=== PATIENT | male | born 1945 | race Caucasian/White ===

== ENCOUNTER → 2018-01-19 16:47 | Outpatient (CLI) | payer MEDICARE, OTHER, SELFPAY ==
[2018-01-19 18:04] LABS: AST(SGOT) 17 U/L (15-37); Alanine Aminotransfer ALT/SGPT 25 U/L (16-61); Cholesterol 171 mg/dL (200); High Density Lipoprotein 31 mg/dL; Triglycerides 375 mg/dL; Very Low Density Lipoprotein 75 mg/dL (5-40)
== END ==
PROVIDERS: Family Provider Family Medicine; PCP Family Medicine; Visit Provider Family Medicine
DX: E78.5 Hyperlipidemia, unspecified (principal)
CPT/HCPCS: 36415; 80061; 84450; 84460

== ENCOUNTER → 2018-01-28 13:26 | Outpatient (CLI) | payer MEDICARE, OTHER, SELFPAY ==
[2018-01-28 13:45] LABS: CREATININE FINGERSTICK 1.3 mg/dL (0.70-1.30)
== END ==
PROVIDERS: Family Provider Family Medicine; PCP Family Medicine; Visit Provider Family Medicine
DX: R91.1 Solitary pulmonary nodule (principal)
CPT/HCPCS: 71260; Q9967

== ENCOUNTER 2018-07-06 07:10 | Observation (INO) | payer MEDICARE, OTHER, SELFPAY ==
[2017-07-17 10:37] VITALS: BMI 28.6
[2018-07-06] VITALS (12 sets, daily range): BP systolic 137–176; BP diastolic 73–97; PULSE 61–81; RESP 16–17; TEMP 36.4–36.8; O2SAT 91–97; BMI 28.3; BMI 27.8; BMI 27.9
--- NOTE | 2018-07-06 07:30 | EKG12_ITS ---
Test Reason : DIZZY Blood Pressure : / mmHG Vent. Rate : 068 BPM Atrial Rate : 068 BPM P-R Int : 210 ms QRS Dur : 094 ms QT Int : 436 ms P-R-T Axes : 034 -12 065 degrees QTc Int : 463 ms Sinus rhythm with 1st degree A-V block Low voltage QRS (limb leads) Confirmed by MAMTA POTTS, LISA ([id number]), assistant editor CHRISTEN ALCALA ([id number]) on 07/08/2018 1:46:38 PM Referred By: NAYELI Confirmed By:LISA OLEARY MD
--- NOTE | 2018-07-06 07:30 | CT_ITS ---
STUDY: CT BRAIN WITHOUT CONTRAST REASON FOR EXAM: Male, 73 years old. VERTIGO(CONSTANT) AND NYSTAGMUS TO RIGHT RADIATION DOSAGE (If Supplied By Facility): CTDIvol = ( 44.99 ) mGy, DLP = ( 796.11 ) mGycm TECHNIQUE: Transaxial CT imaging of the brain was performed without administration of intravenous contrast material. Individualized dose optimization techniques were used for this CT. COMPARISON: None. FINDINGS: There is cerebral atrophy with widening of the extra-axial spaces and ventricular dilatation. There are areas of decreased attenuation within the white matter tracts of the supratentorial brain, consistent with microvascular disease changes. There is no intracranial hemorrhage. There are no findings of an acute ischemic infarction. Normal soft tissue structures. Normal visualized paranasal sinuses. CT/Brain/Head without Contrast IMPRESSION: Chronic involutional changes of the brain. Electronically Signed: Jd Tucker MD at 8:20 EST Tel , Service support ,
--- NOTE | 2018-07-06 07:30 | RAD_ITS ---
STUDY: X-RAY CHEST REASON FOR EXAM: Male, 73 years old. Dizziness. TECHNIQUE: Single AP portable view of the chest. COMPARISON: Comparison is made with prior examination dated December 10, 2016. FINDINGS: EKG electrodes are seen. Stable diffuse increased interstitial markings in both lungs suggestive of scarring. There has been essentially no change. There is no demonstrated pleural abnormality. Normal size heart. Normal mediastinum and gay. Normal visualized pulmonary arteries. There is atherosclerotic tortuosity of the aortic arch and descending thoracic aorta. Normal visualized thoracic spine. Normal visualized ribs, clavicles, and shoulders. There is no demonstrated abnormality of the visualized soft tissue structures of the upper abdomen. RAD/Chest 1 View IMPRESSION: Stable diffuse increased interstitial markings suggesting scarring. No acute abnormality is seen. Electronically Signed: Faisal Rangel MD at 8:35 EST Tel [phone], Service support ,
--- NOTE | 2018-07-06 07:36 | ED.VISSUMM ---
- ER Visit Summary Date of Service: 07/06/18 Chief Complaint: Motion and nausea and vomiting History of Present Illness: The patient is a 73 M who presents with dizziness that started yesterday while shopping the driveway with his . He states when he looks at objects they rotate towards the right. states yesterday he was pale and was diaphoretic. The dizziness has been constant. He states it is not as severe when supine versus upright. There may be an orthostatic component. He denies decreased hearing or ringing in his ears. He denies trouble with speech or swallowing. He does report paresthesia lower extremities, which is a chronic condition. He also informed me that he has a low oxygen level. He denies double vision or loss of vision partial or complete. There is no history of head trauma. He is on no anticoagulant. He denies melena, hematochezia or maroon colored stool. He denies bruising easily. He states he has a spot on his lung. He gets CTs every 6 months to follow the spot on his lungs. He denies headache. He denies difficulty using his arms or legs. He denies numbness on one side of his body. He reports difficulty walking. He denies chest pain, dyspnea at rest, dyspnea on exertion. He denies orthopnea or PND. He denies abdominal pain, and last bowel movement was yesterday. He denies myalgias, arthralgias or back pain. He denies urticaria or angioedema. He does report a chronic cough times 2 years. He states he has seen to off premise service representative and the etiology of his cough is unknown. Physical Examination: Vital signs noted and blood pressure is elevated 176/88. Pulse ox at rest on room air varies between 89 and 91%. Head is atraumatic normocephalic. Pupils are equal round reactive. Extraocular muscles are intact. There is nystagmus with the fast component to the right. It appears rotatory. TMs are pearly white with landmarks noted. Nares patent with no drainage. Posterior pharynx without erythema or exudate. Uvula is midline. There is no dysphonia or dysphasia. Trachea is midline. There is no stridor with auscultation of the neck. No carotid bruits were noted. Heart is regular without murmur, gallop or rub. S1 and S2 are normal. Lungs are clear to auscultation with good movement of air bilaterally. Abdomen soft nontender. There is no palpable pulsatile mass. There is no abdominal bruit. Patient does have clubbing of his fingers. There is stigmata of peripheral arterial disease lower extremity. Patient is alert and oriented ?3. Motor is 5 over 5. Sensory is intact. DTRs are symmetric with no clonus or Babinski sign. Cranial 2 through 12 are intact. Cerebellar testing is normal. NIH is 0. [place]-Hallpike maneuver was performed. This did not exacerbate his symptoms. The eye askew test is negative. Test Results: EKG reveals a sinus rhythm rate of 68 with a first-degree AV block. [place] interval is prolonged. QRS durations normal. [place] is normal. Chest x-ray reveals pulmonary fibrosis. CT of the head reviewed by me and interpreted by radiologist as no acute process. There is chronic involutional changes noted. White count is 11.9 thousand with no shift. H&H 16.6 and 49.2. Glucose is elevated 120. Troponin less than 0.015. Emergency Department Course and Treatment: Stroke evaluation order set was initiated. With complaint of dizziness, which patient defines as motion and nystagmus with central gaze that does not fatigue need to evaluate for posterior circulatory etiology versus atypical presentation for peripheral vertigo. Also need to evaluate for other causes of central nystagmus. Treatment Plan: CT of the head. He was placed on oxygen since pulse ox is low. Disposition: Hospitalist was paged for further workup of patient's vertigo and believe hypoxia secondary to pulmonary fibrosis. And, this would explain patient's clubbing and peripheral neuropathy. Impression: 1. Vertigo uncertain etiology 2. Hypoxia 3. History of pulmonary fibrosis 4. Hyperglycemia in a nondiabetic patient 5. Polycythemia vera 5. History of hypercholesterolemia This note was generated with [employer] software. It may contain incorrect words, spelling, and punctuation that were not noted in review of the chart prior to signing ED Disposition - Plan for ED Patient: Chief Complaint: Dizziness Referrals: Anayeli Marino MD [Primary Care Provider] -
--- NOTE | 2018-07-06 07:47 | ED.DCSUM_ITS ---
- ER Visit Summary Date of Service: 07/06/18 Chief Complaint: Motion and nausea and vomiting History of Present Illness: The patient is a 73 M who presents with dizziness that started yesterday while shopping the driveway with his . He states when he looks at objects they rotate towards the right. states yesterday he was pale and was diaphoretic. The dizziness has been constant. He states it is not as severe when supine versus upright. There may be an orthostatic component. He denies decreased hearing or ringing in his ears. He denies trouble with speech or swallowing. He does report paresthesia lower extremities, which is a chronic condition. He also informed me that he has a low oxygen level. He denies double vision or loss of vision partial or complete. There is no history of head trauma. He is on no anticoagulant. He denies melena, hematochezia or maroon colored stool. He denies bruising easily. He states he has a spot on his lung. He gets CTs every 6 months to follow the spot on his lungs. He denies headache. He denies difficulty using his arms or legs. He denies numbness on one side of his body. He reports difficulty walking. He denies chest pain, dyspnea at rest, dyspnea on exertion. He denies orthopnea or PND. He denies abdominal pain, and last bowel movement was yesterday. He denies myalgias, arthralgias or back pain. He denies urticaria or angioedema. He does report a chronic cough times 2 years. He states he has seen to foley artist and the etiology of his cough is unknown. Physical Examination: Vital signs noted and blood pressure is elevated 176/88. Pulse ox at rest on room air varies between 89 and 91%. Head is atraumatic normocephalic. Pupils are equal round reactive. Extraocular muscles are intact. There is nystagmus with the fast component to the right. It appears rotatory. TMs are pearly white with landmarks noted. Nares patent with no drainage. Posterior pharynx without erythema or exudate. Uvula is midline. There is no dysphonia or dysphasia. Trachea is midline. There is no stridor with auscultation of the neck. No carotid bruits were noted. Heart is regular without murmur, gallop or rub. S1 and S2 are normal. Lungs are clear to auscultation with good movement of air bilaterally. Abdomen soft nontender. There is no palpable pulsatile mass. There is no abdominal bruit. Patient does have clubbing of his fingers. There is stigmata of peripheral arterial disease lower extremity. Patient is alert and oriented ?3. Motor is 5 over 5. Sensory is intact. DTRs are symmetric with no clonus or Babinski sign. Cranial 2 through 12 are intact. Cerebellar testing is normal. NIH is 0. [place]-Hallpike maneuver was performed. This did not exacerbate his symptoms. The eye askew test is negative. Test Results: EKG reveals a sinus rhythm rate of 68 with a first-degree AV block. [place] interval is prolonged. QRS durations normal. [place] is normal. Chest x-ray reveals pulmonary fibrosis. CT of the head reviewed by me and interpreted by radiologist as no acute process. There is chronic involutional changes noted. White count is 11.9 thousand with no shift. H&H 16.6 and 49.2. Glucose is elevated 120. Troponin less than 0.015. Emergency Department Course and Treatment: Stroke evaluation order set was initiated. With complaint of dizziness, which patient defines as motion and nystagmus with central gaze that does not fatigue need to evaluate for posterior circulatory etiology versus atypical presentation for peripheral vertigo. Also need to evaluate for other causes of central nystagmus. Treatment Plan: CT of the head. He was placed on oxygen since pulse ox is low. Disposition: Hospitalist was paged for further workup of patient's vertigo and believe hypoxia secondary to pulmonary fibrosis. And, this would explain patient's clubbing and peripheral neuropathy. Impression: 1. Vertigo uncertain etiology 2. Hypoxia 3. History of pulmonary fibrosis 4. Hyperglycemia in a nondiabetic patient 5. Polycythemia vera 5. History of hypercholesterolemia This note was generated with [employer] software. It may contain incorrect words, spelling, and punctuation that were not noted in review of the chart prior to signing ED Disposition - Plan for ED Patient: Chief Complaint: Dizziness Referrals: Anayeli Marino MD [Primary Care Provider] -
[2018-07-06 07:51] LABS: Bedside Glucose 125 mg/dL (70-110)
[2018-07-06 07:52] LABS: Absolute Lymphocyte Count 2.59 X10^3/ul (0.83-4.51); Absolute Neutrophil Count 8.3 X10^3/uL (2.0-7.7); Basophil# 0.03 X10^3/uL; Basophil% 0.3 % (0-1); Eosinophil# 0.18 X10^3/uL; Eosinophils% 1.5 % (0-5); Hematocrit 49.2 % (40-54); Hemoglobin 16.6 g/dl (13.0-16.5); Lymphocyte # 2.59 X10^3/ul (4.0); Lymphocyte % 21.8 % (19-41); Mean Corp Hgb Conc 33.7 g/gl (32-36); Mean Corpuscular Hgb 32.4 pg (27.0-32.0); Mean Corpuscular Volume 96.1 fL (80-94); Mean Platelet Vol. 10.3 fl (6.2-12.0); Monocyte# 0.77 X10^3/uL; Monocyte% 6.5 % (0-10); Neutrophil # 8.26 X10^3/uL (2.7-7.7); Neutrophil % 69.6 % (47-70); Platelet Count 199 K/mm3 (150-450); RBC Distribution Width CV 13.1 % (11.6-14.6); RBC Distribution Width SD 45.9 fl (35.1-43.9); Red Blood Count 5.12 M/mm3 (4.6-6.2); White Blood Count 11.9 K/mm3 (4.4-11.0)
[2018-07-06 07:54] LABS: POSITIVE COUNT NO; POSITIVE DIFFERENTIAL NO; POSITIVE MORPHOLOGY NO
[2018-07-06 08:04] LABS: Anion Gap 9 (5-15); BUN 17 mg/dL (7-18); BUN/Creat Ratio 17.1 RATIO (10-20); Calcium,Total 8.7 mg/dL (8.5-10.1); Chloride 108 mmol/L (98-107); Creatinine, Serum 0.99 mg/dL (0.70-1.30); EST Glomerular Filtration Rate 78 mL/min (>60); Est Glom Filt Rate - Afr Amer 94 mL/min (>60); Estimated Creatinine Clearance 72.86 ml/min; Glucose 120 mg/dL (74-106); Potassium 3.6 mmol/L (3.5-5.1); Sodium Level 141 mmol/L (136-145)
[2018-07-06 08:35] LABS: International Normalized Ratio 1.1; Partial Thromboplast Time 29.3 Seconds (24.1-36.2)
--- NOTE | 2018-07-06 08:41 | NURSING ---
DR MARTINEZ FOR DR TYLER
--- NOTE | 2018-07-06 08:46 | PCM.HP.STD ---
Problem List (1) Vertigo Status: Acute (2) Pulmonary fibrosis Status: Chronic (3) Hyperlipidemia Status: Chronic Qualifiers: Hyperlipidemia type: unspecified Qualified Code(s): E78.5 - Hyperlipidemia, unspecified History of Present Illness Date of Admission: 07/06/18 Chief Complaint: Dizziness -2 days The patient is a 73 year old M with medical history of hyperlipidemia, pulmonary fibrosis, pulmonary nodule, nicotine dependence who was shoveling snow and felt dizzy, he came back into the house. His helped him take his clothes off. He has since been intermittently dizzy, worse with getting up from lying to sitting. Denied any palpitations or shortness of breath or chest discomfort. Denied any recent upper respiratory illness or diarrhea illness. He described his dizziness as the room being unsteady. Denies any ringing in his ears or hearing loss. No recent new medications. Vitals in the ED show temperature of 97.5F, blood pressure 176/80, respiratory rate 70, SPO2 91% on room air. Admitting blood work showed RBC count 11.9, hemoglobin 16.6, platelet count 199, INR 1.1, BMP was essentially unremarkable CTScan of the head showed chronic involutional changes. Chest x-ray showed interstitial markings suggestive of scarring. No acute cardiopulmonary process was seen. Past Medical History Past Medical History (Chronic Problems): Chronic Problems (Last Reviewed 07/06/18 @ 11:47 by Jalil Murillo MD) Hyperlipidemia (Chronic) F/H of alcoholism (Chronic) Chronic cough (Chronic) Tobacco abuse (Chronic) Abnormal chest xray (Chronic) Bronchiectasis without complication (Chronic) Pulmonary fibrosis (Chronic) Medical History: Medical History (Last Reviewed 07/06/18 @ 11:47 by Jalil Murillo MD) F/H of alcoholism (Chronic) Z81.1 Chronic cough (Chronic) R05 Tobacco abuse (Chronic) Z72.0 Abnormal chest xray (Chronic) R93.8 Bronchiectasis without complication (Chronic) J47.9 Pulmonary fibrosis (Chronic) J84.10 Allergies No Known Allergies Allergy (Verified 02/13/15 16:01) Home Medications: Ambulatory Orders Medication Instructions Recorded Atorvastatin Calcium [Lipitor] 10 mg PO QHS 02/13/15 Surgical History: Surgical History (Last Reviewed 07/06/18 @ 11:47 by Jalil Murillo MD) History of hernia surgery (Resolved) Z98.890, Z87.19 History of appendectomy (Resolved) Z98.890, Z90.49 Surgical History: appendectomy, herniorrhaphy - right Psychiatric History: No pertinent psych hx Lives: Spouse/ Significant Other Smoking Status: Current every day smoker Tobacco Use: Cigarettes Alcohol: None Drugs: None - *Family History Maternal Family History: Family History (Last Reviewed 07/17/17 @ 10:44 by Pamela Camarena) Sister Alcoholism Liver failure Brain malignancy Father CVA (cerebral vascular accident) History Items: No pertinent history Paternal Family History: Family History (Last Reviewed 07/17/17 @ 10:44 by Pamela Camarena) Sister Alcoholism Liver failure Brain malignancy Father CVA (cerebral vascular accident) History Items: Stroke Sibling Family History: Family History (Last Reviewed 07/17/17 @ 10:44 by Pamela Camarena) Sister Alcoholism Liver failure Brain malignancy Father CVA (cerebral vascular accident) History Items: - - cirrhosis, brain cancer Review of Systems Constitutional: Denies: Anorexia, Chills, Fever, Malaise, Weakness, Weight Change Eyes: Denies: Blurred vision, Cataracts, Conjunctivae Inflammation, Pain, Redness HEENT: Denies: Difficulty Hearing, Difficulty Swallowing, Head Aches, Hearing Changes, Sinus Congestion, Sinus Drainage, Sore Throat Cardiovascular: Denies: Chest Pain, Claudication, Orthopnea, Palpitations, Paroxysmal Noc. Dyspnea Respiratory: Denies: Cough, Hemoptysis, Shortness of breath at rest, Shortness of breath upon exertion, Sputum production Gastrointestinal: Denies: Abdominal Pain, Constipation, Hematemesis, Hematochezia, Nausea, Vomiting Genitourinary: Denies: Dysuria, Frequency, Retention, Urgency Musculoskeletal: Denies: Arm Pain, Joint Pain, Joint stiffness, Joint swelling, Joint Tenderness Skin: Denies: Rash, Wounds Neurological: Reports: Balance problems, - - dizziness. Denies: Focal weakness, Numbness, Tingling Psychiatric: Denies: Anxiety, Depression, Homicidal Ideations, Suicidal Ideations Hematologic/ Lymphatic: Denies: Easy Bruising, Easy Bleeding VTE Information - Inpt Only VTE Present on Admission: No VTE Pharm Prophylaxis ordered?: Yes Patient Problems: Active and Suspected Problems (Last Reviewed 07/06/18 @ 11:47 by Jalil Murillo MD) Vertigo (Acute) - Physical Exam General: Alert, Oriented x3, Cooperative, No apparent distress HEENT: Atraumatic, PERRLA, EOMI, Normocephalic Oral: Moist Mucosa Neck: Supple, No JVD, Negative Carotid Bruits Lungs: Clear to auscultation, Normal air movement Cardiovascular: Regular rate, Regular Rhythm, Normal S1, Normal S2, No murmurs Abdomen: Bowel Sounds Present, Soft, Non Tender, Non-Distended, No Hepato-splenomegaly Extremities: No edema Skin: No rashes, No breakdown Musculoskeletal: No Tenderness to Palpation of Joints or Extremities Lymphatic: No Cervical, Supraclavicular, or Inguinal Adenopathy Neurological: Cranial nerves II-XII grossly intact, Neuro grossly intact, - - Horizontal and vertical nystagmus seen, no cerebellar signs, did not walk patient Psych/Mental Status: Normal Affect, Appropriate Vital Signs Temp Pulse Resp BP Pulse Ox 97.5 F L 72 16 139/97 H 91 07/06/18 07:10 07/06/18 08:13 07/06/18 08:13 07/06/18 08:13 07/06/18 08:13 Oxygen Flow Rate (L/min) 2 Oxygen Delivery Method Nasal Cannula Weight: 97.522 kg Body Mass Index (BMI) 28.3 Finger Stick Blood Glucose 125 Laboratory Tests Past 24 Hrs 07/06/18 07/06/18 07/06/18 07:40 07:40 07:40 WBC 11.9 H RBC 5.12 Hgb 16.6 H Hct 49.2 MCV 96.1 H MCH 32.4 H MCHC 33.7 RDW 13.1 RDW Differential 45.9 H Plt Count 199 MPV 10.3 Immature Gran % (Auto) 0.300 Neut % (Auto) 69.6 Lymph % (Auto) 21.8 [place] % (Auto) 6.5 Eos % (Auto) 1.5 Baso % (Auto) 0.3 Absolute Neuts (auto) 8.3 H Absolute Lymphs (auto) 2.59 Total Counted Not Reportable PT 14.0 INR 1.1 APTT 29.3 Sodium 141 Potassium 3.6 Chloride 108 H Carbon Dioxide 24.0 Anion Gap 9 BUN 17 Creatinine 0.99 Estim Creat Clear Calc 72.86 Est GFR (MDRD) Af Amer 94 Est GFR (MDRD) Non-Af 78 BUN/Creatinine Ratio 17.1 Glucose 120 H Calcium 8.7 Troponin I < 0.015 POC Glucose 07/06/18 07:46 POC Glucose 125 H Assessment/Plan All Active Problems (Last Reviewed 07/06/18 @ 11:47 by Jalil Murillo MD) Vertigo (Acute) History of hernia surgery (Resolved) History of appendectomy (Resolved) 73 year old M with medical history of hyperlipidemia, pulmonary fibrosis, pulmonary nodule, nicotine dependence who was shoveling snow and felt dizzy and dizziness has persistent since. 1. Acute onset of dizziness, likely related to BPPV, will need to rule out posterior circulation stroke, Plan: Admit to PCU, monitor on telemetry, MRI of the brain, MRA of the head and neck, neurology consult, aspirin 81 mg p.o. daily, PT and OT to evaluate 2. Hyperlipidemia, on statin 3. Nicotine dependence, advised to quit, refused replacement 4. Pulmonary fibrosis/pulmonary nodule, not requiring oxygen, will continue on prn breathing treatment 5. DVT PPx- Lovenox SC Code Visit OBSV E&M: [id number] Initial observation care L3
--- NOTE | 2018-07-06 08:48 | NURSING ---
PCU VERTIGO, HYPOXIA, HX OF HIGH CHOLESTROL, TOBACCO USE PAINTSIL
--- NOTE | 2018-07-06 09:41 | MRI_ITS ---
STUDY: MRA OF THE HEAD WITHOUT CONTRAST REASON FOR EXAM: Male, 73 years old. Dizziness and lightheadedness TECHNIQUE: 3-D whct-gm-hfksow (TOF) imaging was performed with MIPs. The study was performed unenhanced. COMPARISON: None. FINDINGS: Normal bilateral petrous carotid arteries. Normal right cavernous carotid artery with a normal supraclinoid bifurcation. Normal left cavernous carotid artery with a normal supraclinoid bifurcation. Normal right A1 segments of the anterior cerebral artery. Normal left A1 segments of the anterior cerebral artery. Normal intact anterior communicating artery (ACOM). Normal bilateral A2 segments of the anterior cerebral arteries. Normal right M1 and M2 segments of the middle cerebral arteries, with a normal M1 bifurcation. Normal left M1 and M2 segments of the middle cerebral arteries, with a normal M1 bifurcation. Posterior communicating arteries are not visualized consistent with normal variant. Normal bilateral vertebral arteries. Normal basilar artery with a normal basilar bifurcation. The visualized bilateral superior cerebellar (SCA) arteries are normal. Normal bilateral P1, P2 and visualized P3 segments of the posterior cerebral arteries. There is no demonstrated aneurysm of the [place]. There is no major vessel occlusion or hemodynamically significant stenosis. There is no demonstrated abnormality of the visualized brain. MRI/MRA Head ONLY without Contrast IMPRESSION: Normal MRA of the head Electronically Signed: Lev Addison MD at 16:03 EST , Service support ,
--- NOTE | 2018-07-06 09:41 | MRI_ITS ---
STUDY: MRI BRAIN WITHOUT CONTRAST REASON FOR EXAM: Male, 73 years old. Dizziness and lightheadedness TECHNIQUE: Standardized multiplanar fat and water weighted pulse sequences were obtained. COMPARISON: CT of the brain on July 06, 2018. FINDINGS: Mild atrophy and moderate periventricular white matter ischemic changes without mass effect or restricted diffusion.. Normal bilateral basal ganglia. Normal thalami. There is no extra-axial fluid accumulation. Normal flow voids within the major intracranial circulation suggesting patency by spin echo criteria. Normal sella turcica, pituitary gland, infundibular stalk, optic chiasm and hypothalamus. Normal tectal plate and pineal gland. Normal midbrain, thiago and medulla. Normal cerebellum. Normal basal cisterns. Normal bilateral temporal bones. Normal bilateral internal auditory canals. No demonstrated orbital abnormality, within the constraints of a routine brain study. Mild mucosal thickening of the ethmoid air cells.. Normal calvarium and skull base. Normal visualized soft tissue structures. Normal visualized upper cervical spine. MRI/Brain without Contrast IMPRESSION: Moderate periventricular white matter ischemic changes without evidence for acute infarct. Electronically Signed: Lev Addison MD at 16:03 EST , Service support ,
--- NOTE | 2018-07-06 09:41 | MRI_ITS ---
STUDY: MRA NECK WITH AND WITHOUT CONTRAST REASON FOR EXAM: Male, 73 years old. Dizziness and lightheadedness TECHNIQUE: 3-D ghyi-al-kyzsif (TOF) imaging was performed in an 1.5 T MRI scanner. 10 ml of Gadavist was administered for the contrast enhanced images. COMPARISON: None. FINDINGS: RIGHT CAROTID ARTERIES: Normal right common carotid artery (CCA). Normal right common carotid bulb. Normal origin of the right internal carotid (ICA) artery without a hemodynamically significant stenosis. Normal visualized cervical portion of the right internal carotid artery. Normal origin of the right external carotid artery (ECA). LEFT CAROTID ARTERIES: Normal left common carotid artery (CCA). Normal left common carotid bulb. Normal origin of the left internal carotid (ICA) artery without a hemodynamically significant stenosis. Normal visualized cervical portion of the left internal carotid artery. Normal origin of the left external carotid artery (ECA). VERTEBRAL ARTERIES: Normal antegrade flow within the bilateral vertebral artery without a hemodynamically significant stenosis. MRI/MRA Neck WITH and W/O Contrast IMPRESSION: Normal bilateral cervical carotid and vertebral arteries. Electronically Signed: Lev Addison MD at 16:04 EST , Service support ,
--- NOTE | 2018-07-06 11:44 | PCM.CONS.GEN ---
Reason for Consult Date of Consultation: 07/06/18 Reason for Consultation: vertigo History of Present Illness: yesterday when awoke from a nap at 1400 felt dizzy, still dizzy which motion. descirbes sensation of movement. describes lightheaded. also n/v. reports symptoms estefanía if motionless. reports remembering the moment this started as when he sat up from the nap. Past Medical History Past Medical History (Chronic Problems): Chronic Problems (Last Updated 07/11/17 @ 14:41 by Pamela Camarena) Hyperlipidemia (Chronic) F/H of alcoholism (Chronic) Chronic cough (Chronic) Tobacco abuse (Chronic) Abnormal chest xray (Chronic) Bronchiectasis without complication (Chronic) Pulmonary fibrosis (Chronic) Medical History: Medical History (Last Reviewed 07/06/18 @ 11:47 by Jalil Murillo MD) F/H of alcoholism (Chronic) Z81.1 Chronic cough (Chronic) R05 Tobacco abuse (Chronic) Z72.0 Abnormal chest xray (Chronic) R93.8 Bronchiectasis without complication (Chronic) J47.9 Pulmonary fibrosis (Chronic) J84.10 Allergies No Known Allergies Allergy (Verified 02/13/15 16:01) Home Medications: Ambulatory Orders Medication Instructions Recorded Atorvastatin Calcium [Lipitor] 10 mg PO QHS 02/13/15 Surgical History: Surgical History (Last Reviewed 07/06/18 @ 11:47 by Jalil Murillo MD) History of hernia surgery (Resolved) Z98.890, Z87.19 History of appendectomy (Resolved) Z98.890, Z90.49 Smoking Status: Current every day smoker Tobacco Use: Cigarettes Alcohol: None Review of Systems Constitutional: Denies: Chills, Fever, Weight Change HEENT: Denies: Head Aches, Sinus Congestion, Sinus Drainage Cardiovascular: Denies: Chest Pain, Palpitations Respiratory: Denies: Cough, Shortness of breath at rest, Sputum production Gastrointestinal: Denies: Abdominal Pain, Nausea, Vomiting Genitourinary: Denies: Dysuria Musculoskeletal: Denies: Joint Pain, Joint Tenderness Skin: Denies: Rash, Wounds Neurological: Denies: Numbness, Tingling, Focal weakness Psychiatric: Denies: Anxiety, Depression, Homicidal Ideations, Suicidal Ideations Hematologic/ Lymphatic: Denies: Easy Bruising, Easy Bleeding Patient Problems: Active and Suspected Problems (Last Updated 07/11/17 @ 14:41 by Pamela Camarena) Vertigo (Acute) - Physical Exam General: Alert, Oriented x3, Cooperative, No apparent distress HEENT: Atraumatic, EOMI Neurological: Cranial nerves II-XII grossly intact, Deep Tendon Reflexes 2+/4 and Symmetrical, Neuro grossly intact, Motor Exam 5/5 strength throughout, Sensory exam intact to light touch and pain Psych/Mental Status: Normal Affect, Alert and oriented to time, place, person, mood and affect Vital Signs Temp Pulse Resp BP Pulse Ox 36.6 C 74 17 142/88 H 97 07/06/18 09:32 07/06/18 09:32 07/06/18 09:32 07/06/18 09:32 07/06/18 09:32 Oxygen Flow Rate (L/min) 2 Oxygen Delivery Method Nasal Cannula Weight: 95.8 kg Body Mass Index (BMI) 27.8 Finger Stick Blood Glucose 125 Laboratory Tests Past 24 Hrs 07/06/18 07/06/18 07/06/18 07:40 07:40 07:40 WBC 11.9 H RBC 5.12 Hgb 16.6 H Hct 49.2 MCV 96.1 H MCH 32.4 H MCHC 33.7 RDW 13.1 RDW Differential 45.9 H Plt Count 199 MPV 10.3 Immature Gran % (Auto) 0.300 Neut % (Auto) 69.6 Lymph % (Auto) 21.8 [place] % (Auto) 6.5 Eos % (Auto) 1.5 Baso % (Auto) 0.3 Absolute Neuts (auto) 8.3 H Absolute Lymphs (auto) 2.59 Total Counted Not Reportable PT 14.0 INR 1.1 APTT 29.3 Sodium 141 Potassium 3.6 Chloride 108 H Carbon Dioxide 24.0 Anion Gap 9 BUN 17 Creatinine 0.99 Estim Creat Clear Calc 72.86 Est GFR (MDRD) Af Amer 94 Est GFR (MDRD) Non-Af 78 BUN/Creatinine Ratio 17.1 Glucose 120 H Calcium 8.7 Troponin I < 0.015 POC Glucose 07/06/18 07:46 POC Glucose 125 H Current Home Med List Medication Instructions Recorded Confirmed Type Atorvastatin Calcium [Lipitor] 10 mg PO QHS 02/13/15 07/06/18 History Current Medications Acetaminophen 650 mg 07/06/18 09:41 Tylenol PO Q6H PRN PRN Mild Pain (1-3)/Temp > 100.7 F Atorvastatin Calcium 10 mg 07/06/18 22:00 Lipitor PO QHS [facility] Enoxaparin Sodium 40 mg 07/06/18 11:00 Lovenox SC DAILY@1000 ELLEN Sodium Chloride 1,000 mls @ 100 mls/hr 07/06/18 09:41 IV .Q10H [facility] Magnesium Hydroxide 30 ml 07/06/18 09:41 Milk Of Magnesia PO DAILY PRN Constipation Oxycodone HCl 5 mg 07/06/18 09:41 Oxyir PO Q4H PRN PRN MOD-SEVERE PAIN (4-10/10) Psyllium Hydrophilic Mucilloid 1 packet 07/06/18 09:41 Metamucil PO DAILY PRN PRN CONSTIPATION Senna/Docusate Sodium 2 tablet 07/06/18 11:00 07/06/18 10:12 Senokot-S, Eliza-Colace PO Not Given BID [facility] Assessment/Plan All Active Problems (Last Reviewed 07/17/17 @ 10:44 by Pamela Camarena) Vertigo (Acute) History of hernia surgery (Resolved) History of appendectomy (Resolved)
--- NOTE | 2018-07-06 11:50 | CON.PCM_ITS ---
Reason for Consult Date of Consultation: 07/06/18 Reason for Consultation: vertigo History of Present Illness: yesterday when awoke from a nap at 1400 felt dizzy, still dizzy which motion. descirbes sensation of movement. describes lightheaded. also n/v. reports symptoms estefanía if motionless. reports remembering the moment this started as when he sat up from the nap. Past Medical History Past Medical History (Chronic Problems): Chronic Problems (Last Updated 07/11/17 @ 14:41 by Pamela Camarena) Hyperlipidemia (Chronic) F/H of alcoholism (Chronic) Chronic cough (Chronic) Tobacco abuse (Chronic) Abnormal chest xray (Chronic) Bronchiectasis without complication (Chronic) Pulmonary fibrosis (Chronic) Medical History: Medical History (Last Reviewed 07/06/18 @ 11:47 by Jalil Murillo MD) F/H of alcoholism (Chronic) Z81.1 Chronic cough (Chronic) R05 Tobacco abuse (Chronic) Z72.0 Abnormal chest xray (Chronic) R93.8 Bronchiectasis without complication (Chronic) J47.9 Pulmonary fibrosis (Chronic) J84.10 Allergies No Known Allergies Allergy (Verified 02/13/15 16:01) Home Medications: Ambulatory Orders Medication Instructions Recorded Atorvastatin Calcium [Lipitor] 10 mg PO QHS 02/13/15 Surgical History: Surgical History (Last Reviewed 07/06/18 @ 11:47 by Jalil Murillo MD) History of hernia surgery (Resolved) Z98.890, Z87.19 History of appendectomy (Resolved) Z98.890, Z90.49 Smoking Status: Current every day smoker Tobacco Use: Cigarettes Alcohol: None Review of Systems Constitutional: Denies: Chills, Fever, Weight Change HEENT: Denies: Head Aches, Sinus Congestion, Sinus Drainage Cardiovascular: Denies: Chest Pain, Palpitations Respiratory: Denies: Cough, Shortness of breath at rest, Sputum production Gastrointestinal: Denies: Abdominal Pain, Nausea, Vomiting Genitourinary: Denies: Dysuria Musculoskeletal: Denies: Joint Pain, Joint Tenderness Skin: Denies: Rash, Wounds Neurological: Denies: Numbness, Tingling, Focal weakness Psychiatric: Denies: Anxiety, Depression, Homicidal Ideations, Suicidal Ideations Hematologic/ Lymphatic: Denies: Easy Bruising, Easy Bleeding Patient Problems: Active and Suspected Problems (Last Updated 07/11/17 @ 14:41 by Pamela Camarena) Vertigo (Acute) - Physical Exam General: Alert, Oriented x3, Cooperative, No apparent distress HEENT: Atraumatic, EOMI Neurological: Cranial nerves II-XII grossly intact, Deep Tendon Reflexes 2+/4 and Symmetrical, Neuro grossly intact, Motor Exam 5/5 strength throughout, Sensory exam intact to light touch and pain Psych/Mental Status: Normal Affect, Alert and oriented to time, place, person, mood and affect Vital Signs Temp Pulse Resp BP Pulse Ox 36.6 C 74 17 142/88 H 97 07/06/18 09:32 07/06/18 09:32 07/06/18 09:32 07/06/18 09:32 07/06/18 09:32 Oxygen Flow Rate (L/min) 2 Oxygen Delivery Method Nasal Cannula Weight: 95.8 kg Body Mass Index (BMI) 27.8 Finger Stick Blood Glucose 125 Laboratory Tests Past 24 Hrs 07/06/18 07/06/18 07/06/18 07:40 07:40 07:40 WBC 11.9 H RBC 5.12 Hgb 16.6 H Hct 49.2 MCV 96.1 H MCH 32.4 H MCHC 33.7 RDW 13.1 RDW Differential 45.9 H Plt Count 199 MPV 10.3 Immature Gran % (Auto) 0.300 Neut % (Auto) 69.6 Lymph % (Auto) 21.8 [place] % (Auto) 6.5 Eos % (Auto) 1.5 Baso % (Auto) 0.3 Absolute Neuts (auto) 8.3 H Absolute Lymphs (auto) 2.59 Total Counted Not Reportable PT 14.0 INR 1.1 APTT 29.3 Sodium 141 Potassium 3.6 Chloride 108 H Carbon Dioxide 24.0 Anion Gap 9 BUN 17 Creatinine 0.99 Estim Creat Clear Calc 72.86 Est GFR (MDRD) Af Amer 94 Est GFR (MDRD) Non-Af 78 BUN/Creatinine Ratio 17.1 Glucose 120 H Calcium 8.7 Troponin I < 0.015 POC Glucose 07/06/18 07:46 POC Glucose 125 H Current Home Med List Medication Instructions Recorded Confirmed Type Atorvastatin Calcium [Lipitor] 10 mg PO QHS 02/13/15 07/06/18 History Current Medications Acetaminophen 650 mg 07/06/18 09:41 Tylenol PO Q6H PRN PRN Mild Pain (1-3)/Temp > 100.7 F Atorvastatin Calcium 10 mg 07/06/18 22:00 Lipitor PO QHS [facility] Enoxaparin Sodium 40 mg 07/06/18 11:00 Lovenox SC DAILY@1000 ELLEN Sodium Chloride 1,000 mls @ 100 mls/hr 07/06/18 09:41 IV .Q10H [facility] Magnesium Hydroxide 30 ml 07/06/18 09:41 Milk Of Magnesia PO DAILY PRN Constipation Oxycodone HCl 5 mg 07/06/18 09:41 Oxyir PO Q4H PRN PRN MOD-SEVERE PAIN (4-10/10) Psyllium Hydrophilic Mucilloid 1 packet 07/06/18 09:41 Metamucil PO DAILY PRN PRN CONSTIPATION Senna/Docusate Sodium 2 tablet 07/06/18 11:00 07/06/18 10:12 Senokot-S, Eliza-Colace PO Not Given BID [facility] Assessment/Plan All Active Problems (Last Reviewed 07/17/17 @ 10:44 by Pamela Camarena) Vertigo (Acute) History of hernia surgery (Resolved) History of appendectomy (Resolved)
[2018-07-06] MEDS: 0.9% Normal Saline 1,000 ML 100 ML IV (12:25)
[2018-07-06] MEDS: Enoxaparin 40 MG/0.4 ML Syringe SC (12:26)
[2018-07-06] MEDS: Aspirin 81 MG TAB.CHEW PO (15:34)
[2018-07-06] MEDS: Atorvastatin Calcium 10 MG Tablet PO (21:11)
[2018-07-07] VITALS (8 sets, daily range): BP systolic 128–144; BP diastolic 72–90; PULSE 32–79; RESP 16–21; TEMP 36.7–36.9; O2SAT 92–96
[2018-07-07] MEDS: 0.9% Normal Saline 1,000 ML 100 ML IV (00:11)
--- NOTE | 2018-07-07 06:00 | EKG12_ITS ---
Test Reason : CHEST BURNING Blood Pressure : / mmHG Vent. Rate : 064 BPM Atrial Rate : 064 BPM P-R Int : 200 ms QRS Dur : 098 ms QT Int : 426 ms P-R-T Axes : 009 -20 066 degrees QTc Int : 439 ms Normal sinus rhythm Leftward axis Inferior AK, age undetermined, cannot be excluded Confirmed by MAMTA POTTS, LISA ([id number]), video tape editor CHRISTEN ALCALA ([id number]) on 07/08/2018 1:57:42 PM Referred By: TALYA Confirmed By:LISA OLEARY MD
[2018-07-07 06:28] LABS: Anion Gap 10 (5-15); BUN 15 mg/dL (7-18); BUN/Creat Ratio 15.9 RATIO (10-20); Calcium,Total 8.3 mg/dL (8.5-10.1); Chloride 112 mmol/L (98-107); Creatinine, Serum 0.94 mg/dL (0.70-1.30); EST Glomerular Filtration Rate 83 mL/min (>60); Est Glom Filt Rate - Afr Amer 100 mL/min (>60); Estimated Creatinine Clearance 76.74 ml/min; Glucose 95 mg/dL (74-106); Sodium Level 143 mmol/L (136-145)
--- NOTE | 2018-07-07 07:10 | NURSING ---
Addendum entered by Porsche Wiseman 07/07/18 07:51: Pauses noted on monitor as well. None greater than 3 seconds noted. Original Note: Pt lukas into 30s frequently this shift. Pt c/o dizziness throughout shift. Pt was admitted with dizziness. MD aware of bradying.
[2018-07-07] MEDS: Enoxaparin 40 MG/0.4 ML Syringe SC (09:05)
[2018-07-07] MEDS: Aspirin 81 MG TAB.CHEW PO (09:05)
--- NOTE | 2018-07-07 09:30 | DCINST_ITS ---
- Discharge Diagnoses Current Active Problems: Current Active and Chronic Problems (Last Reviewed 07/06/18 @ 11:47 by Jalil Murillo MD) Vertigo (Acute) Hyperlipidemia (Chronic) You will use the following diet at home:: No restrictions Discharge Activity: Return to Normal Activity Call your doctor if you observe: Numbness or Tingling, Shortness of breath, Dizziness, Fainting spells, Chest pain Allergies/Adverse Reactions: Allergies No Known Allergies Allergy (Verified 02/13/15 16:01) Medications to take at Discharge Atorvastatin Calcium [Lipitor] 10 mg PO QHS 02/13/15 Meclizine HCl [Antivert] 25 mg PO TID PRN PRN #21 tablet 07/07/18 The following prescriptions were given: Meclizine HCl [Antivert] 25 mg PO TID PRN PRN #21 tablet PRN Reason: Vertigo Primary Care Physician: Anayeli Marino MD [Primary Care Provider] - Please follow up with your Primary Care Physician in: 1 Week Test Results: Test results from this visit will be discussed in further detail at your follow- up appointment, if applicable. Please Follow Up With: Cesar Shelton MD When: Call for soonest appt. Proposed Discharge Date: 07/07/18
--- NOTE | 2018-07-07 09:30 | PCM.DC.SUM ---
<Jenelle Balbuena - Last Filed: 07/07/18 09:47> Discharge Date and Diagnosis Date of Admission: 07/06/18 Date of Discharge: 07/07/18 - Primary Discharge Diagnosis Active and Suspected Problems (Last Reviewed 07/06/18 @ 11:47 by Jalil Murillo MD) 1. Vertigo, BPPV 2. CVA ruled out 3. Hyperlipemia 4. Pulmonary fibrosis/pulmonary nodule 5. Tobacco dependence - Secondary Discharge Diagnosis Chronic Problems (Last Reviewed 07/06/18 @ 11:47 by Jalil Murillo MD) Hyperlipidemia (Chronic) F/H of alcoholism (Chronic) Chronic cough (Chronic) Tobacco abuse (Chronic) Abnormal chest xray (Chronic) Bronchiectasis without complication (Chronic) Pulmonary fibrosis (Chronic) Hospital Course and Treatment Imaging Results: Diagnostic Data Brain CT 07/06/18 07:30 IMPRESSION: Chronic involutional changes of the brain. Electronically Signed: Jd Tucker MD at 8:20 EST Tel , Service support , Chest X-Ray 07/06/18 07:30 IMPRESSION: Stable diffuse increased interstitial markings suggesting scarring. No acute abnormality is seen. Electronically Signed: Faisal Rangel MD at 8:35 EST Tel [phone], Service support , Brain MRI 07/06/18 09:41 IMPRESSION: Moderate periventricular white matter ischemic changes without evidence for acute infarct. Electronically Signed: Lev Addison MD at 16:03 EST , Service support , Head MRA 07/06/18 09:41 IMPRESSION: Normal MRA of the head Electronically Signed: Lev Addison MD at 16:03 EST , Service support , Neck MRA 07/06/18 09:41 IMPRESSION: Normal bilateral cervical carotid and vertebral arteries. Electronically Signed: Lev Addison MD at 16:04 EST , Service support , Dr. Murillo- Neurology Operations: None Procedures: None Summary of Care Provided: The patient is a 73 year old M admitted 07/06/2018 due to dizziness times 2 days. He has a past medical history of hyperlipidemia, pulmonary fibrosis, pulmonary nodule, tobacco dependence. Chest x-ray without acute process, interstitial markings suggestive of scarring. Troponin negative. MRI of brain without evidence of acute infarct. Neck MRA with normal bilateral cervical carotid and vertebral arteries. CVA ruled out. Neurology following. Suspect vertigo, BPPV. Patient's dizziness improved however continues to have positional dizziness. PT for vestibular therapy. Meclazine 25mg TID PRN for vertigo. Outpatient referral to ENT for further vestibular therapy. Follow-up with primary care physician in 1 week. General: Alert, Oriented x3, Cooperative, No apparent distress HEENT: Atraumatic, PERRLA, EOMI, Normocephalic Oral: Moist Mucosa Neck: Supple, No JVD, Negative Carotid Bruits Lungs: Clear to auscultation, Normal air movement Cardiovascular: Regular rate, Regular Rhythm, Normal S1, Normal S2, No murmurs Abdomen: Bowel Sounds Present, Soft, Non Tender, Non-Distended Extremities: No edema Skin: No rashes, No breakdown Musculoskeletal: No Tenderness to Palpation of Joints or Extremities Lymphatic: No Cervical, Supraclavicular, or Inguinal Adenopathy Neurological: Cranial nerves II-XII grossly intact, Neuro grossly intact Psych/Mental Status: Normal Affect, Appropriate Patient seen and examined prior to discharge. Physical assessment as noted above. Patient is stable for discharge with follow up recommendations as noted above. This patient was seen by ABIGAIL Mora under the supervision of Dr. Toscano. - Physical Exam Vital Signs Temp Pulse Resp BP Pulse Ox 98.5 F 32 L 16 134/75 H 92 07/07/18 06:03 07/07/18 07:39 07/07/18 06:03 07/07/18 06:03 07/07/18 06:03 Oxygen Flow Rate (L/min) 2 Oxygen Delivery Method Room Air Weight: 211 lb 3.245 oz Body Mass Index (BMI) 27.8 Finger Stick Blood Glucose 125 Orthostatic Vital Signs Start: 07/07/18 06:02 Freq: q24h Status: Active Protocol: Activity Type Activity Date Activity User E-Sign Co-Sign Detail Recorded Client Recorded Date Recorded By Document 07/07/18 06:02 KRIS [id number] 07/07/18 06:03 [facility] [place] 06:02 Orthostatic Vitals Standing -Blood Pressure (90/60-120/80) 141/87 H -Extremity Use Right Arm -Pulse Rate (60-100) 79 Sitting -Blood Pressure (90/60-120/80) 144/90 H -Extremity Use Right Arm -Pulse Rate (60-100) 68 Lying -Blood Pressure (90/60-120/80) 134/75 H -Extremity Use Right Arm -Pulse Rate (60-100) 67 Intake and Output for Last 24 Hours 07/05/18 07/06/18 07/07/18 23:59 23:59 23:59 Intake Total 2756 / 2756 730 / 730 Output Total 650 / 650 Balance 2106 / 2106 730 / 730 Laboratory Tests Past 24 Hrs 07/07/18 05:10 Sodium 143 Potassium 4.0 Chloride 112 H Carbon Dioxide 21.0 Anion Gap 10 BUN 15 Creatinine 0.94 Estim Creat Clear Calc 76.74 Est GFR (MDRD) Af Amer 100 Est GFR (MDRD) Non-Af 83 BUN/Creatinine Ratio 15.9 Glucose 95 Calcium 8.3 L Discharge Diet: No Restrictions Discharge Activity: Return to Normal Activity Call your doctor if you observe: Numbness or Tingling, Shortness of breath, Dizziness, Fainting spells, Chest pain Home Medications: Medications to take at Discharge Atorvastatin Calcium [Lipitor] 10 mg PO QHS 02/13/15 Meclizine HCl [Antivert] 25 mg PO TID PRN PRN #21 tablet 07/07/18 Following Prescrptions Were Given to Patient: Meclizine HCl [Antivert] 25 mg PO TID PRN PRN #21 tablet PRN Reason: Vertigo Primary Care Physician: Anayeli Marino MD [Primary Care Provider] - Please follow up with your Primary Care Physician in: 1 Week Please Follow Up With: Cesar Shelton MD When: [facility] Disposition: Home Minutes spent on discharge:: 35 Patient Condition:: Stable Medical Necessity - Tobacco Use Smoking Status: Current every day smoker Tobacco Use: Cigarettes Meaningful Use Info Meaningful Use Diagnoses (Choose all that apply): None applicable <Alejandra Toscano - Last Filed: 07/07/18 11:30> Discharge Date and Diagnosis - Secondary Discharge Diagnosis Chronic Problems (Last Reviewed 07/06/18 @ 11:47 by Jalil Murillo MD) Hyperlipidemia (Chronic) F/H of alcoholism (Chronic) Chronic cough (Chronic) Tobacco abuse (Chronic) Abnormal chest xray (Chronic) Bronchiectasis without complication (Chronic) Pulmonary fibrosis (Chronic) Hospital Course and Treatment Summary of Care Provided: This patient was seen in conjunction with Jenelle Balbuena NP. I have independently interviewed and examined the patient and reviewed pertinent historical, laboratory, and other data. Please refer to her note for patient's presentation, findings, and recommendations. 73 year old M with medical history of hyperlipidemia, pulmonary fibrosis, pulmonary nodule, nicotine dependence who was shoveling snow and felt dizzy, ongoing for 2 days. Patient was seen in the emergency department. CT of the head was negative for any acute intracranial process. He was admitted to telemetry bed. Neurology was consulted. MRI of the brain as well as MRI of the head and neck was negative for any intracranial process. Patient was seen by PT and OT, vascular therapy recommended, he was started on meclizine. He will follow-up in the outpatient with ENT and vestibular therapy. He was advised to quit smoking Subjective: Patient was seen and examined. Dizziness has improved. Been ambulating with therapy with minimal dizziiness. MRI, MRA of head and neck have been negative for acute stroke. No events on telemetry. Objective: Physical Exam General: Alert, Oriented x3, Cooperative, No apparent distress HEENT: Atraumatic, PERRLA, EOMI, Normocephalic Oral: Moist Mucosa Neck: Supple, No JVD, Negative Carotid Bruits Lungs: Clear to auscultation, Normal air movement Cardiovascular: Regular rate, Regular Rhythm, Normal S1, Normal S2, No murmurs Abdomen: Bowel Sounds Present, Soft, Non Tender, Non-Distended, No Hepato-splenomegaly Extremities: No edema Skin: No rashes, No breakdown Musculoskeletal: No Tenderness to Palpation of Joints or Extremities Lymphatic: No Cervical, Supraclavicular, or Inguinal Adenopathy Neurological: Cranial nerves II-XII grossly intact, Neuro grossly intact, Psych/Mental Status: Normal Affect, Appropriate - Physical Exam Vital Signs Temp Pulse Resp BP Pulse Ox 98.0 F 64 18 131/75 H 93 07/07/18 10:16 07/07/18 11:00 07/07/18 10:16 07/07/18 10:16 07/07/18 10:16 Oxygen Flow Rate (L/min) 2 Oxygen Delivery Method Room Air Weight: 95.8 kg Body Mass Index (BMI) 27.8 Finger Stick Blood Glucose 125 Orthostatic Vital Signs Start: 07/07/18 06:02 Freq: q24h Status: Active Protocol: Activity Type Activity Date Activity User E-Sign Co-Sign Detail Recorded Client Recorded Date Recorded By Document 07/07/18 06:02 [facility] [id number] 07/07/18 06:03 [facility] [place]/07/18 06:02 Orthostatic Vitals Standing -Blood Pressure (90/60-120/80) 141/87 H -Extremity Use Right Arm -Pulse Rate (60-100) 79 Sitting -Blood Pressure (90/60-120/80) 144/90 H -Extremity Use Right Arm -Pulse Rate (60-100) 68 Lying -Blood Pressure (90/60-120/80) 134/75 H -Extremity Use Right Arm -Pulse Rate (60-100) 67 Intake and Output for Last 24 Hours 07/05/18 07/06/18 07/07/18 23:59 23:59 23:59 Intake Total 2756 / 2756 730 / 730 Output Total 650 / 650 Balance 2106 / 2106 730 / 730 Laboratory Tests Past 24 Hrs 07/07/18 05:10 Sodium 143 Potassium 4.0 Chloride 112 H Carbon Dioxide 21.0 Anion Gap 10 BUN 15 Creatinine 0.94 Estim Creat Clear Calc 76.74 Est GFR (MDRD) Af Amer 100 Est GFR (MDRD) Non-Af 83 BUN/Creatinine Ratio 15.9 Glucose 95 Calcium 8.3 L Code Visit OBSV E&M: 30211 Observation care discharge
--- NOTE | 2018-07-07 09:47 | DS.PCM_ITS ---
<Jenelle Balbuena - Last Filed: 07/07/18 09:47> Discharge Date and Diagnosis Date of Admission: 07/06/18 Date of Discharge: 07/07/18 - Primary Discharge Diagnosis Active and Suspected Problems (Last Reviewed 07/06/18 @ 11:47 by Jalil Murillo MD) 1. Vertigo, BPPV 2. CVA ruled out 3. Hyperlipemia 4. Pulmonary fibrosis/pulmonary nodule 5. Tobacco dependence - Secondary Discharge Diagnosis Chronic Problems (Last Reviewed 07/06/18 @ 11:47 by Jalil Murillo MD) Hyperlipidemia (Chronic) F/H of alcoholism (Chronic) Chronic cough (Chronic) Tobacco abuse (Chronic) Abnormal chest xray (Chronic) Bronchiectasis without complication (Chronic) Pulmonary fibrosis (Chronic) Hospital Course and Treatment Imaging Results: Diagnostic Data Brain CT 07/06/18 07:30 IMPRESSION: Chronic involutional changes of the brain. Electronically Signed: Jd Tucker MD at 8:20 EST Tel , Service support , Chest X-Ray 07/06/18 07:30 IMPRESSION: Stable diffuse increased interstitial markings suggesting scarring. No acute abnormality is seen. Electronically Signed: Faisal Rangel MD at 8:35 EST Tel [phone], Service support , Brain MRI 07/06/18 09:41 IMPRESSION: Moderate periventricular white matter ischemic changes without evidence for acute infarct. Electronically Signed: Lev Addison MD at 16:03 EST , Service support , Head MRA 07/06/18 09:41 IMPRESSION: Normal MRA of the head Electronically Signed: Lev Addison MD at 16:03 EST , Service support , Neck MRA 07/06/18 09:41 IMPRESSION: Normal bilateral cervical carotid and vertebral arteries. Electronically Signed: Lev Addison MD at 16:04 EST , Service support , Dr. Murillo- Neurology Operations: None Procedures: None Summary of Care Provided: The patient is a 73 year old M admitted 07/06/2018 due to dizziness times 2 days. He has a past medical history of hyperlipidemia, pulmonary fibrosis, pulmonary nodule, tobacco dependence. Chest x-ray without acute process, interstitial markings suggestive of scarring. Troponin negative. MRI of brain without evidence of acute infarct. Neck MRA with normal bilateral cervical carotid and vertebral arteries. CVA ruled out. Neurology following. Suspect vertigo, BPPV. Patient's dizziness improved however continues to have positional dizziness. PT for vestibular therapy. Meclazine 25mg TID PRN for vertigo. Outpatient referral to ENT for further vestibular therapy. Follow-up with primary care physician in 1 week. General: Alert, Oriented x3, Cooperative, No apparent distress HEENT: Atraumatic, PERRLA, EOMI, Normocephalic Oral: Moist Mucosa Neck: Supple, No JVD, Negative Carotid Bruits Lungs: Clear to auscultation, Normal air movement Cardiovascular: Regular rate, Regular Rhythm, Normal S1, Normal S2, No murmurs Abdomen: Bowel Sounds Present, Soft, Non Tender, Non-Distended Extremities: No edema Skin: No rashes, No breakdown Musculoskeletal: No Tenderness to Palpation of Joints or Extremities Lymphatic: No Cervical, Supraclavicular, or Inguinal Adenopathy Neurological: Cranial nerves II-XII grossly intact, Neuro grossly intact Psych/Mental Status: Normal Affect, Appropriate Patient seen and examined prior to discharge. Physical assessment as noted above. Patient is stable for discharge with follow up recommendations as noted above. This patient was seen by ABIGAIL Mora under the supervision of Dr. Toscano. - Physical Exam Vital Signs Temp Pulse Resp BP Pulse Ox 98.5 F 32 L 16 134/75 H 92 07/07/18 06:03 07/07/18 07:39 07/07/18 06:03 07/07/18 06:03 07/07/18 06:03 Oxygen Flow Rate (L/min) 2 Oxygen Delivery Method Room Air Weight: 211 lb 3.245 oz Body Mass Index (BMI) 27.8 Finger Stick Blood Glucose 125 Orthostatic Vital Signs Start: 07/07/18 06:02 Freq: q24h Status: Active Protocol: Activity Type Activity Date Activity User E-Sign Co-Sign Detail Recorded Client Recorded Date Recorded By Document 07/07/18 06:02 [facility] [id number] 07/07/18 06:03 [facility] 07/07/18 06:02 Orthostatic Vitals Standing -Blood Pressure (90/60-120/80) 141/87 H -Extremity Use Right Arm -Pulse Rate (60-100) 79 Sitting -Blood Pressure (90/60-120/80) 144/90 H -Extremity Use Right Arm -Pulse Rate (60-100) 68 Lying -Blood Pressure (90/60-120/80) 134/75 H -Extremity Use Right Arm -Pulse Rate (60-100) 67 Intake and Output for Last 24 Hours 07/05/18 07/06/18 07/07/18 23:59 23:59 23:59 Intake Total 2756 / 2756 730 / 730 Output Total 650 / 650 Balance 2106 / 2106 730 / 730 Laboratory Tests Past 24 Hrs 07/07/18 05:10 Sodium 143 Potassium 4.0 Chloride 112 H Carbon Dioxide 21.0 Anion Gap 10 BUN 15 Creatinine 0.94 Estim Creat Clear Calc 76.74 Est GFR (MDRD) Af Amer 100 Est GFR (MDRD) Non-Af 83 BUN/Creatinine Ratio 15.9 Glucose 95 Calcium 8.3 L Discharge Diet: No Restrictions Discharge Activity: Return to Normal Activity Call your doctor if you observe: Numbness or Tingling, Shortness of breath, Dizziness, Fainting spells, Chest pain Home Medications: Medications to take at Discharge Atorvastatin Calcium [Lipitor] 10 mg PO QHS 02/13/15 Meclizine HCl [Antivert] 25 mg PO TID PRN PRN #21 tablet 07/07/18 Following Prescrptions Were Given to Patient: Meclizine HCl [Antivert] 25 mg PO TID PRN PRN #21 tablet PRN Reason: Vertigo Primary Care Physician: Anayeli Marino MD [Primary Care Provider] - Please follow up with your Primary Care Physician in: 1 Week Please Follow Up With: Cesar Shelton MD When: Call for [facility] appt. Disposition: Home Minutes spent on discharge:: 35 Patient Condition:: Stable Medical Necessity - Tobacco Use Smoking Status: Current every day smoker Tobacco Use: Cigarettes Meaningful Use Info Meaningful Use Diagnoses (Choose all that apply): None applicable <Alejandra Toscano - Last Filed: 07/07/18 11:30> Discharge Date and Diagnosis - Secondary Discharge Diagnosis Chronic Problems (Last Reviewed 07/06/18 @ 11:47 by Jalil Murillo MD) Hyperlipidemia (Chronic) F/H of alcoholism (Chronic) Chronic cough (Chronic) Tobacco abuse (Chronic) Abnormal chest xray (Chronic) Bronchiectasis without complication (Chronic) Pulmonary fibrosis (Chronic) Hospital Course and Treatment Summary of Care Provided: This patient was seen in conjunction with Jenelle Balbuena NP. I have independently interviewed and examined the patient and reviewed pertinent historical, laboratory, and other data. Please refer to her note for patient's presentation, findings, and recommendations. 73 year old M with medical history of hyperlipidemia, pulmonary fibrosis, pulmonary nodule, nicotine dependence who was shoveling snow and felt dizzy, ongoing for 2 days. Patient was seen in the emergency department. CT of the head was negative for any acute intracranial process. He was admitted to telemetry bed. Neurology was consulted. MRI of the brain as well as MRI of the head and neck was negative for any intracranial process. Patient was seen by PT and OT, vascular therapy recommended, he was started on meclizine. He will follow-up in the outpatient with ENT and vestibular therapy. He was advised to quit smoking Subjective: Patient was seen and examined. Dizziness has improved. Been ambulating with therapy with minimal dizziiness. MRI, MRA of head and neck have been negative for acute stroke. No events on telemetry. Objective: Physical Exam General: Alert, Oriented x3, Cooperative, No apparent distress HEENT: Atraumatic, PERRLA, EOMI, Normocephalic Oral: Moist Mucosa Neck: Supple, No JVD, Negative Carotid Bruits Lungs: Clear to auscultation, Normal air movement Cardiovascular: Regular rate, Regular Rhythm, Normal S1, Normal S2, No murmurs Abdomen: Bowel Sounds Present, Soft, Non Tender, Non-Distended, No Hepato- splenomegaly Extremities: No edema Skin: No rashes, No breakdown Musculoskeletal: No Tenderness to Palpation of Joints or Extremities Lymphatic: No Cervical, Supraclavicular, or Inguinal Adenopathy Neurological: Cranial nerves II-XII grossly intact, Neuro grossly intact, Psych/Mental Status: Normal Affect, Appropriate - Physical Exam Vital Signs Temp Pulse Resp BP Pulse Ox 98.0 F 64 18 131/75 H 93 07/07/18 10:16 07/07/18 11:00 07/07/18 10:16 07/07/18 10:16 07/07/18 10:16 Oxygen Flow Rate (L/min) 2 Oxygen Delivery Method Room Air Weight: 95.8 kg Body Mass Index (BMI) 27.8 Finger Stick Blood Glucose 125 Orthostatic Vital Signs Start: 07/07/18 06:02 Freq: q24h Status: Active Protocol: Activity Type Activity Date Activity User E-Sign Co-Sign Detail Recorded Client Recorded Date Recorded By Document 07/07/18 06:02 [facility] [id number] 07/07/18 06:03 [facility] 07/07/18 06:02 Orthostatic Vitals Standing -Blood Pressure (90/60-120/80) 141/87 H -Extremity Use Right Arm -Pulse Rate (60-100) 79 Sitting -Blood Pressure (90/60-120/80) 144/90 H -Extremity Use Right Arm -Pulse Rate (60-100) 68 Lying -Blood Pressure (90/60-120/80) 134/75 H -Extremity Use Right Arm -Pulse Rate (60-100) 67 Intake and Output for Last 24 Hours 07/05/18 07/06/18 07/07/18 23:59 23:59 23:59 Intake Total 2756 / 2756 730 / 730 Output Total 650 / 650 Balance 2106 / 2106 730 / 730 Laboratory Tests Past 24 Hrs 07/07/18 05:10 Sodium 143 Potassium 4.0 Chloride 112 H Carbon Dioxide 21.0 Anion Gap 10 BUN 15 Creatinine 0.94 Estim Creat Clear Calc 76.74 Est GFR (MDRD) Af Amer 100 Est GFR (MDRD) Non-Af 83 BUN/Creatinine Ratio 15.9 Glucose 95 Calcium 8.3 L Code Visit OBSV E&M: 55593 Observation care discharge
[2018-07-07] MEDS: Meclizine HCl 25 MG Tablet PO (10:19)
--- NOTE | 2018-07-07 11:46 | PHA.DC.MC ---
Pharmacy Service has performed discharge medication reconciliation and counseling for this patient. The patient's discharge medication list was reviewed for discrepancies and discrepancies were resolved. The patient was counseled on the following discharge medications and changes in medications for homegoing were reviewed. The Reason for Use, instructions for use, and potential side effects were reviewed for all new medications. The patient's questions regarding all of their medications were answered. The patient demonstrated some understanding but would benefit from further education and reinforcement. Home Medications Atorvastatin Calcium [Lipitor] 10 mg PO QHS 02/13/15 Meclizine HCl [Antivert] 25 mg PO TID PRN PRN #21 tablet 07/07/18
--- OUTSIDE RECORDS SUMMARY | 2018-09-07 15:35 | XMS RPT_ITS ---
:1945 Author Organization OHIP Care Team Providers Name Role Phone Anayeli Marino Primary Care Unavailable [place], [place] Admitting Unavailable [place], [place] Attending Unavailable Murillo, Jalil Consulting Unavailable [place], [place] Admitting Unavailable [place], [place] Attending Unavailable Jamila, Anayeli Primary Care Unavailable Lidia, Jalil Consulting Unavailable [place], [place] Consulting Unavailable Garfield Wren Attending Unavailable Jolledward, Anayeli Referring Unavailable Jamila Anayeli Attending Unavailable Jamila, Anayeli Primary Care Unavailable Jamila Anayeli Attending Unavailable Jolliff, Anayeli Referring Unavailable Itzeliff, Anayeli Primary Care Unavailable [place], [place] Admitting Unavailable ABIGAIL Mora Attending Unavailable Jamila, Anayeli Primary Care Unavailable Murillo, Jalil Consulting Unavailable [place], [place] Consulting Unavailable PROBLEMS PROBLEMS DATE TYPE CONDITION / CODE ATTENDING STATUS SOURCE 03/20/2018 Unknown R91.1 - Solitary Anayeli Marino Active [place] pulmonary nodule Community / R91.1(ICD-10) Hospital Repository 03/20/2018 Unknown E78.5 - Anayeli Marino Active [place] Hyperlipidemia, Community unspecified / Hospital E78.5(ICD-10) Repository PROCEDURES PROCEDURES No Procedure Records FoundRESULTS RESULTS 12 LEAD ELECTROCARDIOGRAM Observed: 07/08/2018 Status: F Source: [place] 1:58 PM [facility] REPOSITORY [facility] Cardiovascular Services [address] [place] [address] 12 Lead EKG 07/07/18 0606 MR#: [id number] Acct: [id number] Name: ALVARO JOSEPH Rep #: [id number] : 1945 73 From: Yandel Oleary MD Attending Dr: Alejandra Toscano MD Status: DIS ILYA Ordering Dr: Alejandra Toscano MD Date: 07/07/18 Location: [facility] Sex: M C Admitted: 07/06/18 Test Reason : CHEST BURNING Blood Pressure : / mmHG Vent. Rate : 064 BPM Atrial Rate : 064 BPM P-R Int : 200 ms QRS Dur : 098 ms QT Int : 426 ms P-R-T Axes : 009 -20 066 degrees QTc Int : 439 ms Normal sinus rhythm Leftward axis Inferior MS, age undetermined, cannot be excluded Confirmed by MAMTA POTTS, YANDEL ([id number]), non linear editor CHRISTEN ALCALA ([id number]) on 07/08/2018 1:57:42 PM Referred By: TALYA Confirmed By:YANDEL OLEARY MD 07/08/18 1357 Date Yandel Oleary MD CC: Alejandra Toscano MD; Anayeli Marino MD Signed 12 LEAD ELECTROCARDIOGRAM Observed: 07/08/2018 Status: F Source: [place] 1:47 PM [facility] REPOSITORY [facility] Cardiovascular Services [address] [place] [address] 12 Lead EKG 07/06/18 0742 MR#: [id number] Acct: [id number] Name: JAKEALVARO E Rep #: [id number] : 1945 73 From: Yandel Oleary MD Attending Dr: Alejandra Toscano MD Status: DIS ILYA Ordering Dr: Julius Aguilar MD Date: 07/06/18 Location: [facility] Sex: M C Admitted: 07/06/18 Test Reason : DIZZY Blood Pressure : / mmHG Vent. Rate : 068 BPM Atrial Rate : 068 BPM P-R Int : 210 ms QRS Dur : 094 ms QT Int : 436 ms P-R-T Axes : 034 -12 065 degrees QTc Int : 463 ms Sinus rhythm with 1st degree A-V block Low voltage QRS (limb leads) Confirmed by MAMTA POTTS, YANDEL ([id number]), non linear editor CHRISTEN ALCALA ([id number]) on 07/08/2018 1:46:38 PM Referred By: NAYELI Confirmed By:YANDEL OLEARY MD 07/08/18 1346 Date Yandel Oleary MD CC: Alejandra Toscano MD; Anayeli Marino MD; Julius Aguilar MD Signed CONSULTATION Observed: 07/08/2018 Status: F Source: [place] 9:55 AM [facility] REPOSITORY [facility] Medical Records Department [facility] [place] [address] Consultation 07/06/18 1144 MR#: [id number] Acct: [id number] Name: ALVARO JOSEPH Rep #: [id number] : 1945 73 From: Jalil Murillo MD PCP: Anayeli Marino MD Status: DIS ILYA Y Location: [place] [address]-1 Reason for Consult Date of Consultation: 07/06/18 Reason for Consultation: vertigo History of Present Illness: yesterday when awoke from a nap at 1400 felt dizzy, still dizzy which motion. descirbes sensation of movement. describes lightheaded. also n/v. reports symptoms estefanía if motionless. reports remembering the moment this started as when he sat up from the nap. Past Medical History Past Medical History (Chronic Problems): Chronic Problems (Last Updated 01/26/18 @ 14:41 by Pamela Camarena) Hyperlipidemia (Chronic) F/H of alcoholism (Chronic) Chronic cough (Chronic) Tobacco abuse (Chronic) Abnormal chest xray (Chronic) Bronchiectasis without complication (Chronic) Pulmonary fibrosis (Chronic) Medical History: Medical History (Last Reviewed 07/06/18 @ 11:47 by Jaill Murillo MD) F/H of alcoholism (Chronic) Z81.1 Chronic cough (Chronic) R05 Tobacco abuse (Chronic) Z72.0 Abnormal chest xray (Chronic) R93.8 Bronchiectasis without complication (Chronic) J47.9 Pulmonary fibrosis (Chronic) J84.10 Allergies No Known Allergies Allergy (Verified 02/13/15 16:01) Home Medications: Ambulatory Orders Medication Instructions Recorded Atorvastatin Calcium [Lipitor] 10 mg PO QHS 02/13/15 Surgical History: Surgical History (Last Reviewed 07/06/18 @ 11:47 by Jalil Murillo MD) History of hernia surgery (Resolved) Z98.890, Z87.19 History of appendectomy (Resolved) Z98.890, Z90.49 Smoking Status: Current every day smoker Tobacco Use: Cigarettes Alcohol: None Review of Systems Constitutional: Denies: Chills, Fever, Weight Change HEENT: Denies: Head Aches, Sinus Congestion, Sinus Drainage Cardiovascular: Denies: Chest Pain, Palpitations Respiratory: Denies: Cough, Shortness of breath at rest, Sputum production Gastrointestinal: Denies: Abdominal Pain, Nausea, Vomiting Genitourinary: Denies: Dysuria Musculoskeletal: Denies: Joint Pain, Joint Tenderness Skin: Denies: Rash, Wounds Neurological: Denies: Numbness, Tingling, Focal weakness Psychiatric: Denies: Anxiety, Depression, Homicidal Ideations, Suicidal Ideations Hematologic/ Lymphatic: Denies: Easy Bruising, Easy Bleeding Patient Problems: Active and Suspected Problems (Last Updated 07/11/17 @ 14:41 by Pamela Camarena) Vertigo (Acute) - Physical Exam General: Alert, Oriented x3, Cooperative, No apparent distress HEENT: Atraumatic, EOMI Neurological: Cranial nerves II-XII grossly intact, Deep Tendon Reflexes 2+/4 and Symmetrical, Neuro grossly intact, Motor Exam 5/5 strength throughout, Sensory exam intact to light touch and pain Psych/Mental Status: Normal Affect, Alert and oriented to time, place, person, mood and affect Vital Signs Temp Pulse Resp BP Pulse Ox 36.6 C 74 17 142/88 H 97 07/06/18 09:32 07/06/18 09:32 07/06/18 09:32 07/06/18 09:32 07/06/18 09:32 Oxygen Flow Rate (L/min) 2 Oxygen Delivery Method Nasal Cannula Weight: 95.8 kg Body Mass Index (BMI) 27.8 Finger Stick Blood Glucose 125 Laboratory Tests Past 24 Hrs POC Glucose POC Glucose 125 H Current Home Med List Medication Instructions Recorded Confirmed Type Atorvastatin Calcium [Lipitor] 10 mg PO QHS 02/13/15 07/06/18 History Current Medications Acetaminophen 650 mg 07/06/18 09:41 Tylenol PO Assessment/Plan All Active Problems (Last Reviewed 07/17/17 @ 10:44 by Pamela Camarena) Vertigo (Acute) History of hernia surgery (Resolved) History of appendectomy (Resolved) 07/08/18954 <Electronically signed by Jalil Murillo MD> Date Jalil Murillo MD Cosigner Signature (if applicable): Date CC: Anayeli Marino MD; Jalil Murillo MD Signed DISCHARGE SUMMARY Observed: 07/07/2018 Status: F Source: [place] 11:30 AM [facility] REPOSITORY [facility] Medical Records Department [address] [place] [address] Discharge Summary 07/07/18929 MR#: [id number] Acct: [id number] Name: ALVARO JOSEPH Bri Rep #: [id number] : 1945 73 From: Jenelle HAYES PCP: Anayeli Marino MD Status: ADM ILYA Y Location: [place] [address] <Jenelle Balbuena - Last Filed: 07/07/18 09:47> Discharge Date and Diagnosis Date of Admission: 07/06/18 Date of Discharge: 07/07/18 - Primary Discharge Diagnosis Active and Suspected Problems (Last Reviewed 07/06/18 @ 11:47 by Jalil Murillo MD) 1. Vertigo, BPPV 2. CVA ruled out 3. Hyperlipemia 4. Pulmonary fibrosis/pulmonary nodule 5. Tobacco dependence - Secondary Discharge Diagnosis Chronic Problems (Last Reviewed 07/06/18 @ 11:47 by Jalil Murillo MD) Hyperlipidemia (Chronic) F/H of alcoholism (Chronic) Chronic cough (Chronic) Tobacco abuse (Chronic) Abnormal chest xray (Chronic) Bronchiectasis without complication (Chronic) Pulmonary fibrosis (Chronic) Hospital Course and Treatment Imaging Results: Diagnostic Data Brain CT 07/06/18 07:30 IMPRESSION: Chronic involutional changes of the brain. Electronically Signed: Jd Tucker MD at 8:20 EST Tel , Service support , Chest X-Ray 07/06/18 07:30 IMPRESSION: Stable diffuse increased interstitial markings suggesting scarring. No acute abnormality is seen. Electronically Signed: Faisal Rangel MD at 8:35 EST Tel [phone], Service support , Brain MRI 07/06/18 09:41 IMPRESSION: Moderate periventricular white matter ischemic changes without evidence for acute infarct. Electronically Signed: Lev Addison MD at 16:03 EST , Service support , Head MRA 07/06/18 09:41 IMPRESSION: Normal MRA of the head Electronically Signed: Lev Addison MD at 16:03 EST , Service support , Neck MRA 07/06/18 09:41 IMPRESSION: Normal bilateral cervical carotid and vertebral arteries. Electronically Signed: Lev Addison MD at 16:04 EST , Service support , Dr. Murillo- Neurology Operations: None Procedures: None Summary of Care Provided: The patient is a 73 year old M admitted 07/06/2018 due to dizziness times 2 days. He has a past medical history of hyperlipidemia, pulmonary fibrosis, pulmonary nodule, tobacco dependence. Chest x-ray without acute process, interstitial markings suggestive of scarring. Troponin negative. MRI of brain without evidence of acute infarct. Neck MRA with normal bilateral cervical carotid and vertebral arteries. CVA ruled out. Neurology following. Suspect vertigo, BPPV. Patient's dizziness improved however continues to have positional dizziness. PT for vestibular therapy. Meclazine 25mg TID PRN for vertigo. Outpatient referral to ENT for further vestibular therapy. Follow-up with primary care physician in 1 week. General: Alert, Oriented x3, Cooperative, No apparent distress HEENT: Atraumatic, PERRLA, EOMI, Normocephalic Oral: Moist Mucosa Neck: Supple, No JVD, Negative Carotid Bruits Lungs: Clear to auscultation, Normal air movement Cardiovascular: Regular rate, Regular Rhythm, Normal S1, Normal S2, No murmurs Abdomen: Bowel Sounds Present, Soft, Non Tender, Non-Distended Extremities: No edema Skin: No rashes, No breakdown Musculoskeletal: No Tenderness to Palpation of Joints or Extremities Lymphatic: No Cervical, Supraclavicular, or Inguinal Adenopathy Neurological: Cranial nerves II-XII grossly intact, Neuro grossly intact Psych/Mental Status: Normal Affect, Appropriate Patient seen and examined prior to discharge. Physical assessment as noted above. Patient is stable for discharge with follow up recommendations as noted above. This patient was seen by ABIGAIL Mora under the supervision of Dr. Toscano. - Physical Exam Vital Signs Temp Pulse Resp BP Pulse Ox 98.5 F 32 L 16 134/75 H 92 07/07/18 06:03 07/07/18 07:39 07/07/18 06:03 07/07/18 06:03 07/07/18 06:03 Oxygen Flow Rate (L/min) 2 Oxygen Delivery Method Room Air Weight: 211 lb 3.245 oz Body Mass Index (BMI) 27.8 Finger Stick Blood Glucose 125 Orthostatic Vital Signs Start: 07/07/18 06:02 Freq: q24h Status: Active Protocol: Activity Type Activity Date Activity User E-Sign Co-Sign Detail Recorded Client Recorded Date Recorded By Document 07/07/18 06:02 [facility] [id number] 07/07/18 06:03 [facility] Orthostatic Vitals Standing -Blood Pressure (90/60-120/80) 141/87 H -Extremity Use Right Arm -Pulse Rate (60-100) 79 Sitting -Blood Pressure (90/60-120/80) 144/90 H Intake and Output for Last 24 Hours Intake Total 2756 / 2756 730 / 730 Output Total 650 / 650 Balance 2106 / 2106 730 / 730 Laboratory Tests Past 24 Hrs Sodium 143 Potassium 4.0 Chloride 112 H Carbon Dioxide 21.0 Discharge Diet: No Restrictions Discharge Activity: Return to Normal Activity Call your doctor if you observe: Numbness or Tingling, Shortness of breath, Dizziness, Fainting spells, Chest pain Home Medications: Medications to take at Discharge Atorvastatin Calcium [Lipitor] 10 mg PO QHS 02/13/15 Meclizine HCl [Antivert] 25 mg PO TID PRN PRN #21 tablet 07/07/18 Following Prescrptions Were Given to Patient: Meclizine HCl [Antivert] 25 mg PO TID PRN PRN #21 tablet PRN Reason: Vertigo Primary Care Physician: Anayeli Marino MD [Primary Care Provider] - Please follow up with your Primary Care Physician in: 1 Week Please Follow Up With: Cesar Shelton MD When: Call for soonest appt. Disposition: Home Minutes spent on discharge:: 35 Patient Condition:: Stable Medical Necessity - Tobacco Use Smoking Status: Current every day smoker Tobacco Use: Cigarettes Meaningful Use Info Meaningful Use Diagnoses (Choose all that apply): None applicable <[place] - Last Filed: 07/07/18 11:30> Discharge Date and Diagnosis - Secondary Discharge Diagnosis Chronic Problems (Last Reviewed 07/06/18 @ 11:47 by Jalil Murillo MD) Hyperlipidemia (Chronic) F/H of alcoholism (Chronic) Chronic cough (Chronic) Tobacco abuse (Chronic) Abnormal chest xray (Chronic) Bronchiectasis without complication (Chronic) Pulmonary fibrosis (Chronic) Hospital Course and Treatment Summary of Care Provided: This patient was seen in conjunction with Jenelle Balbuena NP. I have independently interviewed and examined the patient and reviewed pertinent historical, laboratory, and other data. Please refer to her note for patient's presentation, findings, and recommendations. 73 year old M with medical history of hyperlipidemia, pulmonary fibrosis, pulmonary nodule, nicotine dependence who was shoveling snow and felt dizzy, ongoing for 2 days. Patient was seen in the emergency department. CT of the head was negative for any acute intracranial process. He was admitted to telemetry bed. Neurology was consulted. MRI of the brain as well as MRI of the head and neck was negative for any intracranial process. Patient was seen by PT and OT, vascular therapy recommended, he was started on meclizine. He will follow-up in the outpatient with ENT and vestibular therapy. He was advised to quit smoking Subjective: Patient was seen and examined. Dizziness has improved. Been ambulating with therapy with minimal dizziiness. MRI, MRA of head and neck have been negative for acute stroke. No events on telemetry. Objective: Physical Exam General: Alert, Oriented x3, Cooperative, No apparent distress HEENT: Atraumatic, PERRLA, EOMI, Normocephalic Oral: Moist Mucosa Neck: Supple, No JVD, Negative Carotid Bruits Lungs: Clear to auscultation, Normal air movement Cardiovascular: Regular rate, Regular Rhythm, Normal S1, Normal S2, No murmurs Abdomen: Bowel Sounds Present, Soft, Non Tender, Non-Distended, No Hepato-splenomegaly Extremities: No edema Skin: No rashes, No breakdown Musculoskeletal: No Tenderness to Palpation of Joints or Extremities Lymphatic: No Cervical, Supraclavicular, or Inguinal Adenopathy Neurological: Cranial nerves II-XII grossly intact, Neuro grossly intact, Psych/Mental Status: Normal Affect, Appropriate - Physical Exam Vital Signs Temp Pulse Resp BP Pulse Ox 98.0 F 64 18 131/75 H 93 07/07/18 10:16 07/07/18 11:00 07/07/18 10:16 07/07/18 10:16 07/07/18 10:16 Oxygen Flow Rate (L/min) 2 Oxygen Delivery Method Room Air Weight: 95.8 kg Body Mass Index (BMI) 27.8 Finger Stick Blood Glucose 125 Orthostatic Vital Signs Start: 07/07/18 06:02 Freq: q24h Status: Active Protocol: Activity Type Activity Date Activity User E-Sign Co-Sign Detail Recorded Client Recorded Date Recorded By Document 07/07/18 06:02 [facility] [id number] 07/07/18 06:03 [facility] Orthostatic Vitals Standing -Blood Pressure (90/60-120/80) 141/87 H -Extremity Use Right Arm -Pulse Rate (60-100) 79 Sitting -Blood Pressure (90/60-120/80) 144/90 H Intake and Output for Last 24 Hours Intake Total 2756 / 2756 730 / 730 Output Total 650 / 650 Balance 2106 / 2106 730 / 730 Laboratory Tests Past 24 Hrs Sodium 143 Potassium 4.0 Chloride 112 H Carbon Dioxide 21.0 Code Visit OBSV E AND M: [id number] Observation care discharge 07/07/18 0948 <Electronically signed by Jenelle HAYES> Date Jenelle GONZALEZC 07/07/18 1130<Electronically signed by Alejandra Toscano MD> Cosigner Signature (if applicable): Date Alejandra Toscano MD CC: ABIGAIL Balbuena; Alejandra Toscano MD; Anayeli Marino MD; Cesar Shelton MD Signed DISCHARGE INSTRUCTION Observed: 07/07/2018 Status: F Source: [place] 9:30 AM [facility] REPOSITORY [facility] Medical Records Department [address] [place] [address] Instructions for Home/Discharge Instructions 07/07/18927 MR#: [id number] Acct: [id number] Name: ALVARO JOSEPH Rep #: [id number] : 1945 73 From: Jenelle HAYES PCP: Jamila POTTS,Anayeli Status: ADM ILYA - Discharge Diagnoses Current Active Problems: Current Active and Chronic Problems (Last Reviewed 07/06/18 @ 11:47 by Jalil Murillo MD) Vertigo (Acute) Hyperlipidemia (Chronic) You will use the following diet at home:: No restrictions Discharge Activity: Return to Normal Activity Call your doctor if you observe: Numbness or Tingling, Shortness of breath, Dizziness, Fainting spells, Chest pain Allergies/Adverse Reactions: Allergies No Known Allergies Allergy (Verified 02/13/15 16:01) Medications to take at Discharge Atorvastatin Calcium [Lipitor] 10 mg PO QHS 02/13/15 Meclizine HCl [Antivert] 25 mg PO TID PRN PRN #21 tablet 07/07/18 The following prescriptions were given: Meclizine HCl [Antivert] 25 mg PO TID PRN PRN #21 tablet PRN Reason: Vertigo Primary Care Physician: Anayeli Marino MD [Primary Care Provider] - Please follow up with your Primary Care Physician in: 1 Week Test Results: Test results from this visit will be discussed in further detail at your follow-up appointment, if applicable. Please Follow Up With: Cesar Shelton MD When: Call for soonest appt. Proposed Discharge Date: 07/07/18 07/07/18929 <Electronically signed by Jenelle HAYES> Date Jenelle HAYES CC: Anayeli Marino MD; Jalil Murillo MD Signed BASIC METABOLIC Collected: 07/07/2018 Status: F Source: [place] PROFILE (BMP) 5:10 AM [facility] REPOSITORY TYPE CODE TESTS RESULT OUT OF RANGE REFERENCE UNITS LAB L501.0100 74-106 mg/dL Normal GLU 95 Result Comment: Please note revised GLUCOSE reference range effective 2017. LAB L501.1000 7-18 mg/dL Normal BUN 15 LAB L501.1100 0.70-1.30 mg/dL Normal CREAT,SERUM 0.94 Result Comment: The validity of the calculated GFR AND GFRAA in patients over 70 years has not been determined. Clinical correlation is essential. LAB L501.1110 >60 mL/min Normal EST GFR 83 Result Comment: Non- GFR Calc LAB L501.1115 >60 mL/min Normal EST GFR - AA 100 Result Comment: GFR Calc LAB L501.1255 ml/min Normal Estimated CRCL 76.74 LAB L501.1300 10-20 RATIO Normal BUN/CRE 15.9 LAB L501.2200 8.5-10 mg/dL Low .1 CA 8.3 LAB L501.5300 136-14 mmol/L Normal 5 NA 143 LAB L501.5600 3.5-5. mmol/L Normal 1 K 4.0 LAB L501.5900 98-107 mmol/L High CL 112 LAB L501.6100 21.0-3 mmol/L Normal 2.0 CO2 21.0 LAB L501.6200 5-15 Normal GAP 10 Performed By: #### L500.2500 #### [facility] [address] [place], [place], [address] HISTORY AND PHYSICAL Observed: 07/06/2018 Status: F Source: [place] EXAM 1:55 PM [facility] REPOSITORY [facility] Medical Records Department [address] [place] [address] History and Physical 07/06/18 0846 MR#: [id number] Acct: [id number] Name: ALVARO JOSEPH Rep #: [id number] : 1945 73 From: Alejandra Toscano MD PCP: Anayeli Marino MD Status: ADM ILYA Y Location: [place] [address] Problem List (1) Vertigo Status: Acute (2) Pulmonary fibrosis Status: Chronic (3) Hyperlipidemia Status: Chronic Qualifiers: Hyperlipidemia type: unspecified Qualified Code(s): E78.5 - Hyperlipidemia, unspecified History of Present Illness Date of Admission: 07/06/18 Chief Complaint: Dizziness -2 days The patient is a 73 year old M with medical history of hyperlipidemia, pulmonary fibrosis, pulmonary nodule, nicotine dependence who was shoveling snow and felt dizzy, he came back into the house. His helped him take his clothes off. He has since been intermittently dizzy, worse with getting up from lying to sitting. Denied any palpitations or shortness of breath or chest discomfort. Denied any recent upper respiratory illness or diarrhea illness. He described his dizziness as the room being unsteady. Denies any ringing in his ears or hearing loss. No recent new medications. Vitals in the ED show temperature of 97.5F, blood pressure 176/80, respiratory rate 70, SPO2 91% on room air. Admitting blood work showed RBC count 11.9, hemoglobin 16.6, platelet count 199, INR 1.1, BMP was essentially unremarkable CTScan of the head showed chronic involutional changes. Chest x-ray showed interstitial markings suggestive of scarring. No acute cardiopulmonary process was seen. Past Medical History Past Medical History (Chronic Problems): Chronic Problems (Last Reviewed 07/06/18 @ 11:47 by Jalil Murillo MD) Hyperlipidemia (Chronic) F/H of alcoholism (Chronic) Chronic cough (Chronic) Tobacco abuse (Chronic) Abnormal chest xray (Chronic) Bronchiectasis without complication (Chronic) Pulmonary fibrosis (Chronic) Medical History: Medical History (Last Reviewed 07/06/18 @ 11:47 by Jalil Murillo MD) F/H of alcoholism (Chronic) Z81.1 Chronic cough (Chronic) R05 Tobacco abuse (Chronic) Z72.0 Abnormal chest xray (Chronic) R93.8 Bronchiectasis without complication (Chronic) J47.9 Pulmonary fibrosis (Chronic) J84.10 Allergies No Known Allergies Allergy (Verified 02/13/15 16:01) Home Medications: Ambulatory Orders Medication Instructions Recorded Atorvastatin Calcium [Lipitor] 10 mg PO QHS 02/13/15 Surgical History: Surgical History (Last Reviewed 07/06/18 @ 11:47 by Jalil Murillo MD) History of hernia surgery (Resolved) Z98.890, Z87.19 History of appendectomy (Resolved) Z98.890, Z90.49 Surgical History: appendectomy, herniorrhaphy - right Psychiatric History: No pertinent psych hx Lives: Spouse/ Significant Other Smoking Status: Current every day smoker Tobacco Use: Cigarettes Alcohol: None Drugs: None - *Family History Maternal Family History: Family History (Last Reviewed 07/17/17 @ 10:44 by Pamela Camarena) Sister Alcoholism Liver failure Brain malignancy Father CVA (cerebral vascular accident) History Items: No pertinent history Paternal Family History: Family History (Last Reviewed 07/17/17 @ 10:44 by Pamela Camarena) Sister Alcoholism Liver failure Brain malignancy Father CVA (cerebral vascular accident) History Items: Stroke Sibling Family History: Family History (Last Reviewed 07/17/17 @ 10:44 by Pamela Camarena) Sister Alcoholism Liver failure Brain malignancy Father CVA (cerebral vascular accident) History Items: - - cirrhosis, brain cancer Review of Systems Constitutional: Denies: Anorexia, Chills, Fever, Malaise, Weakness, Weight Change Eyes: Denies: Blurred vision, Cataracts, Conjunctivae Inflammation, Pain, Redness HEENT: Denies: Difficulty Hearing, Difficulty Swallowing, Head Aches, Hearing Changes, Sinus Congestion, Sinus Drainage, Sore Throat Cardiovascular: Denies: Chest Pain, Claudication, Orthopnea, Palpitations, Paroxysmal Noc. Dyspnea Respiratory: Denies: Cough, Hemoptysis, Shortness of breath at rest, Shortness of breath upon exertion, Sputum production Gastrointestinal: Denies: Abdominal Pain, Constipation, Hematemesis, Hematochezia, Nausea, Vomiting Genitourinary: Denies: Dysuria, Frequency, Retention, Urgency Musculoskeletal: Denies: Arm Pain, Joint Pain, Joint stiffness, Joint swelling, Joint Tenderness Skin: Denies: Rash, Wounds Neurological: Reports: Balance problems, - - dizziness. Denies: Focal weakness, Numbness, Tingling Psychiatric: Denies: Anxiety, Depression, Homicidal Ideations, Suicidal Ideations Hematologic/ Lymphatic: Denies: Easy Bruising, Easy Bleeding VTE Information - Inpt Only VTE Present on Admission: No VTE Pharm Prophylaxis ordered?: Yes Patient Problems: Active and Suspected Problems (Last Reviewed 07/06/18 @ 11:47 by Jalil Murillo MD) Vertigo (Acute) - Physical Exam General: Alert, Oriented x3, Cooperative, No apparent distress HEENT: Atraumatic, PERRLA, EOMI, Normocephalic Oral: Moist Mucosa Neck: Supple, No JVD, Negative Carotid Bruits Lungs: Clear to auscultation, Normal air movement Cardiovascular: Regular rate, Regular Rhythm, Normal S1, Normal S2, No murmurs Abdomen: Bowel Sounds Present, Soft, Non Tender, Non-Distended, No Hepato-splenomegaly Extremities: No edema Skin: No rashes, No breakdown Musculoskeletal: No Tenderness to Palpation of Joints or Extremities Lymphatic: No Cervical, Supraclavicular, or Inguinal Adenopathy Neurological: Cranial nerves II-XII grossly intact, Neuro grossly intact, - - Horizontal and vertical nystagmus seen, no cerebellar signs, did not walk patient Psych/Mental Status: Normal Affect, Appropriate Vital Signs Temp Pulse Resp BP Pulse Ox 97.5 F L 72 16 139/97 H 91 07/06/18 07:10 07/06/18 08:13 07/06/18 08:13 07/06/18 08:13 07/06/18 08:13 Oxygen Flow Rate (L/min) 2 Oxygen Delivery Method Nasal Cannula Weight: 97.522 kg Body Mass Index (BMI) 28.3 Finger Stick Blood Glucose 125 Laboratory Tests Past 24 Hrs POC Glucose POC Glucose 125 H Assessment/Plan All Active Problems (Last Reviewed 07/06/18 @ 11:47 by Jalil Murillo MD) Vertigo (Acute) History of hernia surgery (Resolved) History of appendectomy (Resolved) 73 year old M with medical history of hyperlipidemia, pulmonary fibrosis, pulmonary nodule, nicotine dependence who was shoveling snow and felt dizzy and dizziness has persistent since. 1. Acute onset of dizziness, likely related to BPPV, will need to rule out posterior circulation stroke, Plan: Admit to PCU, monitor on telemetry, MRI of the brain, MRA of the head and neck, neurology consult, aspirin 81 mg p.o. daily, PT and OT to evaluate 2. Hyperlipidemia, on statin 3. Nicotine dependence, advised to quit, refused replacement 4. Pulmonary fibrosis/pulmonary nodule, not requiring oxygen, will continue on prn breathing treatment 5. DVT PPx- Lovenox SC Code Visit OBSV E AND M: [id number] Initial observation care L3 07/06/18 1355 <Electronically signed by Alejandra Toscano MD> Date Alejandra Toscano MD Cosigner Signature: Date (if applicable) CC: Alejandra Toscano MD; Anayeli Marino MD Signed BRAIN WITHOUT Observed: 07/06/2018 Status: F Source: [place] CONTRAST 9:42 AM [facility] REPOSITORY [facility] Imaging Services [facility] [place] [address] [place] [address] Brain without Contrast MR#: [id number] Acct: [id number] Name: ALVARO JOSEPH Rep #: [id number] : 1945 M 73 From: Lev Addison MD PCP: Anayeli Marino MD Status: ADM ILYA Study: Brain without Contrast Date of Exam: 07/06/18 Exam# [id number] Ordering Dr: Alejandra Toscano MD STUDY: MRI BRAIN WITHOUT CONTRAST REASON FOR EXAM: Male, 73 years old. Dizziness and lightheadedness TECHNIQUE: Standardized multiplanar fat and water weighted pulse sequences were obtained. COMPARISON: CT of the brain on July 06, 2018. FINDINGS: Mild atrophy and moderate periventricular white matter ischemic changes without mass effect or restricted diffusion.. Normal bilateral basal ganglia. Normal thalami. There is no extra-axial fluid accumulation. Normal flow voids within the major intracranial circulation suggesting patency by spin echo criteria. Normal sella turcica, pituitary gland, infundibular stalk, optic chiasm and hypothalamus. Normal tectal plate and pineal gland. Normal midbrain, thiago and medulla. Normal cerebellum. Normal basal cisterns. Normal bilateral temporal bones. Normal bilateral internal auditory canals. No demonstrated orbital abnormality, within the constraints of a routine brain study. Mild mucosal thickening of the ethmoid air cells.. Normal calvarium and skull base. Normal visualized soft tissue structures. Normal visualized upper cervical spine. MRI/Brain without Contrast IMPRESSION: Moderate periventricular white matter ischemic changes without evidence for acute infarct. Electronically Signed: Lev Addison MD at 16:03 EST , Service support , CC: Alejandra Toscano MD; Anayeli Marino MD Lens Cementer: Signed MRA HEAD ONLY WITHOUT Observed: 07/06/2018 Status: F Source: [place] CONTRAST 9:42 AM [facility] REPOSITORY [facility] Imaging Services [address] [place] [id number] MRA Head ONLY without Contrast MR#: [id number] Acct: [id number] Name: ALVARO JOSEPH Rep #: [id number] : 1945 M 73 From: Lev Addison MD PCP: Anayeli Marino MD Status: ADM ILYA Study: MRA Head ONLY without Contrast Date of Exam: 07/06/18 Exam# [id number] Ordering Dr: Alejandra Toscano MD STUDY: MRA OF THE HEAD WITHOUT CONTRAST REASON FOR EXAM: Male, 73 years old. Dizziness and lightheadedness TECHNIQUE: 3-D yvba-db-yuyjre (TOF) imaging was performed with MIPs. The study was performed unenhanced. COMPARISON: None. FINDINGS: Normal bilateral petrous carotid arteries. Normal right cavernous carotid artery with a normal supraclinoid bifurcation. Normal left cavernous carotid artery with a normal supraclinoid bifurcation. Normal right A1 segments of the anterior cerebral artery. Normal left A1 segments of the anterior cerebral artery. Normal intact anterior communicating artery (ACOM). Normal bilateral A2 segments of the anterior cerebral arteries. Normal right M1 and M2 segments of the middle cerebral arteries, with a normal M1 bifurcation. Normal left M1 and M2 segments of the middle cerebral arteries, with a normal M1 bifurcation. Posterior communicating arteries are not visualized consistent with normal variant. Normal bilateral vertebral arteries. Normal basilar artery with a normal basilar bifurcation. The visualized bilateral superior cerebellar (SCA) arteries are normal. Normal bilateral P1, P2 and visualized P3 segments of the posterior cerebral arteries. There is no demonstrated aneurysm of the unga of [place]. There is no major vessel occlusion or hemodynamically significant stenosis. There is no demonstrated abnormality of the visualized brain. MRI/MRA Head ONLY without Contrast IMPRESSION: Normal MRA of the head Electronically Signed: Lev Addison MD at 16:03 EST , Service support , CC: Alejandra Toscano MD; Anayeli Marino MD Lens Cementer: Signed MRA NECK WITH AND W/O Observed: 07/06/2018 Status: F Source: [place] CONTRAST 9:42 AM [facility] REPOSITORY [facility] Imaging Services [address] [place] [address] MRA Neck WITH and W/O Contrast MR#: [id number] Acct: [id number] Name: ALVARO JOSEPH Rep #: [id number] : 1945 M 73 From: Lev Addison MD PCP: Anayeli Marino MD Status: ADM ILYA Study: MRA Neck WITH and W/O Contrast Date of Exam: 07/06/18 Exam# [id number] Ordering Dr: Alejandra Toscano MD STUDY: MRA NECK WITH AND WITHOUT CONTRAST REASON FOR EXAM: Male, 73 years old. Dizziness and lightheadedness TECHNIQUE: 3-D hfoy-hk-lvyyxp (TOF) imaging was performed in an 1.5 T MRI scanner. 10 ml of Gadavist was administered for the contrast enhanced images. COMPARISON: None. FINDINGS: RIGHT CAROTID ARTERIES: Normal right common carotid artery (CCA). Normal right common carotid bulb. Normal origin of the right internal carotid (ICA) artery without a hemodynamically significant stenosis. Normal visualized cervical portion of the right internal carotid artery. Normal origin of the right external carotid artery (ECA). LEFT CAROTID ARTERIES: Normal left common carotid artery (CCA). Normal left common carotid bulb. Normal origin of the left internal carotid (ICA) artery without a hemodynamically significant stenosis. Normal visualized cervical portion of the left internal carotid artery. Normal origin of the left external carotid artery (ECA). VERTEBRAL ARTERIES: Normal antegrade flow within the bilateral vertebral artery without a hemodynamically significant stenosis. MRI/MRA Neck WITH and W/O Contrast IMPRESSION: Normal bilateral cervical carotid and vertebral arteries. Electronically Signed: Lev Addison MD at 16:04 EST , Service support , CC: Alejandra Toscano MD; Anayeli Marino MD Lens Cementer: Signed EMERGENCY DEPARTMENT Observed: 07/06/2018 Status: F Source: [place] SUMMARY 8:37 AM [facility] REPOSITORY [facility] Medical Records Department [address] [place] [address] Emergency Department Summary 07/06/18 0736 MR#: [id number] Acct: [id number] Name: ALVARO JOSEPH Rep #: [id number] : 1945 73 From: Julius Aguilar MD PCP: Anayeli Marino MD Status: REG ER - ER Visit Summary Date of Service: 07/06/18 Chief Complaint: Motion and nausea and vomiting History of Present Illness: The patient is a 73 M who presents with dizziness that started yesterday while shopping the driveway with his . He states when he looks at objects they rotate towards the right. states yesterday he was pale and was diaphoretic. The dizziness has been constant. He states it is not as severe when supine versus upright. There may be an orthostatic component. He denies decreased hearing or ringing in his ears. He denies trouble with speech or swallowing. He does report paresthesia lower extremities, which is a chronic condition. He also informed me that he has a low oxygen level. He denies double vision or loss of vision partial or complete. There is no history of head trauma. He is on no anticoagulant. He denies melena, hematochezia or maroon colored stool. He denies bruising easily. He states he has a spot on his lung. He gets CTs every 6 months to follow the spot on his lungs. He denies headache. He denies difficulty using his arms or legs. He denies numbness on one side of his body. He reports difficulty walking. He denies chest pain, dyspnea at rest, dyspnea on exertion. He denies orthopnea or PND. He denies abdominal pain, and last bowel movement was yesterday. He denies myalgias, arthralgias or back pain. He denies urticaria or angioedema. He does report a chronic cough times 2 years. 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 Physical Examination: Vital signs noted and blood pressure is elevated 176/88. Pulse ox at rest on room air varies between 89 and 91%. Head is atraumatic normocephalic. Pupils are equal round reactive. Extraocular muscles are intact. There is nystagmus with the fast component to the right. It appears rotatory. TMs are pearly white with landmarks noted. Nares patent with no drainage. Posterior pharynx without erythema or exudate. Uvula is midline. There is no dysphonia or dysphasia. Trachea is midline. There is no stridor with auscultation of the neck. No carotid bruits were noted. Heart is regular without murmur, gallop or rub. S1 and S2 are normal. Lungs are clear to auscultation with good movement of air bilaterally. Abdomen soft nontender. There is no palpable pulsatile mass. There is no abdominal bruit. Patient does have clubbing of his fingers. There is stigmata of peripheral arterial disease lower extremity. Patient is alert and oriented 3. Motor is 5 over 5. Sensory is intact. DTRs are symmetric with no clonus or Babinski sign. Cranial 2 through 12 are intact. Cerebellar testing is normal. NIH is 0. Kathleen- Hallpike maneuver was performed. This did not exacerbate his symptoms. The eye askew test is negative. Test Results: EKG reveals a sinus rhythm rate of 68 with a first-degree AV block. RI interval is prolonged. QRS durations normal. [place] is normal. Chest x-ray reveals pulmonary fibrosis. CT of the head reviewed by me and interpreted by radiologist as no acute process. There is chronic involutional changes noted. White count is 11.9 thousand with no shift. H AND H 16.6 and 49.2. Glucose is elevated 120. Troponin less than 0.015. Emergency Department Course and Treatment: Stroke evaluation order set was initiated. With complaint of dizziness, which patient defines as motion and nystagmus with central gaze that does not fatigue need to evaluate for posterior circulatory etiology versus atypical presentation for peripheral vertigo. Also need to evaluate for other causes of central nystagmus. Treatment Plan: CT of the head. He was placed on oxygen since pulse ox is low. Disposition: Hospitalist was paged for further workup of patient's vertigo and believe hypoxia secondary to pulmonary fibrosis. And, this would explain patient's clubbing and peripheral neuropathy. Impression: 1. Vertigo uncertain etiology 2. Hypoxia 3. History of pulmonary fibrosis 4. Hyperglycemia in a nondiabetic patient 5. Polycythemia vera 5. History of hypercholesterolemia This note was generated with [employer] dictation software. It may contain incorrect words, spelling, and punctuation that were not noted in review of the chart prior to signing ED Disposition - Plan for ED Patient: Chief Complaint: Dizziness Referrals: Anayeli Marino MD [Primary Care Provider] - What to do if you have Problems For any increased pain, shortness of breath, bleeding, nausea or vomiting, chest pain, or any unexpected problems, contact your Primary Care Provider. Call [facility] ([phone]) or report to the closest Emergency Room. Call 911 if necessary. 07/06/18 0837 <Electronically signed by Julius Aguilar MD> Date Julius Aguilar MD Cosigner Signature (If Indicated): Date CC: Anayeli Marino MD BEDSIDE GLUCOSE Collected: 07/06/2018 Status: F Source: [place] 7:46 AM [facility] REPOSITORY TYPE CODE TESTS RESULT OUT OF REFERENCE UNITS RANGE LAB L501.080 70-110 mg/dL High BEDSIDE GLU 125 Result Comment: MANAGEMENT OF PATIENT CARE PER NURSING PROTOCOL Performed By: #### L501.080 #### [facility] Point of Care [address] [place] [address] CBC W/DIFF, AUTOMATED Collected: 07/06/2018 Status: F Source: [place] 7:40 AM [facility] REPOSITORY TYPE CODE TESTS RESULT OUT OF RANGE REFERENCE UNITS LAB L100.1000 4.4-11.0 K/mm3 High WBC 11.9 LAB L100.1200 4.6-6.2 M/mm3 Normal RBC 5.12 LAB L100.1300 13.0-16.5 g/dl High HGB 16.6 LAB L100.1400 40-54 % Normal HCT 49.2 LAB L100.1500 80-94 fL High MCV 96.1 LAB L100.1600 27.0-32.0 pg High MCH 32.4 LAB L100.1700 32-36 g/gl Normal MCHC 33.7 LAB L100.1810 11.6-14.6 % Normal RDW CV 13.1 LAB L100.1820 35.1-43.9 fl High RDW SD 45.9 LAB L100.1900 150-450 K/mm3 Normal PLT 199 LAB L100.2000 6.2-12.0 fl Normal MPV 10.3 LAB L100.2100 47-70 % Normal NEUT% 69.6 LAB L100.2200 19-41 % Normal LY% 21.8 LAB L100.2300 0-10 % Normal MONO% 6.5 LAB L100.2400 0-5 % Normal EO% 1.5 LAB L100.2500 0-1 % Normal BASO% 0.3 LAB L100.2550 0.0-0.9 % Normal IM GRAN % 0.300 Result Comment: IG% - Immature Granulocytes (promyelocytes, myelocytes and metamyelocytes) > 1% indicates that a LEFT SHIFT is Present. LAB L100.2620 2.0-7.7 X10 3/uL High Absolute Neut 8.3 LAB L100.2720 0.83-4.51 X10 3/ul Normal Absolute Lymph 2.59 Performed By: #### L100.0100 #### [facility] [address] [place], [place] [address]all [facility] [place], [address] BASIC METABOLIC Collected: 07/06/2018 Status: F Source: [place] PROFILE (BMP) 7:40 AM [facility] REPOSITORY TYPE CODE TESTS RESULT OUT OF RANGE REFERENCE UNITS LAB L501.0100 74-106 mg/dL High GLU 120 Result Comment: Fasting Glucose result from 100 to 125 mg/dL suggests IMPAIRED HOMEOSTASIS per A.D.A. criteria. Please note revised GLUCOSE reference range effective 2017. LAB L501.1000 7-18 mg/dL Normal BUN 17 LAB L501.1100 0.70-1.30 mg/dL Normal CREAT,SERUM 0.99 Result Comment: The validity of the calculated GFR AND GFRAA in patients over 70 years has not been determined. Clinical correlation is essential. LAB L501.1110 >60 mL/min Normal EST GFR 78 Result Comment: Non- GFR Calc LAB L501.1115 >60 mL/min Normal EST GFR - AA 94 Result Comment: GFR Calc LAB L501.1255 ml/min Normal Estimated CRCL 72.86 LAB L501.1300 10-20 RATIO Normal BUN/CRE 17.1 LAB L501.2200 8.5-10 mg/dL Normal .1 CA 8.7 LAB L501.5300 136-14 mmol/L Normal 5 NA 141 LAB L501.5600 3.5-5. mmol/L Normal 1 K 3.6 LAB L501.5900 98-107 mmol/L High CL 108 LAB L501.6100 21.0-3 mmol/L Normal 2.0 CO2 24.0 LAB L501.6200 5-15 Normal GAP 9 Performed By: #### L500.2500, L501.4010 #### [facility] [address] [facility] [place], [place], [address] TROPONIN-I Collected: 07/06/2018 Status: F Source: [place] 7:40 AM [facility] REPOSITORY TYPE CODE TESTS RESULT OUT OF RANGE REFERENCE UNITS LAB L501.4010 <0.045 ng/mL Normal < 0.015 TROPONIN-I Result Comment: TROPONIN-I EXPECTED VALUES <0.045 Negative 0.045 - 0.590 Consistent with Cardiac Damage > OR = 0.600 Critical Value Not every elevated troponin is indicative of MS. These values should be used with clinical judgement in examining the patient's clinical picture for diagnosis. To establish a diagnosis of MS versus myocardial injury, there must be a demonstrated rise and/or fall in the troponin values, in addition to ischemic symptoms, EKG changes, new regional wall motion abnormality, and/or angiographical evidence. PLEASE NOTE: REFERENCE RANGES EDITED 17 Performed By: #### L500.2500, L501.4010 #### [facility] [address] [facility] [place], [place], [address] PROTHROMBIN TIME W/INR Collected: 07/06/2018 Status: F Source: [place] 7:40 AM [facility] REPOSITORY TYPE CODE TESTS RESULT OUT OF RANGE REFERENCE UNITS LAB L300.4150 11.7-14.9 SECONDS Normal PROTIME 14.0 LAB L300.4200 Normal INR 1.1 Performed By: #### L300.3900, L300.4310 #### [facility] [address] [place], [address] PARTIAL THROMBOPLAST Collected: 07/06/2018 Status: F Source: [place] TIME 7:40 AM [facility] REPOSITORY TYPE CODE TESTS RESULT OUT OF RANGE REFERENCE UNITS LAB L300.4310 24.1-36.2 Seconds Normal PTT 29.3 Performed By: #### L300.3900, L300.4310 #### [facility] [address] [facility] [place], [address] BRAIN/HEAD WITHOUT Observed: 07/06/2018 Status: F Source: [place] CONTRAST 7:34 AM [facility] REPOSITORY [facility] Imaging Services [address] [place] [address] Brain/Head without Contrast MR#: [id number] Acct: [id number] Name: ALVARO JOSEPH Rep #: [id number] : 1945 M 73 From: Jd Tucker PCP: Anayeli Marino MD Status: REG Study: Brain/Head without Contrast Date of Exam: 07/06/18 Exam# [id number] Ordering Dr: Julius Aguilar MD STUDY: CT BRAIN WITHOUT CONTRAST REASON FOR EXAM: Male, 73 years old. VERTIGO(CONSTANT) AND NYSTAGMUS TO RIGHT RADIATION DOSAGE (If Supplied By Facility): CTDIvol = ( 44.99 ) mGy, DLP = ( 796.11 ) mGycm TECHNIQUE: Transaxial CT imaging of the brain was performed without administration of intravenous contrast material. Individualized dose optimization techniques were used for this CT. COMPARISON: None. FINDINGS: There is cerebral atrophy with widening of the extra-axial spaces and ventricular dilatation. There are areas of decreased attenuation within the white matter tracts of the supratentorial brain, consistent with microvascular disease changes. There is no intracranial hemorrhage. There are no findings of an acute ischemic infarction. Normal soft tissue structures. Normal visualized paranasal sinuses. CT/Brain/Head without Contrast IMPRESSION: Chronic involutional changes of the brain. Electronically Signed: Jd Tucker MD at 8:20 EST Tel , Service support , CC: Anayeli Marino MD; Julius Aguilar MD Lens Cementer: Signed CHEST 1 VIEW Observed: 07/06/2018 Status: F Source: [place] 7:34 AM [facility] REPOSITORY [facility] Imaging Services [address] [place] [address] [place] [address] Chest 1 View MR#: [id number] Acct: [id number] Name: ALVARO JOSEPH Rep #: [id number] : 1945 73 From: Faisal Rangel MD PCP: Anayeli Marino MD Status: REG ER Study: Chest 1 View Date of Exam: 07/06/18 Exam# [id number] Ordering Dr: Julius Aguilar MD STUDY: X-RAY CHEST REASON FOR EXAM: Male, 73 years old. Dizziness. TECHNIQUE: Single AP portable view of the chest. COMPARISON: Comparison is made with prior examination dated December 10, 2016. FINDINGS: EKG electrodes are seen. Stable diffuse increased interstitial markings in both lungs suggestive of scarring. There has been essentially no change. There is no demonstrated pleural abnormality. Normal size heart. Normal mediastinum and gay. Normal visualized pulmonary arteries. There is atherosclerotic tortuosity of the aortic arch and descending thoracic aorta. Normal visualized thoracic spine. Normal visualized ribs, clavicles, and shoulders. There is no demonstrated abnormality of the visualized soft tissue structures of the upper abdomen. RAD/Chest 1 View IMPRESSION: Stable diffuse increased interstitial markings suggesting scarring. No acute abnormality is seen. Electronically Signed: Faisal Rangel MD at 8:35 EST Tel [phone], Service support , CC: Anayeli Marino MD; Julius Aguilar MD Lens Cementer: Signed CREATININE FINGERSTICK Collected: 01/28/2018 Status: F Source: [place] 1:38 PM [facility] REPOSITORY TYPE CODE TESTS RESULT OUT OF RANGE REFERENCE UNITS LAB L9100.0210 0.70-1.30 mg/dL Normal CREATININE WB 1.3 LAB L9100.0220 >60 mL/min Low EGFR WB 57.0000 Performed By: #### L9100.0200 #### [facility] Point of Care [address] [place] [address] CHEST WITH CONTRAST Observed: 01/28/2018 Status: F Source: [place] 1:29 PM [facility] REPOSITORY [facility] Imaging Services [address] [place] [address] Chest WITH Contrast MR#: [id number] Acct: [id number] Name: ALVARO JOSEPH Rep #: [id number] : 1945 M 72 From: Chetan Price MD PCP: Anayeli Marino MD Status: REG CLI Study: Chest WITH Contrast Date of Exam: 01/28/18 Exam# [id number] Ordering Dr: Anayeli Marino MD STUDY: CT CHEST WITH CONTRAST REASON FOR EXAM: Male, 72 years old. Pulmonary nodule RADIATION DOSAGE (If Supplied By Facility): CTDIvol = ( 12.12 ) mGy, DLP = ( 751.67 ) mGycm TECHNIQUE: Transaxial imaging was performed following intravenous administration of 100 ml of Isovue 300 contrast material. Coronal and sagittal 2-D MPR Individualized dose optimization techniques were used for this CT. COMPARISON: CT chest 01/08/2017 and x-ray chest 12/10/2016.. FINDINGS: On prior CT chest of December 2016 there was reported emphysema, multiple pulmonary nodules. Supraclavicular: No acute process. Body wall soft tissues: No acute process. Upper abdomen: No acute process. Osseous structures: Healed old left posterior rib fractures. Mediastinum: Normal esophagus. Several small mediastinal and hilar lymph nodes some of which are borderline enlarged. The largest pretracheal lymph node has a short axis of 12 mm, the largest left hilar lymph node short axis XII mm, the largest right hilar lymph node short axis XI mm. These lymph nodes are stable compared to imaging of December 2016. Heart: Normal heart size without effusion. Moderately prominent aortic valve calcifications. Mild to moderate coronary calcifications most prominent in the proximal LAD. Aorta: Mildly ectatic ascending aorta and proximal arch 3.4 cm with mild arch atherosclerosis and widely patent for vessel cervical arch branching. Vertebral artery as the 3rd vessel from the arch, normal variant. Pulmonary arteries: Mildly ectatic central pulmonary arteries, main pulmonary artery 3 cm. Lungs: There is pulmonary hyperinflation, upper and lower lung subpleural reticulation, apical predominant centrilobular emphysema. There is also basilar predominant pleural based honeycombing associated with mild traction bronchiectasis. This pattern has not progressed compared to prior imaging. 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 In the left lower lobe series 2 image 60, there is a spiculated pulmonary nodule with a greatest dimension of approximately 9 mm. On prior imaging this pulmonary nodule has a greatest dimension of approximately 8 mm. Slightly more conspicuous as compared to prior imaging, possibly representing suspicious interval growth. A few small pulmonary nodularity is along the left major fissure are stable. A pulmonary nodule in the left upper lobe anterior segment measuring approximately 7.5 mm has not substantially changed. In the right upper lobe series 2 image 28, solid pulmonary nodule with a greatest dimension of approximately 7.5 mm, stable. Right major fissure focus of curvilinear thickening centered on image [address]/Chest WITH Contrast IMPRESSION: On the left, lower lobe posterior basilar, a spiculated pulmonary nodule has increased slightly in size and conspicuity as compared to imaging of 01/08/2017. This should be regarded with suspicion. Consider biopsy. At a minimum, short interval follow-up CT chest in 3 months is recommended for closer surveillance. Otherwise, the pulmonary nodules in the right and left lung are stable. There is evidence of pulmonary fibrosis, in addition to COPD/emphysema. Coronary atherosclerosis. Electronically Signed: Chetan Price, at 14:46 EDT Tel , Service support , CC: Anayeli Marino MD Lens Cementer: Signed LIPID PROFILE Collected: 01/19/2018 Status: F Source: [place] 4:48 PM [facility] REPOSITORY Order Comment: Order Date: 01/19/18 Order Info: [id number] - LIPID Order Info: 192 - AST Order Info: 1742-6 - ALT TYPE CODE TESTS RESULT OUT OF RANGE REFERENCE UNITS LAB L501.4900 200 mg/dL Normal CHOL 171 Result Comment: <200 mg/dL Desirable 200-240 mg/dL Borderline >240 mg/dL High Risk LAB L501.5000 mg/dL High TRIG 375 Result Comment: The drugs N-Acetylcysteine and Metamizole may falsely depress this assay. Serum Triglycerides Reference Interval Normal <150 mg/dL Borderline high 150 - 199 mg/dL High 200 - 499 mg/dL Very High > or = 500 mg/dL LAB L501.6400 mg/dL Low HDL 31 Result Comment: The drugs N-Acetylcysteine and Metamizole may falsely depress this assay. Reference Range HDL <40 mg/dL Low HDL Cholesterol HDL >or= 60 mg/dL High HDL Cholesterol LAB L501.6500 0-130 mg/dL Normal LDL 65 LAB L501.6600 5-40 mg/dL High VLDL 75 Performed By: #### L500.4100, L501.4100, L501.4405 #### [facility] [address] [place], [address] AST(SGOT) Collected: 01/19/2018 Status: F Source: [place] 4:48 PM [facility] REPOSIT[facility] Order Comment: Order Date: 01/19/18 Order Info: [id number] - LIPID Order Info: 1920-01 - AST Order Info: 1742-6 - ALT TYPE CODE TESTS RESULT OUT OF RANGE REFERENCE UNITS LAB L501.4100 15-37 U/L Normal AST 17 Performed By: #### L500.4100, L501.4100, L501.4405 #### [facility] [address] [place], [address] ALANINE AMINOTRANSFERAS Collected: 01/19/2018 Status: F Source: [place] (SGPT) 4:48 PM [facility] REPOSITORY Order Comment: Order Date: 01/19/18 Order Info: [id number] - LIPID Order Info: 1920-01 - AST Order Info: 1742-6 - ALT TYPE CODE TESTS RESULT OUT OF RANGE REFERENCE UNITS LAB L501.4405 16-61 U/L Normal ALT 25 Performed By: #### L500.4100, L501.4100, L501.4405 #### [facility] [address] [place], [address] PULMONARY VISIT REPORT Observed: 07/18/2017 Status: F Source: [place] 8:29 AM [facility] REPOSITORY [facility] [address] [place] [address] OFFICE VISIT Date of Service: 07/17/17 MR#: [id number] Acct: [id number] Name: ALVARO JOSEPH Rep #: [id number] : 1945 Provider: Garfield Wren MD Age/Sex: 72/M Location: [facility] Status: Signed Assessment AND Plan 1. Bronchiectasis without complication J47.9 Plan Patient appears to be doing well at this time. Patient is compliant with pulmonary toileting. Patient has attempted inhalers in the past with no improvement, so these have been discontinued. No recurrent exacerbations of been reported. Continue with current plan. 2. Pulmonary fibrosis J84.10 Plan Patient with an element of pulmonary fibrosis noted on previous imaging. Patient's inflammatory labs were elevated, so an SANDY and ANCA were obtained in the past and these were negative. Patient's pulmonary function appears to be relatively normal at this time. Likely will follow annual pulmonary function test and walking oximetries. Continue current therapy 3. Tobacco abuse Z72.0 Plan Patient's lung function is relatively preserved despite long smoking and multiple comorbidities. Stressed to the patient that continued smoking could lead to degradation and lung function and necessitation of supplemental oxygen. Patient voiced understanding, but is pre-contemplative in his smoking cessation at this time. Encourage smoking cessation Plan Detail Follow Up 6 Months ([facility]) HPI 3 M FU: Chief Complaint: Periodic cough Details: No E/H/P. no inhalers. quit smoking for 3 weeks. significantly improved after cessation of wine. Patient is a 72-year-old male, currently under the care of Dr. Marino, who presents for evaluation secondary to periodic cough. Since last visit, patient has had no ER visits, hospitalizations or prednisone burst. Patient is currently using no inhalers. Patient does state that he attempted smoking cessation for 3 weeks. Patient states that he failed secondary to habit. Patient does not believe this had any significant improvement in his cough or other symptomatology. Patient continues to have periodic dry cough, but states this is significantly improved compared to previous visit. Patient states that this is secondary to removal of wine from his diet. Patient does report compliance with pulmonary toileting, but states the production is significantly down after cessation of wine. Patient does have mixed drinks with dinner every evening. Personally reviewed with the patient Complete PFT (07/02/2017): Isolated defect in diffusing capacity with preserved lung volumes and flows. (FVC 118%, FEV1 121%, TLC 92%, DLCO 57%) SANDY/ANCA: Negative Intake Vital Signs07/17/17 Height 6 ft 1 in 07/17/17 Weight: 98.43 kg Intake Visit Reasons: 3 M FU Allergies No Known Allergies Allergy (Verified 02/13/15 16:01) Medications Atorvastatin Calcium [Lipitor] 10 mg PO QHS 02/13/15 [History Confirmed 02/13/15] [facility] Medical History F/H of alcoholism (Chronic) Chronic cough (Chronic) Tobacco abuse (Chronic) Abnormal chest xray (Chronic) Bronchiectasis without complication (Chronic) Pulmonary fibrosis (Chronic) Surgical History History of hernia surgery (Resolved) History of appendectomy (Resolved) Family History Sister Alcoholism Liver failure Brain malignancy Father CVA (cerebral vascular accident) Social History Smoking Status: Current some day smoker tobacco type: pipe, cigarettes second hand exposure: Yes alcohol intake: current alcohol intake frequency: 0-2 drinks per day Alcohol type: beer substance use type: does not use caffeine: Yes Type: coffee Number of servings: 3 what type of physical activity do you participate in: weight training frequency: 3-4 times per week Review of Systems Const CONSTITUTIONAL: Negative anorexia, body ache, chills, daytime sleepiness, fever(s), night sweats, oral thrush, stops breathing during sleep, weight loss, sleeping in chair, fatigue, weight loss, weight gain, frequent colds, seasonal allergies, other, headache(s) or orthopnea EETM Ear Nose Throat Mouth: Positive hearing normal; negative hard of hearing, hoarseness, dry mouth in morning, change in vision, itchy eyes, eye pain, swallowing Difficulty, ear pain, nose bleed, headache(s), mouth pain, nasal congestion, nasal discharge, post nasal drip, sinus pain, sinus pressure, sore throat or other Cardio Cardiovascular: Negative chest pain, chest pain at rest, chest pain with activity, irregular heart rhythm, edema, shortness of breath when lying down, palpitations, murmur or other Resp Respiratory: Positive as per HPI and cough cough: Positive non-productive; negative shortness of breath, pain with cough, wheezing, chest congestion, chest tightness, pain on inspiration, inhalers, increase use of rescue inhalers, snoring, apnea or other Gastro Gastrointestional: Negative bloody stools, change in appetite, difficulty swallowing, reflux, hematemesis, melena stool, loose stool, constipation or other Genitourinary: Negative blood in urine, nocturia, pain with urination or other Musc Musculoskeletal: Negative body pain, back pain, neck pain or other Skin/Breast Skin/Breast: Negative dry skin, itching, rash, unusual bruising, breast lump or other Neuro Neurological: Negative restless legs, confusion, weakness or other Psych Psychocological: Negative abnormal sleep pattern, anxiety, thoughts of hurting self/others, hopelessness or other Lymph Lymphatic: Negative easy bleeding, easy bruising, swollen lymph nodes or other Exam Const Constitutional: Positive conversant, cooperative, in no acute respiratory distress, healthy appearing, well developed, well nourished and good hygiene Head Head: Positive normocephalic and atraumatic; negative cyanosis of lips/distal nose, frontal sinus tenderness or maxillary sinus tenderness Eyes Eye: Positive clear conjunctiva; negative nystagmus, scleral abnormality or cataract present Ears Ear: Positive hearing normal and external ears normal; negative hard of hearing Nose Nose: Positive external nose normal, septum normal and no nasal discharge; negative epistaxis or nasal polyp Mouth Mouth: Positive oral mucosae normal, no lesions and posterior oropharynx is adequate; negative post nasal drip or oral thrush present Mallampati Score: II: Mallampati Score Neck Neck: Positive normal visual inspection, full ROM and trachea midline; negative lymphadenopathy or JVD Chest Wall Chest: Positive normal inspection of the chest and symmetric chest movement; negative crepitus or tenderness Resp lung sounds: Positive clear to auscultation, good air exchange, rales rales: Positive lower and bilateral, wheeze present on forced exhalation, normal expiratory time and normal respiratory effort; negative wheezes, rhonchi or use of accessory muscles Cardio Cardiac: Positive regular rate, regular rhythm, S1 normal and S2 normal; negative murmur, rub or gallop GI GI: Positive normal to inspection and normal bowel sounds; negative distended, ascites or epigastric tenderness Genitourinary: Positive deferred Musc Musculoskeletal: Positive steady gait; negative using an assistive device for ambulation, kyphosis or scoliosis Skin Pulmonary Skin Exam: Positive intact; negative rash, lesion, ulcers, erythema or dermal atrophy Pulses Pulse: Yes radial pulses present Extremities Extremities: Yes capillary refill normal, Yes clubbing, No cyanosis, No edema, No stasis dermatitis Neuro Neurologic: Yes conversant, Yes no focal neuro deficits, Yes normal coordination, Yes normal concentration, Yes cooperative, Yes normal cognition Lymph Lymphatic: No lymphadenopathy Psych Appearance: Positive grossly normal Mental Status: Positive mental status grossly normal Mood: Positive congruent mood Affect: Positive normal affect Pulmonary Procedure Smoking Cessation Education: Yes education provided, 3-10 minutes, expresses understanding, continue to encourage smoking cessation and needs reinforcement Coding Level of Care Code Off vis,est,level 3 Diagnoses Bronchiectasis without complication J47.9 Pulmonary fibrosis J84.10 Tobacco abuse Z72.0 07/18/17 0829 <Electronically signed by Garfield Wren MD> Date Garfield Wren MD Cosigner Signature: Date (if applicable) CC: Anayeli Marino MD ALLERGIES ALLERGIES DATE TYPE / CODE NAME / CODE REACTION SEVERITY SOURCE 02/13/2015 Drug No Known Unknown [place] [facility] Allergy/4160 Allergies/F00 Hospital 94107(SNOMED [id number](RXNOR Repository CT) M) ENCOUNTERS ENCOUNTERS ADMIT/DISCHARGE ACCOUNT ADMITTING ENCOUNTER LOCATION SOURCE NUMBER CLASS 07/06/2018/ [id number] [place] [place] [facility] [place] 9 1 [facility] ing:PCURoom: Repository [id number]: 1 07/06/2018 [id number] [place] [place] Amb[facility] BMSBuilding:B [place] 6 [facility] Repository 07/06/2018 [id number] [place] [place] [facility] BMSBuilding:B [place] 1 [facility] Repository 01/28/2018 [id number] Ambulatory [place] 1 [facility] ing:CT Repository 01/19/2018 [id number] Ambulatory [place] 4 [facility] ing:MFPLAB Repository 07/17/2017/ [id number] Ambulatory BMSBuilding:B [place] 8 0 [facility] PAYERS PAYERS ENCOUNTER GUARANTOR PAYER SUBSCRIBER SOURCE 07/06/2018 ALVARO Gregory Primary ALVARO [id number] Insurance:MEDICARE NEUHAUSERDOB: [facility] [id number] Number: Repository [id number]: 330 [id number] [phone] (HP) Date:2018-07-06 07/06/2018 Secondary ALVARO Charles Insurance:[facility]: [facility] Number: [id number] [facility] [id number] Repository Date:9096-67-75[place] [facility] [place]1872HTZ[place], [place] [address]CB: 07/06/2018 Tertiary NOT GIVENUNK [place] Insurance:SELF PAY [facility] Number: Effective Repository Date:2018-07-06 07/06/2018 ALVARO E Primary ALVARO E [place] [id number] Insurance:MEDICARE NEUHAUSERDOB: [id number] [place] Number: Repository [id number]: 330 [id number] [phone] () Date:2018-07-06 07/06/2018 Secondary ALVARO E [place] Insurance:AARPPolicy NEUHAUSERDOB: Community Number: [id number] Hospital [id number] Repository Date:4657-45-05VZ [address], [place] [address]DE: 07/06/2018 Tertiary NOT GIVENUNK [place] Insurance:SELF [facility]Y [facility] Number: Effective Repository Date:2018-07-06 07/06/2018 ALVARO E Primary ALVARO E [place] [id number] Insurance:MEDICARE NEUHAUSERDOB: [id number] [place] Number[facility] Repository [id number]: 330 [id number] [phone] () Date:2018-07-06 07/06/2018 Secondary ALVARO E [place] Insurance:AARPPolicy NEUHAUSERDOB: Community Number: [id number] Hospital [id number] Repository Date:[id number] [address], [place] [address]TD: 07/06/2018 Tertiary NOT GIVENUNK [place] Insurance:SELF PAY [facility] Number: Effective Repository Date:2018-07-06 01/28/2018 ALVARO E Primary ALVARO E [place] [id number] Insurance:MEDICARE NEUHAUSERDOB: [facility] [id number] [place] Number: Repository [id number]: 330 [id number] [phone] () Date:2018-01-19 01/28/2018 Secondary ALVARO E [place] Insurance:AARPPolicy NEUHAUSERDOB: Community Number: [id number] Hospital [id number] Repository Date:9821-74-07OW [address], [place] [address]RV: 01/28/2018 Tertiary NOT GIVENUNK [place] Insurance:SELF PAY [facility] Number: Effective Repository Date:2018-01-19 01/19/2018 ALVARO E Primary ALVARO E [place] [id number] Insurance:MEDICARE NEUHAUSERDOB: [facility] [id number] [facility] Number: Repository [id number]: 330 [id number] [phone] () Date:2018-01-19 01/19/2018 Secondary ALVARO E [place] Insurance:AARPPolicy NEUHAUSERDOB: Community Number: [id number] Hospital [id number] Repository Date:5973-04-93YK [address]WLSD, [place] [address]QD: 01/19/2018 Tertiary NOT GIVENUNK [place] Insurance:SELF PAY [facility] Number: Effective Repository Date:2018-01-19 07/17/2017 ALVARO E Primary ALVARO E [place] [id number] Insurance:MEDICARE NEUHAUSERDOB: Community PORTAL PART A [facility] [id number] [facility] Number: Repository [id number]: 330 [id number] [phone] () Date:2017-05-26 07/17/2017 Secondary ALVARO E [place] Insurance:AARPPolicy NEUHAUSERDOB: Community Number: [id number] Hospital [id number] Repository Date:9625-38-96EY [address], [place] [address]DA: 07/17/2017 Tertiary NOT GIVENUNK [place] Insurance:SELF PAY [facility] Number: Effective Repository Date:2017-05-26
== END 2018-07-07 09:29 | disposition home or self-care (01) ==
LOC: ED 08:04 → PCU 08:50
PROVIDERS: Admitting Provider Internal Medicine; Emergency Provider Emergency Medicine; Family Provider Family Medicine; PCP Family Medicine; Visit Provider Internal Medicine
DX: H81.10 Benign paroxysmal vertigo, unspecified ear (principal); E78.5 Hyperlipidemia, unspecified; R91.1 Solitary pulmonary nodule; J84.10 Pulmonary fibrosis, unspecified; Z79.899 Other long term (current) drug therapy; I44.0 Atrioventricular block, first degree; R73.9 Hyperglycemia, unspecified; D45 Polycythemia vera; R09.02 Hypoxemia; F17.210 Nicotine dependence, cigarettes, uncomplicated
CPT/HCPCS: 36415; 70450; 70544; 70549; 70551; 71045; 80048; 82962; 84484; 85025; 85610; 85730; 93005; 96360; 96361; 96372; 97162; 99218; 99285; 99406; A9585; J7030; G0378

== ENCOUNTER → 2018-07-31 12:44 | Outpatient (CLI) | payer MEDICARE, OTHER, SELFPAY ==
[2018-07-06 21:00] VITALS: BMI 27.8
--- NOTE | 2018-07-31 12:49 | CT_ITS ---
STUDY: CT CHEST WITHOUT CONTRAST REASON FOR EXAM: Male, 73 years old. Lung nodule follow-up RADIATION DOSAGE (If Supplied By Facility): CTDIvol = ( 19.97 ) mGy, DLP = ( 775.27 ) mGycm TECHNIQUE: Transaxial imaging was performed without the administration of intravenous contrast material. Multiplanar coronal and sagittal images were reformatted. Individualized dose optimization techniques were used for this CT. COMPARISON: January 28, 2018 CT scan chest FINDINGS: There is emphysematous change in the lungs. There are areas of scattered emphysematous blebs in larger emphysematous bullae. Within the left lower lobe the level of the major fissure this is demonstrated. There is mild thickening of the left side fissure, this is stable when compared to January 08, 2017. Within the left lower lobe on image #65 there is a stable nodular density measuring 8.2 mm also stable and compared to prior study January 28, 2018. There is a new small focus of nodular density within the right lower lobe which appears to abut the pleural measures 1.6 x 1.5 cm. There are coronary calcifications. The heart is within normal limits in size. There is a AP window lymph node measuring 1.9 cm and precarinal lymph node measuring 1.1 cm. Subcarinal lymph node measuring 1.7 cm. These are relatively stable when compared to prior study. There is a small focus of nodular density within the right lower lobe which appears to abut the pleural measures 1.6 x 1.5 cm. This is not definitively seen on the prior study January 28, 2018. Normal hilar regions. Normal unenhanced pulmonary arteries. There is atherosclerotic calcification of the aortic arch with tortuosity and elongation of the aortic arch and descending thoracic aorta. There are multi-level degenerative changes of the thoracic spine. There is no demonstrated abnormality of the visualized upper abdomen. CT/Chest without Contrast IMPRESSION: There is a stable nodule within the superior aspect of the left lower lobe. New Visualized focal nodular density right side lower lobe pleural-based nodule image #72 axial views coronal views 152 which may represent a new focus of inflammatory change and a potential nodule. Recommend consideration for follow-up PET scan. Pulmonary emphysema. Persistent somewhat Atypical mediastinal lymphadenopathy. Coronary artery calcification. Electronically Signed: Rosio Goode MD at 19:58 EST Tel , Service support ,
== END ==
PROVIDERS: Family Provider Family Medicine; PCP Family Medicine; Referring Provider Internal Medicine Pulmonary Disease; Visit Provider Internal Medicine Pulmonary Disease
DX: R91.1 Solitary pulmonary nodule (principal)
CPT/HCPCS: 71250

== ENCOUNTER 2018-10-13 11:30 | Outpatient (RCR) | payer MEDICARE, OTHER, SELFPAY ==
[2018-07-06 21:00] VITALS: BMI 27.8
--- NOTE | 2018-09-15 13:54 | HP.PTEVAL ---
Patient's Visit Information ALVARO JOSEPH is a 73 year old M referred to Physical Therapy by Jordi Angel MD with a diagnosis of vestibular neuritis. Date of Evaluation: 09/15/18 Physical Therapist: Cesar Castle, MYLES, OCS, CSCS - Visit Plan Frequency: 1x/Week Duration: 4-6 Weeks Plan: weekly x 4-6 for progression of VOR and adaptation exercises adn progression of function/balance as needed. - Subjective Findings: 2 months ago after shovelling snow got suddenly dizzy and could not get up due to dizzyness. Was fine prior to that. Stayed dizzy for 3 days. Went to ER 2 nd day. Stayed in hospital one night. Did a bunch of testing including MRI on head and blood vessels adn all was fine. Heart was good. Diagnosed with vertigo. Sent home. Slowly improviong. Lightheadedness has not gone away. No spinning since about 4 days after . Currently feels air headed constantly. Worse with getting up out of bed. Sleeps well. Seen direct sales consultant for a two year cough. Has spot on lungs. Driving is not a problem. As a passenger gets motion sick and never did not better. Walking at grocery store not a problem. Avoids getting up and down quickly maybe due to neuropathy which he has no known etiology for but has seen neurologist x 3. Used brace for a year whcih helped. Basic ADLs are OK. Can't bowl due to dizzyness, Things move when he is ready to throw ball. - Objective R ankle DF weak vs L, generaly weaker R vs L ankle 3- DF, 3+ inv/Ev, 3+ PF. Diminished sensation to light touch in LE. Walks and transfers safe adn I. C/S aROM WFL adn painfree. - B hallpike and positional and roll test, no nystagmus, no symptoms. VOR 60 seconds increase 4/10 for a couple seconds. No nystagmus with gaze or head shake, - skew eye deviation, convergence OK. + L head thrust. Pursuit and saccades are normal. VOR is symptomatic and slow with L head rotations. horiz and vertical give slight increase to symptoms. Walked out I. - Balance Scores Functional Gait Assessment Score: 21 % Disability: 30.0000 CATSIB Score (Max score 120 seconds): 93 - Goals Goal 1:: 60 seconds vOR x 2 walking without symptoms Goal Time Frame: 4-6 Weeks Goal 2:: Pt feel 100% back to normal with abolishment of lightheaded feeling. Goal Time Frame: 4-6 Weeks Goal 3:: FGA 25/30 so patient can bowl again. 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 For Medicare and Medicare HMO plans, please review the plan of care and approve it. It will need to be FAXED BACK to us at [phone] for Medicare purposes. For Medicare only, by signing this I certify the plan of care. Please let me know if there are questions or concerns regarding this plan of care. Physician Signature: Date:
--- NOTE | 2018-10-13 12:00 | HP.PTDCSUM ---
HP - PT D/C Summary It has been my pleasure to treat ALVARO JOSEPH under orders from Jordi Angel MD, for the diagnosis of vestibular neuritis for a total of 4 visit(s). Discharge Date: 10/13/18 Please see the following information for a summary of their discharge status. - Subjective Subjective: Quit smoking. Exercises going good. Dizzyness has been not bad until today he thinks because he quit smoking. They are getting easier. Doing them 3-4x/day. Activites are normal. Not confident enough to try bowling yet. To doctor in January. - Overall Improvement % Improvement: 99 - Objective Objective/Function: All exercises improving. 180 degree turns easy today without symptoms, bending over causing slight symptoms. VORx2 asymptomatic. OVERALL DOING WELLA DN WISHES TO COTNINUE TO GET BACK TO BOWLING ON HIS OWN VS MORE THERAPY WHICH I AM AGREEABLE TO. - Goals Goal 1:: 60 seconds vOR x 2 walking without symptoms Goal Progress: Goal Met Goal 2:: Pt feel 100% back to normal with abolishment of lightheaded feeling. Goal Progress: 99% Goal 3:: FGA so patient can bowl again. Goal Progress: Goal Met - Plan Plan: D/C - D/C Information Discharge Comments: Pt doing well adn will cotninue HEP and start walking program. Will get back to bowling on his own with good confidence adn let doctor know if problems come back. If there are questions or concerns regarding this patient's physical therapy, please feel free to call me at [phone]. Thank you for the referral of this patient. Sincerely, Cesar Castle, DPT, OCS, CSCS
== END 2018-10-13 19:00 | disposition home or self-care (01) ==
LOC: PT 11:30
PROVIDERS: Family Provider Family Medicine; PCP Family Medicine; Referring Provider Otolaryngology; Visit Provider Otolaryngology
DX: H93.3X9 Disorders of unspecified acoustic nerve (principal); G62.9 Polyneuropathy, unspecified
CPT/HCPCS: 97110; 97162; 97530

== ENCOUNTER → 2019-01-08 07:20 | Outpatient (CLI) | payer MEDICARE, OTHER, SELFPAY ==
[2018-07-06 21:00] VITALS: BMI 27.8
--- NOTE | 2019-01-08 07:23 | CT_ITS ---
STUDY: CT CHEST WITHOUT CONTRAST REASON FOR EXAM: Male, 73 years old. Nodule follow-up RADIATION DOSAGE (If Supplied By Facility): CTDIvol = ( 17.84 ) mGy, DLP = ( 726.82 ) mGycm TECHNIQUE: Transaxial imaging was performed without the administration of intravenous contrast material. Individualized dose optimization techniques were used for this CT. COMPARISON: 07/31/18 FINDINGS: There are emphysematous changes in the lungs. There are areas of scattered emphysematous blebs in larger emphysematous bullae, honeycombing noted in the periphery of both lung calles and bronchiectatic changes more prominent in the left lung than the right. There is stable thickening of the left side fissure. Within the left lower lobe on image #62 there is a stable nodular density compared to prior study January 28, 2018. There is a stable focus of nodular density within the right lower lobe which appears to abut the pleural measures 1.6 x 1.5, on image 75. There are coronary calcifications. The heart is within normal limits in size. Soft tissue windows show normal-appearing thyroid gland. Scattered subcentimeter axillary lymph nodes. Stable borderline enlarged mediastinal lymph nodes measuring up to slightly over 1 cm in short axis dimension. There are calcified coronary vessels. Peripheral calcifications noted in the thoracic aorta without aneurysm There are multi-level degenerative changes of the thoracic spine. There is no demonstrated abnormality of the visualized upper abdomen. CT/Chest without Contrast IMPRESSION: Underlying emphysema with bleb formation, honeycombing around the periphery of both lung calles worse in the left lung and the right and bronchiectatic changes. Stable 0.82 cm nodular density in the left lower lobe on axial image 62, stable noncalcified nodule/pleural thickening in the right lung base on axial image 75 measuring 1.6 x 1.5 cm. Calcified coronary vessels Degenerative bony changes Stable borderline enlarged mediastinal lymphadenopathy Electronically Signed: Diego Melton MD at 8:14 EDT , Service support ,
== END ==
PROVIDERS: Family Provider Family Medicine; PCP Family Medicine; Referring Provider Internal Medicine Pulmonary Disease; Visit Provider Internal Medicine Pulmonary Disease
DX: R91.1 Solitary pulmonary nodule (principal)
CPT/HCPCS: 71250

== ENCOUNTER → 2019-03-24 11:15 | Outpatient (CLI) | payer MEDICARE, OTHER, SELFPAY ==
[2018-07-06 21:00] VITALS: BMI 27.8
[2019-03-24 12:57] LABS: Calcium,Total 9.3 mg/dL (8.5-10.1); Cholesterol 126 mg/dL (200); High Density Lipoprotein 35 mg/dL; Triglycerides 134 mg/dL; Very Low Density Lipoprotein 27 mg/dL (5-40)
== END ==
PROVIDERS: Family Provider Family Medicine; PCP Family Medicine; Referring Provider Family Medicine; Visit Provider Family Medicine
DX: E78.00 Pure hypercholesterolemia, unspecified (principal)
CPT/HCPCS: 36415; 80061; 82310

== ENCOUNTER → 2020-01-10 12:21 | Outpatient (CLI) | payer MEDICARE, OTHER, SELFPAY ==
[2018-07-06 21:00] VITALS: BMI 27.8
--- NOTE | 2020-01-10 12:24 | CT_ITS ---
ACR Level 3 findings have been noted. An addendum which confirms receipt of the report will follow. STUDY: CT CHEST WITHOUT CONTRAST REASON FOR EXAM: Male, 74 years old. LUNG NODULE F/U, WORSENING COUGH, STILL SMOKES 1/2 PPD RADIATION DOSAGE (If Supplied By Facility): CTDIvol = ( 15.37 ) mGy, DLP = ( 560.57 ) mGycm TECHNIQUE: Transaxial imaging was performed without the administration of intravenous contrast material. Coronal and sagittal reconstructions were performed. Individualized dose optimization techniques were used for this CT. COMPARISON: CT chest without contrast 01-08-19. FINDINGS: Increase in size of right lower lobe subpleural nodule measuring 4.2 x 2.8 cm (series 4, image seventy-seven), previously 1.6 x 1.5 cm. There are some minimal air bronchograms associated with this mass. This is feasible for CT-guided core biopsy. Noncalcified and indeterminate pulmonary nodule in the lingular segment of the left upper lobe (series 4, image #70; series 601, image #237). This measures 0.9 cm, previously 0.9 cm as well. This is unchanged. Subcentimeter noncalcified and indeterminate pulmonary nodules along the posterior surface of the left major fissure approximately two in number are unchanged (series 4, image #69; series 601, image #239 and image #267). Increased size of noncalcified and indeterminate pulmonary nodule in the posterior lower aspect of the left lower lobe (series 4, image numbers 94-97; series 601, image numbers 268-278). This measures approximately 1.8 cm, previously 1.3 cm. Reticulation and honeycombing in the peripheral aspect of the upper lobes and lower lobes, bronchiectatic changes, coalescent paraseptal cysts behind the left major fissure were present previously. They are suggestive of UIP. There is no pleural fluid. Normal cardiac size. Calcifications along the LAD branch of the left coronary artery. Normal pericardium. Normal mediastinum. Normal hilar regions. Normal unenhanced pulmonary arteries. Calcifications along the thoracic aorta. No aneurysmal dilatation of the thoracic aorta. Normal osseous structures. There is no demonstrated abnormality of the visualized upper abdomen. CT/Chest without Contrast IMPRESSION: 1. Marked increase in size of right lower lobe subpleural nodule/mass measuring 4.2 x 2.8 cm, previously 1.6 x 1.5 cm. This is feasible for CT-guided core biopsy. The possibility of superimposed pneumonia can''t be entirely excluded due to presence of peripheral air bronchograms. 2. Mild increase in size of noncalcified and indeterminate pulmonary nodule in the posterior left lower lobe measures 1.8 cm, previously 1.3 cm. 3. Small subcentimeter noncalcified and indeterminate pulmonary nodules numbering approximately two in the left lower lobe abut the major fissure are unchanged. 4. Abnormal lungs are suspicious for UIP but unchanged. Electronically Signed: Danilo Delgado MD at 13:41 EDT , Service support ,
== END ==
PROVIDERS: Family Provider Family Medicine; PCP Family Medicine; Referring Provider Internal Medicine Pulmonary Disease; Visit Provider Internal Medicine Pulmonary Disease
DX: R91.1 Solitary pulmonary nodule (principal)
CPT/HCPCS: 71250

== ENCOUNTER → 2020-01-28 08:45 | Outpatient (CLI) | payer MEDICARE, OTHER, SELFPAY ==
[2018-07-06 21:00] VITALS: BMI 27.8
[2020-01-28] VITALS (13 sets, daily range): BP systolic 116–155; BP diastolic 57–87; PULSE 67–80; RESP 12–22; TEMP 36.6; O2SAT 92–97; BMI 27.5
--- NOTE | 2020-01-28 | ASPIGT_PTH ---
PATIENT: ALVARO JOSEPH LOC: CT U#:[id number] AGE/SX: 80/M ROOM: RE01/28/[address]: Dr. Jeevan Melo MD : 1945 BED: DIS: SPEC #: [id number] RECD: 01/28/20 10:29 STATUS: ABHIJEET GARTH #: [id number] PETRA: 01/28/20 00:[address]: Jeevan Melo V DEPT: SURGICAL PATHOLOGY RECD BY: Vamsi Alegria ENTERED: 01/28/20 10:30 SP TYPE: ASP RAD OTHR DR: Dr. Anayeli Marino MD Tissues: Lung, NOS Procedures: FNA Specimen Adequacy Special Stain Group II Surgery Specimen Level IV Imprint (control) HEADER OPERATION: CT-guided right lung biopsy PRE-OP DIAGNOSIS: Right lung mass TISSUE SUBMITTED: Right lung mass MICROSCOPIC DIAGNOSIS Right lung mass, CT-guided core biopsy: Non-small cell carcinoma, favor squamous cell carcinoma. See comment. SJ:alon 01/31/20 COMMENT The specimen is evaluated at the time of biopsy by Dr. Singh. Immediate Evaluation = A few clusters of malignant cells derived from non-small cell carcinoma. Immunohistochemistry ([id number]) supports the above diagnosis. Molecular studies on the tumor can be performed if clinically indicated. Please notify the laboratory if they are needed. MICROSCOPIC DESCRIPTION Slides are reviewed. GROSS DESCRIPTION Received in fixative is one container labeled with the patient's name and designated lung biopsy, CTguided. The specimen consists of multiple irregular fragments of wasserman soft tissue that in aggregate measure 1 x 0.5 x 0.1 cm. The specimen is totally submitted in one cassette. Two touch imprints are prepared at the time of core biopsy. / DEWEY:alon 01/28/20 TC:[address] [facility]: [id number], [id number] ADDENDUM ADDENDUM ADDENDUM ADDENDUM ADDENDUM ADDENDUM ADDENDUM ADDENDUM ADDENDUM ADDENDUM 02/17/2020 10:02 ADDENDUM 02/17/2020 10:02 ADDENDUM 02/17/2020 10:02 ADDENDUM 02/17/2020 10:02 ADDENDUM 02/17/2020 10:02 This addendum is added to incorporate an outside pathology consultation report. The case was examined at [facility] (#[id number]) and the following diagnosis was rendered. Lung, right, needle biopsy: Moderately differentiated squamous cell carcinoma. Please see complete above mentioned consultation report in EMR
--- NOTE | 2020-01-28 | IMM_PTH ---
PATIENT: ALVARO JOSEPH LOC: CT U#:[id number] AGE/SX: 80/M ROOM: RE01/28/[address]: Dr. Jeevan Melo MD : 1945 BED: DIS: SPEC #: [id number] RECD: 01/31/20 12:56 STATUS: ABHIJEET REQ #: [id number] PETRA: 01/28/20 00:[address]: Jeevan Melo V DEPT: IMMUNOHISTOCHEMISTRY RECD BY: Kate Schmid ENTERED: 01/31/20 12:59 SP TYPE: IMMUNO OTHR DR: Dr. Anayeli Marino MD Tissues: Right lung, NOS Procedures: RCC (add) NAPSIN A (add) CK20 (add) CK5-6 (add) CK7 (add) CK8 (add) HEP PAR (add) TTF1 (add) Pankeratin (initial) P40 (add) PSAP (add) PHYSICIAN & INSTITUTION [place] [id number] SPECIMEN INFORMATION: Tissue Source: Right lung mass Clinical Info: Right lung mass Specimen Number: [id number] CPT code: 63377, 43911 x10 METHODOLOGY: Deparaffinized sections of prefer/formalin-fixed tissue or PAP/DQ stained slides are incubated with monoclonal/polyclonal antibodies/oligonucleotide probes. Localization is made via biotin free immunoperoxidase method. Appropriate controls are performed and reacted as expected. Results on target cell population are indicated in the following table: RESULTS: ANTIBODY / CLONE RESULT AE1-3 (AE1/AE3/PCK26) positive CK7 (OV-TL12/30) negative CK8 (58onpsP72) negative CK20 (KS20.8) negative TTF-1 (8G7G3/1) negative Napsin A (Rabbit Polyclonal) negative HepPar (OCh1E5) negative RCC (PN-15) negative PSAP (PASE/4LJ) negative CK5-6 (D5 & 1684) positive P40 (BC28) positive These tests were developed and their performance characteristics determined by [facility]. They may not have been cleared or approved by the U.S. Food and Drug Administration. The FDA has determined that such clearance or approval is not necessary. The above immunohistochemical/dualISH markers are ordered and reviewed by the Pathologist. INTERPRETATION: Right lung mass, CT-guided biopsy: Non-small cell carcinoma, favor squamous cell carcinoma. DEWEY:alon 01/31/20
--- NOTE | 2020-01-28 08:21 | RAD_ITS ---
STUDY: X-RAY CHEST REASON FOR EXAM: Male, 74 years old. POST LEFT LUNG BIOPSY TECHNIQUE: AP inspiration and expiration views. COMPARISON: Comparison is made with prior study dated 07/06/2018. FINDINGS: Immediate post right lung biopsy radiograph were obtained. There is evidence of a tiny right apical pneumothorax. RAD/Chest Insp/Exp 2 View IMPRESSION: Tiny right apical pneumothorax on the immediate post right lung biopsy radiograph. Electronically Signed: Faisal Rangel, at 11:04 EDT , Service support ,
--- NOTE | 2020-01-28 09:00 | CT_ITS ---
PROCEDURE: CT GUIDED CORE NEEDLE BIOPSY OF A right lower lobe LUNG LESION INDICATION: Male, 74 years old. RT LUNG NODULE PHYSICIAN: Dr. PANCHITO Land CONSENT: Written informed consent was obtained having explained the risks, benefits and alternatives in detail with the patient who accepted the risks and agreed to proceed. Laboratory review and clinical assessment was performed. CONSCIOUS SEDATION PROTOCOL: The Drugs used were: 2 mg Versed, IV., and 50 mcg Fentanyl, IV. The sedation time was: 15 minutes. Conscious sedation was started at 9:55 AM and terminated at 10:10 AM. The conscious sedation protocol was independently monitored. RADIATION DOSAGE (If Supplied By Facility): CTDIvol = ( 18.5 ) mGy, DLP = ( 417.88 ) mGycm Individualized dose optimization techniques were used for this CT. TECHNIQUE: The patient was placed in the pleural position. A noncontrast CT was performed to localize the lesion in the peripheral aspect of the right lower lobe . The skin surface was prepped and draped in a sterile fashion. 1% lidocaine was used for local anesthesia. Using CT guidance, a 20-gauge coaxial biopsy device was advanced to the periphery of the lesion. A total of 5 core specimens were obtained. The specimens were placed in a formalin solution. A post procedure CT demonstrated no adverse sequelae or pneumothorax. The patient tolerated the procedure well without adverse event. A negative biopsy does not exclude malignancy. Further imaging or clinical followup based on patient condition and degree of clinical suspicion for malignancy. Suggest rebiopsy, if biopsy results do not match with clinical scenario. CT/Biopsy/Inj or Needle Placement IMPRESSION: 1. CT directed core needle biopsy of the right lower lobe pulmonary nodule using CT image guidance with image documentation as described. Pathology results are pending. 2. Conscious Sedation protocol utilized with independent monitoring. Electronically Signed: Faisal Rangel, at 11:02 EDT , Service support ,
[2020-01-28 09:17] LABS: Platelet Count 250 K/mm3 (150-450)
[2020-01-28 09:20] LABS: Erythrocyte Sedimentation Rate 16 mm/hr (0-20)
[2020-01-28 09:27] LABS: CRP 7.06 mg/L (0.0-3.0); Rheumatoid Factor < 10.0 IU/mL (<15)
[2020-01-28 09:35] LABS: Prothrombin Time (Protime)PT. 12.6 SECONDS (11.7-14.9)
[2020-01-28 09:36] LABS: Partial Thromboplast Time 29.6 Seconds (24.1-36.2)
[2020-01-28] MEDS: 0.9% Saline Lock 10 ML Syringe IV (09:42)
[2020-01-28] MEDS: Midazolam 2 MG/2 ML Syringe IV (09:55)
[2020-01-28] MEDS: fentaNYL 100 MCG/2 ML Ampul IV (09:57)
--- NOTE | 2020-01-28 12:20 | RAD_ITS ---
STUDY: X-RAY CHEST REASON FOR EXAM: Male, 74 years old. 2 hours post lung biopsy. Postthoracentesis. TECHNIQUE: Single frontal view of the chest. COMPARISON: Earlier in the day FINDINGS: Hyperexpansion with diffuse interstitial pattern unchanged. Small right apical pneumothorax unchanged. There is no demonstrated pleural abnormality. Borderline cardiomegaly unchanged. Normal mediastinum and gay. Normal visualized pulmonary arteries. Stable aortic tortuosity. Normal visualized thoracic spine. Normal visualized ribs, clavicles, and shoulders. There is no demonstrated abnormality of the visualized soft tissue structures of the upper abdomen. RAD/Chest Insp/Exp 2 View IMPRESSION: Stable right small apical pneumothorax. No other change. Electronically Signed: Eric Downing MD at 13:19 EDT , Service support ,
[2020-01-31 14:07] LABS: Anti-Scleroderma-70 AB <0.2 AI (0.0-0.9)
[2020-01-31 15:27] LABS: ANTINUCLEAR ANTIBODIES DIRECT Negative (Negative); Anti-dsDNA Ab <1 IU/mL (0-9)
[2020-01-31 16:07] LABS: Cytoplasmic Ab (C-ANCA) <1:20 titer (Neg:<1:20)
[2020-01-31 16:23] LABS: Perinuclear Ab (P-ANCA) <1:20 titer (Neg:<1:20)
== END ==
PROVIDERS: PCP Family Medicine; Referring Provider Internal Medicine Pulmonary Disease; Visit Provider Internal Medicine Pulmonary Disease
DX: R91.1 Solitary pulmonary nodule (principal); J84.10 Pulmonary fibrosis, unspecified; R05 Cough; C34.91 Malignant neoplasm of unspecified part of right bronchus or lung; J93.9 Pneumothorax, unspecified; Z79.899 Other long term (current) drug therapy; Z79.51 Long term (current) use of inhaled steroids; G47.33 Obstructive sleep apnea (adult) (pediatric); E78.5 Hyperlipidemia, unspecified; R42 Dizziness and giddiness; F17.200 Nicotine dependence, unspecified, uncomplicated; R91.8 Other nonspecific abnormal finding of lung field; G47.37 Central sleep apnea in conditions classified elsewhere
CPT/HCPCS: 32405; 36415; 71046; 77012; 85049; 85610; 85652; 85730; 86038; 86140; 86225; 86235; 86256; 86431; 88172; 88305; 88313; 88341; 88342; 99155; 99156; J7040; A4216

== ENCOUNTER → 2020-02-15 16:18 | Outpatient (CLI) | payer MEDICARE, OTHER, SELFPAY ==
[2020-01-28 09:32] VITALS: BMI 27.5
--- NOTE | 2020-02-15 16:00 | PET_ITS ---
EXAMINATION: FDG PET/CT INDICATIONS: A 74-year-old male with history of carcinoma of the lung presenting for restaging examination. COMPARISON EXAMINATION: CT of the chest report dated 01/10/2020 INDEX LESION SIZE SUV INTERPRETATION Right lower posterior lung-right lower lobe 37.8-mm (frame 171) 6.0 Fulfills quantitative criteria for viable neoplasm Left lower posterior lung-left lower lobe 17.6-mm (frame 168) 4.8 Fulfills quantitative criteria for viable neoplasm TECHNIQUE: Following the intravenous administration of F-18 deoxyglucose, multiplanar image acquisitions of the neck, chest, abdomen and pelvis to level of mid thigh, obtained at one hour post radiopharmaceutical administration contemporaneously interpreted with the current CT of the neck, chest, abdomen and pelvis to level of mid thigh, dated 02/15/[address] of the chest report dated 01/10/2020 reveal: FINDINGS: 1. Focal increased glucose metabolism is defined in the right lower posterior lung-right lower lobe generating a calculated maximal standard uptake value 6.0. The maximal axial diameter of the corresponding parenchymal density-mass on review of CT of the chest dated 02/15/2020 is 37.8-mm (transverse). 2. A distinct nodular focus of increased fluorine labeled glucose metabolism is manifest tin the left lower posterior lung-left lower lobe rendering a calculated maximal standard uptake value of 4.8. The maximal axial diameter of the corresponding parenchymal density on review of CT of the chest dated 02/15/2020 is 17.6-mm (transverse). 3. Normal physiologic distribution of the radiopharmaceutical is apparent in the hepatic (2.6) and splenic parenchyma, both renal units, bladder and visualized intestinal tract. The visualized portion of the cerebral cortex demonstrate symmetric and preserved glucose metabolism. Diffuse radiopharmaceutical concentration is noted in all four quadrants of the abdomen and pelvis. Pertinent CT findings are as follows: CHEST: There is atherosclerotic calcification defined in the thoracic aorta without evidence of dilatation-aneurysm formation. Coronary arterial calcification is observed. Scattered bilateral axillary soft tissue densities with fatty hilus are ametabolic. Non-calcified mediastinal soft tissue reveals no evidence of increased glucose avidity. Interstitial changes are defined in the bilateral mid-lower lung zones without evidence of facilitated FDG uptake. A non-calcified subcentimeter density defined in the right mid lateral lung-right upper lobe is ametabolic. ABDOMEN AND PELVIS: There is atherosclerotic calcification defined in the abdominal aorta without evidence of dilatation-aneurysm formation. Pelvic arterial calcification is demonstrated. Cyst formation is defined in the left kidney. Colonic diverticulosis is noted without evidence of diverticulitis. Right and left inguinal soft tissue densities with fatty hilus are ametabolic. Dystrophic calcification is manifest within the prostate gland without evidence of increased tracer uptake. SKELETAL: Degenerative changes are noted in the cervical, thoracic and lumbar spine. There are no sclerotic-mixed sclerotic-lytic and/or primarily lytic changes defined within the visualized appendicular and axial skeletal structures with facilitated quantitatively significant increased radiopharmaceutical concentration. PET/PET/CT Tumor Base -Thigh Init IMPRESSION: 1. ABNORMAL EXAMINATION INDICATIVE OF MALIGNANT VIABLE NEOPLASM. 2. Increased FDG uptake defined in the bilateral lower lung zones (right-left lower lobes) fulfill quantitative criteria for malignant transformation. 3. No other quantitatively significant hypermetabolic abnormalities are noted. Electronic Signature Chetan Fuentes D.O. Accurate Quantification of SUVs for this report are calculated using the exclusive [employer]. Electronically Signed: Chetan Fuentes DO at 22:30 EDT Tel , Service support ,
== END ==
PROVIDERS: PCP Family Medicine; Referring Provider Internal Medicine Pulmonary Disease; Visit Provider Internal Medicine Pulmonary Disease
DX: C34.32 Malignant neoplasm of lower lobe, left bronchus or lung (principal); C34.31 Malignant neoplasm of lower lobe, right bronchus or lung; T86.819 Unspecified complication of lung transplant; C80.2 Malignant neoplasm associated with transplanted organ; I70.0 Atherosclerosis of aorta; Z85.118 Personal history of other malignant neoplasm of bronchus and lung
CPT/HCPCS: 78815; A9552

== ENCOUNTER → 2020-10-30 14:58 | Outpatient (CLI) | payer MEDICARE, OTHER, SELFPAY ==
[2020-01-28 09:32] VITALS: BMI 27.5
[2020-10-30 17:31] LABS: Absolute Lymphocyte Count 1.59 X10^3/uL (0.83-4.51); Absolute Neutrophil Count 13.7 X10^3/uL (2.0-7.7); Basophil% 0.6 % (0-1); Eosinophil# 0.18 X10^3/uL; Hematocrit 46.5 % (40-54); Hemoglobin 15.4 g/dL (13.0-16.5); Lymphocyte # 1.59 X10^3/ul (0.83-4.51); Lymphocyte % 9.3 % (19-41); Mean Corp Hgb Conc 33.1 g/dL (32-36); Mean Corpuscular Hgb 32.4 pg (27.0-32.0); Mean Corpuscular Volume 97.7 fL (80-94); Monocyte# 1.45 X10^3/uL; Monocyte% 8.4 % (0-10); NRBC Flagged by Analyzer 0.1 % (0-5); Neutrophil # 13.71 X10^3/uL (2.7-7.7); Neutrophil % 79.9 % (47-70); Platelet Count 325 K/mm3 (150-450); RBC Distribution Width CV 13.7 % (11.6-14.6); RBC Distribution Width SD 50.2 fl (35.1-43.9); Red Blood Count 4.76 M/mm3 (4.6-6.2); White Blood Count 17.2 K/mm3 (4.4-11.0)
[2020-10-30 18:23] LABS: Thyroid Stim Hormone (TSH) 1.99 uIU/mL (0.358-3.74)
== END ==
PROVIDERS: PCP Family Medicine; Visit Provider Family Medicine
DX: M79.10 Myalgia, unspecified site (principal); G63 Polyneuropathy in diseases classified elsewhere; E78.00 Pure hypercholesterolemia, unspecified
CPT/HCPCS: 36415; 84443; 85025

== ENCOUNTER → 2020-11-01 13:40 | Outpatient (CLI) | payer MEDICARE, OTHER, SELFPAY ==
[2020-01-28 09:32] VITALS: BMI 27.5
[2020-11-01 15:23] LABS: Erythrocyte Sedimentation Rate 34 mm/hr (0-20)
== END ==
PROVIDERS: PCP Family Medicine; Referring Provider Family Medicine; Visit Provider Family Medicine
DX: D72.829 Elevated white blood cell count, unspecified (principal)
CPT/HCPCS: 36415; 85652

== ENCOUNTER → 2021-03-05 06:46 | Outpatient (CLI) | payer MEDICARE, OTHER, SELFPAY ==
[2020-01-28 09:32] VITALS: BMI 27.5
--- NOTE | 2021-03-05 08:59 | NEURO_ITS ---
NCS and/or EMG Patient Report Ordering Doctor: Anayeli Marino DATE OF SERVICE: 03/05/21 Indication: Numbness and weakness of the bilateral hands (right perceived as worse than left). History of cryptogenic peripheral polyneuropathy. Evaluate for superimposed entrapment neuropathy. Findings: Nerve conduction studies were performed in the right upper extremity. The patient declined testing of the left upper extremity despite a requisition for both limbs. The right median motor study recording the abductor pollicis brevis showed a normal amplitude, borderline distal latency and mildly slowed conduction velocity. The right ulnar motor study recording the abductor digiti minimi showed a normal amplitude, normal distal latency and mildly slowed conduction velocity. No conduction block or focal slowing was present across the elbow. Right median-ulnar lumbrical / interosseous motor latencies showed a normal m edian latency compared to the ulnar. The right median sensory response recording digit two showed a reduced amplitude, normal latency and mildly slowed conduction velocity. The right ulnar sensory response recording digit five showed a reduced amplitude, prolonged latency and mildly slowed conduction velocity. The right radial sensory response recording over the extensor snuff box showed a reduced amplitude, borderline latency and mildly slowed conduction velocity. Needle EMG of the right upper extremity and cervical paraspinal muscles was performed. No denervation was seen in any muscle. Motor units in the first dorsal interosseous and abductor pollicis brevis were slightly large amplitude with normal recruitment. All other motor unit morphology, activation and recruitment patterns were normal. Impression: This is an abnormal study. There is no electrophysiologic evidence of median neuropathy across the right wrist on either side. In addition, there is no electrophysiologic evidence of cervical radiculopathy in the right upper extremity. The diffusely slowed conduction velocities and reduced sensory amplitudes are suggestive, but not diagnostic, of an underlying peripheral polyneuropathy. If clinically indicated, an examination of the lower extremity would be needed to confirm the diagnosis. Estiven Rivas D.O. Multi Select Codes Neurology Neurology Interp Codes: 41561-58 Musc test done w/n test comp (interp) and 24635-23 Nrv cndj test 7-8 studies (interp)
== END ==
PROVIDERS: PCP Family Medicine; Referring Provider Family Medicine; Visit Provider Family Medicine
DX: R20.2 Paresthesia of skin (principal)
CPT/HCPCS: 95886; 95910

== ENCOUNTER → 2021-03-20 14:23 | Outpatient (CLI) | payer MEDICARE, OTHER, SELFPAY ==
[2021-03-20 17:38] LABS: Absolute Neutrophil Count 7.4 X10^3/uL (2.0-7.7); Basophil# 0.13 X10^3/uL; Basophil% 1.2 % (0-1); Eosinophil# 0.48 X10^3/uL; Eosinophils% 4.3 % (0-5); Hematocrit 45.2 % (40-54); Hemoglobin 14.4 g/dL (13.0-16.5); Mean Corp Hgb Conc 31.9 g/dL (32-36); Mean Corpuscular Hgb 34.4 pg (27.0-32.0); Mean Corpuscular Volume 108.1 fL (80-94); Mean Platelet Vol. 10.6 fl (6.2-12.0); Monocyte# 1.02 X10^3/uL; Monocyte% 9.2 % (0-10); NRBC Flagged by Analyzer 0.4 % (0-5); Neutrophil % 66.4 % (47-70); Platelet Count 241 K/mm3 (150-450); RBC Distribution Width CV 14.7 % (11.6-14.6); RBC Distribution Width SD 59.3 fl (35.1-43.9); Red Blood Count 4.18 M/mm3 (4.6-6.2); White Blood Count 11.1 K/mm3 (4.4-11.0)
[2021-03-20 17:47] LABS: Erythrocyte Sedimentation Rate 17 mm/hr (0-20)
[2021-03-20 18:02] LABS: ALB/GLOB Ratio 0.7 RATIO (0.9-2.4); AST(SGOT) 16 U/L (15-37); Alanine Aminotransfer ALT/SGPT 33 U/L (16-61); Albumin, Serum 3.2 g/dL (3.2-5.0); Alkaline Phosphatase 81 U/L (45-117); Anion Gap 9 (5-15); BUN 16 mg/dL (7-18); BUN/Creat Ratio 13.6 RATIO (10-20); Calcium,Total 8.9 mg/dL (8.5-10.1); Chloride 104 mmol/L (98-107); Creatinine, Serum 1.18 mg/dL (0.70-1.30); EST Glomerular Filtration Rate 64 mL/min (>60); Est Glom Filt Rate - Afr Amer 77 mL/min (>60); Globulin 4.4 g/dL (2.2-4.2); Glucose 126 mg/dL (74-106); Potassium 3.9 mmol/L (3.5-5.1); Protein, Total 7.6 g/dL (6.4-8.2); Rheumatoid Factor < 10.0 IU/mL (<15); Sodium Level 140 mmol/L (136-145)
[2021-03-21 09:20] LABS: Hepatitis B Surface Antibody Non-Reactive; Hepatitis B Surface Antigen Non-Reactive (Nonreactive); Hepatitis C Antibody Non-Reactive (Nonreactive)
[2021-03-22 14:51] LABS: ANTINUCLEAR ANTIBODIES DIRECT Negative (Negative)
[2021-03-23 09:59] LABS: CCP IgG Antibodies 10 units (0-19)
== END ==
PROVIDERS: PCP Family Medicine; Referring Provider Family Medicine; Visit Provider Internal Medicine Rheumatology
DX: M06.4 Inflammatory polyarthropathy (principal); Z85.118 Personal history of other malignant neoplasm of bronchus and lung; J70.1 Chronic and other pulmonary manifestations due to radiation
CPT/HCPCS: 36415; 80053; 85025; 85652; 86038; 86140; 86200; 86431; 86706; 86803; 87340

== ENCOUNTER 2021-03-27 08:30 | Inpatient (IN) | payer MEDICARE, OTHER, SELFPAY ==
[2021-03-27] VITALS (21 sets, daily range): BP systolic 117–141; BP diastolic 56–94; PULSE 87–106; RESP 16–24; TEMP 36.4–37.5; O2SAT 87–96; BMI 30.6
--- NOTE | 2021-03-27 08:41 | EKG12_ITS ---
Test Reason : SOB Blood Pressure : / mmHG Vent. Rate : 098 BPM Atrial Rate : 098 BPM P-R Int : 172 ms QRS Dur : 086 ms QT Int : 390 ms P-R-T Axes : 036 -35 -08 degrees QTc Int : 497 ms Normal sinus rhythm Left axis deviation Abnormal ECG Confirmed by DIOGENES POTTS, KEVEN ([id number]), acquisition editor CAMI ORTIZ ([id number]) on 03/28/2021 9:09:30 AM Referred By: CAROL Confirmed By:KEVEN SHETTY MD
--- NOTE | 2021-03-27 08:42 | RAD_ITS ---
STUDY: X-RAY CHEST REASON FOR EXAM: Male, 75 years old. Cough TECHNIQUE: Single AP portable view of the chest. COMPARISON: Comparison is made with prior study dated 01/28/2020. FINDINGS: EKG electrodes are seen. Diffuse increased interstitial markings in both lungs suggestive of scarring. There is a 2.6 cm x 3.1 cm nodule in the medial aspect of the left lower lobe. Bronchiectasis and atelectasis in the medial aspect of the right lung base. Normal size heart. Normal mediastinum and gay. Normal visualized pulmonary arteries. There is atherosclerotic tortuosity of the aortic arch and descending thoracic aorta. There are diffuse degenerative changes of the visualized thoracic spine. Normal visualized ribs, clavicles, and shoulders. There is no demonstrated abnormality of the visualized soft tissue structures of the upper abdomen. RAD/Chest 1 View (Portable) IMPRESSION: Increased interstitial markings in both lungs suggestive of scarring. 2.6 cm x 3.1 cm nodule in the medial aspect of the left lower lobe as well as bronchiectasis and atelectasis and/or scarring in the medial aspect of the right lung base. Electronically Signed: Faisal Rangel MD at 9:37 EDT , Service support ,
--- NOTE | 2021-03-27 08:42 | EDS_ITS ---
HPI History of Present Illness Chief Complaint: Shortness of Breath Informant: patient Narrative Narrative: 75-year-old male presenting with shortness of breath. Patient states this has been ongoing and progressively worsening for the past week. He was recently started on home O2 3 L at night. He states he has been unable to get his pulse ox above 88 and it drops to the 60s at times. He denies chest pain. Denies fever or cough. He is vaccinated for Covid. He has a history of lung cancer status post radiation and is not currently on chemotherapy. Recent Illness/Hospitalization: No PFSH PFSH Medical History (Updated 03/27/21 @ 11:[address] Crys Delgado MD) Abnormal chest xray Bronchiectasis without complication Chronic cough F/H of alcoholism Pulmonary fibrosis Tobacco abuse Home Medications atorvastatin 10 mg PO QHS 02/13/15 [History Last Taken 01/27/20] gabapentin 100 - 300 mg PO TID PRN PRN 03/27/21 [History Last Taken Unknown] Allergy/AdvReac Type Severity Reaction Status Date / Time No Known Allergies Allergy Verified 03/27/21 08:39 Family History Sister Alcoholism Liver failure Brain malignancy Father CVA (cerebral vascular accident) Surgical History History of appendectomy History of hernia surgery Social History (Updated 07/18/17 @ 08:[address] Garfield Wren MD) Smoking Status: Former smoker Tobacco: How many years used: 60 second hand exposure: Yes alcohol intake: current alcohol intake frequency: 0-2 drinks per day Alcohol type: beer substance use type: does not use caffeine: Yes Type: coffee Number of servings: 3 what type of physical activity do you participate in: weight training frequency: 3-4 times per week ROS ROS ED Constitutional Constitutional ED: Denies fever(s) Eyes Eyes: Denies change in vision ENT ENT ED: Denies rhinorrhea or sore throat Cardiovascular Cardiovascular: Denies chest pain or palpitations Respiratory/Chest Respiratory/Chest: Reports dyspnea Gastrointestinal Gastrointestinal: Denies abdominal pain, diarrhea, nausea or vomiting Genitourinary Genitourinary ED: Denies dysuria Musculoskeletal Musculoskeletal: Denies myalgias Integumentary Denies rash Neurologic Neurologic: Denies headache(s) Psychiatric Psychiatric: Denies suicidal thoughts EXAM Physical Exam Const Vital Signs: 03/27/21 08:31 03/27/21 08:36 03/27/21 08:51 Temperature 97.7 F L 97.6 F L Temperature Source Temporal Temporal Pulse Rate 100 100 Respiratory Rate 24 H 23 H Respiratory Effort Respiratory Depth Respiratory Pattern Blood Pressure 125/75 H 125/75 H Blood Pressure Mean 91 91 Pulse Ox 96 96 91 Oxygen Delivery Method Non-Rebreather Non-Rebreather Nasal Cannula Oxygen Flow Rate (L/min) 6 03/27/21 09:04 03/27/21 10:00 03/27/21 11:02 Temperature 98.1 F 98.1 F Temperature Source Oral Oral Pulse Rate 93 90 Respiratory Rate 20 H 22 H Respiratory Effort Short of Breath Respiratory Depth Deep Respiratory Pattern Hyperpnea Blood Pressure 141/75 H 137/77 H Blood Pressure Mean 97 97 Pulse Ox 90 94 Oxygen Delivery Method Nasal Cannula Nasal Cannula Nasal Cannula Oxygen Flow Rate (L/min) 6 5 5 Positive well nourished and well developed General Appearance ED: well developed HEENT Reports normocephalic and head/scalp atraumatic Eyes PERRL and EOMs intact bilaterally Neck supple General: Negative for tenderness Chest Wall inspection of chest normal Resp normal respiratory effort and clear to auscultation bilaterally Cardio regular rate and regular rhythm GI non-tender and non-distended Palpation: soft; Negative for guarding or rebound tenderness present no CVA tenderness Extremity normal to inspection Neuro oriented x3 Sensorium / Orientation: alert Psych mental status grossly normal MDM MDM MDM Narrative Medical decision making narrative: Patient's pulse ox is 94% on 5 L nasal cannula oxygen. Chest x-ray read by myself and radiology shows increased interstitial markings. CTA chest was obtained due to elevated D-dimer and shows nonocclusive pulmonary emboli in the branches of the right upper lobe pulmonary artery. Marked degree of emphysematous change. 3.2 x 2.1 cm mass. Patient remains stable on 5 L O2 nasal cannula. Discussed with hospitalist for admission. He was given Lovenox. Lab Data Attestation: I reviewed the patient's lab results. Labs: Laboratory Results - last 24 hr 03/27/21 03/27/21 03/27/21 09:01 09:01 09:01 WBC 13.0 H RBC 3.83 L Hgb 13.2 Hct 39.5 L MCV 103.1 H MCH 34.5 H MCHC 33.4 RDW Std Deviation 56.4 H RDW Coeff of Dougie 14.9 H Plt Count 283 MPV 9.8 Immature Gran % (Auto) 1.100 H Neut % (Auto) 73.0 H Lymph % (Auto) 10.8 L [place] % (Auto) 11.2 H Eos % (Auto) 3.1 Baso % (Auto) 0.8 Absolute Neuts (auto) 9.5 H Absolute Lymphs (auto) 1.41 Nucleated RBC % 0.5 D-Dimer Quant (PE/DVT) 1.69 H* Sodium 140 Potassium 4.2 Chloride 105 Carbon Dioxide 26.0 Anion Gap 9 BUN 13 Creatinine 0.97 Estim Creat Clear Calc 72.07 Est GFR (MDRD) Af Amer 96 Est GFR (MDRD) Non-Af 79 BUN/Creatinine Ratio 13.3 Glucose 116 H Calcium 8.9 Troponin I High Sens 230 H* B-Natriuretic Peptide 03/27/21 09:01 WBC RBC Hgb Hct MCV MCH MCHC RDW Std Deviation RDW Coeff of Dougie Plt Count MPV Immature Gran % (Auto) Neut % (Auto) Lymph % (Auto) [place] % (Auto) Eos % (Auto) Baso % (Auto) Absolute Neuts (auto) Absolute Lymphs (auto) Nucleated RBC % D-Dimer Quant (PE/DVT) Sodium Potassium Chloride Carbon Dioxide Anion Gap BUN Creatinine Estim Creat Clear Calc Est GFR (MDRD) Af Amer Est GFR (MDRD) Non-Af BUN/Creatinine Ratio Glucose Calcium Troponin I High Sens B-Natriuretic Peptide 340.1 H Radiography Chest X-Ray - ED: 1 View, Read by ED Physician and Read by Radiologist Diagnostic Testing: Clinical Impression(s) from Imaging Studies Chest X-Ray 03/27/21 08:42 IMPRESSION: Increased interstitial markings in both lungs suggestive of scarring. 2.6 cm x 3.1 cm nodule in the medial aspect of the left lower lobe as well as bronchiectasis and atelectasis and/or scarring in the medial aspect of the right lung base. Electronically Signed: Faisal Rangel MD at 9:37 EDT , Service support , Chest CTA 03/27/21 09:26 IMPRESSION: Nonocclusive pulmonary emboli in branches of the right upper lobe pulmonary artery. Marked degree of the emphysematous changes with bronchiectasis in both lungs as described as compared to prior study. The previously seen pleural-based mass in the right lower lobe has resolved. There is a new 3.2 cm x 2.1 cm mass in the lateral aspect of the anterior segment of the right lateral Electronically Signed: Faisal Rangel MD at 10:22 EDT , Service support , EKG Initial EKG: Attestation: I personally reviewed and interpreted this EKG as follows: Interpretation: Sinus Rhythm and No Acute Injury Pattern Discharge Plan Triage Chief Complaint: Shortness of Breath ED Provider: Crys Delgado Dx/Rx/DC Orders Clinical Impression: Pulmonary embolism, COPD (chronic obstructive pulmonary disease), Lung cancer Prescriptions: No Action atorvastatin 10 MG tablet 10 mg PO QHS RF: 0 gabapentin 100 mg Capsule 100 - 300 mg PO TID PRN PRN (Reason: Pain) RF: 0 Primary Care Provider: Anayeli Marino Referrals: Anayeli Marino MD [Primary Care Provider] - Disposition Disposition: Acute Care Hospital [facility]
[2021-03-27 09:08] LABS: Absolute Lymphocyte Count 1.41 X10^3/uL (0.83-4.51); Absolute Neutrophil Count 9.5 X10^3/uL (2.0-7.7); Basophil% 0.8 % (0-1); Eosinophils% 3.1 % (0-5); Hematocrit 39.5 % (40-54); Hemoglobin 13.2 g/dL (13.0-16.5); Lymphocyte # 1.41 X10^3/ul (0.83-4.51); Lymphocyte % 10.8 % (19-41); Mean Corp Hgb Conc 33.4 g/dL (32-36); Mean Corpuscular Hgb 34.5 pg (27.0-32.0); Mean Corpuscular Volume 103.1 fL (80-94); Mean Platelet Vol. 9.8 fl (6.2-12.0); Monocyte# 1.46 X10^3/uL; Monocyte% 11.2 % (0-10); NRBC Flagged by Analyzer 0.5 % (0-5); Neutrophil # 9.52 X10^3/uL (2.7-7.7); Platelet Count 283 K/mm3 (150-450); RBC Distribution Width CV 14.9 % (11.6-14.6); RBC Distribution Width SD 56.4 fl (35.1-43.9); Red Blood Count 3.83 M/mm3 (4.6-6.2)
[2021-03-27 09:25] LABS: D-Dimer Quantitative (DVT/PE) 1.69 FEU/ug/m (0.27-0.49)
--- NOTE | 2021-03-27 09:26 | CT_ITS ---
STUDY: CTA CHEST REASON FOR EXAM: Male, 75 years old. Elevated d-dimer. History of lung cancer RADIATION DOSAGE (If Supplied By Facility): CTDIvol = ( 11.47 ) mGy, DLP = ( 529.86 ) mGycm TECHNIQUE: The examination was performed with the intravenous administration of IV 100mL Isovue-370. Post-processing of the angiographic images was performed, with multiplanar reformation and 3D reconstruction. Individualized dose optimization techniques were used for this CT. COMPARISON: Comparison is made with prior chest radiograph done earlier in the day as well as prior CT scan of the thorax dated 01/10/2020. FINDINGS: Small nonocclusive intraluminal filling defects in branches of the right upper lobe pulmonary artery in keeping with pulmonary embolism. There is atherosclerotic calcification of the aortic arch with tortuosity. There is no demonstrated aortic dissection. There are calcifications of the coronary arteries. There are visualized mediastinal lymph nodes, which are within normal size limits, and with normal morphology. Normal hilar regions. Normal visualized trachea and bronchi. Hyperinflation. Diffuse emphysematous changes with the bolus formation. Diffuse centrilobular emphysema with multiple cystic changes. Bronchiectasis and volume loss in the right lower lobe. Bronchiectasis and volume loss in the left lobe as well although to a lesser degree at the previously seen pleural-based mass in the right lower lobe measuring 4.2 cm by 2.8 cm and almost completely resolved. Since prior study, the amount of emphysematous changes with the bullous formation and bronchiectasis as progressed. There is a new 3.2 cm x 2.1 cm mass in the lateral aspect of the anterior segment of the right lower lobe as seen on axial image #135. The previously seen 1.8 cm nodule in the posterolateral aspect of the left lower lobe has resolved. Normal pleura. Normal chest wall structures. There are degenerative changes of thoracic spine. Normal visualized upper abdomen. CT/CTA Chest W/WO Contrast IMPRESSION: Nonocclusive pulmonary emboli in branches of the right upper lobe pulmonary artery. Marked degree of the emphysematous changes with bronchiectasis in both lungs as described as compared to prior study. The previously seen pleural-based mass in the right lower lobe has resolved. There is a new 3.2 cm x 2.1 cm mass in the lateral aspect of the anterior segment of the right lateral Electronically Signed: Faisal Rangel MD at 10:22 EDT , Service support ,
[2021-03-27 09:28] LABS: BNP,B-Type NATRIURETIC PEPTIDE 340.1 pg/mL (0-100)
[2021-03-27 09:29] LABS: Anion Gap 9 (5-15); BUN 13 mg/dL (7-18); BUN/Creat Ratio 13.3 RATIO (10-20); Calcium,Total 8.9 mg/dL (8.5-10.1); Chloride 105 mmol/L (98-107); Creatinine, Serum 0.97 mg/dL (0.70-1.30); EST Glomerular Filtration Rate 79 mL/min (>60); Est Glom Filt Rate - Afr Amer 96 mL/min (>60); Estimated Creatinine Clearance 72.07 ml/min; Glucose 116 mg/dL (74-106); Potassium 4.2 mmol/L (3.5-5.1); Sodium Level 140 mmol/L (136-145); Troponin-I HS 230 pg/mL (3.0-78.0)
--- NOTE | 2021-03-27 11:15 | PCM.HP.STD ---
HPI - General General Date of Admission: 03/27/21 Date of Service: 03/27/21 Chief Complaint: Progressive shortness of breath - 1 week HPI Narrative ALVARO JOSEPH, is a 75 M who presents with above. He is quite history of lung CA status post radiation therapy, following with [facility]. He last saw his oncologist in February 2021. He was told he was stable. He was also recently evaluated for sleep apnea. He was put on nocturnal oxygen. He noticed that his oxygen sats was dropping into the 80s on 3 L of oxygen. Patient has been vaccinated. He denies fever or chills or cough. Patient denied any orthopnea or PND. He is short of breath with minimal exertion. He was requiring 7 L of oxygen in the ED. CT of the chest was positive for acute PE as well as new left lung mass. [facility] Medical History (Updated 03/27/21 @ 17:[address] Alejandra New MD) Abnormal chest xray Bronchiectasis without complication Chronic cough F/H of alcoholism Pulmonary fibrosis Tobacco abuse Home Medications atorvastatin 10 mg PO QHS 02/13/15 [History Last Taken 03/26/21] gabapentin 100 - 300 mg PO TID PRN PRN 03/27/21 [History Last Taken 03/27/21] Allergy/AdvReac Type Severity Reaction Status Date / Time No Known Allergies Allergy Verified 03/27/21 08:39 Family History Sister Alcoholism Liver failure Brain malignancy Father CVA (cerebral vascular accident) Surgical History History of appendectomy History of hernia surgery Social History Smoking Status: Former smoker Tobacco: How many years used: 60 second hand exposure: Yes alcohol intake: current alcohol intake frequency: 0-2 drinks per day Alcohol type: beer substance use type: does not use caffeine: Yes Type: coffee Number of servings: 3 what type of physical activity do you participate in: weight training frequency: 3-4 times per week ROS ROS Narrative Constitutional: Denies: Anorexia, Chills, Fever, Night Sweats, Weight Change Eyes: Denies: Blurred vision, Cataracts, Conjunctivae Inflammation, Pain, Redness, Vision Change HEENT: Denies: Difficulty Hearing, Difficulty Swallowing, Head Aches, Hearing Changes, Sinus Congestion, Sinus Drainage Cardiovascular: Denies: Chest Pain, Orthopnea, Palpitations Respiratory: See HPI Gastrointestinal: Denies: Abdominal Pain, Nausea, Vomiting Genitourinary: Denies: Dysuria Musculoskeletal: Denies: Joint Pain, Joint stiffness, Joint swelling, Joint Tenderness Skin: Denies: Rash, Wounds Neurological: Denies: Numbness, Tingling, Focal weakness Vital Signs Vital Signs Vital Signs: 03/27/21 08:31 03/27/21 08:36 03/27/21 08:51 Temperature 97.7 F L 97.6 F L Temperature Source Temporal Temporal Pulse Rate 100 100 Respiratory Rate 24 H 23 H Respiratory Effort Respiratory Depth Respiratory Pattern Blood Pressure 125/75 H 125/75 H Blood Pressure Mean 91 91 Pulse Ox 96 96 91 Oxygen Delivery Method Non-Rebreather Non-Rebreather Nasal Cannula Oxygen Flow Rate (L/min) 6 03/27/21 09:04 03/27/21 10:00 03/27/21 11:02 Temperature 98.1 F 98.1 F Temperature Source Oral Oral Pulse Rate 93 90 Respiratory Rate 20 H 22 H Respiratory Effort Short of Breath Respiratory Depth Deep Respiratory Pattern Hyperpnea Blood Pressure 141/75 H 137/77 H Blood Pressure Mean 97 97 Pulse Ox 90 94 Oxygen Delivery Method Nasal Cannula Nasal Cannula Nasal Cannula Oxygen Flow Rate (L/min) 6 5 5 Weight Weight: 106.6 kg Body Mass Index (BMI) 30.6 Physical Exam Narrative Physical exam: General: Alert, Oriented x3, Cooperative, No apparent distress, Well developed HEENT: Atraumatic Oral: Moist Mucosa Neck: Supple Lungs: Diminished to auscultation Cardiovascular: HS I+II, regular, no murmurs Abdomen: Bowel Sounds Present, Soft, Non Tender Extremities: No edema Results Lab / Micro Data Result Diagrams: 03/27/21 09:01 03/27/21 09:01 Labs: Laboratory Results - last 24 hr 03/27/21 09:01: WBC 13.0 H, RBC 3.83 L, Hgb 13.2, Hct 39.5 L, MCV 103.1 H, MCH 34.5 H, MCHC 33.4, RDW Std Deviation 56.4 H, RDW Coeff of Dougie 14.9 H, Plt Count 283, MPV 9.8, Immature Gran % (Auto) 1.100 H, Neut % (Auto) 73.0 H, Lymph % (Auto) 10.8 L, [place] % (Auto) 11.2 H, Eos % (Auto) 3.1, Baso % (Auto) 0.8, Absolute Neuts (auto) 9.5 H, Absolute Lymphs (auto) 1.41, Nucleated RBC % 0.5 03/27/21 09:01: D-Dimer Quant (PE/DVT) 1.69 H* 03/27/21 09:01: Sodium 140, Potassium 4.2, Chloride 105, Carbon Dioxide 26.0, Anion Gap 9, BUN 13, Creatinine 0.97, Estim Creat Clear Calc 72.07, Est GFR (MDRD) Af Amer 96, Est GFR (MDRD) Non-Af 79, BUN/Creatinine Ratio 13.3, Glucose 116 H, Calcium 8.9, Troponin I High Sens 230 H* 03/27/21 09:01: B-Natriuretic Peptide 340.1 H Micro: Microbiology 03/27/21 08:47 Nasal Secretion SARS-CoV-2 Antigen (Rapid) - Final Radiology Impression Chest X-Ray 03/27/21 08:42 IMPRESSION: Increased interstitial markings in both lungs suggestive of scarring. 2.6 cm x 3.1 cm nodule in the medial aspect of the left lower lobe as well as bronchiectasis and atelectasis and/or scarring in the medial aspect of the right lung base. Electronically Signed: Faisal Rangel MD at 9:37 EDT , Service support , Chest CTA 03/27/21 09:26 IMPRESSION: Nonocclusive pulmonary emboli in branches of the right upper lobe pulmonary artery. Marked degree of the emphysematous changes with bronchiectasis in both lungs as described as compared to prior study. The previously seen pleural-based mass in the right lower lobe has resolved. There is a new 3.2 cm x 2.1 cm mass in the lateral aspect of the anterior segment of the right lateral Electronically Signed: Faisal Rangel MD at 10:22 EDT , Service support , Assessment & Plan Assessment/Plan (1) Pulmonary embolism: QUALIFIERS: Pulmonary embolism type: other Chronicity: acute Acute cor pulmonale presence: without acute cor pulmonale Qualified Code(s): I26.99 - Other pulmonary embolism without acute cor pulmonale (2) Lung cancer: QUALIFIERS: Laterality: right Lung location: lower lobe of lung Qualified Code(s): C34.31 - Malignant neoplasm of lower lobe, right bronchus or lung (3) COPD with acute exacerbation: (4) Bronchiectasis without complication: (5) Pulmonary fibrosis: PLAN: 1. Acute on chronic hypoxic respiratory failure secondary to acute PE/acute COPD/bronchiectasis exacerbation Patient is on 3 L of oxygen at home, currently requiring more than 7 L of oxygen We will admit for treatment of above 2. Acute PE likely due to malignancy, will continue on Lovenox 3. Acute COPD/bronchitis exacerbation, will continue on IV Solu-Medrol, breathing treatment, IV Levaquin 4. Lung CA, bilateral, status post radiation treatment, follows with oncology Plan 5. Rest of chronic medical conditions including pulmonary fibrosis, hyperlipidemia remained stable I discussed and explained in details the various types of CODE STATUS-full code, DNR CCA, DNR CC. Patient chose full code. He wants aggressive cardiopulmonary resuscitation in the event of an arrest. Time spent discussing CODE STATUS 16 minutes Charges/Coding Visit Charges Inpatient E&M: 47827 Init Hosp L3 Procedures Hospitalists Procedures: 92438 Advncd Care Plan 30 Min
[2021-03-27] MEDS: Enoxaparin 100 MG/ML Syringe SC ×2 (11:35→20:08)
--- NOTE | 2021-03-27 12:55 | PCS.PANDOC ---
PANDEMIC DOCUMENTATION INITIATED: Date: 01/29/2021 Time: 190
[2021-03-27] MEDS: Ipratropium/Albuterol Sulfate 3 ML AMPUL.NEB INHALATION ×2 (16:19→19:21)
[2021-03-27] MEDS: levoFLOXacin IV 500 MG/100 ML BAG 100 MG IV (16:49)
[2021-03-27] MEDS: Atorvastatin Calcium 10 MG Tablet PO (20:08)
[2021-03-27] MEDS: 0.9% Saline Lock 10 ML Syringe IV (20:09)
[2021-03-28] VITALS (15 sets, daily range): BP systolic 109–157; BP diastolic 66–78; PULSE 75–104; RESP 16–22; TEMP 36.4–36.6; O2SAT 91–95
[2021-03-28] MEDS: Gabapentin 300 MG Capsule PO (05:43)
[2021-03-28] MEDS: 0.9% Saline Lock 10 ML Syringe IV (05:45)
[2021-03-28] MEDS: Ipratropium/Albuterol Sulfate 3 ML AMPUL.NEB INHALATION ×4 (06:43→19:03)
[2021-03-28 07:06] LABS: Absolute Lymphocyte Count 0.91 X10^3/uL (0.83-4.51); Absolute Neutrophil Count 7.5 X10^3/uL (2.0-7.7); Basophil# 0.06 X10^3/uL; Basophil% 0.7 % (0-1); Eosinophil# 0.01 X10^3/uL; Eosinophils% 0.1 % (0-5); Hematocrit 41.1 % (40-54); Hemoglobin 13.6 g/dL (13.0-16.5); Lymphocyte # 0.91 X10^3/ul (0.83-4.51); Lymphocyte % 10.2 % (19-41); Mean Corp Hgb Conc 33.1 g/dL (32-36); Mean Corpuscular Hgb 34.2 pg (27.0-32.0); Mean Corpuscular Volume 103.3 fL (80-94); Mean Platelet Vol. 9.8 fl (6.2-12.0); Monocyte# 0.34 X10^3/uL; Monocyte% 3.8 % (0-10); NRBC Flagged by Analyzer 0.8 % (0-5); Neutrophil # 7.47 X10^3/uL (2.7-7.7); Neutrophil % 84.1 % (47-70); Platelet Count 300 K/mm3 (150-450); RBC Distribution Width CV 14.5 % (11.6-14.6); RBC Distribution Width SD 55.3 fl (35.1-43.9); Red Blood Count 3.98 M/mm3 (4.6-6.2); White Blood Count 8.9 K/mm3 (4.4-11.0)
[2021-03-28 07:41] LABS: ALB/GLOB Ratio 0.6 RATIO (0.9-2.4); AST(SGOT) 29 U/L (15-37); Alanine Aminotransfer ALT/SGPT 65 U/L (16-61); Albumin, Serum 2.8 g/dL (3.2-5.0); Alkaline Phosphatase 84 U/L (45-117); Anion Gap 7 (5-15); BUN 17 mg/dL (7-18); BUN/Creat Ratio 18.5 RATIO (10-20); Calcium,Total 8.9 mg/dL (8.5-10.1); Chloride 107 mmol/L (98-107); Creatinine, Serum 0.92 mg/dL (0.70-1.30); EST Glomerular Filtration Rate 85 mL/min (>60); Est Glom Filt Rate - Afr Amer 102 mL/min (>60); Estimated Creatinine Clearance 75.99 ml/min; Globulin 4.9 g/dL (2.2-4.2); Glucose 143 mg/dL (74-106); Potassium 4.5 mmol/L (3.5-5.1); Protein, Total 7.7 g/dL (6.4-8.2); Sodium Level 137 mmol/L (136-145)
[2021-03-28] MEDS: levoFLOXacin IV 500 MG/100 ML BAG 100 MG IV (08:17)
[2021-03-28] MEDS: Enoxaparin 100 MG/ML Syringe SC ×2 (08:18→21:00)
--- NOTE | 2021-03-28 11:30 | CASEMGMT ---
TANNER HUANG assessment: Face to Face with patient for initial transition planning/care coordination assessment. RN REINA introduced self and role at [facility], pt voices understanding and consents to assessment. Pt is sitting up in chair in no distress on 8L nc. Pt is A/Ox4 and answers all questions appropriately. Care providers, pharmacy, and demographics verified. Presentation: Pt c/o SOB and coughing up blood-pt states 60% on RA-pt states hx of lung CA Admitting dx: Resp failure, Acute PE PCP: Jamila Specialists: Megan Rheumatalogy; Nick John onc; Lorie pulm Preferred Pharmacy: [facility] Insurance: [employer] A/B, AARP Prescription Benefit: Yes Living Will/HPOA: Pt states does not have LW/HPOA but is interested in completing AD info. EAster SW aware, voices understanding. LNOK: Marium Barr, Living Arrangements: Pt states lives with in tri-level home and states no concerns at home. Pt is independent with ADL's. Transportation: Pt states drives self and states no transportation concerns. DME/HHC: Pt states has rails, grab bars, and 3L nc continuous thru [employer]. Pt states does not have portabilty yet as order was just updated from bedtime to continuous and [employer] has not delivered portable tanks yet because pt came was admitted. CM to follow for increased home oxygen need. Pt states no hx of HHC or SNF. Pt states no concerns with going home at time of discharge. Pt is retired. Pt states quit smoking cigarettes in 2000 but does drink a beer daily. Pt states no further concerns/needs. CM to follow for any further discharge planning/needs. Advised pt to ask for CM if any further questions/concerns/needs arise, voices understanding. Pt Goal: Home Plan: [place] TANNER HUANG
[2021-03-28] MEDS: Gabapentin 100 MG Capsule 200 MG PO ×2 (12:20→17:10)
--- NOTE | 2021-03-28 13:04 | PCM.PN.HOSP ---
Documented by User: Jenelle Balbuena NP, [employer] 03/28/21 13:20 Subjective Subjective Patient seen and examined. States shortness of breath has improved at rest however continues to have shortness of breath with exertion. Denies other symptoms or complaints. Patient states he was recently placed on oxygen at bedtime, currently requiring 9 L. Objective Data Objective Data Vital Signs: Vital Signs Temp Pulse Resp BP Pulse Ox 97.5 F L 88 20 H 109/72 95 03/28/21 07:43 03/28/21 10:37 03/28/21 10:37 03/28/21 07:43 03/28/21 07:51 Oxygen Flow Rate (L/min) 11 Oxygen Delivery Method Nasal Cannula Weight: 235 lb 0.204 oz Body Mass Index (BMI) 30.6 Intake & Output: Intake and Output for Last 24 Hours 03/26/21 03/27/21 03/28/21 23:59 23:59 23:59 Intake Total 1272.5 / 1272.5 340 / 340 Balance 1272.5 / 1272.5 340 / 340 Lab / Micro Data Result Diagrams: 03/28/21 06:17 03/28/21 06:17 Labs: Laboratory Results - last 24 hr 03/28/21 06:17: WBC 8.9, RBC 3.98 L, Hgb 13.6, Hct 41.1, MCV 103.3 H, MCH 34.2 H, MCHC 33.1, RDW Std Deviation 55.3 H, RDW Coeff of Dougie 14.5, Plt Count 300, MPV 9.8, Immature Gran % (Auto) 1.100 H, Neut % (Auto) 84.1 H, Lymph % (Auto) 10.2 L, [place] % (Auto) 3.8, Eos % (Auto) 0.1, Baso % (Auto) 0.7, Absolute Neuts (auto) 7.5, Absolute Lymphs (auto) 0.91, Nucleated RBC % 0.8 03/28/21 06:17: Sodium 137, Potassium 4.5, Chloride 107, Carbon Dioxide 23.0, Anion Gap 7, BUN 17, Creatinine 0.92, Estim Creat Clear Calc 75.99, Est GFR (MDRD) Af Amer 102, Est GFR (MDRD) Non-Af 85, BUN/Creatinine Ratio 18.5, Glucose 143 H, Calcium 8.9, Total Bilirubin 0.80, AST 29, ALT 65 H, Alkaline Phosphatase 84, Total Protein 7.7, Albumin 2.8 L, Globulin 4.9 H, Albumin/Globulin Ratio 0.6 L Micro: Microbiology 03/27/21 08:47 Nasal Secretion SARS-CoV-2 Antigen (Rapid) - Final Physical Exam Const alert, oriented x3 and no apparent distress Orientation / Consciousness: awake, oriented to person, oriented to place and oriented to time HEENT normocephalic and moist oral mucous membranes Eyes PERRL, EOMs intact bilaterally and conjunctivae normal Neck no lymphadenopathy Resp clear to auscultation bilaterally Auscultation: diminished lung sounds Cardio regular rate, regular rhythm and no murmurs Peripheral Pulses: pulses 2+ throughout GI normal to inspection, nondistended, normoactive bowel sounds, non-tender and non-distended Extremity normal to inspection Skin no rashes or lesions noted Lesions: no lesions Rashes: no rashes Trauma: no lacerations or abrasions Neuro CN's II-XII intact bilaterally, no focal motor deficits, no sensory deficits noted and deep tendon reflexes 2+ bilaterally Psych mental status grossly normal and affect normal Assessment & Plan Assessment/Plan (1) Pulmonary embolism: QUALIFIERS: Acute cor pulmonale presence: without acute cor pulmonale Chronicity: acute Pulmonary embolism type: other Qualified Code(s): I26.99 - Other pulmonary embolism without acute cor pulmonale PLAN: 1. Acute on chronic hypoxic respiratory failure secondary to acute PE and exacerbation of COPD/bronchiectasis-continue supplement oxygen to maintain O2 sat above 90%. Patient reports he was recently placed on supplemental oxygen at nighttime only. Walking pulse ox prior to discharge. 2. Acute PE-per CTA. On therapeutic Lovenox. Will need transition to oral agent at discharge. 3. Acute exacerbation of COPD/bronchiectasis-complicated by underlying pulmonary fibrosis. IV Solu-Medrol, IV Levaquin, albuterol and DuoNeb aerosols. 4. History of lung cancer with new mass-states he had follow-up with radiation oncologist 1 month ago and was told he was still clear. Chest CTA on admission demonstrates a new 3.2 x 2.1 cm mass right lateral lung. Will need further follow-up with oncology at discharge. 5. Elevated troponin-demand ischemia secondary to #1. 6. Hyperlipidemia-continue statin. 7. Fibromyalgia? States he is following with Dr. Guzman for rheumatology workup. DVT prophylaxis-therapeutic Lovenox This patient was seen by ABIGAIL Mora under the supervision of Dr. New. Documented by User: Dr. Alejandra New MD 03/28/21 17:06 Objective Data Lab / Micro Data Result Diagrams: 03/28/21 06:17 03/28/21 06:17 Charges/Coding Addendum Addendum: This patient was seen in conjunction with Jenelle Balbuena. I have independently interviewed and examined the patient and reviewed pertinent historical, laboratory, and other data. I have reviewed her note and concur with her documentation Patient was seen and examined. He feels much improved. On 8 L of oxygen. Physical exam: General: Alert, Oriented x3, Cooperative, No apparent distress, Well developed HEENT: Atraumatic Oral: Moist Mucosa Neck: Supple Lungs: Diminished to auscultation Cardiovascular: HS I+II, regular, no murmurs Abdomen: Bowel Sounds Present, Soft, Non Tender Extremities: No edema ASSESSMENT: 1. Acute on chronic respiratory failure 2. Acute PE 3. Acute COPD/bronchiectasis exacerbation 4. New lung mass, history of lung CA Plan: Continue on breathing treatments, IV steroids, IV Levaquin, therapeutic Lovenox Wean off for Spo2>94% Visit Charges Inpatient E&M: 15319 Subs Hosp L2
--- NOTE | 2021-03-28 13:57 | CHAPLAIN ---
Type of Pastoral Visit _x__ Initial Visit ___ Follow-up Visit ___ On-call Visit ___ General Patient Visit ___ Spiritual Assessment ___ Family Conference ___ Bereavement ___ Rapid Response ___ Code Blue ___ Other (describe below) Pastoral Care Referral From _x__ Patient ___ Family ___ Nurse ___ Physician ___ Customer Development Manager ___ Regional Engineer ___ Other (describe below) Sacrament/Intervention _x__ Active listening ___ Anointing ___ Episcopalian ___ Bereavement ___ Communion _x__ Sara exploration ___ _x__ Life review _x__ Prayer ___ Reconciliation ___ Sacrament of Sick ___ Supportive presence ___ Wedding ___ Other (describe below) Pastoral Comments patient gives life review, asks questions about taoist sara; and speaks his goal of making sure family has his affairs in order
--- NOTE | 2021-03-28 15:02 | CASEMGMT ---
SW spoke with patient as he was interested in completing advance directives. SW started to complete documents with patient, but he has to talk to his about who to put as an alternate. BRYCE told him SW will check back with him tomorrow. Hannah SEYMOUR
[2021-03-28] MEDS: Atorvastatin Calcium 10 MG Tablet PO (21:00)
[2021-03-29] VITALS (14 sets, daily range): BP systolic 117–127; BP diastolic 70–102; PULSE 75–112; RESP 16–24; TEMP 36.3–36.6; O2SAT 88–96
[2021-03-29] MEDS: Gabapentin 300 MG Capsule PO (05:28)
[2021-03-29] MEDS: Ipratropium/Albuterol Sulfate 3 ML AMPUL.NEB INHALATION ×4 (07:06→19:08)
[2021-03-29] MEDS: Furosemide 20 MG/2 ML VIAL IV (10:17)
[2021-03-29] MEDS: levoFLOXacin IV 500 MG/100 ML BAG 100 MG IV (10:17)
[2021-03-29] MEDS: Enoxaparin 100 MG/ML Syringe SC ×2 (10:18→21:39)
--- NOTE | 2021-03-29 10:29 | PCM.PN.HOSP ---
Documented by User: Claire Turner NP-Julio 03/29/21 10:37 Subjective Subjective Patient seen and examined. Patient sitting in chair no distress noted. Patient states he is feeling better however patient continues to need 7 to 8 L nasal cannula oxygen. Objective Data Objective Data Vital Signs: Vital Signs Temp Pulse Resp BP Pulse Ox 97.7 F L 90 18 118/70 96 03/29/21 08:18 03/29/21 08:18 03/29/21 08:18 03/29/21 08:18 03/29/21 08:18 Oxygen Flow Rate (L/min) 7 Oxygen Delivery Method Nasal Cannula Weight: 235 lb 0.204 oz Body Mass Index (BMI) 30.6 Intake & Output: Intake and Output for Last 24 Hours 03/27/21 03/28/21 03/29/21 23:59 23:59 23:59 Intake Total 1272.5 / 1272.5 820 / 1120 700 / 700 Balance 1272.5 / 1272.5 820 / 1120 700 / 700 Lab / Micro Data Result Diagrams: 03/28/21 06:17 03/28/21 06:17 Micro: Microbiology 03/27/21 08:47 Nasal Secretion SARS-CoV-2 Antigen (Rapid) - Final Physical Exam Const alert, oriented x3 and no apparent distress HEENT head/scalp atraumatic Head and Scalp: normocephalic Eyes conjunctivae normal and no scleral icterus Neck full ROM and supple General: trachea midline Resp normal respiratory effort and normal air movement Effort and Inspection: able to speak in complete sentences and symmetric chest movement Auscultation: rhonchi lower bilaterally Cardio regular rate, regular rhythm, S1 normal heart sound and S2 normal heart sound GI normal to inspection, nondistended, normoactive bowel sounds, soft to palpation and non-tender Extremity normal to inspection, full ROM and no clubbing, cyanosis or edema Peripheral Pulses: Yes pulses 2+ throughout Skin no rashes or lesions noted and no wounds Neuro oriented x3, moves all extremities, no focal motor deficits and no sensory deficits noted Sensorium / Orientation: awake and alert Speech: speech normal Psych affect normal Assessment & Plan Assessment/Plan (1) Pulmonary embolism: QUALIFIERS: Acute cor pulmonale presence: without acute cor pulmonale Chronicity: acute Pulmonary embolism type: other Qualified Code(s): I26.99 - Other pulmonary embolism without acute cor pulmonale (2) COPD with acute exacerbation: PLAN: 1. Acute on chronic hypoxic respiratory failure secondary to acute PE and COPD exacerbation -Continue supplemental oxygen to maintain a pulse ox above 90%, currently on 7 L nasal cannula -Walking pulse ox at discharge -Continue IV Solu-Medrol and DuoNeb breathing treatments 2. Acute PE -Therapeutic Lovenox 3. Acute exacerbation of COPD -Complicated by underlying pulmonary fibrosis -Continue IV Solu-Medrol, IV Levaquin, nebulizer treatments 4. History of lung cancer with new mass -CTA chest demonstrates new mass 3.2 x 2.1 cm -Encourage follow-up with oncology at discharge 5. Elevated troponin -Likely secondary to demand ischemia from #1 DVT prophylaxis-therapeutic Lovenox This patient was seen by Claire Turner NP-C under the supervision of Dr. New. Documented by User: Dr. Alejandra New MD 03/29/21 16:42 Objective Data Lab / Micro Data Result Diagrams: 03/28/21 06:17 03/28/21 06:17 Charges/Coding Addendum Addendum: This patient was seen in conjunction with Claire Turner NP. I have independently interviewed and examined the patient and reviewed pertinent historical, laboratory, and other data. I have reviewed her note and concur with her documentation Patient was seen and examined. No new complaints, he is currently on 4 L of oxygen Physical exam: General: Alert, Oriented x3, Cooperative, No apparent distress, Well developed HEENT: Atraumatic Oral: Moist Mucosa Neck: Supple Lungs: Diminished to auscultation Cardiovascular: HS I+II, regular, no murmurs Abdomen: Bowel Sounds Present, Soft, Non Tender Extremities: No edema ASSESSMENT: 1. Acute on chronic respiratory failure 2. Acute PE 3. Acute COPD/bronchiectasis exacerbation 4. New lung mass, history of lung CA Plan: Continue on breathing treatments, IV steroids, IV Levaquin, therapeutic Lovenox Wean off for Spo2>94% Visit Charges Inpatient E&M: 47734 Subs Hosp L2
--- NOTE | 2021-03-29 10:59 | CASEMGMT ---
SW met with patient and his . Advance directives were completed. SW made copies and gave them to patient along with originals. SW also placed a copy of each in his chart. Hannah SEYMOUR
[2021-03-29] MEDS: Gabapentin 100 MG Capsule 200 MG PO ×2 (12:31→17:30)
[2021-03-29] MEDS: Atorvastatin Calcium 10 MG Tablet PO (21:37)
[2021-03-29] MEDS: 0.9% Saline Lock 10 ML Syringe IV (21:37)
[2021-03-30] VITALS (16 sets, daily range): BP systolic 116–123; BP diastolic 71–74; PULSE 72–119; RESP 16–22; TEMP 36.4–37; O2SAT 70–95
[2021-03-30 05:34] LABS: Absolute Neutrophil Count 10.3 X10^3/uL (2.0-7.7); Basophil# 0.01 X10^3/uL; Basophil% 0.1 % (0-1); Hematocrit 37.9 % (40-54); Hemoglobin 12.5 g/dL (13.0-16.5); Mean Corpuscular Hgb 34.2 pg (27.0-32.0); Mean Corpuscular Volume 103.8 fL (80-94); Monocyte# 0.55 X10^3/uL; Monocyte% 4.7 % (0-10); NRBC Flagged by Analyzer 0.5 % (0-5); Neutrophil % 88.4 % (47-70); Platelet Count 324 K/mm3 (150-450); RBC Distribution Width CV 14.3 % (11.6-14.6); RBC Distribution Width SD 54.5 fl (35.1-43.9); Red Blood Count 3.65 M/mm3 (4.6-6.2); White Blood Count 11.7 K/mm3 (4.4-11.0)
[2021-03-30] MEDS: Gabapentin 300 MG Capsule PO (05:35)
[2021-03-30] MEDS: 0.9% Saline Lock 10 ML Syringe IV ×3 (05:35→14:02)
[2021-03-30 05:55] LABS: ALB/GLOB Ratio 0.7 RATIO (0.9-2.4); AST(SGOT) 35 U/L (15-37); Alanine Aminotransfer ALT/SGPT 85 U/L (16-61); Albumin, Serum 2.8 g/dL (3.2-5.0); Alkaline Phosphatase 69 U/L (45-117); Anion Gap 3 (5-15); BUN 27 mg/dL (7-18); BUN/Creat Ratio 29.8 RATIO (10-20); Calcium,Total 9.2 mg/dL (8.5-10.1); Chloride 107 mmol/L (98-107); EST Glomerular Filtration Rate 86 mL/min (>60); Est Glom Filt Rate - Afr Amer 104 mL/min (>60); Estimated Creatinine Clearance 77.68 ml/min; Globulin 4.2 g/dL (2.2-4.2); Glucose 138 mg/dL (74-106); Potassium 5.1 mmol/L (3.5-5.1); Sodium Level 138 mmol/L (136-145)
[2021-03-30] MEDS: Ipratropium/Albuterol Sulfate 3 ML AMPUL.NEB INHALATION ×4 (07:23→18:56)
[2021-03-30] MEDS: levoFLOXacin IV 500 MG/100 ML BAG 100 MG IV (09:50)
[2021-03-30] MEDS: Enoxaparin 100 MG/ML Syringe SC ×2 (09:50→21:08)
--- NOTE | 2021-03-30 10:09 | NURSING ---
pt ambulated in hallway with anthropologist physical. O2 sat stable on 4L NC at rest. dropped to 70% on 4L with ambulating. increased to 6L NC, O2 sat 82% after standing for 2 minutes. O2 increased to 8L NC, O2 sat up to 92%. pt able to ambulate back to room on 8L NC, O2 sat dropping to 87%. pt reporting dyspnea with exertion, but no other complaints. information relayed to .
--- NOTE | 2021-03-30 11:38 | PCM.PN.HOSP ---
Documented by User: Claire Turner CLARIFYING PLANT OPERATOR-C 03/30/21 11:42 Subjective Subjective Patient seen and examined. Patient states he is feeling better, patient on 4 L nasal cannula oxygen. Patient informed that he will have to perform ambulatory pulse ox prior to decision for discharge. Patient verbalizes understanding, no other needs voiced at this time. Objective Data Objective Data Vital Signs: Vital Signs Temp Pulse Resp BP Pulse Ox 98.6 F 110 H 22 H 118/71 93 03/30/21 09:55 03/30/21 10:19 03/30/21 10:19 03/30/21 09:55 03/30/21 09:55 Oxygen Flow Rate (L/min) [ 6 AMBULATING with Oxygen #3] Oxygen Flow Rate (L/min) [ 6 AMBULATING with Oxygen #2] Oxygen Flow Rate (L/min) [ 4 AMBULATING with Oxygen #1] Oxygen Flow Rate (L/min) [At 4 REST with Oxygen] Oxygen Flow Rate (L/min) 4 Oxygen Delivery Method Nasal Cannula Weight: 235 lb 0.204 oz Body Mass Index (BMI) 30.6 Intake & Output: Intake and Output for Last 24 Hours 03/28/21 03/29/21 03/30/21 23:59 23:59 23:59 Intake Total 820 / 1120 1280 / 1280 100 / 100 Balance 820 / 1120 1280 / 1280 100 / 100 Lab / Micro Data Result Diagrams: 03/30/21 05:20 03/30/21 05:20 Labs: Laboratory Results - last 24 hr 03/30/21 05:20: WBC 11.7 H, RBC 3.65 L, Hgb 12.5 L, Hct 37.9 L, MCV 103.8 H, MCH 34.2 H, MCHC 33.0, RDW Std Deviation 54.5 H, RDW Coeff of Dougie 14.3, Plt Count 324, MPV 10.0, Immature Gran % (Auto) 0.800, Neut % (Auto) 88.4 H, Lymph % (Auto) 6.0 L, Mcdowell % (Auto) 4.7, Eos % (Auto) 0.0, Baso % (Auto) 0.1, Absolute Neuts (auto) 10.3 H, Absolute Lymphs (auto) 0.70 L, Nucleated RBC % 0.5 03/30/21 05:20: Sodium 138, Potassium 5.1, Chloride 107, Carbon Dioxide 28.0, Anion Gap 3 L, BUN 27 H, Creatinine 0.90, Estim Creat Clear Calc 77.68, Est GFR (MDRD) Af Amer 104, Est GFR (MDRD) Non-Af 86, BUN/Creatinine Ratio 29.8 H, Glucose 138 H, Calcium 9.2, Total Bilirubin 0.60, AST 35, ALT 85 H, Alkaline Phosphatase 69, Total Protein 7.0, Albumin 2.8 L, Globulin 4.2, Albumin/Globulin Ratio 0.7 L Micro: Microbiology 03/28/21 19:13 Sputum, Expectorated/Coughed Gram Stain - Final 03/28/21 19:13 Sputum, Expectorated/Coughed Respiratory Culture - Preliminary Appears to be normal respiratory renan. Further studies to follow. 03/27/21 08:47 Nasal Secretion SARS-CoV-2 Antigen (Rapid) - Final Physical Exam Const alert, oriented x3 and no apparent distress Orientation / Consciousness: awake HEENT normocephalic, head/scalp atraumatic and moist oral mucous membranes Eyes conjunctivae normal and no scleral icterus Neck full ROM, no lymphadenopathy and supple General: trachea midline Resp normal respiratory effort, normal air movement and clear to auscultation bilaterally Effort and Inspection: able to speak in complete sentences and symmetric chest movement Cardio regular rate, regular rhythm, S1 normal heart sound, S2 normal heart sound and no murmurs Peripheral Pulses: pulses 2+ throughout GI normal to inspection, nondistended, normoactive bowel sounds, soft to palpation, non-tender and non-distended Extremity normal to inspection, full ROM and no clubbing, cyanosis or edema Skin no rashes or lesions noted and no wounds Lesions: no lesions Rashes: no rashes Trauma: no lacerations or abrasions Neuro oriented x3, moves all extremities, no focal motor deficits, no sensory deficits noted and deep tendon reflexes 2+ bilaterally Sensorium / Orientation: awake and alert Speech: speech normal Psych mental status grossly normal and affect normal Assessment & Plan Assessment/Plan (1) Pulmonary embolism: QUALIFIERS: Acute cor pulmonale presence: without acute cor pulmonale Chronicity: acute Pulmonary embolism type: other Qualified Code(s): I26.99 - Other pulmonary embolism without acute cor pulmonale (2) COPD with acute exacerbation: PLAN: 1. Acute on chronic hypoxic respiratory failure secondary to acute PE and COPD exacerbation -Continue supplemental oxygen to maintain a pulse ox above 90%, currently on 4 L nasal cannula -Walking pulse ox performed, patient pulse ox dropped to 78%, patient required 8 L nasal cannula oxygen to ambulate and maintain pulse ox at 90% -Will continue to wean oxygen and perform daily ambulatory pulse ox until discharge -Continue IV Solu-Medrol and DuoNeb breathing treatments 2. Acute PE -Therapeutic Lovenox -Plan to transition to p.o. Eliquis upon discharge 3. Acute exacerbation of COPD -Complicated by underlying pulmonary fibrosis -Continue IV Solu-Medrol, IV Levaquin, nebulizer treatments 4. History of lung cancer with new mass -CTA chest demonstrates new mass 3.2 x 2.1 cm -Encourage follow-up with oncology at discharge. Patient requesting to switch oncology practices and is requesting referral to [facility] oncology here in [place]. 5. Elevated troponin -Likely secondary to demand ischemia from #1 DVT prophylaxis-therapeutic Lovenox This patient was seen by Claire Turner NP-C under the supervision of Dr. New. Documented by User: Dr. Alejandra New MD 03/30/21 17:38 Objective Data Lab / Micro Data Result Diagrams: 03/30/21 05:20 03/30/21 05:20 Charges/Coding Addendum Addendum: This patient was seen in conjunction with Claire Turner NP. I have independently interviewed and examined the patient and reviewed pertinent historical, laboratory, and other data. I have reviewed her note and concur with her documentation Patient was seen and examined. No new complaints, he is currently on 4 L of oxygen but oxygen requirements went up was ambulated. Radiology reports done in this admission pushed to his oncologist in the [facility] Physical exam: General: Alert, Oriented x3, Cooperative, No apparent distress, Well developed HEENT: Atraumatic Oral: Moist Mucosa Neck: Supple Lungs: Diminished to auscultation Cardiovascular: HS I+II, regular, no murmurs Abdomen: Bowel Sounds Present, Soft, Non Tender Extremities: No edema ASSESSMENT: 1. Acute on chronic respiratory failure 2. Acute PE 3. Acute COPD/bronchiectasis exacerbation 4. New lung mass, history of lung CA Plan: Continue on breathing treatments, IV steroids, IV Levaquin, therapeutic Lovenox Wean off for Spo2>94% Possible discharge in a.m. Visit Charges Inpatient E&M: 20147 Subs Hosp L2
[2021-03-30] MEDS: Gabapentin 100 MG Capsule 200 MG PO ×2 (11:49→18:21)
[2021-03-30] MEDS: Atorvastatin Calcium 10 MG Tablet PO (21:08)
[2021-03-31] VITALS (16 sets, daily range): BP systolic 113–124; BP diastolic 65–84; PULSE 74–109; RESP 16–18; TEMP 36.6–37.2; O2SAT 83–95
[2021-03-31] MEDS: Gabapentin 300 MG Capsule PO (06:09)
[2021-03-31 06:44] LABS: Absolute Lymphocyte Count 1.05 X10^3/uL (0.83-4.51); Absolute Neutrophil Count 10.4 X10^3/uL (2.0-7.7); Basophil# 0.04 X10^3/uL; Basophil% 0.3 % (0-1); Eosinophil# 0.01 X10^3/uL; Eosinophils% 0.1 % (0-5); Hemoglobin 12.6 g/dL (13.0-16.5); Lymphocyte # 1.05 X10^3/ul (0.83-4.51); Lymphocyte % 8.3 % (19-41); Mean Corp Hgb Conc 32.3 g/dL (32-36); Mean Corpuscular Hgb 34.1 pg (27.0-32.0); Mean Corpuscular Volume 105.7 fL (80-94); Mean Platelet Vol. 10.1 fl (6.2-12.0); Monocyte# 0.93 X10^3/uL; Monocyte% 7.4 % (0-10); NRBC Flagged by Analyzer 0.2 % (0-5); Neutrophil # 10.38 X10^3/uL (2.7-7.7); Neutrophil % 82.3 % (47-70); Platelet Count 329 K/mm3 (150-450); RBC Distribution Width CV 14.5 % (11.6-14.6); RBC Distribution Width SD 56.5 fl (35.1-43.9); Red Blood Count 3.69 M/mm3 (4.6-6.2); White Blood Count 12.6 K/mm3 (4.4-11.0)
[2021-03-31] MEDS: Ipratropium/Albuterol Sulfate 3 ML AMPUL.NEB INHALATION ×4 (07:10→19:07)
[2021-03-31 07:22] LABS: ALB/GLOB Ratio 0.7 RATIO (0.9-2.4); AST(SGOT) 38 U/L (15-37); Alanine Aminotransfer ALT/SGPT 106 U/L (16-61); Albumin, Serum 2.8 g/dL (3.2-5.0); Alkaline Phosphatase 65 U/L (45-117); Anion Gap 6 (5-15); BUN 25 mg/dL (7-18); BUN/Creat Ratio 25.6 RATIO (10-20); Chloride 104 mmol/L (98-107); Creatinine, Serum 0.98 mg/dL (0.70-1.30); EST Glomerular Filtration Rate 79 mL/min (>60); Est Glom Filt Rate - Afr Amer 96 mL/min (>60); Estimated Creatinine Clearance 71.34 ml/min; Glucose 122 mg/dL (74-106); Protein, Total 6.8 g/dL (6.4-8.2); Sodium Level 139 mmol/L (136-145)
[2021-03-31] MEDS: 0.9% Saline Lock 10 ML Syringe IV ×4 (09:45→21:00)
[2021-03-31] MEDS: Enoxaparin 100 MG/ML Syringe SC ×2 (09:45→20:59)
[2021-03-31] MEDS: levoFLOXacin IV 500 MG/100 ML BAG 100 MG IV (09:45)
--- NOTE | 2021-03-31 10:00 | NURSING ---
Walked patient for ambulatory pulse ox, notified Scarlett Turner of results. Prior to ambulating, patient was 91-92% on 4L while resting, minimal activity of putting shoes on, patient dropped to 79% on 4L. Patient was staying at 90-91% on 4L prior to ambulating, and dropped to 83% right away. Increased to 5L with no improvement in oxygen saturation. Increased all the way to 8L while ambulating and patient didn't come above 85%. Increased to 9L with rest and patient oxygen saturation up to 90%. Once recovered, decreased oxygen back down to 4L and patient satting 93% prior to RN leaving room.
--- NOTE | 2021-03-31 10:12 | PCM.PN.HOSP ---
Documented by User: Claire Turner NP-C 03/31/21 10:16 Subjective Subjective Seen and examined. Patient states that he is feeling well. Denies complaints at this time. Patient currently on 4 L nasal cannula oxygen however nursing reports that when patient is even minimally exertional pulse ox decreases. Objective Data Objective Data Vital Signs: Vital Signs Temp Pulse Resp BP Pulse Ox 98.9 F 99 16 113/73 92 03/31/21 03:07 03/31/21 07:10 03/31/21 07:10 03/31/21 03:07 03/31/21 08:31 Oxygen Flow Rate (L/min) [ 6 AMBULATING with Oxygen #3] Oxygen Flow Rate (L/min) [ 6 AMBULATING with Oxygen #2] Oxygen Flow Rate (L/min) [ 4 AMBULATING with Oxygen #1] Oxygen Flow Rate (L/min) [At 4 REST with Oxygen] Oxygen Flow Rate (L/min) 4 Oxygen Delivery Method Nasal Cannula Weight: 235 lb 0.204 oz Body Mass Index (BMI) 30.6 Intake & Output: Intake and Output for Last 24 Hours 03/29/21 03/30/21 03/31/21 23:59 23:59 23:59 Intake Total 1280 / 1280 100 / 100 Balance 1280 / 1280 100 / 100 Lab / Micro Data Result Diagrams: 03/31/21 05:58 03/31/21 05:58 Labs: Laboratory Results - last 24 hr 03/31/21 05:58: WBC 12.6 H, RBC 3.69 L, Hgb 12.6 L, Hct 39.0 L, MCV 105.7 H, MCH 34.1 H, MCHC 32.3, RDW Std Deviation 56.5 H, RDW Coeff of Dougie 14.5, Plt Count 329, MPV 10.1, Immature Gran % (Auto) 1.600 H, Neut % (Auto) 82.3 H, Lymph % (Auto) 8.3 L, Blackford % (Auto) 7.4, Eos % (Auto) 0.1, Baso % (Auto) 0.3, Absolute Neuts (auto) 10.4 H, Absolute Lymphs (auto) 1.05, Nucleated RBC % 0.2 03/31/21 05:58: Sodium 139, Potassium 5.0, Chloride 104, Carbon Dioxide 29.0, Anion Gap 6, BUN 25 H, Creatinine 0.98, Estim Creat Clear Calc 71.34, Est GFR (MDRD) Af Amer 96, Est GFR (MDRD) Non-Af 79, BUN/Creatinine Ratio 25.6 H, Glucose 122 H, Calcium 9.0, Total Bilirubin 0.50, AST 38 H, ALT 106 H, Alkaline Phosphatase 65, Total Protein 6.8, Albumin 2.8 L, Globulin 4.0, Albumin/Globulin Ratio 0.7 L Micro: Microbiology 03/28/21 19:13 Sputum, Expectorated/Coughed Gram Stain - Final 03/28/21 19:13 Sputum, Expectorated/Coughed Respiratory Culture - Final Presumptive C albicans 03/27/21 08:47 Nasal Secretion SARS-CoV-2 Antigen (Rapid) - Final Physical Exam Const alert, oriented x3 and no apparent distress Orientation / Consciousness: awake HEENT normocephalic, head/scalp atraumatic and moist oral mucous membranes Eyes conjunctivae normal and no scleral icterus Neck full ROM, no lymphadenopathy and supple General: trachea midline Resp normal respiratory effort, normal air movement and clear to auscultation bilaterally Effort and Inspection: able to speak in complete sentences and symmetric chest movement Auscultation: rhonchi lower bilaterally and diminished lung sounds Cardio regular rate, regular rhythm, S1 normal heart sound, S2 normal heart sound and no murmurs Peripheral Pulses: pulses 2+ throughout GI normal to inspection, nondistended, normoactive bowel sounds, soft to palpation, non-tender and non-distended Extremity normal to inspection, full ROM and no clubbing, cyanosis or edema Skin no rashes or lesions noted and no wounds Lesions: no lesions Rashes: no rashes Trauma: no lacerations or abrasions Neuro oriented x3, moves all extremities, no focal motor deficits, no sensory deficits noted and deep tendon reflexes 2+ bilaterally Sensorium / Orientation: awake and alert Speech: speech normal Psych mental status grossly normal and affect normal Assessment & Plan Assessment/Plan (1) Pulmonary embolism: QUALIFIERS: Acute cor pulmonale presence: without acute cor pulmonale Chronicity: acute Pulmonary embolism type: other Qualified Code(s): I26.99 - Other pulmonary embolism without acute cor pulmonale (2) COPD with acute exacerbation: PLAN: 1. Acute on chronic hypoxic respiratory failure secondary to acute PE and COPD exacerbation -Continue supplemental oxygen to maintain a pulse ox above 90%, currently on 4 L nasal cannula -Walking pulse ox performed, patient pulse ox dropped to 80%, patient required 8 L nasal cannula oxygen to maintain pulse ox at 90% -Will continue to wean oxygen and perform daily ambulatory pulse ox until discharge -Continue IV Solu-Medrol and DuoNeb breathing treatments 2. Acute PE -Therapeutic Lovenox -Plan to transition to p.o. Eliquis upon discharge 3. Acute exacerbation of COPD -Complicated by underlying pulmonary fibrosis -Continue IV Solu-Medrol, IV Levaquin, nebulizer treatments 4. History of lung cancer with new mass -CTA chest demonstrates new mass 3.2 x 2.1 cm. Per most recent radiation oncology note from [facility] nodule was noted and physicians progress note with recommendations to continue to monitor. -Encourage follow-up with oncology at discharge. Patient requesting to switch oncology practices and is requesting referral to [facility] oncology here in [place]. 5. Elevated troponin -Likely secondary to demand ischemia from #1 DVT prophylaxis-therapeutic Lovenox This patient was seen by Claire Turner NP-C under the supervision of Dr. New. Documented by User: Dr. Alejandra New MD 03/31/21 15:48 Objective Data Lab / Micro Data Result Diagrams: 03/31/21 05:58 03/31/21 05:58 Charges/Coding Addendum Addendum: This patient was seen in conjunction with Claire Turner NP. I have independently interviewed and examined the patient and reviewed pertinent historical, laboratory, and other data. I have reviewed her note and concur with her documentation Patient was seen and examined. Patient remains on high amounts of oxygen. His BNP is 86.7. He denied any new complaints. Physical exam: General: Alert, Oriented x3, Cooperative, No apparent distress, Well developed HEENT: Atraumatic Oral: Moist Mucosa Neck: Supple Lungs: Diminished to auscultation Cardiovascular: HS I+II, regular, no murmurs Abdomen: Bowel Sounds Present, Soft, Non Tender Extremities: No edema ASSESSMENT: 1. Acute on chronic respiratory failure 2. Acute PE 3. Acute COPD/bronchiectasis exacerbation 4. New lung mass, history of lung CA Plan: Continue on breathing treatments, IV steroids, IV Levaquin, therapeutic Lovenox Wean off for Spo2>94% Check sputum culture Trial of Lasix 40 mg IV x1 Visit Charges Inpatient E&M: 23160 Subs Hosp L2
--- NOTE | 2021-03-31 10:55 | CASEMGMT ---
TANNER CM in to pt room as made aware pt will be dc'd on Eliquis. Provided pt with Eliquis savings card and explanation. Will call for cost once med is ordered.
[2021-03-31] MEDS: Furosemide 40 MG/4 ML Vial IV (12:45)
[2021-03-31] MEDS: Gabapentin 100 MG Capsule 200 MG PO ×2 (12:45→17:29)
[2021-03-31 13:46] LABS: BNP,B-Type NATRIURETIC PEPTIDE 86.7 pg/mL (0-100)
[2021-03-31] MEDS: Atorvastatin Calcium 10 MG Tablet PO (20:59)
[2021-04-01] VITALS (17 sets, daily range): BP systolic 117–138; BP diastolic 69–80; PULSE 72–97; RESP 16–19; TEMP 36.4–36.6; O2SAT 78–94
[2021-04-01] MEDS: Gabapentin 300 MG Capsule PO (05:31)
[2021-04-01] MEDS: 0.9% Saline Lock 10 ML Syringe IV ×4 (05:31→21:01)
[2021-04-01 05:52] LABS: Absolute Lymphocyte Count 1.14 X10^3/uL (0.83-4.51); Basophil# 0.07 X10^3/uL; Basophil% 0.5 % (0-1); Eosinophil# 0.01 X10^3/uL; Eosinophils% 0.1 % (0-5); Hematocrit 42.6 % (40-54); Hemoglobin 13.9 g/dL (13.0-16.5); Lymphocyte # 1.14 X10^3/ul (0.83-4.51); Lymphocyte % 7.8 % (19-41); Mean Corp Hgb Conc 32.6 g/dL (32-36); Mean Corpuscular Hgb 34.4 pg (27.0-32.0); Mean Corpuscular Volume 105.4 fL (80-94); Mean Platelet Vol. 9.7 fl (6.2-12.0); Monocyte# 0.95 X10^3/uL; Monocyte% 6.5 % (0-10); NRBC Flagged by Analyzer 0.3 % (0-5); Neutrophil # 11.96 X10^3/uL (2.7-7.7); Neutrophil % 82.3 % (47-70); Platelet Count 370 K/mm3 (150-450); RBC Distribution Width CV 14.4 % (11.6-14.6); RBC Distribution Width SD 56.3 fl (35.1-43.9); Red Blood Count 4.04 M/mm3 (4.6-6.2); White Blood Count 14.5 K/mm3 (4.4-11.0)
[2021-04-01] MEDS: Ipratropium/Albuterol Sulfate 3 ML AMPUL.NEB INHALATION ×4 (07:00→18:37)
[2021-04-01 07:36] LABS: Anion Gap 6 (5-15); BUN 30 mg/dL (7-18); BUN/Creat Ratio 26.1 RATIO (10-20); Calcium,Total 9.3 mg/dL (8.5-10.1); Chloride 102 mmol/L (98-107); Creatinine, Serum 1.15 mg/dL (0.70-1.30); EST Glomerular Filtration Rate 65 mL/min (>60); Est Glom Filt Rate - Afr Amer 79 mL/min (>60); Estimated Creatinine Clearance 60.79 ml/min; Glucose 125 mg/dL (74-106); Potassium 4.5 mmol/L (3.5-5.1); Sodium Level 137 mmol/L (136-145)
[2021-04-01] MEDS: levoFLOXacin IV 500 MG/100 ML BAG 100 MG IV (10:28)
[2021-04-01] MEDS: Enoxaparin 100 MG/ML Syringe SC ×2 (10:28→21:00)
--- NOTE | 2021-04-01 10:54 | RAD_ITS ---
STUDY: X-RAY CHEST REASON FOR EXAM: Male, 75 years old. Dyspnea TECHNIQUE: Single AP portable view of the chest. COMPARISON: 03/27/[address] chest FINDINGS: Diffuse peripheral severe underlying fibrotic changes and COPD related changes are present. Bilateral basilar atelectasis is present with underlying basilar early infiltrates not excluded. There is no demonstrated pleural abnormality. Normal size heart. Normal mediastinum and gay. Normal visualized pulmonary arteries. There is atherosclerotic calcification of the aortic arch with tortuosity. Normal visualized thoracic spine. Normal visualized ribs, clavicles, and shoulders. There is no demonstrated abnormality of the visualized soft tissue structures of the upper abdomen. RAD/Chest 1 View (Portable) IMPRESSION: Compared to previous exam 03/27/2021 there is reduced left lower lobe focal capacity with bilateral basilar atelectatic changes and diffuse peripheral chronic interstitial markings with no evidence of new definitive focal infiltrate. Mild underlying basilar infiltrates are not excluded. Electronically Signed: Moe Valdivia DO at 12:21 EDT , Service support ,
[2021-04-01] MEDS: Gabapentin 100 MG Capsule 200 MG PO ×2 (12:10→17:42)
--- NOTE | 2021-04-01 12:12 | PCM.PN.HOSP ---
Documented by User: Claire Turner NP-C 04/01/21 12:17 Subjective Subjective Patient seen and examined. Patient sitting in chair reading newspaper, no distress noted. Patient voices frustration regarding continued need for oxygen. We will repeat ambulatory pulse ox today. Patient denies other needs. Objective Data Objective Data Vital Signs: Vital Signs Temp Pulse Resp BP Pulse Ox 97.8 F 80 18 119/80 93 04/01/21 10:26 04/01/21 10:26 04/01/21 10:26 04/01/21 10:04/01/21 10:30 Oxygen Flow Rate (L/min) [ 8 AMBULATING with Oxygen #3] Oxygen Flow Rate (L/min) [ 6 AMBULATING with Oxygen #2] Oxygen Flow Rate (L/min) [ 4 AMBULATING with Oxygen #1] Oxygen Flow Rate (L/min) [At 3 REST with Oxygen] Oxygen Flow Rate (L/min) 3 Oxygen Delivery Method Nasal Cannula Weight: 235 lb 0.204 oz Body Mass Index (BMI) 30.6 Intake & Output: Intake and Output for Last 24 Hours 03/30/21 03/31/21 04/01/21 23:59 23:59 23:59 Intake Total 100 / 100 100 / 100 460 / 460 Output Total 800 / 800 Balance 100 / 100 -700 / -700 460 / 460 Lab / Micro Data Result Diagrams: 04/01/21 05:35 04/01/21 05:35 Labs: Laboratory Results - last 24 hr 03/31/21 05:58: B-Natriuretic Peptide 86.7 04/01/21 05:35: WBC 14.5 H, RBC 4.04 L, Hgb 13.9, Hct 42.6, MCV 105.4 H, MCH 34.4 H, MCHC 32.6, RDW Std Deviation 56.3 H, RDW Coeff of Dougie 14.4, Plt Count 370, MPV 9.7, Immature Gran % (Auto) 2.800 H, Neut % (Auto) 82.3 H, Lymph % (Auto) 7.8 L, [place] % (Auto) 6.5, Eos % (Auto) 0.1, Baso % (Auto) 0.5, Absolute Neuts (auto) 12.0 H, Absolute Lymphs (auto) 1.14, Nucleated RBC % 0.3 04/01/21 05:35: Sodium 137, Potassium 4.5, Chloride 102, Carbon Dioxide 29.0, Anion Gap 6, BUN 30 H, Creatinine 1.15, Estim Creat Clear Calc 60.79, Est GFR (MDRD) Af Amer 79, Est GFR (MDRD) Non-Af 65, BUN/Creatinine Ratio 26.1 H, Glucose 125 H, Calcium 9.3 Micro: Microbiology 03/28/21 19:13 Sputum, Expectorated/Coughed Gram Stain - Final 03/28/21 19:13 Sputum, Expectorated/Coughed Respiratory Culture - Final Presumptive C albicans 03/27/21 08:47 Nasal Secretion SARS-CoV-2 Antigen (Rapid) - Final Physical Exam Const alert, oriented x3 and no apparent distress Orientation / Consciousness: awake HEENT normocephalic, head/scalp atraumatic and moist oral mucous membranes Eyes conjunctivae normal and no scleral icterus Neck full ROM, no lymphadenopathy and supple General: trachea midline Resp normal respiratory effort, normal air movement and clear to auscultation bilaterally Effort and Inspection: able to speak in complete sentences and symmetric chest movement Auscultation: rhonchi lower bilaterally and diminished lung sounds Cardio regular rate, regular rhythm, S1 normal heart sound, S2 normal heart sound and no murmurs Peripheral Pulses: pulses 2+ throughout GI normal to inspection, nondistended, normoactive bowel sounds, soft to palpation, non-tender and non-distended Extremity normal to inspection, full ROM and no clubbing, cyanosis or edema Skin no rashes or lesions noted and no wounds Lesions: no lesions Rashes: no rashes Trauma: no lacerations or abrasions Neuro oriented x3, moves all extremities, no focal motor deficits, no sensory deficits noted and deep tendon reflexes 2+ bilaterally Sensorium / Orientation: awake and alert Speech: speech normal Psych mental status grossly normal and affect normal Assessment & Plan Assessment/Plan (1) Pulmonary embolism: QUALIFIERS: Acute cor pulmonale presence: without acute cor pulmonale Chronicity: acute Pulmonary embolism type: other Qualified Code(s): I26.99 - Other pulmonary embolism without acute cor pulmonale (2) COPD with acute exacerbation: PLAN: 1. Acute on chronic hypoxic respiratory failure secondary to acute PE and COPD exacerbation -Continue supplemental oxygen to maintain a pulse ox above 90%, currently on 4 L nasal cannula -Walking pulse ox performed, patient pulse ox dropped to 79%, patient required 8-9 L nasal cannula oxygen to maintain pulse ox at 90% -Will continue to wean oxygen and perform daily ambulatory pulse ox until discharge -Continue IV Solu-Medrol and DuoNeb breathing treatments -Repeat chest x-ray ordered -Encourage incentive spirometry and use of PEP 2. Acute PE -Therapeutic Lovenox -Plan to transition to p.o. Eliquis upon discharge 3. Acute exacerbation of COPD -Complicated by underlying pulmonary fibrosis -Continue IV Solu-Medrol, IV Levaquin, nebulizer treatments 4. History of lung cancer with new mass -CTA chest demonstrates new mass 3.2 x 2.1 cm. Per most recent radiation oncology note from [facility] nodule was noted and physicians progress note with recommendations to continue to monitor. -Encourage follow-up with oncology at discharge. Patient requesting to switch oncology practices and is requesting referral to [facility] oncology here in [place]. 5. Elevated troponin -Likely secondary to demand ischemia from #1 DVT prophylaxis-therapeutic Lovenox This patient was seen by Claire Turner NP-C under the supervision of Dr. New. Documented by User: Dr. Alejandra New MD 04/01/21 15:44 Objective Data Lab / Micro Data Result Diagrams: 04/01/21 05:35 04/01/21 05:35 Charges/Coding Addendum Addendum: This patient was seen in conjunction with Claire Turner NP. I have independently interviewed and examined the patient and reviewed pertinent historical, laboratory, and other data. I have reviewed her note and concur with her documentation Patient was seen and examined. No acute events. Patient's pulse ox keeps dropping when he walks. Physical exam: General: Alert, Oriented x3, Cooperative, No apparent distress, Well developed HEENT: Atraumatic Oral: Moist Mucosa Neck: Supple Lungs: Diminished to auscultation Cardiovascular: HS I+II, regular, no murmurs Abdomen: Bowel Sounds Present, Soft, Non Tender Extremities: No edema ASSESSMENT: 1. Acute on chronic respiratory failure 2. Acute PE 3. Acute COPD/bronchiectasis exacerbation 4. New lung mass, history of lung CA Plan: Continue on breathing treatments, IV steroids, IV Levaquin, therapeutic Lovenox Wean off for Spo2>94% Consult pulmonology Visit Charges Inpatient E&M: 31853 Subs Hosp L2
[2021-04-01] MEDS: Atorvastatin Calcium 10 MG Tablet PO (21:00)
[2021-04-02] VITALS (14 sets, daily range): BP systolic 113–138; BP diastolic 71–88; PULSE 71–99; RESP 16–20; TEMP 36.3–36.6; O2SAT 83–96
[2021-04-02] MEDS: 0.9% Saline Lock 10 ML Syringe IV (05:28)
[2021-04-02] MEDS: Gabapentin 300 MG Capsule PO (05:28)
[2021-04-02 05:36] LABS: Absolute Lymphocyte Count 1.09 X10^3/uL (0.83-4.51); Basophil# 0.06 X10^3/uL; Basophil% 0.4 % (0-1); Eosinophil# 1.01 X10^3/uL; Eosinophils% 6.8 % (0-5); Hematocrit 39.7 % (40-54); Hemoglobin 13.2 g/dL (13.0-16.5); Lymphocyte # 1.09 X10^3/ul (0.83-4.51); Lymphocyte % 7.4 % (19-41); Mean Corp Hgb Conc 33.2 g/dL (32-36); Mean Corpuscular Hgb 34.3 pg (27.0-32.0); Mean Corpuscular Volume 103.1 fL (80-94); Mean Platelet Vol. 9.9 fl (6.2-12.0); Monocyte# 0.97 X10^3/uL; Monocyte% 6.6 % (0-10); NRBC Flagged by Analyzer 0.5 % (0-5); Neutrophil # 10.99 X10^3/uL (2.7-7.7); Neutrophil % 74.3 % (47-70); POSITIVE MORPHOLOGY YES; Platelet Count 333 K/mm3 (150-450); RBC Distribution Width CV 14.4 % (11.6-14.6); RBC Distribution Width SD 53.7 fl (35.1-43.9); Red Blood Count 3.85 M/mm3 (4.6-6.2); White Blood Count 14.8 K/mm3 (4.4-11.0)
[2021-04-02 05:43] LABS: Differential Indicated SCAN CRITERIA MET
[2021-04-02 06:06] LABS: Anion Gap 8 (5-15); BUN 31 mg/dL (7-18); BUN/Creat Ratio 31.2 RATIO (10-20); Calcium,Total 8.7 mg/dL (8.5-10.1); Chloride 103 mmol/L (98-107); Creatinine, Serum 0.99 mg/dL (0.70-1.30); EST Glomerular Filtration Rate 78 mL/min (>60); Est Glom Filt Rate - Afr Amer 94 mL/min (>60); Estimated Creatinine Clearance 70.62 ml/min; Glucose 125 mg/dL (74-106); Potassium 4.9 mmol/L (3.5-5.1); Sodium Level 138 mmol/L (136-145)
[2021-04-02] MEDS: Ipratropium/Albuterol Sulfate 3 ML AMPUL.NEB INHALATION ×2 (07:15→19:02)
[2021-04-02] MEDS: levoFLOXacin IV 500 MG/100 ML BAG 100 MG IV (10:20)
[2021-04-02] MEDS: Enoxaparin 100 MG/ML Syringe SC ×2 (10:21→21:57)
[2021-04-02] MEDS: Gabapentin 100 MG Capsule 200 MG PO ×2 (11:18→18:40)
--- NOTE | 2021-04-02 13:39 | PCM.PN.HOSP ---
Documented by User: Claire Turner DISTRIBUTION SPECIALIST-C 04/02/21 13:43 Subjective Subjective Patient seen and examined. Patient expresses frustration due to continued need for high amounts of oxygen when ambulating. Pulmonology consult. Patient denies needs at this time. Objective Data Objective Data Vital Signs: Vital Signs Temp Pulse Resp BP Pulse Ox 97.3 F L 99 20 H 138/88 H 93 04/02/21 08:09 04/02/21 11:15 04/02/21 11:15 04/02/21 08:09 04/02/21 10:51 Oxygen Flow Rate (L/min) [ 8 AMBULATING with Oxygen #3] Oxygen Flow Rate (L/min) [ 6 AMBULATING with Oxygen #2] Oxygen Flow Rate (L/min) [ 8 AMBULATING with Oxygen #1] Oxygen Flow Rate (L/min) [At 3 REST with Oxygen] Oxygen Flow Rate (L/min) 3 Oxygen Delivery Method Nasal Cannula Weight: 235 lb 0.204 oz Body Mass Index (BMI) 30.6 Intake & Output: Intake and Output for Last 24 Hours 03/31/21 04/01/21 04/02/21 23:59 23:59 23:59 Intake Total 100 / 100 460 / 460 100 / 100 Output Total 800 / 800 Balance -700 / -700 460 / 460 100 / 100 Lab / Micro Data Result Diagrams: 04/02/21 04:40 04/02/21 04:40 Labs: Laboratory Results - last 24 hr 04/02/21 04:40: WBC 14.8 H, RBC 3.85 L, Hgb 13.2, Hct 39.7 L, MCV 103.1 H, MCH 34.3 H, MCHC 33.2, RDW Std Deviation 53.7 H, RDW Coeff of Dougie 14.4, Plt Count 333, MPV 9.9, Immature Gran % (Auto) 4.500 H, Neut % (Auto) 74.3 H, Lymph % (Auto) 7.4 L, [place] % (Auto) 6.6, Eos % (Auto) 6.8 H, Baso % (Auto) 0.4, Absolute Neuts (auto) 11.0 H, Absolute Lymphs (auto) 1.09, Nucleated RBC % 0.5 04/02/21 04:40: Sodium 138, Potassium 4.9, Chloride 103, Carbon Dioxide 27.0, Anion Gap 8, BUN 31 H, Creatinine 0.99, Estim Creat Clear Calc 70.62, Est GFR (MDRD) Af Amer 94, Est GFR (MDRD) Non-Af 78, BUN/Creatinine Ratio 31.2 H, Glucose 125 H, Calcium 8.7 Micro: Microbiology 03/28/21 19:13 Sputum, Expectorated/Coughed Gram Stain - Final 03/28/21 19:13 Sputum, Expectorated/Coughed Respiratory Culture - Final Presumptive C albicans 03/27/21 08:47 Nasal Secretion SARS-CoV-2 Antigen (Rapid) - Final Physical Exam Const alert, oriented x3 and no apparent distress Orientation / Consciousness: awake HEENT normocephalic, head/scalp atraumatic and moist oral mucous membranes Eyes conjunctivae normal and no scleral icterus Neck full ROM, no lymphadenopathy and supple General: trachea midline Resp normal respiratory effort, normal air movement and clear to auscultation bilaterally Effort and Inspection: able to speak in complete sentences and symmetric chest movement Auscultation: rhonchi lower bilaterally and diminished lung sounds Cardio regular rate, regular rhythm, S1 normal heart sound, S2 normal heart sound and no murmurs Peripheral Pulses: pulses 2+ throughout GI normal to inspection, nondistended, normoactive bowel sounds, soft to palpation, non-tender and non-distended Extremity normal to inspection, full ROM and no clubbing, cyanosis or edema Skin no rashes or lesions noted and no wounds Lesions: no lesions Rashes: no rashes Trauma: no lacerations or abrasions Neuro oriented x3, moves all extremities, no focal motor deficits, no sensory deficits noted and deep tendon reflexes 2+ bilaterally Sensorium / Orientation: awake and alert Speech: speech normal Psych mental status grossly normal and affect normal Assessment & Plan Assessment/Plan (1) Pulmonary embolism: QUALIFIERS: Acute cor pulmonale presence: without acute cor pulmonale Chronicity: acute Pulmonary embolism type: other Qualified Code(s): I26.99 - Other pulmonary embolism without acute cor pulmonale (2) COPD with acute exacerbation: PLAN: 1. Acute on chronic hypoxic respiratory failure secondary to acute PE and COPD exacerbation -Continue supplemental oxygen to maintain a pulse ox above 90%, currently on 4 L nasal cannula -Walking pulse ox performed, patient pulse ox dropped to 79%, patient required 8-9 L nasal cannula oxygen to maintain pulse ox at 90% -Will continue to wean oxygen and perform daily ambulatory pulse ox until discharge -Continue IV Solu-Medrol and DuoNeb breathing treatments -Repeat chest x-ray ordered -Encourage incentive spirometry and use of PEP -Pulmonology consulted 2. Acute PE -Therapeutic Lovenox -Due to patient's recent cancer diagnosis will discharge patient on subcu Lovenox 3. Acute exacerbation of COPD -Complicated by underlying pulmonary fibrosis -Continue IV Solu-Medrol, IV Levaquin, nebulizer treatments 4. History of lung cancer with new mass -CTA chest demonstrates new mass 3.2 x 2.1 cm. Per most recent radiation oncology note from [facility] nodule was noted and physicians progress note with recommendations to continue to monitor. -Encourage follow-up with oncology at discharge. Patient requesting to switch oncology practices and is requesting referral to [facility] oncology here in [place]. 5. Elevated troponin -Likely secondary to demand ischemia from #1 DVT prophylaxis-therapeutic Lovenox This patient was seen by Claire Turner NP-C under the supervision of Dr. New. Documented by User: Dr. Marium Grullon DO 04/02/21 16:56 Subjective Subjective This patient was seen in conjunction with Claire Turner NP. The following represents my independent history and physical examination. Please see below for addendum the above. Patient notes that he is feeling pretty well. He denies any acute issues other than his desaturation with activity. He indicates that he may have been doing this at home. He was taking his oxygen off to ambulate from one room to the other as his oxygenation tubing was not long enough to reach. He has no current complaints. Objective Data Lab / Micro Data Result Diagrams: 04/02/21 04:40 04/02/21 04:40 Physical Exam Const alert, oriented x3, no apparent distress and average body habitus Constitutional Narrative: Very pleasant older white male sitting up in a chair, at bedside, nontoxic, appears comfortable, very pleasant Exam Limitations: no limitations Nutritional Appearance: overweight HEENT head/scalp atraumatic and moist oral mucous membranes HEENT Narrative: No thrush Head and Scalp: normocephalic Neck supple Resp normal respiratory effort, no retractions and no use of accessory muscles Resp Narrative: Scattered fine crackles most notably at bases, markedly diminished diffusely Auscultation: crackles; Negative for rales, rhonchi or wheezes Cardio regular rate, regular rhythm, S1 normal heart sound, S2 normal heart sound, no murmurs, no gallops, no clicks and no JVD GI normal to inspection, nondistended, normoactive bowel sounds, soft to palpation, non-tender and non-distended Extremity normal to inspection and no clubbing, cyanosis or edema Peripheral Pulses: Yes pulses 2+ throughout Skin no rashes or lesions noted, no wounds, skin turgor normal, no jaundice, no petechiae and no mottling Neuro oriented x3, moves all extremities and no focal motor deficits Sensorium / Orientation: awake and alert Speech: speech normal Psych affect normal Assessment & Plan Assessment/Plan (1) Pulmonary embolism: QUALIFIERS: Acute cor pulmonale presence: without acute cor pulmonale Chronicity: acute Pulmonary embolism type: other Qualified Code(s): I26.99 - Other pulmonary embolism without acute cor pulmonale (2) COPD (chronic obstructive pulmonary disease): (3) Lung cancer: QUALIFIERS: Laterality: right Lung location: lower lobe of lung Qualified Code(s): C34.31 - Malignant neoplasm of lower lobe, right bronchus or lung (4) Elevated troponin: (5) Leukocytosis: PLAN: Assessment: Acute on chronic hypoxic and hypercapnic respiratory failure secondary to acute pulmonary embolism Acute pulmonary embolism Squamous cell lung CA Troponin elevation Leukocytosis Hyperlipidemia Pulmonary fibrosis Severe COPD Plan: -Check ABG per discussion with pulmonary -Suspect that patient's lung function may be worse and baseline O2 requirements may be higher than previous -Given history of lung CA will continue Lovenox upon discharge and have the patient follow-up with oncology for recommendations with regards to his PE and anticoagulation long-term -Pulmonary consult pending -Patient is overall feeling well and anxious to get home soon as possible Charges/Coding Visit Charges Inpatient E&M: 19154 Subs Hosp L2
--- NOTE | 2021-04-02 14:34 | NURSING ---
This RN reviewed SN charting
[2021-04-02 15:36] LABS: Allen Test Positive; Base Excess 1 mmol/L (-2 to +2); Bicarbonate 25.3 mmol/L (22-26); Blood Gas Specimen Type ART; O2 Delivery Device Cannula; PO2 52 mmHG (75-100); SITE R Radial; SO2 88 % (95-99); Total Carbon Dioxide 27 mmol/L; pCO2 36.7 mmHg (35-45); pH 7.45 (7.35-7.45)
[2021-04-02] MEDS: Atorvastatin Calcium 10 MG Tablet PO (21:57)
[2021-04-03] VITALS (8 sets, daily range): BP systolic 110–132; BP diastolic 72–82; PULSE 69–102; RESP 16–18; TEMP 36.5–36.7; O2SAT 85–98
[2021-04-03] MEDS: Gabapentin 300 MG Capsule PO (06:24)
[2021-04-03] MEDS: Ipratropium/Albuterol Sulfate 3 ML AMPUL.NEB INHALATION (07:17)
--- NOTE | 2021-04-03 09:32 | PCM.DC ---
Discharge Instructions Diet Discharge Diet: Low fat / Low cholesterol Activity Discharge Activity: Return to Normal Activity Dressing / Incision Call your doctor if you observe: Shortness of breath, Dizziness and Fainting spells Follow Up Care Please Follow Up With: Jeevan Melo MD When: 2 weeks Test Results: Test results from this visit will be discussed in further detail at your follow-up appointment, if applicable. Discharge Plan Admission Admit Date/Time: 03/27/21 11:09 Primary Reason for Your Visit: Shortness of Breath Attending Provider: Marium Grullon Primary Care Provider: Anayeli Marino Consulting Providers: Jeevan Melo V Discharge Orders/Prescriptions Prescriptions: New prednisone 20 mg Tablet See Taper mg PO BREAKFAST 16 Days Qty: 40 RF: 0 enoxaparin 100 mg/mL Syringe 100 mg subcut Q12 14 Days Qty: 28 RF: 0 Continued atorvastatin 10 MG tablet 10 mg PO QHS RF: 0 gabapentin 100 mg Capsule 300 mg PO TID RF: 0 Referrals / Follow Up: Anayeli Marino MD [Primary Care Provider] - Jeevan Melo MD [STAFF PHYSICIAN] - Within 2 Weeks Doctor,OncologistMD [NON-STAFF] - Within 2 Weeks Disposition Disposition (needs filled in before D/C Order can be placed): Home, Self Care
--- NOTE | 2021-04-03 09:47 | PCM.DC.SUM ---
Documented by User: [email or web address] Tom 04/03/21 09:55 Providers Date of Admission: 03/27/21 Primary Care Physician: Dr. Anayeli Marino MD Consultations 04/01/21 15:25 Consult: Land Manager / Pulmonary Medicine Routine Consulting Provider: Jeevan Melo V Reason for Consult: PE EMERGENT Consult: No MD Notified: Yes Date Notified: 04/02/21 Time Notified: 10:39 Method of Notification: message with office staff Reason For Visit: RESP FAILURE/ACUTE PE Diagnosis Discharge Diagnosis (1) Pulmonary embolism: Status: Acute Code(s): I26.99 - Other pulmonary embolism without acute cor pulmonale Qualifiers: Acute cor pulmonale presence: without acute cor pulmonale Chronicity: acute Pulmonary embolism type: other Qualified Code(s): I26.99 - Other pulmonary embolism without acute cor pulmonale (2) COPD (chronic obstructive pulmonary disease): Status: Chronic Code(s): J44.9 - Chronic obstructive pulmonary disease, unspecified (3) Lung cancer: Status: Acute Code(s): C34.90 - Malignant neoplasm of unspecified part of unspecified bronchus or lung Qualifiers: Laterality: right Lung location: lower lobe of lung Qualified Code(s): C34.31 - Malignant neoplasm of lower lobe, right bronchus or lung (4) Elevated troponin: Status: Acute Code(s): R77.8 - Other specified abnormalities of plasma proteins (5) Leukocytosis: Status: Acute Code(s): D72.829 - Elevated white blood cell count, unspecified Medications at Discharge Home Medications atorvastatin 10 mg PO QHS 02/13/15 gabapentin 300 mg PO TID 03/27/21 enoxaparin 100 mg SUBCUT Q12 14 Days #28 ml 04/03/21 prednisone See Taper PO BREAKFAST 16 Days #40 tab 04/03/21 Hospital Course Operations None Procedures EKG Summary of Care Provided Minutes Spent on Discharge: 35 Hospital Course: Patient was admitted on 03/27/2021 with complaints of shortness of breath. Patient was found to have PEs via CTA. Patient has been receiving subcu Lovenox and will continue upon discharge. Patient was seen by Dr. Melo who he follows with outpatient who stated it is okay for patient to go home for 10 L of nasal cannula oxygen due to increased requirements from recent radiation for lung cancer as well as COPD and pulmonary embolisms. Patient will be discharged with prednisone taper as well. Patient received full 7-day course of Levaquin for COPD exacerbation as well. Patient is hypoxic with ambulation however patient does not appear short of breath nor does he complain of shortness of breath nor chest pain. Patient will follow up with Dr. Melo in 2 weeks as well as oncology within 2 weeks. Physical Exam Const alert, oriented x3, no apparent distress and average body habitus Constitutional Narrative: Very pleasant older white male sitting up in a chair, at bedside, nontoxic, appears comfortable, very pleasant Orientation / Consciousness: awake Exam Limitations: no limitations Nutritional Appearance: overweight HEENT normocephalic, head/scalp atraumatic and moist oral mucous membranes Eyes conjunctivae normal and no scleral icterus Neck full ROM, no lymphadenopathy and supple General: trachea midline Resp normal respiratory effort, normal air movement, no retractions, no use of accessory muscles and clear to auscultation bilaterally Resp Narrative: Scattered fine crackles most notably at bases, markedly diminished diffusely Effort and Inspection: able to speak in complete sentences and symmetric chest movement Auscultation: crackles and diminished lung sounds; Negative for rales, rhonchi or wheezes Cardio regular rate, regular rhythm, S1 normal heart sound, S2 normal heart sound, no murmurs, no gallops, no clicks and no JVD Peripheral Pulses: pulses 2+ throughout GI normal to inspection, nondistended, normoactive bowel sounds, soft to palpation, non-tender and non-distended Extremity normal to inspection, full ROM and no clubbing, cyanosis or edema Skin no rashes or lesions noted, no wounds, skin turgor normal, no jaundice, no petechiae and no mottling Lesions: no lesions Rashes: no rashes Trauma: no lacerations or abrasions Neuro oriented x3, moves all extremities, no focal motor deficits, no sensory deficits noted and deep tendon reflexes 2+ bilaterally Sensorium / Orientation: awake and alert Speech: speech normal Psych mental status grossly normal and affect normal Weight / BMI Weight Weight: 235 lb 0.204 oz Body Mass Index (BMI) 30.6 ABG / Lab / Microbiology Data Result Diagrams: 04/02/21 04:40 04/02/21 04:40 Microbiology: Microbiology 03/28/21 19:13 Sputum, Expectorated/Coughed Gram Stain - Final 03/28/21 19:13 Sputum, Expectorated/Coughed Respiratory Culture - Final Presumptive C albicans 03/27/21 08:47 Nasal Secretion SARS-CoV-2 Antigen (Rapid) - Final ABG: ABG 04/02/21 15:32 Specimen Type ART Sample Site R Radial pH 7.45 Bicarbonate Actual 25.3 Total CO2 27 Base Excess 1 O2 Saturation 88 L ABG pCO2 36.7 ABG pO2 52 L Gulshan Test Positive O2 Delivery Device Cannula Liter Flow 3.0 D/C Instructions Discharge Diet: Low fat / Low cholesterol Discharge Activity: Return to Normal Activity Call your doctor if you observe: Shortness of breath, Dizziness and Fainting spells Please Follow Up With: Jeevan Melo MD When: 2 weeks Meaningful Use Info Meaningful Use Diagnoses (Choose all that apply): None applicable Discharge Plan Admission Admit Date/Time: 03/27/21 11:09 Primary Reason for Your Visit: Shortness of Breath Attending Provider: Marium Grullon Primary Care Provider: Anayeli Marino Consulting Providers: Jeevan Melo V Instructions Additional Instructions / Restrictions: Patient Problems: Altered Health Status related to Hospitalization Patient Goals: *Optimal Level of Health *Keep Appointments *Medication Compliance *Remain Safe Discharge Orders/Prescriptions Prescriptions: New prednisone 20 mg Tablet See Taper mg PO BREAKFAST 16 Days Qty: 40 RF: 0 enoxaparin 100 mg/mL Syringe 100 mg subcut Q12 14 Days Qty: 28 RF: 0 Continued atorvastatin 10 MG tablet 10 mg PO QHS RF: 0 gabapentin 100 mg Capsule 300 mg PO TID RF: 0 Referrals / Follow Up: Jeevan Melo MD [STAFF PHYSICIAN] - 04/17/21 11:00 am Emma Simons NP, ASSOCIATE CHIEF NURSE-C [NON-STAFF] - 04/09/21 10:10 am Doctor,OncologistMD [NON-STAFF] - Within 2 Weeks Disposition Disposition (needs filled in before D/C Order can be placed): Home, Self Care Documented by User: Dr. Marium Grullon DO 04/03/21 16:13 Providers Date of Admission: 03/27/21 Reason For Visit: RESP FAILURE/ACUTE PE Medications at Discharge Home Medications atorvastatin 10 mg PO QHS 02/13/15 gabapentin 300 mg PO TID 03/27/21 enoxaparin 100 mg SUBCUT Q12 14 Days #28 ml 04/03/21 prednisone See Taper PO BREAKFAST 16 Days #40 tab 04/03/21 Hospital Course Operations None Procedures None Summary of Care Provided Minutes Spent on Discharge: 39 Hospital Course: Mr. Barr is a 75-year-old white male who is presented to the emergency department [facility] on 03/27/2021 with progressive shortness of breath x1 week. He has a history of lung cancer and is status post radiation and is following at [facility]. He last saw his oncologist in February 2021 and was told he is clinically stable with regards to his lung CA. He had been recently evaluated for sleep apnea and was placed on nocturnal oxygen as treatment. He noticed his oxygen saturations were dropping into the 80s while he was awake on 3 L oxygen given this he presented to the emergency department and was requiring 7 L of oxygen on admission. A CTA of the chest was performed and was positive for an acute PE. That CT also showed a new right lung nodule that was 3.2 x 2.1 cm. He was placed on therapeutic Lovenox and admitted to the hospital. He was also placed on treatment for acute exacerbation of COPD. Despite treatment of his pulmonary embolus we found it difficult to wean him from oxygen and therefore his primary grounds/maintenance specialist, Dr. Melo, was consulted. He recommended discharge from the hospital with continued supplemental oxygen during the day and at night, a prolonged prednisone taper, and follow-up with him in the outpatient office in 2 weeks. He felt he was stable for discharge. He was able to be discharged on 04/03/2021 to home. He was placed on a extended prednisone taper and found to need 3 L at rest nasal cannula 10 L with exertion. He was treated with a full course of Levaquin during his hospitalization. With his malignancy we discharged him on Lovenox-therapeutic dosing and instructed him to follow-up with his oncologist within a couple weeks to discuss potential transition to DOAC as well as this new right lower lobe mass. He was also instructed to follow-up with Dr. Melo in 2 weeks. He was discharged home in stable condition. The patient voiced understanding of discharge instructions. Discharge diagnoses: Acute pulmonary embolism Acute on chronic hypoxic and hypercapnic respiratory failure Acute exacerbation of COPD History of squamous cell lung CA Bronchiectasis COPD with emphysema Right lower lobe mass 3.2 x 2.1 cm Leukocytosis Hyperlipidemia Pulmonary fibrosis Physical Exam Narrative Patient feeling well today, anxious to go home. Const alert, oriented x3, no apparent distress and average body habitus Constitutional Narrative: Very pleasant older white male sitting up in a chair, nontoxic, appears comfortable, very pleasant Orientation / Consciousness: awake Exam Limitations: no limitations Nutritional Appearance: overweight HEENT normocephalic, head/scalp atraumatic and moist oral mucous membranes HEENT Narrative: No thrush noted Eyes PERRL, EOMs intact bilaterally, conjunctivae normal and no scleral icterus Neck full ROM, no lymphadenopathy, supple and thyroid normal Neck Narrative: Trachea midline General: trachea midline Resp normal respiratory effort, normal air movement, no retractions, no use of accessory muscles and clear to auscultation bilaterally Resp Narrative: Scattered fine crackles most notably at bases, markedly diminished diffusely, no respiratory distress Effort and Inspection: able to speak in complete sentences and symmetric chest movement Auscultation: crackles and diminished lung sounds; Negative for rales, rhonchi or wheezes Cardio regular rate, regular rhythm, S1 normal heart sound, S2 normal heart sound, no murmurs, no rub, no gallops, no clicks, no JVD and peripheral pulses 2+ throughout Peripheral Pulses: pulses 2+ throughout GI normal to inspection, nondistended, normoactive bowel sounds, soft to palpation, non-tender and non-distended Extremity normal to inspection, full ROM, normal capillary refill and no clubbing, cyanosis or edema Skin no rashes or lesions noted, no wounds, skin turgor normal, no jaundice, no petechiae and no mottling General Skin Exam: no breakdown Lesions: no lesions Rashes: no rashes Trauma: no lacerations or abrasions Neuro oriented x3, CN's II-XII intact bilaterally, moves all extremities, no focal motor deficits, no sensory deficits noted and deep tendon reflexes 2+ bilaterally Sensorium / Orientation: awake and alert Speech: speech normal Motor Exam: strength 5/5 throughout Psych mental status grossly normal and affect normal Appearance: appropriate ABG / Lab / Microbiology Data Result Diagrams: 04/02/21 04:40 04/02/21 04:40 Discharge Plan Admission Admit Date/Time: 03/27/21 11:09 Primary Reason for Your Visit: Shortness of Breath Attending Provider: Marium Grullon Primary Care Provider: Anayeli Marino Consulting Providers: Jeevan Melo V Instructions Additional Instructions / Restrictions: Patient Problems: Altered Health Status related to Hospitalization Patient Goals: *Optimal Level of Health *Keep Appointments *Medication Compliance *Remain Safe Discharge Orders/Prescriptions Prescriptions: New prednisone 20 mg Tablet See Taper mg PO BREAKFAST 16 Days Qty: 40 RF: 0 enoxaparin 100 mg/mL Syringe 100 mg subcut Q12 14 Days Qty: 28 RF: 0 Continued atorvastatin 10 MG tablet 10 mg PO QHS RF: 0 gabapentin 100 mg Capsule 300 mg PO TID RF: 0 Referrals / Follow Up: Jeevan Melo MD [STAFF PHYSICIAN] - 04/17/21 11:00 am Emma Simons NP, ASSOCIATE CHIEF NURSE-C [NON-STAFF] - 04/09/21 10:10 am Doctor,OncologistMD [NON-STAFF] - Within 2 Weeks Disposition Disposition (needs filled in before D/C Order can be placed): Home, Self Care Charges/Coding Visit Charges Inpatient E&M: 36678 Disch Hosp
[2021-04-03] MEDS: Enoxaparin 100 MG/ML Syringe SC (10:07)
[2021-04-03] MEDS: levoFLOXacin IV 500 MG/100 ML BAG 100 MG IV (10:07)
[2021-04-03] MEDS: 0.9% Saline Lock 10 ML Syringe IV (10:07)
[2021-04-03] MEDS: predniSONE 20 MG Tablet 40 MG PO (10:15)
--- NOTE | 2021-04-03 10:51 | CASEMGMT ---
Per Paige HART, pt is ok on his 3L at rest but qualifies for 10L w/ exertion. New order faxed to [facility] and call to [facility] to update on new order, need for larger concentrator, and new regulator for tanks as well as discharge, Monica voices understanding. Per Monica, assembly line driver will bring new regulator to hospital for [employer] e-tank supplied from [facility]. Pt also to be sent home on Lovenox subq and med e-scribed to [facility]. Call to pharmacist at [facility], pt's lovenox cost is $38.50. Per [facility] pharmacist, Lina, pt would like meds transferred to [facility] and [facility] updated at this time, voices understanding. Pt and Paige HART updated on all, voice understanding. Pt voices no further questions/concerns/needs. Allie HART CM
--- NOTE | 2021-04-03 10:53 | PHA.DC.MC ---
Pharmacy Service has performed discharge medication reconciliation and counseling for this patient. 1. ENOXAPARIN 100MG SC Q12 X 14 DAYS 2. PREDNISONE TAPER 40MG PO BREAKFAST X 4 DAYS, 30MG X 4 DAYS, 20MG X 4 DAYS, 10 MG X 4 DAYS The patient's discharge medication list was reviewed for discrepancies and discrepancies were resolved. Patient told this [facility] that he would like his medications filled at [facility] in [place]. This [facility] notified RN REINA Pollard who was about to call for pricing. [facility] Melvin said they would transfer to [place]. Home Medications atorvastatin 10 mg PO QHS 02/13/15 gabapentin 300 mg PO TID 03/27/21 enoxaparin 100 mg SUBCUT Q12 14 Days #28 ml 04/03/21 prednisone See Taper PO BREAKFAST 16 Days #40 tab 04/03/21 The patient was counseled on the following discharge medications and changes in medications for homegoing were reviewed. The Reason for Use, instructions for use, and potential side effects were reviewed for all new medications. The patient's questions regarding all of their medications were answered. The patient was able to verbally demonstrate an understanding of their discharge medications.
[2021-04-03] MEDS: Gabapentin 100 MG Capsule 200 MG PO (11:59)
--- NOTE | 2021-04-04 15:28 | CASEMGMT ---
TANNER HUANG Discharge Follow-up Phone Call: FLORENTINOBri: Madeline Strata: 3 Call Date: 04/04/21 Discharge Date: 04/03/21 Time of Call: 1525 Duration: 4 min Admitting Diagnosis: Respiratory failure, Acute PE TANNER HUANG completed follow-up phone call after recent hospitalization. Patient states he is doing much better. Patient had no questions regarding discharge instructions. Patient was able to fill prescriptions without any issues. Patient aware of follow-up appts. Patient had no further questions or concerns.
== END 2021-04-03 12:40 | disposition home or self-care (01) | DRG 175 ==
LOC: ED 11:17 → PCU 11:23
PROVIDERS: Nurse Practitioner Family; Admitting Provider Internal Medicine; Emergency Provider Emergency Medicine; PCP Family Medicine; Visit Provider Internal Medicine
DX: I26.99 Other pulmonary embolism without acute cor pulmonale (principal); J96.21 Acute and chronic respiratory failure with hypoxia; J96.22 Acute and chronic respiratory failure with hypercapnia; C34.31 Malignant neoplasm of lower lobe, right bronchus or lung; J47.1 Bronchiectasis with (acute) exacerbation; I24.8 Other forms of acute ischemic heart disease; J43.9 Emphysema, unspecified; J84.10 Pulmonary fibrosis, unspecified; D72.829 Elevated white blood cell count, unspecified; E78.5 Hyperlipidemia, unspecified; G47.33 Obstructive sleep apnea (adult) (pediatric); G47.37 Central sleep apnea in conditions classified elsewhere; Z99.81 Dependence on supplemental oxygen; Z79.899 Other long term (current) drug therapy; Z87.891 Personal history of nicotine dependence; Z85.118 Personal history of other malignant neoplasm of bronchus and lung
CPT/HCPCS: 36415; 36600; 71045; 71275; 80048; 80053; 82803; 83880; 84484; 85025; 85379; 87070; 87205; 87426; 93005; 94640; 94667; 94668; 97110; 97161; 97530; 97802; 99251; 99285; 99406; J7050; Q9967; A4216; G0463; J1940

== ENCOUNTER → 2021-05-24 12:40 | Outpatient (CLI) | payer MEDICARE, OTHER, SELFPAY ==
--- NOTE | 2021-05-24 12:44 | CT_ITS ---
STUDY: CT CHEST WITH CONTRAST REASON FOR EXAM: Male, 76 years old. LUNG MASS. The patient has a history of non-small cell lung carcinoma with radiation therapy. RADIATION DOSAGE (If Supplied By Facility): CTDIvol = ( 14.6 ) mGy, DLP = ( 735.40 ) mGycm TECHNIQUE: Transaxial imaging was performed following intravenous administration of IV 100mL Isovue-300. Multiplanar coronal and sagittal images were reformatted. Individualized dose optimization techniques were used for this CT. COMPARISON: Comparison is made with prior examination dated 01/10/2020. FINDINGS: Diffuse emphysematous changes with hyperinflation and multiple bullous changes worse in the lower lobes. Stable bronchiectasis and scarring in the lower lobes. The previously seen mass in the superior aspect of the right lower lobe as resolved. No new mass lesion is seen. There are calcifications of the coronary arteries. Normal mediastinum. Normal hilar regions. Normal enhanced pulmonary arteries. Normal aorta arch and descending thoracic aorta. There are multi-level degenerative changes of the thoracic spine. There is no demonstrated abnormality of the visualized upper abdomen. CT/Chest WITH Contrast IMPRESSION: Stable emphysematous changes with bullous formation and bronchiectasis and scarring in the lower lobes. The previously seen mass lesion in the peripheral superior aspect of the right lower lobe has cleared. No new mass lesions present. Electronically Signed: Faisal Rangel MD at 14:25 EST , Service support ,
[2021-05-24 13:05] LABS: CREATININE FINGERSTICK 1.4 mg/dL (0.70-1.30)
== END ==
PROVIDERS: PCP Family Medicine; Referring Provider Internal Medicine Medical Oncology; Visit Provider Internal Medicine Medical Oncology
DX: C34.90 Malignant neoplasm of unspecified part of unspecified bronchus or lung (principal); J47.9 Bronchiectasis, uncomplicated
CPT/HCPCS: 71260; Q9967

== ENCOUNTER 2021-05-28 04:16 | Inpatient (IN) | payer MEDICARE, OTHER, SELFPAY ==
[2021-05-28] VITALS (24 sets, daily range): BP systolic 113–140; BP diastolic 61–83; PULSE 80–150; RESP 12–89; TEMP 36.6–37.2; O2SAT 69–97; BMI 31.1
--- NOTE | 2021-05-28 04:28 | EKG12_ITS ---
Test Reason : SOB Blood Pressure : / mmHG Vent. Rate : 157 BPM Atrial Rate : 157 BPM P-R Int : 140 ms QRS Dur : 080 ms QT Int : 236 ms P-R-T Axes : 011 -32 074 degrees QTc Int : 381 ms Sinus tachycardia with Premature atrial complexes Left axis deviation Low voltage QRS (Limb Leads) Poor R wave progression Abnormal ECG Confirmed by MAMTA POTTS, LISA ([id number]), electronic news gathering editor CAMI ORTIZ ([id number]) on 05/30/2021 11:25:43 AM Referred By: MANUEL Confirmed By:LISA OLEARY MD
--- NOTE | 2021-05-28 04:28 | RAD_ITS ---
HISTORY: chest pain EXAMINATION/TECHNIQUE: XR Chest 1 View: COMPARISON: April 01, 2021 FINDINGS: LINES/DEVICES: None. LUNGS: Chronic reticular opacification of the lungs with increased bilateral interstitial thickening and new patchy opacification in the right lower lung and left lower lung. Cannot exclude trace effusions. No pneumothorax. MEDIASTINUM: No cardiomegaly. Aortic atherosclersosis. MUSCULOSKELETAL: No acute osseous finding. RAD/Chest 1 View (Portable) IMPRESSION: Chronic interstitial lung disease with new superimposed pneumonia or mixed interstitial and alveolar edema. at [id number] Reported and signed by: aMt Rodriguez MD Electronically Signed: Mat Rodriguez MD at 6:05 EST Tel , Service support ,
--- NOTE | 2021-05-28 04:29 | EDS_ITS ---
HPI History of Present Illness Chief Complaint: Shortness of Breath Informant: patient Onset/Context/Timing Onset: Today and Hours Context: gradual Timing: Continuous Current Severity: Moderate Maximum Severity: Moderate Associated Symptoms cough Chest Pain: Positive for None Narrative Narrative: 68-year-old male history of lung CA, pulmonary emboli on Eliquis and COPD on home O2 3 to 4 L. Said normally his pulse ox is 92% on his oxygen. The last day or so it has been running 65% or so. Increasing shortness of breath. Denies chest pain. He does have hemoptysis as not new. No change in his sputum. Denies fever at home. PE Risk Factors: Positive for Cancer and Prior DVT or PE; Negative for OCP + Smoking + > 35, Recent immobilization, Recent surgery and Recent travel Prior similar symptoms: Yes Recent Illness/Hospitalization: Yes PFSH PFSH Medical History Abnormal chest xray Bronchiectasis without complication Chronic cough F/H of alcoholism History of lung cancer Pulmonary embolism Pulmonary fibrosis Tobacco abuse Home Medications atorvastatin 10 mg PO QHS 02/13/15 [History Last Taken 03/26/21] gabapentin 300 mg PO TID 03/27/21 [History Last Taken 03/27/21] prednisone See Taper PO BREAKFAST 16 Days #40 tab 04/03/21 [Rx Last Taken Unknown] apixaban 5 mg tablet 5 mg PO BID #60 tab 04/16/21 [Rx Last Taken Unknown] albuterol sulfate 2 puff INHALATION Q4H PRN PRN 05/28/21 [History Last Taken Unknown] Allergy/AdvReac Type Severity Reaction Status Date / Time No Known Allergies Allergy Verified 05/28/21 04:24 Family History Sister Alcoholism Liver failure Brain malignancy Father CVA (cerebral vascular accident) Surgical History History of appendectomy History of hernia surgery Social History Smoking Status: Former smoker Tobacco: How many years used: 60 second hand exposure: Yes alcohol intake: current alcohol intake frequency: 0-2 drinks per day Alcohol type: beer substance use type: does not use caffeine: Yes Type: coffee Number of servings: 3 what type of physical activity do you participate in: weight training frequency: 3-4 times per week ROS ROS ED ROS Narrative Cough, shortness of breath. Hemoptysis. Review of Systems ROS Unobtainable: Denies due to encephalopathy Constitutional Constitutional ED: Denies fever(s) Eyes Eyes: Denies change in vision ENT ENT ED: Denies ear pain Cardiovascular Cardiovascular: Denies chest pain Respiratory/Chest Respiratory/Chest: Reports cough, dyspnea and sputum Gastrointestinal Gastrointestinal: Denies abdominal pain, diarrhea, nausea or vomiting Genitourinary Genitourinary ED: Denies dysuria Musculoskeletal Musculoskeletal: Denies myalgias Integumentary Denies rash Neurologic Neurologic: Denies headache(s) Psychiatric Psychiatric: Denies depression Endocrine Endocrinology: Denies polyuria Hematologic/Lymphatic Hematologic/Lymphatic: Denies easy bruising Allergic/Immunologic Allergic/Immunologic ED: Denies urticaria EXAM Physical Exam Narrative Exam Narrative: 68-year-old male vital signs blood pressure 133/66. Pulse 150. Temperature 98.4. Pulse ox is initially 69%. Currently is 81%. On 15 L nonrebreather. He is hypoxic. HEENT exam unremarkable. Moist remembers. Neck nontender no JVD. Lungs coarse breath sounds bilaterally. Heart tachycardic no murmur. Abdomen soft nontender. Moving all 4 extremities. Calves are nontender. No edema. Neurologically is awake and alert with no focal motor deficits. Const Vital Signs: 05/28/21 04:17 05/28/21 04:24 05/28/21 04:31 Temperature 98.4 F Temperature Source Oral Pulse Rate 150 H Respiratory Rate 30 H Respiratory Effort Short of Breath Accessory Muscle Use Respiratory Pattern Tachypnea Blood Pressure 133/66 H Blood Pressure Mean 88 Pulse Ox 69 81 84 Oxygen Delivery Method Non-Rebreather Non-Rebreather Non-Rebreather Oxygen Flow Rate (L/min) 15 15 Fraction of Inspired Oxygen (FIO2) 05/28/21 04:36 05/28/21 04:40 05/28/21 05:04 Temperature Temperature Source Pulse Rate 145 H Respiratory Rate 24 H 18 18 Respiratory Effort Respiratory Pattern Blood Pressure Blood Pressure Mean Pulse Ox 90 84 Oxygen Delivery Method Non-Rebreather Non-Rebreather Oxygen Flow Rate (L/min) 15 15 Fraction of Inspired Oxygen (FIO2) 05/28/21 05:12 05/28/21 05:16 05/28/21 06:11 Temperature Temperature Source Pulse Rate 144 H 123 H Respiratory Rate 89 H 23 H Respiratory Effort Respiratory Pattern Blood Pressure 113/61 Blood Pressure Mean 78 Pulse Ox 97 96 93 Oxygen Delivery Method Bi-pap Room Air Oxygen Flow Rate (L/min) Fraction of Inspired Oxygen (FIO2) 75 05/28/21 06:12 05/28/21 07:26 Temperature 99.0 F Temperature Source Temporal Pulse Rate 124 H 109 H Respiratory Rate 31 H 22 H Respiratory Effort Respiratory Pattern Blood Pressure 113/61 135/79 H Blood Pressure Mean 78 97 Pulse Ox 90 94 Oxygen Delivery Method Bi-pap Room Air Oxygen Flow Rate (L/min) Fraction of Inspired Oxygen (FIO2) Positive well nourished, well developed and obese; Negative for cachectic, contractures or unkempt General Appearance ED: well developed; Negative for unkempt, cachectic, contractures, NAD or pallor Nutritional Appearance: obese; Negative for cachectic HEENT Reports moist mucous membranes atraumatic; Negative for trauma or tenderness Eyes PERRL and EOMs intact bilaterally Neck no lymphadenopathy, supple, no meningeal signs and no JVD General: Negative for tenderness Resp No normal respiratory effort and No clear to auscultation bilaterally Auscultation: wheezes; Negative for rales Cardio regular rhythm, S1 normal heart sound, S2 normal heart sound and no murmurs; Neg ative for regular rate Rate: tachycardic GI non-tender, non-distended and no masses Auscultation: normoactive bowel sounds Palpation: soft; Negative for tender, guarding or rebound tenderness present Back/Spine no CVA tenderness and normal to inspection General Back: Negative for CVA tenderness or tenderness Extremity normal to inspection General Extremety ED: Negative for edema or tenderness General Extremity: Negative for edema Neuro oriented x3 Sensorium / Orientation: alert, oriented to person, oriented to place and oriented to time; Negative for orientation impaired, confused, lethargic or stuporous Motor Exam: strength 5/5 throughout Psych mental status grossly normal Appearance: Negative for unkempt Thought Process: normal thought process Skin no wounds General Skin Exam: Negative for jaundice or pallor Lesions: no lesions Rashes: no rashes MDM MDM MDM Narrative Medical decision making narrative: 68-year-old male more hypoxic than his baseline. History of lung CA on chronic O2 3 to 4 L. History of PE on Eliquis. Will undergo cardiac respiratory work-up. Will be treated with IV Solu-Medrol both DuoNeb neb and albuterol aerosols. Repeat exam the patient is doing much better at 7:45 AM. His breathing is improved. His respiratory rate and heart rate are significantly improved. He and I went over his test results. He has been on steroids recently which may or may not account for his elevated white count but it is much higher than his recently been. He also could potentially have a new pneumonia superimposed on his chronic lung disease, COPD, PE and lung cancer. He will need to be admitted to the hospital. Currently there is no beds available in the hospital he will be checked out to the morning physician to eventually speak to the hospitalist. Lab Data Attestation: I reviewed the patient's lab results. Lab results narrative: CBC shows an elevated white count of 22.4. Hemoglobin of 14.5. Platelets of 304. Electrolytes show a gap of 9 normal BUN is 17 creatinine 1.21. Glucose 133. Troponin 30. Labs: Laboratory Results - last 24 hr 05/28/21 05/28/21 04:26 04:26 WBC 22.4 H RBC 4.33 L Hgb 14.5 Hct 44.5 MCV 102.8 H MCH 33.5 H MCHC 32.6 RDW Std Deviation 53.7 H RDW Coeff of Dougie 14.1 Plt Count 304 MPV 10.3 Immature Gran % (Auto) 1.400 H Neut % (Auto) 72.8 H Lymph % (Auto) 12.0 L [place] % (Auto) 11.0 H Eos % (Auto) 2.2 Baso % (Auto) 0.6 Absolute Neuts (auto) 16.3 H Absolute Lymphs (auto) 2.69 Nucleated RBC % 0.4 Diff Path Review May foll Sodium 139 Potassium 3.8 Chloride 103 Carbon Dioxide 27.0 Anion Gap 9 BUN 17 Creatinine 1.21 Estim Creat Clear Calc 56.86 Est GFR (MDRD) Af Amer 75 Est GFR (MDRD) Non-Af 62 BUN/Creatinine Ratio 14.0 Glucose 133 H Calcium 9.4 Troponin I High Sens 30 Radiography Chest X-Ray - ED: 1 View and Read by ED Physician Diagnostic Testing: Clinical Impression(s) from Imaging Studies Chest X-Ray 05/28/21 04:28 IMPRESSION: Chronic interstitial lung disease with new superimposed pneumonia or mixed interstitial and alveolar edema. at 0606 Reported and signed by: Mat Rodriguez MD Electronically Signed: Mat Rodriguez MD at 6:05 EST Tel , Service support , Chest x-ray portable single view interpreted by myself the radiologist shows interstitial edema and/or pneumonia. Rhythm Strip Rhythm Strip: Sinus Tach Rate: 157 Ectopy: PAC(s) EKG Initial EKG: Attestation: I personally reviewed and interpreted this EKG as follows: Interpretation: No Acute Injury Pattern and Sinus Tachycardia Comments: Sinus tachycardia rate of 157 no acute signs of [place] or ischemia. There is artifact. PACs. Discharge Plan Dx/Rx/DC Orders Clinical Impression: COPD (chronic obstructive pulmonary disease), Leukocytosis, Pneumonia, History of lung cancer, Hypoxia Disposition Disposition: Acute Care [facility]
[2021-05-28] MEDS: Aspirin 81 MG TAB.CHEW 324 MG PO (04:33)
[2021-05-28] MEDS: Ipratropium/Albuterol Sulfate 3 ML AMPUL.NEB INHALATION ×4 (04:33→23:29)
[2021-05-28] MEDS: Albuterol 2.5 MG/3 ML VIAL.NEB. INHALATION (04:34)
[2021-05-28 04:56] LABS: Absolute Lymphocyte Count 2.69 X10^3/uL (0.83-4.51); Absolute Neutrophil Count 16.3 X10^3/uL (2.0-7.7); Basophil# 0.14 X10^3/uL; Basophil% 0.6 % (0-1); Eosinophil# 0.49 X10^3/uL; Eosinophils% 2.2 % (0-5); Hematocrit 44.5 % (40-54); Hemoglobin 14.5 g/dL (13.0-16.5); Lymphocyte # 2.69 X10^3/ul (0.83-4.51); Mean Corp Hgb Conc 32.6 g/dL (32-36); Mean Corpuscular Hgb 33.5 pg (27.0-32.0); Mean Corpuscular Volume 102.8 fL (80-94); Mean Platelet Vol. 10.3 fl (6.2-12.0); Monocyte# 2.45 X10^3/uL; NRBC Flagged by Analyzer 0.4 % (0-5); Neutrophil # 16.28 X10^3/uL (2.7-7.7); Neutrophil % 72.8 % (47-70); POSITIVE DIFFERENTIAL YES; Platelet Count 304 K/mm3 (150-450); RBC Distribution Width CV 14.1 % (11.6-14.6); RBC Distribution Width SD 53.7 fl (35.1-43.9); Red Blood Count 4.33 M/mm3 (4.6-6.2); White Blood Count 22.4 K/mm3 (4.4-11.0)
--- NOTE | 2021-05-28 05:17 | CPS ---
pt deanna bipap for approx. 10 -did not like the air blowing down his nose- dr aware-pt placed back on nrb at 12 l/m
[2021-05-28 05:40] LABS: Anion Gap 9 (5-15); BUN 17 mg/dL (7-18); Calcium,Total 9.4 mg/dL (8.5-10.1); Chloride 103 mmol/L (98-107); Creatinine, Serum 1.21 mg/dL (0.70-1.30); EST Glomerular Filtration Rate 62 mL/min (>60); Est Glom Filt Rate - Afr Amer 75 mL/min (>60); Estimated Creatinine Clearance 56.86 ml/min; Glucose 133 mg/dL (74-106); Potassium 3.8 mmol/L (3.5-5.1); Sodium Level 139 mmol/L (136-145); Troponin-I HS 30 pg/mL (3.0-78.0)
[2021-05-28 07:10] LABS: Differential Indicated SCAN CRITERIA MET
[2021-05-28] MEDS: levoFLOXacin IV 500 MG/100 ML BAG 100 MG IV (08:30)
--- NOTE | 2021-05-28 10:08 | HP.PCM.HOS_ITS ---
HPI - General General Date of Admission: 05/28/21 Date of Service: 05/28/21 Chief Complaint: Shortness of breath HPI Narrative ALVARO JOSEPH, is a 76 M who presents shortness of breath. Patient has underlying history of lung CA for which he underwent treatment with radiation therapy. Patient presented with shortness of breath. Patient symptoms started 1 day prior to his admission. Patient normally uses 3 to 4 L of oxygen had to increase his flow per minute and finally called the squad. Checks x-ray obtained on admission demonstrated chronic interstitial lung disease with new superimposed pneumonia. Was also found to have leukocytosis started on antibiotics placed on supplemental oxygen admitted to regular nursing floor for further management [facility] Medical History Abnormal chest xray Bronchiectasis without complication Chronic cough F/H of alcoholism Former smoker History of lung cancer Pulmonary embolism Pulmonary fibrosis Sleep apnea Tobacco abuse Home Medications atorvastatin 10 mg PO QHS 02/13/15 [History Last Taken 03/26/21] gabapentin 300 mg PO DAILY 03/27/21 [History Last Taken 03/27/21] prednisone See Taper PO BREAKFAST 16 Days #40 tab 04/03/21 [Rx Last Taken Unknown] apixaban 5 mg tablet 5 mg PO BID #60 tab 04/16/21 [Rx Last Taken Unknown] albuterol sulfate 2 puff INHALATION Q4H PRN PRN 05/28/21 [History Last Taken Unknown] gabapentin 200 mg PO/SL UD 05/28/21 [History Last Taken Unknown] Allergy/AdvReac Type Severity Reaction Status Date / Time No Known Allergies Allergy Verified 05/28/21 04:24 Family History Sister Alcoholism Liver failure Brain malignancy Father CVA (cerebral vascular accident) Surgical History History of appendectomy History of hernia surgery Social History Smoking Status: Former smoker Tobacco: How many years used: 60 second hand exposure: Yes alcohol intake: current alcohol intake frequency: 0-2 drinks per day Alcohol type: beer substance use type: does not use caffeine: Yes Type: coffee Number of servings: 3 what type of physical activity do you participate in: weight training frequency: 3-4 times per week ROS ROS Narrative GENERAL: denies fever, chills, night sweats, HEENT: denies headache, sinus congestion, RESPIRATORY: cough, sputum production, shortness of breath, dyspnea on exertion CARDIAC: denies chest pain, palpitations, orthopnea GASTROINTESTINAL: denies abdominal pain, nausea, GENITOURINARY: denies dysuria, urgency, frequency EXTREMITY: denies swelling MUSCULOSKELETAL: denies current joint pain NEUROLOGIC: denies focal numbness, weakness, HEMATOLOGIC: denies easy bruising INTEGUMENT: denies rashes PSYCHIATRIC: denies suicidal or homicidal ideation Vital Signs Vital Signs Vital Signs: 05/28/21 04:17 05/28/21 04:24 05/28/21 04:31 Temperature 98.4 F Temperature Source Oral Pulse Rate 150 H Respiratory Rate 30 H Respiratory Effort Short of Breath Accessory Muscle Use Respiratory Pattern Tachypnea Blood Pressure 133/66 H Blood Pressure Mean 88 Pulse Ox 69 81 84 Oxygen Delivery Method Non-Rebreather Non-Rebreather Non-Rebreather Oxygen Flow Rate (L/min) 15 15 Fraction of Inspired Oxygen (FIO2) 05/28/21 04:36 05/28/21 04:40 05/28/21 05:04 Temperature Temperature Source Pulse Rate 145 H Respiratory Rate 24 H 18 18 Respiratory Effort Respiratory Pattern Blood Pressure Blood Pressure Mean Pulse Ox 90 84 Oxygen Delivery Method Non-Rebreather Non-Rebreather Oxygen Flow Rate (L/min) 15 15 Fraction of Inspired Oxygen (FIO2) 05/28/21 05:12 05/28/21 05:16 05/28/21 06:11 Temperature Temperature Source Pulse Rate 144 H 123 H Respiratory Rate 89 H 23 H Respiratory Effort Respiratory Pattern Blood Pressure 113/61 Blood Pressure Mean 78 Pulse Ox 97 96 93 Oxygen Delivery Method Bi-pap Room Air Oxygen Flow Rate (L/min) Fraction of Inspired Oxygen (FIO2) 75 05/28/21 06:12 05/28/21 07:26 05/28/21 08:22 Temperature 99.0 F Temperature Source Temporal Pulse Rate 124 H 109 H 112 H Respiratory Rate 31 H 22 H 19 H Respiratory Effort Respiratory Pattern Blood Pressure 113/61 135/79 H 140/83 H Blood Pressure Mean 78 97 102 Pulse Ox 90 94 Oxygen Delivery Method Bi-pap Room Air Oxygen Flow Rate (L/min) Fraction of Inspired Oxygen (FIO2) 05/28/21 09:20 05/28/21 09:21 Temperature 99.0 F Temperature Source Temporal Pulse Rate 110 H 110 H Respiratory Rate 20 H 20 H Respiratory Effort Respiratory Pattern Blood Pressure 120/77 120/77 Blood Pressure Mean 91 91 Pulse Ox 92 92 Oxygen Delivery Method Non-Rebreather Non-Rebreather Oxygen Flow Rate (L/min) 15 Fraction of Inspired Oxygen (FIO2) 75 Weight Weight: 106.9 kg Body Mass Index (BMI) 31.1 Physical Exam Narrative GENERAL: Dyspneic at rest HEENT: Atraumatic; EYES; Anicteric, Normal Conjunctiva NECK; supple, normal thyroid, RESPIRATORY: Diminished to auscultation CARDIOVASCULAR: Regular S1 S2, GI: soft, normoactive bowel sounds, : No Renal angle tenderness; EXTREMITIES: No edema, no clubbing, MUSCULOSKELETAL: no muscle waisting NEURO: Awake; no lateralizing signs. SKIN: No Rash PSYCH; Flat affect Results Lab / Micro Data Result Diagrams: 05/28/21 04:26 05/28/21 04:26 Labs: Laboratory Results - last 24 hr 05/28/21 04:26: WBC 22.4 H, RBC 4.33 L, Hgb 14.5, Hct 44.5, MCV 102.8 H, MCH 33.5 H, MCHC 32.6, RDW Std Deviation 53.7 H, RDW Coeff of Dougie 14.1, Plt Count 304, MPV 10.3, Immature Gran % (Auto) 1.400 H, Neut % (Auto) 72.8 H, Lymph % (Auto) 12.0 L, [place] % (Auto) 11.0 H, Eos % (Auto) 2.2, Baso % (Auto) 0.6, Absolute Neuts (auto) 16.3 H, Absolute Lymphs (auto) 2.69, Nucleated RBC % 0.4, Diff Path Review October05/28/21 04:26: Sodium 139, Potassium 3.8, Chloride 103, Carbon Dioxide 27.0, Anion Gap 9, BUN 17, Creatinine 1.21, Estim Creat Clear Calc 56.86, Est GFR ( MDRD) Af Amer 75, Est GFR (MDRD) Non-Af 62, BUN/Creatinine Ratio 14.0, Glucose 133 H, Calcium 9.4, Troponin I High Sens 30 Micro: Microbiology 05/28/21 04:35 Interface Orders SARS-CoV-2 Antigen (Rapid) - Final Rhythm Strip Rhythm Strip: Sinus Tach Rate: 157 Ectopy: PAC(s) Radiology Impression Chest X-Ray 05/28/21 04:28 IMPRESSION: Chronic interstitial lung disease with new superimposed pneumonia or mixed interstitial and alveolar edema. at 0606 Reported and signed by: Mat Rodriguez MD Electronically Signed: Mat Rodriguez MD at 6:05 EST Tel , Service support , Assessment & Plan Assessment/Plan (1) Pneumonia: PLAN: Patient is a 76-year-old gentleman presented with progressive shortness of breath 1. Acute hypoxic respiratory failure superimposed on chronic hypoxic respiratory failure Secondary to community-acquired pneumonia. Patient has been admitted to regular nursing floor placed on supplemental oxygen after cultures were sent. Patient was started on Rocephin as well as azithromycin 2. History of lung CA ?Status post radiation therapy. Patient was recently found to have new mass which is currently being managed as outpatient by oncology 3. Recent admission for pulmonary embolism ?Patient is on systemic anticoagulation 4. Bronchiectasis ?Symptomatic management in addition to supplemental oxygen 5. Class I obesity with BMI of 31.9 ?Weight loss advised 6. DVT prophylaxis ?Patient already anticoagulated Advance planning; did discuss with the patient and family regarding advanced directives as well as CODE STATUS. Did explain the various scenarios involved ( FULL CODE, DNR CCA, DNR CCA with no intubation, and DNR CC and what each meant) patient elected to full code with CPR and intubation if needed. Order was placed. Time spent on discussion 18 minutes. Charges/Coding Visit Charges Inpatient E&M: 01096 Init Hosp L3 Procedures Hospitalists Procedures: 15351 Advncd Care Plan 30 Min
[2021-05-28] MEDS: Azithromycin 250 MG Tablet 500 MG PO (12:17)
[2021-05-28] MEDS: Gabapentin 100 MG Capsule 200 MG PO ×2 (12:18→17:52)
--- NOTE | 2021-05-28 12:20 | CASEMGMT ---
TANNER HUANG Face to Face with patient for initial transition planning/care coordination assessment. RN CM introduced self and role at [facility]. Patient lying in bed, alert and oriented, at bedside. Patient willing to participate in assessment and is able to answer all questions appropriately. Care providers, pharmacy, and demographics verified. Patient wishes to discharge home, denies need for home health at this time. Patient states he has no further needs or concerns at this time. CM to follow for discharge planning needs that may arise. PCP: Jamila Specialists: Lorie, event marketing specialist; Silvia, oncologist; RA Megan [facility] Insurance: [employer] Prescription Benefit: yes Living Will/HPOA: Yes, Marium Barr LNOK: Living Arrangements: Patient lives with in a tri-level house with 4-6 steps and railing between levels. Patient states he is independent at home and able to ambulate at home. Transportation: DME/HHC: patient states he has grab bars and home oxygen through [employer] with portability 3lpm at rest and 10lpm with ambulation. Patient denies previous HHC or SNF. Disposition Plan: Patient to discharge home with family support and follow-up plans in place. Latrice MANCERA, RN, CM
[2021-05-28] MEDS: Ceftriaxone 1 GM/50 ML BAG IV (14:59)
[2021-05-28] MEDS: 0.9% Saline Lock 10 ML Syringe IV ×2 (15:04→21:50)
--- NOTE | 2021-05-28 16:07 | CHAPLAIN ---
Type of Pastoral Visit _x__ Initial Visit ___ Follow-up Visit ___ On-call Visit ___ General Patient Visit ___ Spiritual Assessment ___ Family Conference ___ Bereavement ___ Rapid Response ___ Code Blue ___ Other (describe below) Pastoral Care Referral From _x__ Patient ___ Family ___ Nurse ___ Physician ___ Armature Connector ___ Mines Inspector ___ Other (describe below) Sacrament/Intervention _x__ Active listening ___ Anointing ___ Congregational ___ Bereavement ___ Communion ___ Sara exploration ___ _x__ Life review _x__ Prayer ___ Reconciliation ___ Sacrament of Sick _x__ Supportive presence ___ Wedding ___ Other (describe below) Pastoral Comments patient was seen before in previous admission and he requested a visit this time again for emotional support and someone to talk with; pt is not particularly pentecostal but welcomes support; pt talks about his family and his desire for improved health; pt is accepting of a prayer saying 'I'll take any help I can get
--- NOTE | 2021-05-28 19:45 | PCS.PANDOC ---
PANDEMIC DOCUMENTATION INITIATED: Date: 05/28/2021 Time: 2459
[2021-05-28] MEDS: Atorvastatin Calcium 10 MG Tablet PO (21:50)
[2021-05-28] MEDS: APIXABAN 5 MG TABLET PO (21:50)
[2021-05-29] VITALS (13 sets, daily range): BP systolic 124–152; BP diastolic 71–83; PULSE 82–122; RESP 12–30; TEMP 36.4–36.7; O2SAT 87–94
[2021-05-29] MEDS: 0.9% Saline Lock 10 ML Syringe IV ×3 (05:05→12:23)
[2021-05-29] MEDS: Gabapentin 300 MG Capsule PO (05:07)
[2021-05-29 06:07] LABS: Absolute Lymphocyte Count 0.76 X10^3/uL (0.83-4.51); Absolute Neutrophil Count 17.5 X10^3/uL (2.0-7.7); Basophil# 0.04 X10^3/uL; Basophil% 0.2 % (0-1); Eosinophil# 0.73 X10^3/uL; Eosinophils% 3.6 % (0-5); Hematocrit 39.8 % (40-54); Lymphocyte # 0.76 X10^3/ul (0.83-4.51); Lymphocyte % 3.7 % (19-41); Mean Corp Hgb Conc 32.7 g/dL (32-36); Mean Corpuscular Hgb 33.4 pg (27.0-32.0); Mean Corpuscular Volume 102.3 fL (80-94); Mean Platelet Vol. 10.5 fl (6.2-12.0); Monocyte# 1.15 X10^3/uL; Monocyte% 5.6 % (0-10); NRBC Flagged by Analyzer 0.2 % (0-5); Neutrophil # 17.46 X10^3/uL (2.7-7.7); Neutrophil % 85.6 % (47-70); POSITIVE MORPHOLOGY YES; Platelet Count 282 K/mm3 (150-450); RBC Distribution Width CV 14.1 % (11.6-14.6); Red Blood Count 3.89 M/mm3 (4.6-6.2); White Blood Count 20.4 K/mm3 (4.4-11.0)
[2021-05-29 06:10] LABS: Differential Indicated SCAN CRITERIA MET
[2021-05-29 06:33] LABS: Anion Gap 5 (5-15); BUN 24 mg/dL (7-18); BUN/Creat Ratio 29.1 RATIO (10-20); Calcium,Total 9.4 mg/dL (8.5-10.1); Chloride 106 mmol/L (98-107); Creatinine, Serum 0.82 mg/dL (0.70-1.30); EST Glomerular Filtration Rate 96 mL/min (>60); Est Glom Filt Rate - Afr Amer 116 mL/min (>60); Estimated Creatinine Clearance 83.91 ml/min; Glucose 149 mg/dL (74-106); Magnesium 2.5 mg/dL (1.6-2.6); Potassium 4.3 mmol/L (3.5-5.1); Sodium Level 138 mmol/L (136-145)
[2021-05-29] MEDS: Ipratropium/Albuterol Sulfate 3 ML AMPUL.NEB INHALATION ×5 (06:47→23:17)
--- NOTE | 2021-05-29 08:28 | PN.HOSP_ITS ---
Subjective Subjective Patient seen breathing more labored than the previous day. Currently placed on Airvo in addition to Ventimask. Consult was placed to pulmonary medicine?Dr. Melo in view of patient worsening respiratory status Objective Data Objective Data Vital Signs: Vital Signs Temp Pulse Resp BP Pulse Ox 97.6 F L 96 20 H 124/71 H 92 05/29/21 05:01 05/29/21 06:48 05/29/21 06:48 05/29/21 05:01 05/29/21 06:48 Oxygen Flow Rate (L/min) 60 Oxygen Delivery Method Airvo Weight: 106.9 kg Body Mass Index (BMI) 31.1 Intake & Output: Intake and Output for Last 24 Hours 05/27/21 05/28/21 05/29/21 23:59 23:59 23:59 Intake Total 1050 / 1050 Output Total 1250 / 1250 Balance -200 / -200 Lab / Micro Data Result Diagrams: 05/29/21 04:56 05/29/21 04:56 Labs: Laboratory Results - last 24 hr 05/29/21 04:56: WBC 20.4 H, RBC 3.89 L, Hgb 13.0, Hct 39.8 L, MCV 102.3 H, MCH 33.4 H, MCHC 32.7, RDW Std Deviation 53.0 H, RDW Coeff of Dougie 14.1, Plt Count 282, MPV 10.5, Immature Gran % (Auto) 1.300 H, Neut % (Auto) 85.6 H, Lymph % (Auto) 3.7 L, [place] % (Auto) 5.6, Eos % (Auto) 3.6, Baso % (Auto) 0.2, Absolute Neuts (auto) 17.5 H, Absolute Lymphs (auto) 0.76 L, Nucleated RBC % 0.2 05/29/21 04:56: Sodium 138, Potassium 4.3, Chloride 106, Carbon Dioxide 27.0, Anion Gap 5, BUN 24 H, Creatinine 0.82, Estim Creat Clear Calc 83.91, Est GFR (MDRD) Af Amer 116, Est GFR (MDRD) Non-Af 96, BUN/Creatinine Ratio 29.1 H, Glucose 149 H, Calcium 9.4, Magnesium 2.5 Micro: Microbiology 05/28/21 04:35 Interface Orders SARS-CoV-2 Antigen (Rapid) - Final Rhythm Strip Rhythm Strip: Sinus Tach Rate: 157 Ectopy: PAC(s) Physical Exam Narrative GENERAL: Dyspneic at rest HEENT: Atraumatic; EYES; Anicteric, Normal Conjunctiva NECK; supple, normal thyroid, RESPIRATORY: Diminished to auscultation CARDIOVASCULAR: Regular S1 S2, GI: soft, normoactive bowel sounds, : No Renal angle tenderness; EXTREMITIES: No edema, no clubbing, MUSCULOSKELETAL: no muscle waisting NEURO: Awake; no lateralizing signs. SKIN: No Rash PSYCH; Flat affect Assessment & Plan Assessment/Plan (1) Pneumonia: PLAN: Patient is a 76-year-old gentleman presented with progressive shortness of breath 1. Acute hypoxic respiratory failure superimposed on chronic hypoxic respiratory failure Secondary to community-acquired pneumonia. Patient has been admitted to regular nursing floor placed on supplemental oxygen after cultures were sent. Patient was started on Rocephin as well as azithromycin -05/29/2021; Patient seen breathing more labored than the previous day. Currently placed on Airvo in addition to Ventimask. Consult was placed to pulmonary medicine?Dr. Melo in view of patient worsening respiratory status 2. History of lung CA ?Status post radiation therapy. Patient was recently found to have new mass which is currently being managed as outpatient by oncology -05/29/2021. Case discussed with patient's oncologist Dr Koch patient's mass was apparently attributed to pneumonia repeat CAT scan performed as outpatient demonstrated clearing of her previously mass lesion in the peripheral superior aspect of the right lower lobe 3. Recent admission for pulmonary embolism ?Patient is on systemic anticoagulation 4. Bronchiectasis ?Symptomatic management in addition to supplemental oxygen 5. Class I obesity with BMI of 31.9 ?Weight loss advised 6. DVT prophylaxis ?Patient already anticoagulated Charges/Coding Visit Charges Inpatient E&M: 59037 Subs Hosp L3
[2021-05-29] MEDS: Azithromycin 250 MG Tablet 500 MG PO (09:10)
[2021-05-29] MEDS: APIXABAN 5 MG TABLET PO ×2 (09:10→21:38)
[2021-05-29] MEDS: Ceftriaxone 1 GM/50 ML BAG IV (09:11)
[2021-05-29 09:23] LABS: Pathologist Review Reviewed
--- NOTE | 2021-05-29 09:43 | CON.PCM.CC_ITS ---
HPI Consult Data Date of Consult: 05/29/21 HPI Narrative Reason for Consultation: Respiratory failure HPI Narrative: The patient is a 76-year-old male, with a history as outlined below, who presented to the emergency department on May 28 via EMS with shortness of breath and hypoxemia. [facility] Medical History Abnormal chest xray Bronchiectasis without complication Chronic cough F/H of alcoholism Former smoker History of lung cancer Pulmonary embolism Pulmonary fibrosis Sleep apnea Tobacco abuse Home Medications atorvastatin 10 mg PO QHS 02/13/15 [History Last Taken 03/26/21] gabapentin 300 mg PO DAILY 03/27/21 [History Last Taken 03/27/21] prednisone See Taper PO BREAKFAST 16 Days #40 tab 04/03/21 [Rx Last Taken Unknown] apixaban 5 mg tablet 5 mg PO BID #60 tab 04/16/21 [Rx Last Taken Unknown] albuterol sulfate 2 puff INHALATION Q4H PRN PRN 05/28/21 [History Last Taken Unknown] gabapentin 200 mg PO/SL UD 05/28/21 [History Last Taken Unknown] Allergy/AdvReac Type Severity Reaction Status Date / Time No Known Allergies Allergy Verified 05/28/21 04:24 Family History Sister Alcoholism Liver failure Brain malignancy Father CVA (cerebral vascular accident) Surgical History History of appendectomy History of hernia surgery Social History Smoking Status: Former smoker Tobacco: How many years used: 60 second hand exposure: Yes alcohol intake: current alcohol intake frequency: 0-2 drinks per day Alcohol type: beer substance use type: does not use caffeine: Yes Type: coffee Number of servings: 3 what type of physical activity do you participate in: weight training frequency: 3-4 times per week Lab / Micro Data Result Diagrams: 05/29/21 04:56 05/29/21 04:56 Labs: Laboratory Results - last 24 hr 05/28/21 04:26: Diff Path Review Reviewed 05/29/21 04:56: WBC 20.4 H, RBC 3.89 L, Hgb 13.0, Hct 39.8 L, MCV 102.3 H, MCH 33.4 H, MCHC 32.7, RDW Std Deviation 53.0 H, RDW Coeff of Dougie 14.1, Plt Count 282, MPV 10.5, Immature Gran % (Auto) 1.300 H, Neut % (Auto) 85.6 H, Lymph % (Auto) 3.7 L, [place]hing % (Auto) 5.6, Eos % (Auto) 3.6, Baso % (Auto) 0.2, Absolute Neuts (auto) 17.5 H, Absolute Lymphs (auto) 0.76 L, Nucleated RBC % 0.2 05/29/21 04:56: Sodium 138, Potassium 4.3, Chloride 106, Carbon Dioxide 27.0, Anion Gap 5, BUN 24 H, Creatinine 0.82, Estim Creat Clear Calc 83.91, Est GFR (MDRD) Af Amer 116, Est GFR (MDRD) Non-Af 96, BUN/Creatinine Ratio 29.1 H, Glucose 149 H, Calcium 9.4, Magnesium 2.5 Micro: Microbiology 05/28/21 04:35 Interface Orders SARS-CoV-2 Antigen (Rapid) - Final Rhythm Strip Rhythm Strip: Sinus Tach Rate: 157 Ectopy: PAC(s)
--- NOTE | 2021-05-29 11:29 | CASEMGMT ---
TANNER HUANG NOTE: Pt qualifies for a Palliative referral per the [facility] palliative screening tool at this time. Dr Ramirez aware and states ok for Palliative c/s at this time. Order placed. Palliative updated at this time. Face Sheet and screening tool e-mailed to Palliative at this time. Seng MANCERA RN CM
[2021-05-29] MEDS: Gabapentin 100 MG Capsule 200 MG PO ×2 (12:23→18:56)
[2021-05-29] MEDS: Atorvastatin Calcium 10 MG Tablet PO (21:38)
[2021-05-30] VITALS (21 sets, daily range): BP systolic 113–142; BP diastolic 59–93; PULSE 82–121; RESP 12–32; TEMP 36.4–37.1; O2SAT 86–95
--- NOTE | 2021-05-30 04:50 | CPS ---
Long discussion was done by AUTOMATIC TRIMMING SEWER and RN about patient's current condition on max settings AirVo (60L/93%) w/ NRB 15L overtop. Patient said that he will not wear the BiPAP today and only tonight. Understands that he is hypoxic with pulse ox 88% at best. Will continue to wear AirVo today.
[2021-05-30] MEDS: Gabapentin 300 MG Capsule PO (05:00)
--- NOTE | 2021-05-30 05:00 | NURSING ---
pt maxed out on Airvo satting 86-89%. RT Gt and this RN attempted to educated pt on importance of utilizing BiPAP but pt does not want to wear it anymore d/t wanting to be available for phone call for lung transplant. After much discussion, pt is adamant about not wanting to wear BiPAP anymore but states he will wear in tonight.
[2021-05-30 07:22] LABS: Absolute Lymphocyte Count 1.32 X10^3/uL (0.83-4.51); Absolute Neutrophil Count 20.9 X10^3/uL (2.0-7.7); Basophil# 0.06 X10^3/uL; Basophil% 0.2 % (0-1); Eosinophil# 0.12 X10^3/uL; Eosinophils% 0.5 % (0-5); Hematocrit 39.8 % (40-54); Hemoglobin 12.9 g/dL (13.0-16.5); Lymphocyte # 1.32 X10^3/ul (0.83-4.51); Lymphocyte % 5.3 % (19-41); Mean Corp Hgb Conc 32.4 g/dL (32-36); Mean Corpuscular Hgb 33.2 pg (27.0-32.0); Mean Corpuscular Volume 102.3 fL (80-94); Mean Platelet Vol. 10.4 fl (6.2-12.0); Monocyte# 2.12 X10^3/uL; Monocyte% 8.5 % (0-10); NRBC Flagged by Analyzer 0.3 % (0-5); Neutrophil # 20.92 X10^3/uL (2.7-7.7); Neutrophil % 84.3 % (47-70); POSITIVE DIFFERENTIAL YES; Platelet Count 311 K/mm3 (150-450); RBC Distribution Width CV 14.3 % (11.6-14.6); RBC Distribution Width SD 53.6 fl (35.1-43.9); Red Blood Count 3.89 M/mm3 (4.6-6.2); White Blood Count 24.9 K/mm3 (4.4-11.0)
--- NOTE | 2021-05-30 07:22 | PN.HOSP_ITS ---
Subjective Subjective Consult was placed to pulmonary medicine in view of patient worsening respiratory status. Patient was seen in consultation by Dr. Melo. He recommended addition of high-dose steroids to patient's therapy. Also r ecommended for patient CODE STATUS to be changed and palliative care consulted. This was discussed with both the patient and the currently in agreement Objective Data Objective Data Vital Signs: Vital Signs Temp Pulse Resp BP Pulse Ox 98.0 F 99 22 H 129/59 H 92 05/30/21 05:00 05/30/21 05:00 05/30/21 05:00 05/30/21 05:00 05/30/21 05:00 Oxygen Flow Rate (L/min) 15 Oxygen Delivery Method Non-Rebreather @ 15L/min Weight: 106.9 kg Body Mass Index (BMI) 31.1 Intake & Output: Intake and Output for Last 24 Hours 05/28/21 05/29/21 05/30/21 23:59 23:59 23:59 Intake Total 1050 / 1050 300 / 300 Output Total 1250 / 1250 400 / 400 1200 / 1200 Balance -200 / -200 -100 / -100 -1200 / -1200 Lab / Micro Data Result Diagrams: 05/30/21 05:46 05/30/21 05:46 Labs: Laboratory Results - last 24 hr 05/28/21 04:26: Diff Path Review Reviewed Micro: Microbiology 05/28/21 04:35 Interface Orders SARS-CoV-2 Antigen (Rapid) - Final Rhythm Strip Rhythm Strip: Sinus Tach Rate: 157 Ectopy: PAC(s) Physical Exam Narrative GENERAL: Dyspneic at rest HEENT: Atraumatic; EYES; Anicteric, Normal Conjunctiva NECK; supple, normal thyroid, RESPIRATORY: Diminished to auscultation CARDIOVASCULAR: Regular S1 S2, GI: soft, normoactive bowel sounds, : No Renal angle tenderness; EXTREMITIES: No edema, no clubbing, MUSCULOSKELETAL: no muscle waisting NEURO: Awake; no lateralizing signs. SKIN: No Rash PSYCH; Flat affect Assessment & Plan Assessment/Plan (1) Pneumonia: PLAN: Patient is a 76-year-old gentleman presented with progressive shortness of breath 1. Acute hypoxic respiratory failure superimposed on chronic hypoxic respiratory failure Secondary to community-acquired pneumonia. Patient has been admitted to regular nursing floor placed on supplemental oxygen after cultures were sent. Patient was started on Rocephin as well as azithromycin -05/29/2021; Patient seen breathing more labored than the previous day. Currently placed on Airvo in addition to Ventimask. Consult was placed to pulmonary medicine?Dr. Melo in view of patient worsening respiratory status ?05/30/2021 Consult was placed to pulmonary medicine in view of patient worse yudith respiratory status. Patient was seen in consultation by Dr. Melo. He recommended addition of high-dose steroids to patient's therapy. Also recommended for patient CODE STATUS to be changed and palliative care consulted. This was discussed with both the patient and the currently in agreement 2. History of lung CA ?Status post radiation therapy. Patient was recently found to have new mass which is currently being managed as outpatient by oncology -05/29/2021. Case discussed with patient's oncologist Dr Koch patient's mass was apparently attributed to pneumonia repeat CAT scan performed as outpatient demonstrated clearing of her previously mass lesion in the peripheral superior aspect of the right lower lobe 3. Recent admission for pulmonary embolism ?Patient is on systemic anticoagulation 4. Bronchiectasis ?Symptomatic management in addition to supplemental oxygen 5. Class I obesity with BMI of 31.9 ?Weight loss advised 6. DVT prophylaxis ?Patient already anticoagulated Charges/Coding Visit Charges Inpatient E&M: 21162 Subs Hosp L3
[2021-05-30 07:27] LABS: Differential Indicated SCAN CRITERIA MET
[2021-05-30] MEDS: Ipratropium/Albuterol Sulfate 3 ML AMPUL.NEB INHALATION ×5 (07:28→22:37)
[2021-05-30 07:47] LABS: Anion Gap 8 (5-15); BUN 30 mg/dL (7-18); BUN/Creat Ratio 36.5 RATIO (10-20); Calcium,Total 9.5 mg/dL (8.5-10.1); Chloride 106 mmol/L (98-107); Creatinine, Serum 0.82 mg/dL (0.70-1.30); EST Glomerular Filtration Rate 96 mL/min (>60); Est Glom Filt Rate - Afr Amer 117 mL/min (>60); Estimated Creatinine Clearance 83.91 ml/min; Glucose 112 mg/dL (74-106); Potassium 4.4 mmol/L (3.5-5.1); Sodium Level 141 mmol/L (136-145)
[2021-05-30] MEDS: predniSONE 20 MG Tablet 40 MG PO (07:57)
[2021-05-30] MEDS: Azithromycin 250 MG Tablet 500 MG PO (09:10)
[2021-05-30] MEDS: APIXABAN 5 MG TABLET PO ×2 (09:10→21:47)
[2021-05-30] MEDS: Piperacil/Tazobactam 3.375 GM Q8 PREMIX IV ×3 (10:09→21:47)
--- NOTE | 2021-05-30 11:06 | PCM.CONS.P ---
Assessment & Plan Assessment/Plan (1) Shortness of breath: (2) Anxiety: (3) History of lung cancer: (4) Pneumonia: QUALIFIERS: Pneumonia type: due to unspecified organism Laterality: bilateral Lung location: lower lobe of lung Qualified Code(s): J18.9 - Pneumonia, unspecified organism (5) Pulmonary embolism: QUALIFIERS: Pulmonary embolism type: unspecified Chronicity: unspecified Acute cor pulmonale presence: unspecified Qualified Code(s): I26.99 - Other pulmonary embolism without acute cor pulmonale (6) Bronchiectasis without complication: (7) Pulmonary fibrosis: PLAN: 76-year-old male with pulmonary fibrosis, chronic bronchiectasis, bilateral pneumonia, and history of lung cancer. Seen today for palliative consultation for symptom management of shortness of breath and supportive care when he is discharged home. He is awaiting to hear if he is a candidate for lung transplant. 1. Shortness of breath: Severe. Has Pneumonia/PE, bronchiectasis and bullous formations. He is not on anything for anxiety, appears very anxious and having difficulties breathing. He is a DNR CCA with no intubation. Would recommend Ativan 0.5 mg every 4 hours as needed for shortness of breath/anxiety and/or oxycodone 5 mg every 4 hours as needed for shortness of breath or pain. Unclear if this would interfere with possible plan of care through the lung transplant team. Would need clarification, but I believe those types of medications would not interfere with eligibility. Requiring BiPAP intermittently and high flow oxygen/airVo. On stress dose steroids, we will see how he does in the next couple of days. 2. History of lung cancer: Previously seen new lesion now thought to be related to pneumonia and/or bullous formation. Repeat CT scan confirms. Follow-up with oncology 3. Pulmonary fibrosis: Follows with Dr. Melo. Defer management. Thank you for the opportunity to participate in this patient's care, please do not hesitate to contact [facility] with any further questions or concerns. Palliative direct line is [phone]. We will follow up with the patient's to discuss services when he is discharged home. Greater than 50% of F2F visit dedicated to education and counseling of palliative care services, medications, comorbid conditions and potential assistance with management, and plan of care moving forward. Start time: 1106 End time: 1144 HPI Consult Data Date of Consult: 05/30/21 HPI Narrative HPI Narrative: ALVARO JOSEPH, is a 76 M, PMH as below, who presented to [facility] 05[facility]28/2021 with complaints of progressive shortness of breath in the setting of history of lung cancer, PE on Eliquis, and COPD. He does have a baseline oxygen requirement of 3 to 4 L. Patient was having some hypoxia at home so presented to the ED. chest x-ray showed chronic interstitial lung disease with new superimposed pneumonia. He also had a leukocytosis so was started on antibiotics. He was admitted for further evaluation and management. A pulmonary consult was placed to Dr. Melo due to worsening respiratory status. He remains on Airvo and is saturating in the low upper 80's to low 90s. He was on BiPAP but declined as he wants to be available for expected phone call for possible lung transplant. Pulmonary recommended addition of high-dose steroids and for CODE STATUS to be changed and palliative care consulted. Patient is a DNR CCA with no intubation. Patient on IV methylprednisolone through 06/01, Zosyn, and oral Z-Lobo. Tylenol is ordered for pain. He is on scheduled DuoNebs and as needed albuterol. Patient lives at home with his and is typically independent with ADLs. His drives him to any appointments. DME in the home include grab bars and home oxygen through [employer] with portability. He is 3 L at rest and 10 L with any exertion. His Elizabeth is HC POA. They use [employer] entry for pharmacy. He also follows with Dr. Melo, pulmonology and Dr. Vega for oncology. Dr. Guzman is his experimental welder. Plan is to discharge home when stable. Patient denies any N/V/D. No dizziness or headaches. He has no exertional tolerance with his breathing. Short of breath at rest. He is currently wearing BiPAP but does not like to wear the mask. He is tachypneic and speaks in fragmented sentences. Has a pulse ox at his bedside and checks it frequently. Currently 93% on the BiPAP. States he called his 4 kids and some of his 12 grandchildren today to say goodbye in case he does not make it out of here. He does not really have an appetite. No chest pain. States he has his fingers crossed regarding possibility of getting on the lung transplant list if he is stabilized. [facility] Medical History Abnormal chest xray Bronchiectasis without complication Chronic cough F/H of alcoholism Former smoker History of lung cancer Pulmonary embolism Pulmonary fibrosis Sleep apnea Tobacco abuse Home Medications atorvastatin 10 mg PO QHS 02/13/15 [History Last Taken 03/26/21] gabapentin 300 mg PO DAILY 03/27/21 [History Last Taken 03/27/21] prednisone See Taper PO BREAKFAST 16 Days #40 tab 04/03/21 [Rx Last Taken Unknown] apixaban 5 mg tablet 5 mg PO BID #60 tab 04/16/21 [Rx Last Taken Unknown] albuterol sulfate 2 puff INHALATION Q4H PRN PRN 05/28/21 [History Last Taken Unknown] gabapentin 200 mg PO/SL UD 05/28/21 [History Last Taken Unknown] Allergy/AdvReac Type Severity Reaction Status Date / Time No Known Allergies Allergy Verified 05/28/21 04:24 Family History Sister Alcoholism Liver failure Brain malignancy Father CVA (cerebral vascular accident) Surgical History History of appendectomy History of hernia surgery Social History Smoking Status: Former smoker Tobacco: How many years used: 60 second hand exposure: Yes alcohol intake: current alcohol intake frequency: 0-2 drinks per day Alcohol type: beer substance use type: does not use caffeine: Yes Type: coffee Number of servings: 3 what type of physical activity do you participate in: weight training frequency: 3-4 times per week ROS ROS Narrative Review of systems otherwise negative from a constitutional, HEENT, respiratory, cardiovascular, GI, genitourinary, musculoskeletal, skin, neurologic, psychiatric and hematologic system unless stated above. Physical Exam Const alert and oriented x3 Constitutional Narrative: Short of breath/tachypnea General Appearance: cooperative, ill appearing and on BiPAP Nutritional Appearance: obese HEENT normocephalic and head/scalp atraumatic Neck supple General: trachea midline Resp Effort and Inspection: symmetric chest movement, tachypneic, uses accessory muscles and prolonged expiratory phase; Negative for able to speak in complete sentences Auscultation: diminished lung sounds Cardio S1 normal heart sound and S2 normal heart sound GI soft to palpation and non-tender Inspection: abdominal distention Auscultation: normoactive bowel sounds Extremity General Extremity: edema; Negative for cyanosis Skin no rashes or lesions noted Neuro CN's II-XII intact bilaterally, moves all extremities and no focal motor deficits Psych mental status grossly normal Appearance: well kempt Activity / Motor Behavior: appropriate eye contact and restless Mood & Affect: anxious Memory / Cognition: memory grossly intact
[2021-05-30] MEDS: Gabapentin 100 MG Capsule 200 MG PO ×2 (11:38→18:11)
[2021-05-30 14:14] LABS: Pathologist Review Reviewed
--- NOTE | 2021-05-30 14:47 | PCM.RX.CS ---
Consult Pharmacy has been consulted to manage selected antiobiotic: Vancomycin Type of Consult: New start Suspected Infection: Pneumonia Prior Doses of Antibiotics Received/Current Regimen: Received 1500mg iv x 1 on 05.30.21. Labs: Sodium 141 mmol/L (136-145) 05/30/21 05:46 Potassium 4.4 mmol/L (3.5-5.1) 05/30/21 05:46 Chloride 106 mmol/L (98-107) 05/30/21 05:46 Carbon Dioxide 27.0 mmol/L (21.0-32.0) 05/30/21 05:46 Anion Gap 8 (5-15) 05/30/21 05:46 BUN 30 mg/dL (7-18) H 05/30/21 05:46 Creatinine 0.82 mg/dL (0.70-1.30) 05/30/21 05:46 Est GFR (MDRD) Af Amer 117 mL/min (>60) 05/30/21 05:46 Est GFR (MDRD) Non-Af 96 mL/min (>60) 05/30/21 05:46 BUN/Creatinine Ratio 36.5 RATIO (10-20) H 05/30/21 05:46 Glucose 112 mg/dL (74-106) H 05/30/21 05:46 Microbiology: Microbiology 05/28/21 04:35 Interface Orders SARS-CoV-2 Antigen (Rapid) - Final Weight used for dosin kg Estimated Creatinine Clearance: 84 ml/min Goal Trough: 15-20 mcg/mL Pharmacy Plan for Drug Dosing: Pharmacy Service will continue to monitor and adjust dosing as required. Follow-Up Labs: Trough Vancomycin - 06.01.21@0030 before 0100 dose
[2021-05-30] MEDS: Atorvastatin Calcium 10 MG Tablet PO (21:47)
[2021-05-31] VITALS (13 sets, daily range): BP systolic 125–146; BP diastolic 76–85; PULSE 70–108; RESP 12–31; TEMP 36.6–36.8; O2SAT 89–96
--- NOTE | 2021-05-31 04:04 | NURSING ---
0346 VSA not completed d/t nursing communication order to not waken at night. Pt HR and O2 levels stable per monitor, and pt appears comfortable sleeping in bed with bipap in place. Will continue to monitor. Scarlet, RN
[2021-05-31] MEDS: Piperacil/Tazobactam 3.375 GM Q8 PREMIX IV ×3 (05:54→21:13)
[2021-05-31] MEDS: Gabapentin 300 MG Capsule PO (06:22)
[2021-05-31 06:56] LABS: Absolute Neutrophil Count 12.9 X10^3/uL (2.0-7.7); Basophil# 0.03 X10^3/uL; Basophil% 0.2 % (0-1); Eosinophil# 0.01 X10^3/uL; Eosinophils% 0.1 % (0-5); Hematocrit 39.7 % (40-54); Hemoglobin 12.7 g/dL (13.0-16.5); Lymphocyte % 4.2 % (19-41); Mean Corpuscular Hgb 33.5 pg (27.0-32.0); Mean Corpuscular Volume 104.7 fL (80-94); Mean Platelet Vol. 10.5 fl (6.2-12.0); Monocyte# 0.52 X10^3/uL; Monocyte% 3.7 % (0-10); NRBC Flagged by Analyzer 0.2 % (0-5); Neutrophil # 12.89 X10^3/uL (2.7-7.7); Neutrophil % 91.1 % (47-70); POSITIVE DIFFERENTIAL YES; Platelet Count 317 K/mm3 (150-450); RBC Distribution Width CV 14.2 % (11.6-14.6); RBC Distribution Width SD 55.5 fl (35.1-43.9); Red Blood Count 3.79 M/mm3 (4.6-6.2); White Blood Count 14.2 K/mm3 (4.4-11.0)
[2021-05-31 07:05] LABS: Differential Indicated SCAN CRITERIA MET
[2021-05-31 07:12] LABS: Anion Gap 9 (5-15); BUN 31 mg/dL (7-18); BUN/Creat Ratio 32.7 RATIO (10-20); Calcium,Total 9.4 mg/dL (8.5-10.1); Chloride 105 mmol/L (98-107); Creatinine, Serum 0.95 mg/dL (0.70-1.30); EST Glomerular Filtration Rate 82 mL/min (>60); Est Glom Filt Rate - Afr Amer 99 mL/min (>60); Estimated Creatinine Clearance 72.42 ml/min; Glucose 146 mg/dL (74-106); Sodium Level 142 mmol/L (136-145)
--- NOTE | 2021-05-31 07:34 | PCM.PN.HOSP ---
Subjective Subjective Patient seen still remains ill looking. Still on BiPAP. His dose 6 dose was increased by Dr. Melo with pulmonary medicine. He also recommended obtaining 2D echo to assess for possible pulmonary hypertension as well as obtaining viral respiratory panel. Objective Data Objective Data Vital Signs: Vital Signs Temp Pulse Resp BP Pulse Ox 98.1 F 94 12 135/81 H 92 05/31/21 05:52 05/31/21 05:52 05/31/21 05:52 05/31/21 05:52 05/31/21 05:52 Oxygen Flow Rate (L/min) 15 Oxygen Delivery Method Bi-pap Weight: 106.9 kg Body Mass Index (BMI) 31.1 Intake & Output: Intake and Output for Last 24 Hours 05/29/21 05/30/21 05/31/21 23:59 23:59 23:59 Intake Total 300 / 300 1346 / 1346 585 / 585 Output Total 400 / 400 2400 / 2400 Balance -100 / -100 -1054 / -1054 585 / 585 Lab / Micro Data Result Diagrams: 05/31/21 06:00 05/31/21 06:00 Labs: Laboratory Results - last 24 hr 05/30/21 05:46: Differential Comment COMMENT, Diff Path Review Reviewed 05/30/21 05:46: Sodium 141, Potassium 4.4, Chloride 106, Carbon Dioxide 27.0, Anion Gap 8, BUN 30 H, Creatinine 0.82, Estim Creat Clear Calc 83.91, Est GFR (MDRD) Af Amer 117, Est GFR (MDRD) Non-Af 96, BUN/Creatinine Ratio 36.5 H, Glucose 112 H, Calcium 9.5 05/30/21 14:00: COVID-19 ([facility]) Cancelled 05/30/21 19:33: COVID-19 ([facility]) Not Detected 05/31/21 06:00: WBC 14.2 H, RBC 3.79 L, Hgb 12.7 L, Hct 39.7 L, MCV 104.7 H, MCH 33.5 H, MCHC 32.0, RDW Std Deviation 55.5 H, RDW Coeff of Dougie 14.2, Plt Count 317, MPV 10.5, Immature Gran % (Auto) 0.700, Neut % (Auto) 91.1 H, Lymph % (Auto) 4.2 L, [place] % (Auto) 3.7, Eos % (Auto) 0.1, Baso % (Auto) 0.2, Absolute Neuts (auto) 12.9 H, Absolute Lymphs (auto) 0.60 L, Nucleated RBC % 0.2 05/31/21 06:00: Sodium 142, Potassium 4.0, Chloride 105, Carbon Dioxide 28.0, Anion Gap 9, BUN 31 H, Creatinine 0.95, Estim Creat Clear Calc 72.42, Est GFR (MDRD) Af Amer 99, Est GFR (MDRD) Non-Af 82, BUN/Creatinine Ratio 32.7 H, Glucose 146 H, Calcium 9.4 Micro: Microbiology 05/28/21 04:35 Interface Orders SARS-CoV-2 Antigen (Rapid) - Final Rhythm Strip Rhythm Strip: Sinus Tach Rate: 157 Ectopy: PAC(s) Physical Exam Narrative GENERAL: Dyspneic at rest HEENT: Atraumatic; EYES; Anicteric, Normal Conjunctiva NECK; supple, normal thyroid, RESPIRATORY: Diminished to auscultation CARDIOVASCULAR: Regular S1 S2, GI: soft, normoactive bowel sounds, : No Renal angle tenderness; EXTREMITIES: No edema, no clubbing, MUSCULOSKELETAL: no muscle waisting NEURO: Awake; no lateralizing signs. SKIN: No Rash PSYCH; Flat affect Assessment & Plan Assessment/Plan (1) Pneumonia: QUALIFIERS: Laterality: bilateral Lung location: lower lobe of lung Pneumonia type: due to unspecified organism Qualified Code(s): J18.9 - Pneumonia, unspecified organism PLAN: Patient is a 76-year-old gentleman presented with progressive shortness of breath 1. Acute hypoxic respiratory failure superimposed on chronic hypoxic respiratory failure Secondary to community-acquired pneumonia. Patient has been admitted to regular nursing floor placed on supplemental oxygen after cultures were sent. Patient was started on Rocephin as well as azithromycin -05/29/2021; Patient seen breathing more labored than the previous day. Currently placed on Airvo in addition to Ventimask. Consult was placed to pulmonary medicine?Dr. Melo in view of patient worsening respiratory status ?05/30/2021 Consult was placed to pulmonary medicine in view of patient worsening respiratory status. Patient was seen in consultation by Dr. Melo. He recommended addition of high-dose steroids to patient's therapy. Also recommended for patient CODE STATUS to be changed and palliative care consulted. This was discussed with both the patient and the currently in agreement -05/31/2021 Patient seen still remains ill looking. Still on BiPAP. His dose 6 dose was increased by Dr. Melo with pulmonary medicine. He also recommended obtaining 2D echo to assess for possible pulmonary hypertension as well as obtaining viral respiratory panel. 2. History of lung CA ?Status post radiation therapy. Patient was recently found to have new mass which is currently being managed as outpatient by oncology -05/29/2021. Case discussed with patient's oncologist Dr Koch patient's mass was apparently attributed to pneumonia repeat CAT scan performed as outpatient demonstrated clearing of her previously mass lesion in the peripheral superior aspect of the right lower lobe 3. Recent admission for pulmonary embolism ?Patient is on systemic anticoagulation 4. Bronchiectasis ?Symptomatic management in addition to supplemental oxygen 5. Class I obesity with BMI of 31.9 ?Weight loss advised 6. DVT prophylaxis ?Patient already anticoagulated Charges/Coding Visit Charges Inpatient E&M: 42131 Subs Hosp L3
--- NOTE | 2021-05-31 08:17 | PCM.PROGNOTE ---
Subjective: The patient reports less shortness of breath, status post 1 dose of Solu-Medrol 1000 mg. The patient has done much better on bilevel therapy through the night. He indicates good sleep. He denies hemoptysis or chest pain. He reports that his oxygen saturations have been in the 90s - Physical Exam Vitals/I&O's: Vital Signs Temp Pulse Resp BP Pulse Ox 98.1 F 94 12 135/81 H 92 05/31/21 05:52 05/31/21 05:52 05/31/21 05:52 05/31/21 05:52 05/31/21 05:52 Oxygen Flow Rate (L/min) 15 Oxygen Delivery Method Bi-pap Weight: 106.9 kg Body Mass Index (BMI) 31.1 Intake and Output for Last 24 Hours 05/29/21 05/30/21 05/31/21 23:59 23:59 23:59 Intake Total 300 / 300 1346 / 1346 585 / 585 Output Total 400 / 400 2400 / 2400 Balance -100 / -100 -1054 / -1054 585 / 585 General: Alert, Oriented x3, Cooperative, - - No anxiety and clarity of thought today HEENT: Atraumatic, PERRLA, EOMI, Normocephalic Neck: Supple, No JVD, Negative Carotid Bruits Lungs: - - Diminished breath sounds, improved air entry today, less rales, scattered rhonchi throughout, rales or 30%, better chest expansion with bilevel therapy, no wheezing Cardiovascular: Regular rate, No murmurs, Tachycardic Abdomen: Bowel Sounds Present, Soft, Non Tender Extremities: No edema, Capillary Refill Less than 3 Seconds Skin: No rashes, No breakdown Musculoskeletal: No Tenderness to Palpation of Joints or Extremities Neurological: Cranial nerves II-XII grossly intact Psych/Mental Status: Normal Affect, Appropriate Microbiology Past 72 Hours 05/28/21 04:35 Interface Orders SARS-CoV-2 Antigen (Rapid) - Final Laboratory Results 05/30/21 05:46: Differential Comment COMMENT, Diff Path Review Reviewed 05/30/21 14:00: COVID-19 ([facility]) Cancelled 05/30/21 19:33: COVID-19 ([facility]) Not Detected 05/31/21 06:00: WBC 14.2 H, RBC 3.79 L, Hgb 12.7 L, Hct 39.7 L, MCV 104.7 H, MCH 33.5 H, MCHC 32.0, RDW Std Deviation 55.5 H, RDW Coeff of Dougie 14.2, Plt Count 317, MPV 10.5, Immature Gran % (Auto) 0.700, Neut % (Auto) 91.1 H, Lymph % (Auto) 4.2 L, [place] % (Auto) 3.7, Eos % (Auto) 0.1, Baso % (Auto) 0.2, Absolute Neuts (auto) 12.9 H, Absolute Lymphs (auto) 0.60 L, Nucleated RBC % 0.2 05/31/21 06:00: Sodium 142, Potassium 4.0, Chloride 105, Carbon Dioxide 28.0, Anion Gap 9, BUN 31 H, Creatinine 0.95, Estim Creat Clear Calc 72.42, Est GFR (MDRD) Af Amer 99, Est GFR (MDRD) Non-Af 82, BUN/Creatinine Ratio 32.7 H, Glucose 146 H, Calcium 9.4 Current Medications Acetaminophen (Acetaminophen 325 Mg Tablet) 650 mg PO Q6H PRN PRN PRN Reason: Pain Score 1-10/Temp > 100.7 F Acetaminophen (Acetaminophen 325 Mg Tablet) 650 mg PO Q4H PRN PRN PRN Reason: PAIN 1-10/FEVER Al Hydroxide/Mg Hydroxide (Mag Hydrox/Al Hydrox/Simeth 30 Ml Udc) 30 ml PO Q4H PRN PRN PRN Reason: epigastric distress Albuterol Sulfate (Albuterol 2.5 Mg/3 Ml Vial.Neb.) 2.5 mg INHALATION Q2H PRN PRN PRN Reason: Shortness of Breath/Wheezing Albuterol/Ipratropium (Ipratropium/Albuterol Sulfate 3 Ml Ampul.Neb) 3 ml INHALATION Q4H.RT [facility] Last Admin: 05/30/21 22:37 Dose: 3 ml Documented by: Apixaban (Apixaban 5 Mg Tablet) 5 mg PO BID [facility] Last Admin: 05/30/21 21:47 Dose: 5 mg Documented by: Atorvastatin Calcium (Atorvastatin Calcium 10 Mg Tablet) 10 mg PO QHS [facility] Last Admin: 05/30/21 21:47 Dose: 10 mg Documented by: Atropine Sulfate (Atropine Sulfate 1% 2 Ml Bottle) 4 drp SL Q1H PRN PRN PRN Reason: Secretions Furosemide (Furosemide 40 Mg/4 Ml Vial) 40 mg IV DAILY PRN PRN PRN Reason: crackles or wet cough Gabapentin (Gabapentin 300 Mg Capsule) 300 mg PO 0600 [facility] Last Admin: 05/31/21 06:22 Dose: 300 mg Documented by: Gabapentin (Gabapentin 100 Mg Capsule) 200 mg PO 1200,1800 [facility] Last Admin: 05/30/21 18:11 Dose: 200 mg Documented by: Guaifenesin (Guaifenesin 10 Ml Udc (200mg/10ml)) 20 ml PO Q4H PRN PRN PRN Reason: COUGH Guaifenesin (Guaifenesin 10 Ml Udc (200mg/10ml)) 10 - 20 ml PO Q4H PRN PRN PRN Reason: productive cough Sodium Chloride () 250 mls @ 15 mls/hr IV .[id number] PRN PRN Reason: Saline Flush Last Infusion: 05/29/21 07:40 Dose: Infused Documented by: Vancomycin IV-PHARMACY TO DOSE (1 each/ Sodium Chloride) 500 mls @ 250 mls/hr IV PRN PRN; Protocol PRN Reason: Rx to Dose Piperacillin Sod/Tazobactam Sod (Zosyn) 3.375 gm in 50 mls @ 12.5 mls/hr IV Q8 [facility] Last Admin: 05/31/21 05:54 Dose: 12.5 mls/hr Documented by: Methylprednisolone 1,000 mg/ (Sodium Chloride) 116 mls @ 100 mls/hr IV DAILY [facility] Stop: 06/01/21 11:01 Last Infusion: 05/30/21 12:52 Dose: Infused Documented by: Vancomycin HCl 1,750 mg/ (Sodium Chloride) 535 mls @ 250 mls/hr IV Q12H [facility] Last Infusion: 05/31/21 04:25 Dose: Infused Documented by: Lidocaine/Diphenhydr/Alum/Mg/Simeth (Bmx Liquid 180 Ml) 5 ml PO 4X/DAY PRN PRN Reason: stomatitis Loperamide HCl (Loperamide 2 Mg Capsule) 0 mg PO UD PRN PRN Reason: Diarrhea Melatonin (Melatonin 3 Mg Tablet) 3 mg PO QHS PRN PRN PRN Reason: INSOMNIA Morphine Sulfate (Morphine (Oral Solution) 10mg/0.5ml Syringe) 5 mg PO Q2H PRN PRN PRN Reason: Pain Score 6-10 Ondansetron HCl (Ondansetron 4 Mg/2 Ml Vial) 4 mg IV Q8H PRN PRN PRN Reason: NAUSEA/VOMITING Prednisone (Prednisone 20 Mg Tablet) 40 mg PO 0800 [facility] Promethazine HCl (Promethazine 25 Mg Tablet) 12.5 mg SL/PO Q6H PRN PRN PRN Reason: NAUSEA/VOMITING Saliva Substitute (Saliva Substitute 237 Ml Bottle) 15 ml MUCOUS MEM Q1H PRN PRN PRN Reason: DRY MOUTH Senna/Docusate Sodium (Senna/Docusate Sodium 1 Tablet) 2 tablet PO BID PRN PRN PRN Reason: Constipation Sodium Chloride (0.9% Saline Lock 10 Ml Syringe) 10 - 40 ml IV UD PRN PRN Reason: SALINE FLUSH Last Admin: 05/29/21 12:23 Dose: 10 ml Documented by: Sodium Chloride (Sodium Chloride 0.65% 1 [place].Btl) 2 spray NASAL TID PRN PRN PRN Reason: NASAL DRYNESS Patient Problems: Active and Suspected Problems (Last Reviewed 05/30/21 @ 11:25 by ABIGAIL Alford) Anxiety (Acute) Shortness of breath (Acute) Pulmonary embolism (Acute) Leukocytosis (Acute) Pneumonia (Acute) History of lung cancer (Acute) Hypoxia (Acute) Medical Necessity - Tobacco Use Smoking Status: Former smoker Tobacco Use: Cigarettes Assessment/Plan Respiratory failure: The patient has responded to bilevel therapy, he appears more comfortable, his oxygenation is adequate, continue with bilevel support at this point-DNR Respiratory infection: I would send a respiratory panel, continue the above antibiotics-piperacillin, azithromycin Pulmonary fibrosis: Some clinical response to high-dose steroids, the positive pressure may also have benefit the patient, consider obtaining a BNP and echo to look for secondary causes of acute respiratory failure in conjunction with COPD/fibrosis. Diastolic dysfunction, pulmonary hypertension are likely Severe obstructive sleep apnea: For now continue bilevel therapy at night, the patient has severe obstructive sleep apnea and refused to treat in the past, he is now receiving the benefit of adequate sleep at night, rest The case is discussed with Dr. Corbett All Active Problems (Last Reviewed 05/30/21 @ 11:25 by Sabina Tin, [employer]-C) Anxiety (Acute) Shortness of breath (Acute) Vertigo (Acute) Lung cancer (Acute) Leukocytosis (Acute) Pneumonitis (Acute) Right lower lobe lung mass (Acute) Pulmonary embolism (Acute) Leukocytosis (Acute) Pneumonia (Acute) History of lung cancer (Acute) Hypoxia (Acute) History of hernia surgery (Resolved) History of appendectomy (Resolved) COPD with acute exacerbation (Resolved) Elevated troponin (Resolved)
--- NOTE | 2021-05-31 08:18 | ECHOCS_ITS ---
Reason For Study: PHTN Procedure This was a 2D Doppler, Color Flow transthoracic echocardiogram. Exam performed portable in patient room. Left Ventricle The estimated ejection fraction is 60 %. Normal diastology for age. No regional wall motion abnormalities noted. Right Ventricle Normal RV size. Normal systolic function. Atria Normal left atrium. Normal right atrium. No doppler evidence for ASD. Mitral Valve There is no mitral valve stenosis. No mitral valve insufficiency. Tricuspid Valve There is no tricuspid stenosis. Trivial tricuspid valve insufficiency. Unable to estimate RV systolic pressure due to insufficient tricuspid regurgitant envelope. Aortic Valve Trisinus/trileaflet aortic valve. Moderate diffuse aortic valve thickening. Mild aortic stenosis. Mild (1+) aortic valve insufficiency. Pulmonic Valve There is no pulmonic valvular stenosis. No pulmonic valve insufficiency. Great Vessels Normal aortic root. Pericardium/Pleural No pericardial effusion. Medication Diluted definity 4.0ml given slow IV push to enhance endocardial definition. MMode/2D Measurements & Calculations LVIDd: 4.4 cm IVSd: 1.1 cm LVOT diam: 2.1 cm LVIDs: 3.1 cm LVPWd: 1.1 cm FS: 30.4 % LVOT area: 3.4 cm2 Ao root diam: 3.6 cm LAV(MOD-sp4): 73.8 ml LA A4 area: 24.0 cm2 LA dimension(2D): 4.0 cm RA A4 area: 20.7 cm2 Doppler Measurements & Calculations MV E max vazquez: 60.6 cm/sec Lat Peak E' Vazquez: 7.7 cm/sec Med Peak E' Vazquez: 4.2 cm/sec MV A max vazquez: 85.7 cm/sec E/E' lat: 7.9 E/E' med: 14.4 MV E/A: 0.71 Ao V2 max: 216.2 cm/sec LV V1 max: 89.6 cm/sec SV(LVOT): 71.1 ml Ao max P.7 mmHg LV V1 max P.2 mmHg Ao V2 mean: 155.3 cm/sec LV V1 mean P.8 mmHg Ao mean P.6 mmHg LV V1 mean: 63.2 cm/sec Ao V2 VTI: 45.2 cm LV V1 VTI: 20.8 cm YOEL(I,D): 1.6 cm2 YOEL(V,D): 1.4 cm2 PA V2 max: 76.9 cm/sec TR max vazquez: 221.6 cm/sec TR max P.6 mmHg ECHO/Echo Complete W/ Contrast Interpretation Summary The estimated ejection fraction is 60 %. Moderate diffuse aortic valve thickening. Mild aortic stenosis. Mild (1+) aortic valve insufficiency. Ordering Physician: Samy Ramirez Referring Physician: OMAR VERMA Performed By: Adia Williamson, RDCS, RVT
[2021-05-31] MEDS: APIXABAN 5 MG TABLET PO ×2 (08:43→21:13)
[2021-05-31] MEDS: Ipratropium/Albuterol Sulfate 3 ML AMPUL.NEB INHALATION ×3 (11:01→19:12)
[2021-05-31] MEDS: Gabapentin 100 MG Capsule 200 MG PO (12:14)
--- NOTE | 2021-05-31 14:19 | CPS ---
pt flu swab and Respiratory panel sent to lab. [id number].
[2021-05-31] MEDS: Atorvastatin Calcium 10 MG Tablet PO (21:13)
[2021-06-01] VITALS (13 sets, daily range): BP systolic 107–145; BP diastolic 59–85; PULSE 66–99; RESP 12–24; TEMP 36.3–36.9; O2SAT 88–95
[2021-06-01 00:43] LABS: Absolute Lymphocyte Count 0.44 X10^3/uL (0.83-4.51); Absolute Neutrophil Count 12.5 X10^3/uL (2.0-7.7); Basophil# 0.02 X10^3/uL; Basophil% 0.1 % (0-1); Hemoglobin 11.4 g/dL (13.0-16.5); Lymphocyte # 0.44 X10^3/ul (0.83-4.51); Lymphocyte % 3.2 % (19-41); Mean Corp Hgb Conc 31.7 g/dL (32-36); Mean Corpuscular Hgb 32.9 pg (27.0-32.0); Mean Platelet Vol. 10.4 fl (6.2-12.0); Monocyte# 0.79 X10^3/uL; Monocyte% 5.7 % (0-10); NRBC Flagged by Analyzer 0.4 % (0-5); Neutrophil # 12.47 X10^3/uL (2.7-7.7); Neutrophil % 89.9 % (47-70); POSITIVE DIFFERENTIAL YES; Platelet Count 279 K/mm3 (150-450); RBC Distribution Width CV 13.9 % (11.6-14.6); RBC Distribution Width SD 52.9 fl (35.1-43.9); Red Blood Count 3.46 M/mm3 (4.6-6.2); White Blood Count 13.9 K/mm3 (4.4-11.0)
[2021-06-01 00:59] LABS: Differential Indicated SCAN CRITERIA MET
[2021-06-01 01:19] LABS: Anion Gap 4 (5-15); BUN 32 mg/dL (7-18); BUN/Creat Ratio 32.8 RATIO (10-20); Calcium,Total 9.2 mg/dL (8.5-10.1); Chloride 107 mmol/L (98-107); Creatinine, Serum 0.98 mg/dL (0.70-1.30); EST Glomerular Filtration Rate 79 mL/min (>60); Est Glom Filt Rate - Afr Amer 96 mL/min (>60); Estimated Creatinine Clearance 70.21 ml/min; Glucose 200 mg/dL (74-106); Potassium 4.3 mmol/L (3.5-5.1); Sodium Level 142 mmol/L (136-145)
[2021-06-01 01:22] LABS: Vancomycin, Trough Level 13.6 ug/mL (5.0-15.0)
[2021-06-01 01:23] LABS: Differential Comment SCANNED
--- NOTE | 2021-06-01 01:42 | PCM.RX.CS ---
Consult Pharmacy has been consulted to manage selected antiobiotic: Vancomycin Type of Consult: Follow-up Labs: Sodium 142 mmol/L (136-145) 06/01/21 00:35 Potassium 4.3 mmol/L (3.5-5.1) 06/01/21 00:35 Chloride 107 mmol/L (98-107) 06/01/21 00:35 Carbon Dioxide 31.0 mmol/L (21.0-32.0) 06/01/21 00:35 Anion Gap 4 (5-15) L 06/01/21 00:35 BUN 32 mg/dL (7-18) H 06/01/21 00:35 Creatinine 0.98 mg/dL (0.70-1.30) 06/01/21 00:35 Est GFR (MDRD) Af Amer 96 mL/min (>60) 06/01/21 00:35 Est GFR (MDRD) Non-Af 79 mL/min (>60) 06/01/21 00:35 BUN/Creatinine Ratio 32.8 RATIO (10-20) H 06/01/21 00:35 Glucose 200 mg/dL (74-106) H 06/01/21 00:35 Vancomycin Trough 13.6 ug/mL (5.0-15.0) 06/01/21 00:35 Microbiology: Microbiology 05/31/21 14:05 Mucosa - Nose Respiratory Panel (PCR) - Final 05/28/21 04:35 Interface Orders SARS-CoV-2 Antigen (Rapid) - Final Goal Trough: 10-15 mcg/mL Pharmacy Plan for Drug Dosing: Pharmacy Service will continue to monitor and adjust dosing as required. TROUGH 13.6 AT 10 HRS. SCr INCREASED FROM 0.82 TO 0.98. NO CHANGES NOW, FOLLOW UP TROUGH IN 2 DAYS UNLESS A FURTHER INCREASE IN SCr Follow-Up Labs: Trough Vancomycin Labs to be done on [date and time ordered]: 06/03 @ 0030
[2021-06-01] MEDS: Gabapentin 300 MG Capsule PO (05:27)
[2021-06-01] MEDS: Piperacil/Tazobactam 3.375 GM Q8 PREMIX IV ×3 (05:27→21:53)
[2021-06-01] MEDS: Ipratropium/Albuterol Sulfate 3 ML AMPUL.NEB INHALATION ×4 (06:48→18:50)
--- NOTE | 2021-06-01 07:35 | PN.HOSP_ITS ---
Subjective Subjective Patient seen still remains on significant amount of oxygen via Airvo.. He does admit to some improvement in his overall clinical condition. Objective Data Objective Data Vital Signs: Vital Signs Temp Pulse Resp BP Pulse Ox 98.0 F 96 24 H 134/74 H 89 06/01/21 01:32 06/01/21 06:54 06/01/21 06:54 06/01/21 01:32 06/01/21 06:54 Oxygen Flow Rate (L/min) 15 Oxygen Delivery Method Bi-pap Weight: 106.9 kg Body Mass Index (BMI) 31.1 Intake & Output: Intake and Output for Last 24 Hours 05/30/21 05/31/21 06/01/21 23:59 23:59 23:59 Intake Total 1346 / 1346 1816 / 1816 1125 / 1125 Output Total 2400 / 2400 1100 / 1100 950 / 950 Balance -1054 / -1054 716 / 716 175 / 175 Lab / Micro Data Result Diagrams: 06/01/21 00:35 06/01/21 00:35 Labs: Laboratory Results - last 24 hr 06/01/21 00:35: WBC 13.9 H, RBC 3.46 L, Hgb 11.4 L, Hct 36.0 L, MCV 104.0 H, MCH 32.9 H, MCHC 31.7 L, RDW Std Deviation 52.9 H, RDW Coeff of Dougie 13.9, Plt Count 279, MPV 10.4, Immature Gran % (Auto) 1.100 H, Neut % (Auto) 89.9 H, Lymph % (Auto) 3.2 L, [place] % (Auto) 5.7, Eos % (Auto) 0.0, Baso % (Auto) 0.1, Absolute Neuts (auto) 12.5 H, Absolute Lymphs (auto) 0.44 L, Nucleated RBC % 0.4, Differential Comment SCANNED 06/01/21 00:35: Sodium 142, Potassium 4.3, Chloride 107, Carbon Dioxide 31.0, Anion Gap 4 L, BUN 32 H, Creatinine 0.98, Estim Creat Clear Calc 70.21, Est GFR (MDRD) Af Amer 96, Est GFR (MDRD) Non-Af 79, BUN/Creatinine Ratio 32.8 H, Glucose 200 H, Calcium 9.2 06/01/21 00:35: Vancomycin Trough 13.6 Micro: Microbiology 05/31/21 14:05 Mucosa - Nose Respiratory Panel (PCR) - Final 05/28/21 04:35 Interface Orders SARS-CoV-2 Antigen (Rapid) - Final Rhythm Strip Rhythm Strip: Sinus Tach Rate: 157 Ectopy: PAC(s) Physical Exam Narrative GENERAL: Dyspneic at rest HEENT: Atraumatic; EYES; Anicteric, Normal Conjunctiva NECK; supple, normal thyroid, RESPIRATORY: Diminished to auscultation CARDIOVASCULAR: Regular S1 S2, GI: soft, normoactive bowel sounds, : No Renal angle tenderness; EXTREMITIES: No edema, no clubbing, MUSCULOSKELETAL: no muscle waisting NEURO: Awake; no lateralizing signs. SKIN: No Rash PSYCH; Flat affect Assessment & Plan Assessment/Plan (1) Pneumonia: QUALIFIERS: Laterality: bilateral Lung location: lower lobe of lung Pneumonia type: due to unspecified organism Qualified Code(s): J18.9 - Pneumonia, unspecified organism PLAN: Patient is a 76-year-old gentleman presented with progressive shortness of breath 1. Acute hypoxic respiratory failure superimposed on chronic hypoxic respiratory failure Secondary to community-acquired pneumonia. Patient has been admitted to regular nursing floor placed on supplemental oxygen after cultures were sent. Patient was started on Rocephin as well as azithromycin -05/29/2021; Patient seen breathing more labored than the previous day. Currently placed on Airvo in addition to Ventimask. Consult was placed to pulmonary medicine?Dr. Melo in view of patient worsening respiratory status ?05/30/2021 Consult was placed to pulmonary medicine in view of patient worsening respiratory status. Patient was seen in consultation by Dr. Melo. He recommended addition of high-dose steroids to patient's therapy. Also recommended for patient CODE STATUS to be changed and palliative care consulted. This was discussed with both the patient and the currently in agreement -05/31/2021 Patient seen still remains ill looking. Still on BiPAP. His dose 6 dose was increased by Dr. Melo with pulmonary medicine. He also recommended obtaining 2D echo to assess for possible pulmonary hypertension as well as obtaining viral respiratory panel. ?05/31/2021; Patient seen still remains on significant amount of oxygen via Airvo.. He does admit to some improvement in his overall clinical condition. P atient still not ready for discharge in view of the significant amount of oxygen requirement 2. History of lung CA ?Status post radiation therapy. Patient was recently found to have new mass which is currently being managed as outpatient by oncology -05/29/2021. Case discussed with patient's oncologist Dr Koch patient's mass was apparently attributed to pneumonia repeat CAT scan performed as outpatient demonstrated clearing of her previously mass lesion in the peripheral superior aspect of the right lower lobe 3. Recent admission for pulmonary embolism ?Patient is on systemic anticoagulation 4. Bronchiectasis ?Symptomatic management in addition to supplemental oxygen 5. Class I obesity with BMI of 31.9 ?Weight loss advised 6. DVT prophylaxis ?Patient already anticoagulated Charges/Coding Visit Charges Inpatient E&M: 88645 Subs Hosp L3
--- NOTE | 2021-06-01 08:22 | PCM.PROGNOTE ---
Subjective: No fevers no cough no chest pain shortness of breath is unchanged - Physical Exam Vitals/I&O's: Vital Signs Temp Pulse Resp BP Pulse Ox 98.0 F 96 24 H 134/74 H 89 06/01/21 01:32 06/01/21 06:54 06/01/21 06:54 06/01/21 01:32 06/01/21 06:54 Oxygen Flow Rate (L/min) 15 Oxygen Delivery Method Bi-pap Weight: 106.9 kg Body Mass Index (BMI) 31.1 Intake and Output for Last 24 Hours 05/30/21 05/31/21 06/01/21 23:59 23:59 23:59 Intake Total 1346 / 1346 1816 / 1816 1125 / 1125 Output Total 2400 / 2400 1100 / 1100 950 / 950 Balance -1054 / -1054 716 / 716 175 / 175 General: Alert, Oriented x3, Cooperative HEENT: Atraumatic, PERRLA, EOMI, Normocephalic Neck: Supple, No JVD, Negative Carotid Bruits Lungs: - - Diminished breath sounds with absence of wheeze coarse basilar rhonchi and rales unchanged, tachypneic, less accessory muscle use today Cardiovascular: Regular rate, No murmurs Abdomen: Bowel Sounds Present, Soft, Non Tender Extremities: No edema, Capillary Refill Less than 3 Seconds Skin: No rashes, No breakdown Musculoskeletal: No Tenderness to Palpation of Joints or Extremities Neurological: Cranial nerves II-XII grossly intact Psych/Mental Status: Normal Affect, Appropriate Microbiology Past 72 Hours 05/31/21 14:05 Mucosa - Nose Respiratory Panel (PCR) - Final Laboratory Results 06/01/21 00:35: WBC 13.9 H, RBC 3.46 L, Hgb 11.4 L, Hct 36.0 L, MCV 104.0 H, MCH 32.9 H, MCHC 31.7 L, RDW Std Deviation 52.9 H, RDW Coeff of Dougie 13.9, Plt Count 279, MPV 10.4, Immature Gran % (Auto) 1.100 H, Neut % (Auto) 89.9 H, Lymph % (Auto) 3.2 L, [place] % (Auto) 5.7, Eos % (Auto) 0.0, Baso % (Auto) 0.1, Absolute Neuts (auto) 12.5 H, Absolute Lymphs (auto) 0.44 L, Nucleated RBC % 0.4, Differential Comment SCANNED 06/01/21 00:35: Sodium 142, Potassium 4.3, Chloride 107, Carbon Dioxide 31.0, Anion Gap 4 L, BUN 32 H, Creatinine 0.98, Estim Creat Clear Calc 70.21, Est GFR (MDRD) Af Amer 96, Est GFR (MDRD) Non-Af 79, BUN/Creatinine Ratio 32.8 H, Glucose 200 H, Calcium 9.2 06/01/21 00:35: Vancomycin Trough 13.6 Current Medications Acetaminophen (Acetaminophen 325 Mg Tablet) 650 mg PO Q6H PRN PRN PRN Reason: Pain Score 1-10/Temp > 100.7 F Acetaminophen (Acetaminophen 325 Mg Tablet) 650 mg PO Q4H PRN PRN PRN Reason: PAIN 1-10/FEVER Al Hydroxide/Mg Hydroxide (Mag Hydrox/Al Hydrox/Simeth 30 Ml Udc) 30 ml PO Q4H PRN PRN PRN Reason: epigastric distress Albuterol Sulfate (Albuterol 2.5 Mg/3 Ml Vial.Neb.) 2.5 mg INHALATION Q2H PRN PRN PRN Reason: Shortness of Breath/Wheezing Albuterol/Ipratropium (Ipratropium/Albuterol Sulfate 3 Ml Ampul.Neb) 3 ml INHALATION Q4H.RT [facility] Last Admin: 06/01/21 06:48 Dose: 3 ml Documented by: Apixaban (Apixaban 5 Mg Tablet) 5 mg PO BID [facility] Last Admin: 05/31/21 21:13 Dose: 5 mg Documented by: Atorvastatin Calcium (Atorvastatin Calcium 10 Mg Tablet) 10 mg PO QHS [facility] Last Admin: 05/31/21 21:13 Dose: 10 mg Documented by: Atropine Sulfate (Atropine Sulfate 1% 2 Ml Bottle) 4 drp SL Q1H PRN PRN PRN Reason: Secretions Furosemide (Furosemide 40 Mg/4 Ml Vial) 40 mg IV DAILY PRN PRN PRN Reason: crackles or wet cough Gabapentin (Gabapentin 300 Mg Capsule) 300 mg PO 0600 [facility] Last Admin: 06/01/21 05:27 Dose: 300 mg Documented by: Gabapentin (Gabapentin 100 Mg Capsule) 200 mg PO 1200,1800 [facility] Last Admin: 05/31/21 17:09 Dose: Not Given Documented by: Guaifenesin (Guaifenesin 10 Ml Udc (200mg/10ml)) 20 ml PO Q4H PRN PRN PRN Reason: COUGH Guaifenesin (Guaifenesin 10 Ml Udc (200mg/10ml)) 10 - 20 ml PO Q4H PRN PRN PRN Reason: productive cough Sodium Chloride () 250 mls @ 15 mls/hr IV .[id number] PRN PRN Reason: Saline Flush Last Infusion: 05/29/21 07:40 Dose: Infused Documented by: Vancomycin IV-PHARMACY TO DOSE (1 each/ Sodium Chloride) 500 mls @ 250 mls/hr IV PRN PRN; Protocol PRN Reason: Rx to Dose Piperacillin Sod/Tazobactam Sod (Zosyn) 3.375 gm in 50 mls @ 12.5 mls/hr IV Q8 [facility] Last Admin: 06/01/21 05:27 Dose: 12.5 mls/hr Documented by: Methylprednisolone 1,000 mg/ (Sodium Chloride) 116 mls @ 100 mls/hr IV DAILY [facility] Stop: 06/01/21 11:01 Last Infusion: 05/31/21 11:38 Dose: Infused Documented by: Vancomycin HCl 1,750 mg/ (Sodium Chloride) 535 mls @ 250 mls/hr IV Q12H [facility] Last Infusion: 06/01/21 04:00 Dose: Infused Documented by: Lidocaine/Diphenhydr/Alum/Mg/Simeth (Bmx Liquid 180 Ml) 5 ml PO 4X/DAY PRN PRN Reason: stomatitis Loperamide HCl (Loperamide 2 Mg Capsule) 0 mg PO UD PRN PRN Reason: Diarrhea Melatonin (Melatonin 3 Mg Tablet) 3 mg PO QHS PRN PRN PRN Reason: INSOMNIA Morphine Sulfate (Morphine (Oral Solution) 10mg/0.5ml Syringe) 5 mg PO Q2H PRN PRN PRN Reason: Pain Score 6-10 Ondansetron HCl (Ondansetron 4 Mg/2 Ml Vial) 4 mg IV Q8H PRN PRN PRN Reason: NAUSEA/VOMITING Prednisone (Prednisone 20 Mg Tablet) 40 mg PO 0800 [facility] Promethazine HCl (Promethazine 25 Mg Tablet) 12.5 mg SL/PO Q6H PRN PRN PRN Reason: NAUSEA/VOMITING Saliva Substitute (Saliva Substitute 237 Ml Bottle) 15 ml MUCOUS MEM Q1H PRN PRN PRN Reason: DRY MOUTH Senna/Docusate Sodium (Senna/Docusate Sodium 1 Tablet) 2 tablet PO BID PRN PRN PRN Reason: Constipation Sodium Chloride (0.9% Saline Lock 10 Ml Syringe) 10 - 40 ml IV UD PRN PRN Reason: SALINE FLUSH Last Admin: 05/29/21 12:23 Dose: 10 ml Documented by: Sodium Chloride (Sodium Chloride 0.65% 1 [place].Btl) 2 spray NASAL TID PRN PRN PRN Reason: NASAL DRYNESS Patient Problems: Active and Suspected Problems (Last Reviewed 05/30/21 @ 11:25 by CARLOS AlfordC) Anxiety (Acute) Shortness of breath (Acute) Pulmonary embolism (Acute) Leukocytosis (Acute) Pneumonia (Acute) History of lung cancer (Acute) Hypoxia (Acute) Medical Necessity - Tobacco Use Smoking Status: Former smoker Tobacco Use: Cigarettes Assessment/Plan Respiratory failure: I plan to set the patient up with bilevel therapy at home high flow O2. If the patient cannot be weaned then palliative care might be the next reasonable step. Pulmonary fibrosis: Day 3 of high-dose steroids. Plan to contact pharmaceutical in reference to getting Ofev for the patient outpatient. Discharge on 60 mg prednisone a day Micro/possible bronchitis, respiratory panel pending, sputum cultures negative Echo pending, the patient could have combination of diastolic dysfunction, pulmonary hypertension await results of echo for possible course of diuretics No change in CODE STATUS-DNR All Active Problems (Last Reviewed 05/30/21 @ 11:25 by Sabina Castle NP-C) Anxiety (Acute) Shortness of breath (Acute) Vertigo (Acute) Lung cancer (Acute) Leukocytosis (Acute) Pneumonitis (Acute) Right lower lobe lung mass (Acute) Pulmonary embolism (Acute) Leukocytosis (Acute) Pneumonia (Acute) History of lung cancer (Acute) Hypoxia (Acute) History of hernia surgery (Resolved) History of appendectomy (Resolved) COPD with acute exacerbation (Resolved) Elevated troponin (Resolved)
[2021-06-01] MEDS: APIXABAN 5 MG TABLET PO ×2 (10:33→21:53)
[2021-06-01] MEDS: Atorvastatin Calcium 10 MG Tablet PO (21:54)
--- NOTE | 2021-06-01 22:05 | CPS ---
patient refused treatment at time of visit. patient stated that it makes him cough and didnt want to take anymore tonight.
[2021-06-02] VITALS (12 sets, daily range): BP systolic 128–159; BP diastolic 71–81; PULSE 88–113; RESP 12–28; TEMP 36.5–36.8; O2SAT 88–96
[2021-06-02] MEDS: Piperacil/Tazobactam 3.375 GM Q8 PREMIX IV ×3 (05:11→21:21)
[2021-06-02] MEDS: Gabapentin 300 MG Capsule PO (05:12)
[2021-06-02] MEDS: Ipratropium/Albuterol Sulfate 3 ML AMPUL.NEB INHALATION ×4 (07:33→19:06)
[2021-06-02] MEDS: predniSONE 20 MG Tablet 40 MG PO (08:50)
[2021-06-02] MEDS: APIXABAN 5 MG TABLET PO ×2 (08:51→21:21)
--- NOTE | 2021-06-02 09:58 | PN.HOSP_ITS ---
Subjective Subjective Patient seen still remains on high flow oxygen. Plan is for patient to be discharged home once his his BiPAP has been delivered home. Objective Data Objective Data Vital Signs: Vital Signs Temp Pulse Resp BP Pulse Ox 97.9 F 88 26 H 148/71 H 90 06/02/21 05:28 06/02/21 07:33 06/02/21 07:33 06/02/21 05:28 06/02/21 07:33 Oxygen Flow Rate (L/min) 60 Oxygen Delivery Method Non-Rebreather @ 15L/min Weight: 106.9 kg Body Mass Index (BMI) 31.1 Intake & Output: Intake and Output for Last 24 Hours 05/31/21 06/01/21 06/02/21 23:59 23:59 23:59 Intake Total 1816 / 1816 3076 / 3076 885 / 885 Output Total 1100 / 1100 2400 / 2400 400 / 400 Balance 716 / 716 676 / 676 485 / 485 Lab / Micro Data Result Diagrams: 06/01/21 00:35 06/01/21 00:35 Micro: Microbiology 05/31/21 14:05 Mucosa - Nose Respiratory Panel (PCR) - Final 05/28/21 04:35 Interface Orders SARS-CoV-2 Antigen (Rapid) - Final Radiography Diagnostic Testing: Radiology Impression Echocardiogram 05/31/21 08:18 Interpretation Summary The estimated ejection fraction is 60 %. Moderate diffuse aortic valve thickening. Mild aortic stenosis. Mild (1+) aortic valve insufficiency. Ordering Physician: Samy Ramirez Referring Physician: OMAR VERMA Performed By: Adia Williamson, KATTYCS, RVT Rhythm Strip Rhythm Strip: Sinus Tach Rate: 157 Ectopy: PAC(s) Physical Exam Narrative GENERAL: Dyspneic at rest HEENT: Atraumatic; EYES; Anicteric, Normal Conjunctiva NECK; supple, normal thyroid, RESPIRATORY: Diminished to auscultation CARDIOVASCULAR: Regular S1 S2, GI: soft, normoactive bowel sounds, : No Renal angle tenderness; EXTREMITIES: No edema, no clubbing, MUSCULOSKELETAL: no muscle waisting NEURO: Awake; no lateralizing signs. SKIN: No Rash PSYCH; Flat affect Assessment & Plan Assessment/Plan (1) Pneumonia: QUALIFIERS: Pneumonia type: due to unspecified organism Laterality: bilateral Lung location: lower lobe of lung Qualified Code(s): J18.9 - Pneumonia, unspecified organism PLAN: Patient is a 76-year-old gentleman presented with progressive shortness of breath 1. Acute hypoxic respiratory failure superimposed on chronic hypoxic respiratory failure Secondary to community-acquired pneumonia. Patient has been admitted to regular nursing floor placed on supplemental oxygen after cultures were sent. Patient was started on Rocephin as well as azithromycin -05/29/2021; Patient seen breathing more labored than the previous day. Currently placed on Airvo in addition to Ventimask. Consult was placed to pulmonary medicine?Dr. Melo in view of patient worsening respiratory status ?05/30/2021 Consult was placed to pulmonary medicine in view of patient worsening respiratory status. Patient was seen in consultation by Dr. Melo. He recommended addition of high-dose steroids to patient's therapy. Also recommended for patient CODE STATUS to be changed and palliative care consulted. This was discussed with both the patient and the currently in agreement -05/31/2021 Patient seen still remains ill looking. Still on BiPAP. His dose 6 dose was increased by Dr. Melo with pulmonary medicine. He also recommended obtaining 2D echo to assess for possible pulmonary hypertension as well as obtaining viral respiratory panel. ?06/01/2021; Patient seen still remains on significant amount of oxygen via Airvo.. He does admit to some improvement in his overall clinical condition. Patient still not ready for discharge in view of the significant amount of oxygen requirement 06/01/2021; Patient seen still remains on high flow oxygen. Plan is for patient to be discharged home once his his BiPAP has been delivered home. 2. History of lung CA ?Status post radiation therapy. Patient was recently found to have new mass which is currently being managed as outpatient by oncology -05/29/2021. Case discussed with patient's oncologist Dr Koch patient's mass was apparently attributed to pneumonia repeat CAT scan performed as outpatient demonstrated clearing of her previously mass lesion in the peripheral superior aspect of the right lower lobe 3. Recent admission for pulmonary embolism ?Patient is on systemic anticoagulation 4. Bronchiectasis ?Symptomatic management in addition to supplemental oxygen 5. Class I obesity with BMI of 31.9 ?Weight loss advised 6. DVT prophylaxis ?Patient already anticoagulated Charges/Coding Visit Charges Inpatient E&M: 95524 Subs Hosp L2
[2021-06-02] MEDS: Atorvastatin Calcium 10 MG Tablet PO (21:21)
[2021-06-02] MEDS: 0.9% Saline Lock 10 ML Syringe IV (21:39)
[2021-06-03] VITALS (12 sets, daily range): BP systolic 119–139; BP diastolic 64–78; PULSE 69–100; RESP 12–28; TEMP 36.4–36.9; O2SAT 87–97
[2021-06-03 01:44] LABS: Vancomycin, Trough Level 18.5 ug/mL (5.0-15.0)
--- NOTE | 2021-06-03 02:11 | PCM.RX.CS ---
Consult Pharmacy has been consulted to manage selected antiobiotic: Vancomycin Type of Consult: Follow-up Suspected Infection: Pneumonia Labs: Sodium 142 mmol/L (136-145) 06/01/21 00:35 Potassium 4.3 mmol/L (3.5-5.1) 06/01/21 00:35 Chloride 107 mmol/L (98-107) 06/01/21 00:35 Carbon Dioxide 31.0 mmol/L (21.0-32.0) 06/01/21 00:35 Anion Gap 4 (5-15) L 06/01/21 00:35 BUN 32 mg/dL (7-18) H 06/01/21 00:35 Creatinine 0.98 mg/dL (0.70-1.30) 06/01/21 00:35 Est GFR (MDRD) Af Amer 96 mL/min (>60) 06/01/21 00:35 Est GFR (MDRD) Non-Af 79 mL/min (>60) 06/01/21 00:35 BUN/Creatinine Ratio 32.8 RATIO (10-20) H 06/01/21 00:35 Glucose 200 mg/dL (74-106) H 06/01/21 00:35 Vancomycin Trough 18.5 ug/mL (5.0-15.0) H 06/03/21 00:33 Microbiology: Microbiology 05/31/21 14:05 Mucosa - Nose Respiratory Panel (PCR) - Final 05/28/21 04:35 Interface Orders SARS-CoV-2 Antigen (Rapid) - Final Goal Trough: 15-20 mcg/mL Pharmacy Plan for Drug Dosing: Pharmacy Service will continue to monitor and adjust dosing as required. TROUGH 18.5 AT 12 HRS. NO CHANGES, FOLLOW UP TROUGH IN 4 DAYS Follow-Up Labs: Trough Vancomycin Labs to be done on [date and time ordered]: 06/07 @ 0030
[2021-06-03] MEDS: Piperacil/Tazobactam 3.375 GM Q8 PREMIX IV ×3 (06:33→21:22)
[2021-06-03] MEDS: Ipratropium/Albuterol Sulfate 3 ML AMPUL.NEB INHALATION ×2 (06:55→10:42)
--- NOTE | 2021-06-03 07:20 | PN.HOSP_ITS ---
Subjective Subjective Patient seen remains on high flow oxygen. Patient BiPAP yet to be delivered at home. Consult has been placed to case management to assist in securing BiPAP. Prescription already written for the BiPAP machine by Dr. Melo Objective Data Objective Data Vital Signs: Vital Signs Temp Pulse Resp BP Pulse Ox 97.8 F 96 28 H 139/78 H 90 06/03/21 03:15 06/03/21 06:55 06/03/21 06:55 06/03/21 03:15 06/03/21 06:55 Oxygen Flow Rate (L/min) 60 Oxygen Delivery Method Non-Rebreather @ 15L/min Weight: 106.9 kg Body Mass Index (BMI) 31.1 Intake & Output: Intake and Output for Last 24 Hours 06/01/21 06/02/21 06/03/21 23:59 23:59 23:59 Intake Total 3076 / 3076 2540 / 2540 585 / 585 Output Total 2400 / 2400 2050 / 2050 Balance 676 / 676 490 / 490 585 / 585 Lab / Micro Data Result Diagrams: 06/01/21 00:35 06/01/21 00:35 Labs: Laboratory Results - last 24 hr 06/03/21 00:33: Vancomycin Trough 18.5 H Micro: Microbiology 05/31/21 14:05 Mucosa - Nose Respiratory Panel (PCR) - Final 05/28/21 04:35 Interface Orders SARS-CoV-2 Antigen (Rapid) - Final Rhythm Strip Rhythm Strip: Sinus Tach Rate: 157 Ectopy: PAC(s) Physical Exam Narrative GENERAL: Dyspneic at rest HEENT: Atraumatic; EYES; Anicteric, Normal Conjunctiva NECK; supple, normal thyroid, RESPIRATORY: Diminished to auscultation CARDIOVASCULAR: Regular S1 S2, GI: soft, normoactive bowel sounds, : No Renal angle tenderness; EXTREMITIES: No edema, no clubbing, MUSCULOSKELETAL: no muscle waisting NEURO: Awake; no lateralizing signs. SKIN: No Rash PSYCH; Flat affect Assessment & Plan Assessment/Plan (1) Pneumonia: QUALIFIERS: Laterality: bilateral Lung location: lower lobe of lung Pneumonia type: due to unspecified organism Qualified Code(s): J18.9 - Pneumonia, unspecified organism PLAN: Patient is a 76-year-old gentleman presented with progressive shortness of breath 1. Acute hypoxic respiratory failure superimposed on chronic hypoxic respiratory failure Secondary to community-acquired pneumonia. Patient has been admitted to regular nursing floor placed on supplemental oxygen after cultures were sent. Patient was started on Rocephin as well as azithromycin -05/29/2021; Patient seen breathing more labored than the previous day. Currently placed on Airvo in addition to Ventimask. Consult was placed to pulmonary medicine?Dr. Melo in view of patient worsening respiratory status ?05/30/2021 Consult was placed to pulmonary medicine in view of patient worsening respiratory status. Patient was seen in consultation by Dr. Melo. He recommended addition of high-dose steroids to patient's therapy. Also recomm ended for patient CODE STATUS to be changed and palliative care consulted. This was discussed with both the patient and the currently in agreement -05/31/2021 Patient seen still remains ill looking. Still on BiPAP. His dose 6 dose was increased by Dr. Melo with pulmonary medicine. He also recommended obtaining 2D echo to assess for possible pulmonary hypertension as well as obtaining viral respiratory panel. ?06/01/2021; Patient seen still remains on significant amount of oxygen via Airvo.. He does admit to some improvement in his overall clinical condition. Patient still not ready for discharge in view of the significant amount of oxygen requirement 06/02/2021; Patient seen still remains on high flow oxygen. Plan is for patient to be discharged home once his his BiPAP has been delivered home. -06/03/2021. Cultures have so far remained negative to date discontinued vancom ycin and switched Zosyn to Augmentin 2. History of lung CA ?Status post radiation therapy. Patient was recently found to have new mass which is currently being managed as outpatient by oncology -05/29/2021. Case discussed with patient's oncologist Dr Vega patient's mass was apparently attributed to pneumonia repeat CAT scan performed as outpatient demonstrated clearing of her previously mass lesion in the peripheral superior aspect of the right lower lobe 3. Pulmonary fibrosis ?Patient was seen in consultation by Dr. Melo who recommended palliative care/hospice. Patient and family in agreement. Plan is for patient to be discharged on once a bilevel therapy at home is set up by case management 4. Recent admission for pulmonary embolism ?Patient is on systemic anticoagulation 5. Bronchiectasis ?Symptomatic management in addition to supplemental oxygen 6. Class I obesity with BMI of 31.9 ?Weight loss advised 7. DVT prophylaxis ?Patient already anticoagulated Charges/Coding Visit Charges Inpatient E&M: 18188 Subs Hosp L2
[2021-06-03] MEDS: predniSONE 20 MG Tablet 40 MG PO (08:45)
[2021-06-03] MEDS: APIXABAN 5 MG TABLET PO ×2 (08:46→19:30)
[2021-06-03 11:34] LABS: Absolute Lymphocyte Count 0.47 X10^3/uL (0.83-4.51); Basophil# 0.09 X10^3/uL; Basophil% 0.4 % (0-1); Eosinophil# 0.26 X10^3/uL; Hematocrit 37.7 % (40-54); Hemoglobin 12.3 g/dL (13.0-16.5); Lymphocyte # 0.47 X10^3/ul (0.83-4.51); Lymphocyte % 1.8 % (19-41); Mean Corp Hgb Conc 32.6 g/dL (32-36); Mean Corpuscular Hgb 33.1 pg (27.0-32.0); Mean Corpuscular Volume 101.3 fL (80-94); Mean Platelet Vol. 10.3 fl (6.2-12.0); Monocyte# 1.19 X10^3/uL; Monocyte% 4.6 % (0-10); NRBC Flagged by Analyzer 0.2 % (0-5); Neutrophil # 22.98 X10^3/uL (2.7-7.7); Neutrophil % 89.6 % (47-70); POSITIVE DIFFERENTIAL YES; Platelet Count 309 K/mm3 (150-450); RBC Distribution Width CV 14.2 % (11.6-14.6); RBC Distribution Width SD 52.7 fl (35.1-43.9); Red Blood Count 3.72 M/mm3 (4.6-6.2); White Blood Count 25.7 K/mm3 (4.4-11.0)
[2021-06-03 11:35] LABS: Differential Indicated SCAN CRITERIA MET
[2021-06-03 11:54] LABS: Anion Gap 5 (5-15); BUN 26 mg/dL (7-18); Calcium,Total 8.8 mg/dL (8.5-10.1); Chloride 107 mmol/L (98-107); Creatinine, Serum 0.81 mg/dL (0.70-1.30); EST Glomerular Filtration Rate 98 mL/min (>60); Est Glom Filt Rate - Afr Amer 118 mL/min (>60); Estimated Creatinine Clearance 84.94 ml/min; Glucose 129 mg/dL (74-106); Magnesium 2.6 mg/dL (1.6-2.6); Sodium Level 139 mmol/L (136-145)
[2021-06-03] MEDS: Atorvastatin Calcium 10 MG Tablet PO (19:30)
[2021-06-04] VITALS (11 sets, daily range): BP systolic 102–131; BP diastolic 62–66; PULSE 73–123; RESP 12–24; TEMP 36.3–36.6; O2SAT 86–97
[2021-06-04] MEDS: Piperacil/Tazobactam 3.375 GM Q8 PREMIX IV ×3 (04:57→20:17)
[2021-06-04 06:58] LABS: Hematocrit 39.7 % (40-54); Hemoglobin 13.1 g/dL (13.0-16.5); Mean Corpuscular Hgb 33.5 pg (27.0-32.0); Mean Corpuscular Volume 101.5 fL (80-94); Mean Platelet Vol. 10.4 fl (6.2-12.0); Platelet Count 298 K/mm3 (150-450); RBC Distribution Width CV 14.5 % (11.6-14.6); RBC Distribution Width SD 53.1 fl (35.1-43.9); Red Blood Count 3.91 M/mm3 (4.6-6.2); White Blood Count 26.1 K/mm3 (4.4-11.0)
[2021-06-04 07:21] LABS: ALB/GLOB Ratio 0.7 RATIO (0.9-2.4); AST(SGOT) 50 U/L (15-37); Alanine Aminotransfer ALT/SGPT 171 U/L (16-61); Albumin, Serum 2.8 g/dL (3.2-5.0); Alkaline Phosphatase 108 U/L (45-117); Anion Gap 6 (5-15); BUN 23 mg/dL (7-18); BUN/Creat Ratio 29.3 RATIO (10-20); Chloride 107 mmol/L (98-107); Creatinine, Serum 0.78 mg/dL (0.70-1.30); EST Glomerular Filtration Rate 102 mL/min (>60); Est Glom Filt Rate - Afr Amer 123 mL/min (>60); Globulin 4.1 g/dL (2.2-4.2); Glucose 90 mg/dL (74-106); Potassium 3.8 mmol/L (3.5-5.1); Protein, Total 6.9 g/dL (6.4-8.2); Sodium Level 142 mmol/L (136-145)
[2021-06-04] MEDS: APIXABAN 5 MG TABLET PO ×2 (10:13→20:17)
[2021-06-04] MEDS: Furosemide 40 MG/4 ML Vial IV ×2 (10:43→18:00)
--- NOTE | 2021-06-04 11:05 | CASEMGMT ---
Social Work SW spoke w/physician, he spoke w/pt about plan, pt is still talking about continuing to seek medical care, pt would continue to be a palliative candidate at this time; physician states would be beneficial to update palliative care. Palliative care did see and pt agreed to palliative care; SW called to updated palliative care on this pt. Also, it is yet to be determined if pt would be a candidate for bipapp at home, it is too soon to consider this as pt is still on Airvo with a non rebreather. LEO Saini
[2021-06-04] MEDS: Ipratropium/Albuterol Sulfate 3 ML AMPUL.NEB INHALATION ×3 (11:11→19:05)
--- NOTE | 2021-06-04 13:45 | PCM.PN.HOSP ---
Subjective Subjective Still on Airvo and NRB added on top of that. Maintaining sats in low 90s. Objective Data Objective Data Vital Signs: Vital Signs Temp Pulse Resp BP Pulse Ox 36.3 C L 107 H 22 H 108/63 89 06/04/21 10:05 06/04/21 11:12 06/04/21 11:12 06/04/21 10:05 06/04/21 11:12 Oxygen Flow Rate (L/min) 60 Oxygen Delivery Method Non-Rebreather Weight: 106.9 kg Body Mass Index (BMI) 31.1 Intake & Output: Intake and Output for Last 24 Hours 06/02/21 06/03/21 06/04/21 23:59 23:59 23:59 Intake Total 2540 / 2540 865 / 965 200 / 200 Output Total 0 / 2049 800 / 800 1000 / 1000 Balance 490 / 490 65 / 165 -800 / -800 Lab / Micro Data Result Diagrams: 06/04/21 06:33 06/04/21 06:33 Labs: Laboratory Results - last 24 hr 06/04/21 06:33: WBC 26.1 H, RBC 3.91 L, Hgb 13.1, Hct 39.7 L, MCV 101.5 H, MCH 33.5 H, MCHC 33.0, RDW Std Deviation 53.1 H, RDW Coeff of Dougie 14.5, Plt Count 298, MPV 10.4 06/04/21 06:33: Sodium 142, Potassium 3.8, Chloride 107, Carbon Dioxide 29.0, Anion Gap 6, BUN 23 H, Creatinine 0.78, Estim Creat Clear Calc 68.80, Est GFR (MDRD) Af Amer 123, Est GFR (MDRD) Non-Af 102, BUN/Creatinine Ratio 29.3 H, Glucose 90, Calcium 9.0, Total Bilirubin 1.00, AST 50 H, ALT 171 H, Alkaline Phosphatase 108, Total Protein 6.9, Albumin 2.8 L, Globulin 4.1, Albumin/Globulin Ratio 0.7 L Micro: Microbiology 05/31/21 14:05 Mucosa - Nose Respiratory Panel (PCR) - Final 05/28/21 04:35 Interface Orders SARS-CoV-2 Antigen (Rapid) - Final Rhythm Strip Rhythm Strip: Sinus Tach Rate: 157 Ectopy: PAC(s) Physical Exam Const alert and no apparent distress Resp normal respiratory effort Resp Narrative: bibasilar crackles. Cardio regular rate, regular rhythm, S1 normal heart sound and S2 normal heart sound GI normal to inspection, nondistended, normoactive bowel sounds, soft to palpation, non-tender and non-distended Extremity normal to inspection Neuro oriented x3 Sensorium / Orientation: awake and alert Assessment & Plan Assessment/Plan (1) Acute respiratory failure with hypoxia: (2) COPD with acute exacerbation: PLAN: 1. acute on chronic hypoxic respiratory failure multifactorial 2/2 COPD exacerbation, pulmonary fibrosis, bronchiectasis, furosemide challenge increase steroids to methylprednisone 40 TID Echo unremarkable, EF 60% 2. AECOPD BDs and methylpred 3. Pulmonary fibrosis/radiation pneumonitis steroids 4. VTE: continue apixaban 5. Disposition: pending. Pt too unstable to be discharged home. He is not ready for hospice. Plan, if he improves, is to go home with oxygen and Bi level at night, which pulmonary will need to arrange. 6. Prognosis: guarded to poor. Explained to he and his that we will try to do all we can to help him, but despite that, he may continue to worsen. If he continues to worsen, then hospice may be appropriate. They are in agreement to meeting with palliative care again. Greater than 40 minutes of which greater than 50% of time was discussing with the patient and his 's lungs, palliative care hospice. Charges/Coding Visit Charges Inpatient E&M: 45185 [facility] Hosp L3
[2021-06-04] MEDS: Gabapentin 100 MG Capsule 200 MG PO (17:45)
[2021-06-04] MEDS: Atorvastatin Calcium 10 MG Tablet PO (20:17)
[2021-06-05] VITALS (12 sets, daily range): BP systolic 110–117; BP diastolic 61–68; PULSE 80–115; RESP 12–28; TEMP 36.4–36.6; O2SAT 87–98
[2021-06-05] MEDS: Piperacil/Tazobactam 3.375 GM Q8 PREMIX IV ×3 (05:06→19:57)
[2021-06-05] MEDS: Ipratropium/Albuterol Sulfate 3 ML AMPUL.NEB INHALATION ×4 (06:36→19:20)
[2021-06-05] MEDS: APIXABAN 5 MG TABLET PO ×2 (07:35→19:57)
[2021-06-05] MEDS: Furosemide 40 MG/4 ML Vial IV ×2 (07:35→17:03)
--- NOTE | 2021-06-05 10:52 | CASEMGMT ---
Addendum entered by Marcie Banda 06/05/21 13:13: Social Work SW called [facility], spoke w/Lulu. She is able to see in the system that the information has been entered and it's ready to be scheduled. She will reach out to Angie in [place] as she is scheduling appointments today, and Angie is to call this SW to let this SW know when they are meeting. LEO Saini Original Note: Social Work SW spoke w/physician, pt is hospice appropriate, okay to speak w/pt about making a hospice referral. SW spoke w/pt and , they are both familiar with hospice. They are agreeable to speak w/hospice to learn about options. Pt would like to get home so he can be with his family, states he knows he is going to . Support offered. SW explained will make referral, would like to be called to set up the meeting. SW explained will let hospice know. SW faxed referral to [facility]. SW called, spoke w/Belia in the [place] Office. SW explained that the referral was sent to the central fax, she is not certain of the time frame to get the referral then to the [place] office. SW let her know to call to set up a meeting once referral is received, and to let SW know once a meeting is set up. BRYCE let Belia know that we would like the meeting to happen today, Belia states understanding. SW will continue to follow, waiting to hear back from [facility]. LEO Saini
[2021-06-05] MEDS: Gabapentin 100 MG Capsule 200 MG PO ×2 (13:15→17:03)
--- NOTE | 2021-06-05 13:31 | PN.HOSP_ITS ---
Subjective Subjective Feels better today but still on air Vo as well as a nonrebreather on top of that and pulse ox has been in the low 90s. Objective Data Objective Data Vital Signs: Vital Signs Temp Pulse Resp BP Pulse Ox 36.4 C L 115 H 24 H 110/66 90 06/05/21 08:18 06/05/21 11:44 06/05/21 11:44 06/05/21 08:18 06/05/21 11:44 Oxygen Flow Rate (L/min) 60 Oxygen Delivery Method Airvo Weight: 106.9 kg Body Mass Index (BMI) 31.1 Intake & Output: Intake and Output for Last 24 Hours 06/03/21 06/04/21 06/05/21 23:59 23:59 23:59 Intake Total 865 / 965 1100 / 1340 380.5 / 380.5 Output Total 800 / 800 1500 / 2200 700 / 700 Balance 65 / 165 -400 / -860 -319.5 / -319.5 Lab / Micro Data Result Diagrams: 06/04/21 06:33 06/04/21 06:33 Micro: Microbiology 05/31/21 14:05 Mucosa - Nose Respiratory Panel (PCR) - Final 05/28/21 04:35 Interface Orders SARS-CoV-2 Antigen (Rapid) - Final Rhythm Strip Rhythm Strip: Sinus Tach Rate: 157 Ectopy: PAC(s) Physical Exam Const Constitutional Narrative: Lying in bed on air Vo as well as nonrebreather. Pulse ox is in the high 80s to low 90s. When just sitting up his pulse ox d ropped down to 85%. HEENT Head and Scalp: normocephalic Resp normal respiratory effort and no retractions Resp Narrative: Bibasilar crackles Cardio regular rate, regular rhythm, S1 normal heart sound and S2 normal heart sound GI normal to inspection, nondistended, normoactive bowel sounds, soft to palpation, non-tender and non-distended Extremity normal to inspection and full ROM Skin no rashes or lesions noted Neuro Sensorium / Orientation: awake and alert Psych affect normal Assessment & Plan Assessment/Plan (1) Acute respiratory failure with hypoxia: (2) COPD with acute exacerbation: PLAN: 1. acute on chronic hypoxic respiratory failure Ongoing, but patient notes of subjective improvements. multifactorial 2/2 COPD exacerbation, pulmonary fibrosis, bronchiectasis, Repeat furosemide challenge increase steroids to methylprednisone 40 TID Echo unremarkable, EF 60% 2. AECOPD BDs and methylpred 3. Pulmonary fibrosis/radiation pneumonitis steroids 4. VTE: continue apixaban 5. Disposition: pending. Pt too unstable to be discharged home. He is not ready for hospice. Plan, if he improves, is to go home with oxygen and Bi level at night, which pulmonary will need to arrange. 6. Prognosis: guarded to poor. Explained to he and his that we will try to do all we can to help him, but despite that, he may continue to worsen. If he continues to worsen, then hospice may be appropriate. They are in agreement to meeting with palliative care again. After I spoke with he and his , case management 1 spoke with him and he was in agreement to speaking with hospice. Patient has understanding of his overall poor prognosis. Greater than 35 minutes of which greater than 50% of time was discussing with the patient and his 's lungs, palliative care hospice. Charges/Coding Visit Charges Inpatient E&M: 80732 Subs Hosp L3
--- NOTE | 2021-06-05 15:44 | CASEMGMT ---
Social Work SW called [facility], there is a meeting scheduled for 10:30am on 06/06/21 with pt and . LEO Saini
[2021-06-05] MEDS: 0.9% Saline Lock 10 ML Syringe IV (17:06)
[2021-06-05] MEDS: Atorvastatin Calcium 10 MG Tablet PO (19:57)
[2021-06-06 03:05] VITALS: PULSE 80; O2SAT 98
[2021-06-06 03:24] VITALS: RESP 12; O2SAT 98
[2021-06-06] MEDS: Piperacil/Tazobactam 3.375 GM Q8 PREMIX IV ×2 (05:07→13:02)
[2021-06-06 06:27] LABS: Absolute Lymphocyte Count 0.85 X10^3/uL (0.83-4.51); Absolute Neutrophil Count 22.6 X10^3/uL (2.0-7.7); Basophil# 0.05 X10^3/uL; Basophil% 0.2 % (0-1); Eosinophil# 0.05 X10^3/uL; Eosinophils% 0.2 % (0-5); Hematocrit 38.1 % (40-54); Hemoglobin 12.9 g/dL (13.0-16.5); Lymphocyte # 0.85 X10^3/ul (0.83-4.51); Lymphocyte % 3.4 % (19-41); Mean Corp Hgb Conc 33.9 g/dL (32-36); Mean Corpuscular Volume 100.5 fL (80-94); Monocyte# 1.06 X10^3/uL; Monocyte% 4.2 % (0-10); NRBC Flagged by Analyzer 0.4 % (0-5); Neutrophil # 22.57 X10^3/uL (2.7-7.7); Neutrophil % 90.2 % (47-70); POSITIVE DIFFERENTIAL YES; Platelet Count 277 K/mm3 (150-450); RBC Distribution Width CV 14.3 % (11.6-14.6); RBC Distribution Width SD 52.4 fl (35.1-43.9); Red Blood Count 3.79 M/mm3 (4.6-6.2)
[2021-06-06 06:30] LABS: Differential Indicated SCAN CRITERIA MET
[2021-06-06 06:53] LABS: ALB/GLOB Ratio 0.7 RATIO (0.9-2.4); AST(SGOT) 29 U/L (15-37); Alanine Aminotransfer ALT/SGPT 178 U/L (16-61); Albumin, Serum 2.7 g/dL (3.2-5.0); Alkaline Phosphatase 92 U/L (45-117); Anion Gap 4 (5-15); BUN 34 mg/dL (7-18); BUN/Creat Ratio 34.4 RATIO (10-20); Chloride 102 mmol/L (98-107); Creatinine, Serum 0.99 mg/dL (0.70-1.30); Differential Comment SCANNED; EST Glomerular Filtration Rate 78 mL/min (>60); Est Glom Filt Rate - Afr Amer 94 mL/min (>60); Globulin 4.1 g/dL (2.2-4.2); Glucose 127 mg/dL (74-106); Protein, Total 6.8 g/dL (6.4-8.2); Sodium Level 139 mmol/L (136-145)
[2021-06-06 07:59] VITALS: BP 112/68; PULSE 102; RESP 20; TEMP 36.6; O2SAT 94
[2021-06-06] MEDS: APIXABAN 5 MG TABLET PO (08:09)
[2021-06-06] MEDS: Furosemide 40 MG/4 ML Vial IV (08:09)
[2021-06-06 10:40] VITALS: PULSE 116; RESP 24
[2021-06-06] MEDS: Ipratropium/Albuterol Sulfate 3 ML AMPUL.NEB INHALATION (10:40)
--- NOTE | 2021-06-06 12:01 | PCM.PN.HOSP ---
Subjective Subjective No new events. Open to hospice. Yet to meet with hospice. Objective Data Objective Data Vital Signs: Vital Signs Temp Pulse Resp BP Pulse Ox 36.6 C 116 H 24 H 112/68 94 06/06/21 07:59 06/06/21 10:40 06/06/21 10:40 06/06/21 07:59 06/06/21 07:59 Oxygen Flow Rate (L/min) 60 Oxygen Delivery Method Airvo Weight: 106.9 kg Body Mass Index (BMI) 31.1 Intake & Output: Intake and Output for Last 24 Hours 06/04/21 06/05/21 06/06/21 23:59 23:59 23:59 Intake Total 1100 / 1340 480.5 / 720.5 770 / 770 Output Total 1500 / 2200 1400 / 1400 1000 / 1000 Balance -400 / -860 -919.5 / -679.5 -230 / -230 Lab / Micro Data Result Diagrams: 06/06/21 05:53 06/06/21 05:53 Labs: Laboratory Results - last 24 hr 06/06/21 05:53: WBC 25.0 H, RBC 3.79 L, Hgb 12.9 L, Hct 38.1 L, MCV 100.5 H, MCH 34.0 H, MCHC 33.9, RDW Std Deviation 52.4 H, RDW Coeff of Dougie 14.3, Plt Count 277, MPV 11.0, Immature Gran % (Auto) 1.800 H, Neut % (Auto) 90.2 H, Lymph % (Auto) 3.4 L, [place] % (Auto) 4.2, Eos % (Auto) 0.2, Baso % (Auto) 0.2, Absolute Neuts (auto) 22.6 H, Absolute Lymphs (auto) 0.85, Nucleated RBC % 0.4, Differential Comment SCANNED 06/06/21 05:53: Sodium 139, Potassium 5.0, Chloride 102, Carbon Dioxide 33.0 H, Anion Gap 4 L, BUN 34 H, Creatinine 0.99, Estim Creat Clear Calc 69.50, Est GFR (MDRD) Af Amer 94, Est GFR (MDRD) Non-Af 78, BUN/Creatinine Ratio 34.4 H, Glucose 127 H, Calcium 9.0, Total Bilirubin 0.60, AST 29, ALT 178 H, Alkaline Phosphatase 92, Total Protein 6.8, Albumin 2.7 L, Globulin 4.1, Albumin/Globulin Ratio 0.7 L Micro: Microbiology 05/31/21 14:05 Mucosa - Nose Respiratory Panel (PCR) - Final 05/28/21 04:35 Interface Orders SARS-CoV-2 Antigen (Rapid) - Final Rhythm Strip Rhythm Strip: Sinus Tach Rate: 157 Ectopy: PAC(s) Physical Exam Const alert and no apparent distress Resp Resp Narrative: crackles bilateral bases. Cardio regular rate, regular rhythm, S1 normal heart sound and S2 normal heart sound GI normal to inspection, nondistended, normoactive bowel sounds, soft to palpation, non-tender and non-distended Extremity normal to inspection Assessment & Plan Assessment/Plan (1) Acute respiratory failure with hypoxia: (2) COPD with acute exacerbation: PLAN: 1. acute on chronic hypoxic respiratory failure Ongoing, but patient notes of subjective improvements. multifactorial 2/2 COPD exacerbation, pulmonary fibrosis, bronchiectasis, increase steroids to methylprednisone 40 TID Echo unremarkable, EF 60% 2. AECOPD BDs and methylpred 3. Pulmonary fibrosis/radiation pneumonitis steroids 4. VTE: continue apixaban 5. Disposition: pending. Pt too unstable to be discharged home. He is not ready for hospice. Plan, if he improves, is to go home with oxygen and Bi level at night, which pulmonary will need to arrange. 6. Prognosis: guarded to poor. Explained to he and his that we will try to do all we can to help him, but despite that, he may continue to worsen. If he continues to worsen, then hospice may be appropriate. They are in agreement to meeting with palliative care again. After I spoke with he and his , case management 1 spoke with him and he was in agreement to speaking with hospice. Patient has understanding of his overall poor prognosis. Hospice meeting today. Greater than 35 minutes of which greater than 50% of time was discussing with the patient and his about hospice. Charges/Coding Visit Charges Inpatient E&M: 96411 Subs Hosp L3
--- NOTE | 2021-06-06 12:30 | CASEMGMT ---
Addendum entered by Stella Monk 06/06/21 16:25: Social Work BRYCE spoke with Tanesha at [facility] and DME was dropped off at pt house at 4:00. BRYCE spoke with pt Marium and she states pt can be picked up at 6:00. Dr. Dos Santos notified and pt can be discharged today. Transportation arranged for 6:00 sisal picker by [facility]. Phone call to Tanesha at [facility] and notified of discharge time and she will meet pt at home. Nursing updated. Plan: Home with Hospice Services. RENE Brooks Original Note: Social Work Denzel from [facility] met with pt and . Denzel reports pt is agreeable to hospice services and the plan is to return home with hospice in place. Hospice will arrange for DME including oxygen in the home. Physician notified of plans and states pt can discharge when DME is set up at home. Denzel notified and requested SW call the [facility] office and inform them of discharge plan as well as fax bipap settings. Phone call to [facility] and updated Jaqueline of conversation with Denzel and that pt is ready for discharge when DME in place. Bipap settings faxed. Jaqueline states [facility] will call this SW when pt can return home. RENE Brooks
[2021-06-06] MEDS: Gabapentin 100 MG Capsule 200 MG PO (13:04)
--- NOTE | 2021-06-06 15:41 | PCM.DC ---
Discharge Instructions Diet Discharge Diet: No restrictions Follow Up Care Test Results: Test results from this visit will be discussed in further detail at your follow-up appointment, if applicable. Discharge Plan Admission Admit Date/Time: 05/28/21 10:10 Primary Reason for Your Visit: respiratory failure Attending Provider: Cesar Dos Santos Primary Care Provider: Anayeli Marino Consulting Providers: Garfield Wren ; Eladio Roberts ; Velia Damon SCRUM PRODUCT OWNER Discharge Orders/Prescriptions Prescriptions: New atropine 1 % Drops 4 drp sublingual Q1H PRN PRN (Reason: Secretions) Qty: 2 RF: 0 lidocaine HCl [Lidocaine Viscous] 2 % Solution 5 ml PO 4X/DAY PRN (Reason: stomatitis) Qty: 100 RF: 0 Deep Sea Nasal 0.65 % Aerosol,[place] 2 spray NASAL TID PRN PRN (Reason: NASAL DRYNESS) Qty: 0 RF: 0 Biotene Dry Mouth Oral Rinse Mouthwash 15 ml mucous membrane Q1H PRN PRN (Reason: Dry Mouth) Qty: 0 RF: 0 morphine 10 mg/5 mL solution 5 mg PO Q4H PRN (Reason: dyspnea) 3 Days Qty: 45 RF: 0 Continued gabapentin 100 mg Capsule 300 mg PO DAILY RF: 0 prednisone 20 mg Tablet See Taper mg PO BREAKFAST 16 Days Qty: 40 RF: 0 albuterol sulfate 90 mcg/actuation HFA aerosol inhaler 2 puff INHALATION Q4H PRN PRN (Reason: Shortness Of Breath) RF: 0 Discontinued Eliquis 5 mg tablet 5 mg PO BID Qty: 60 RF: 3 atorvastatin 10 MG tablet 10 mg PO QHS RF: 0 gabapentin 200 mg PO/SL UD RF: 0 Referrals / Follow Up: Anayeli Marino MD [Primary Care Provider] - Disposition Disposition (needs filled in before D/C Order can be placed): Hospice in Home
--- NOTE | 2021-06-06 15:47 | DS.PCM_ITS ---
Providers Date of Admission: 05/28/21 Primary Care Physician: Dr. Anayeli Marino MD Consultations 05/29/21 09:34 Consult: Agency Development Manager / Pulmonary Medicine Routine Consulting Provider: Pulmonary Medicine shelby Charles Reason for Consult: resp failure EMERGENT Consult: No MD Notified: Yes Date Notified: 05/29/21 Time Notified: 09:35 Method of Notification: Verbal Reason For Visit: COPD Diagnosis Discharge Diagnosis (1) Acute respiratory failure with hypoxia: Status: Acute Code(s): J96.01 - Acute respiratory failure with hypoxia (2) COPD with acute exacerbation: Status: Chronic Code(s): J44.1 - Chronic obstructive pulmonary disease with (acute) exacerbation Medications at Discharge Home Medications gabapentin 300 mg PO DAILY 03/27/21 prednisone See Taper PO BREAKFAST 16 Days #40 tab 04/03/21 albuterol sulfate 2 puff INHALATION Q4H PRN PRN 05/28/21 atropine 4 drp SUBLINGUAL Q1H PRN PRN #2 ml 06/06/21 lidocaine HCl [Lidocaine Viscous] 5 ml PO 4X/DAY PRN #100 ml 06/06/21 morphine 5 mg PO Q4H PRN 3 Days #45 ml 06/06/21 saliva substitute combo no.9 [Biotene Dry Mouth Oral Rinse] 15 ml MUCOUS MEMBRANE Q1H PRN PRN #0 ml 06/06/21 sodium chloride [Deep Sea Nasal] 2 spray NASAL TID PRN PRN #0 ml 06/06/21 Hospital Course Summary of Care Provided Minutes Spent on Discharge: 40 Hospital Course: 1. acute on chronic hypoxic respiratory failure Ongoing, but patient notes of subjective improvements. multifactorial 2/2 COPD exacerbation, pulmonary fibrosis, bronchiectasis, increase steroids to methylprednisone 40 TID Echo unremarkable, EF 60% 2. AECOPD BDs and methylpred 3. Pulmonary fibrosis/radiation pneumonitis steroids 4. VTE: continue apixaban 5. Disposition: pending. Pt too unstable to be discharged home. He is not ready for hospice. Plan, if he improves, is to go home with oxygen and Bi level at night, which pulmonary will need to arrange. 6. Prognosis: guarded to poor. Explained to he and his that we will try to do all we can to help him, but despite that, he may continue to worsen. If he continues to worsen, then hospice may be appropriate. They are in agreement to meeting with palliative care again. After I spoke with he and his , case management 1 spoke with him and he was in agreement to speaking with hospice. Patient has understanding of his overall poor prognosis. Hospice meeting today and patient agreeable to hospice. They will get to condenser's for him to meet his high oxygen demands. We will further de-escalate therapy. Weight / BMI Weight Weight: 106.9 kg Body Mass Index (BMI) 31.1 ABG / Lab / Microbiology Data Result Diagrams: 06/06/21 05:53 06/06/21 05:53 Laboratory: Laboratory Results - last 24 hr 06/06/21 05:53: WBC 25.0 H, RBC 3.79 L, Hgb 12.9 L, Hct 38.1 L, MCV 100.5 H, MCH 34.0 H, MCHC 33.9, RDW Std Deviation 52.4 H, RDW Coeff of Dougie 14.3, Plt Count 277, MPV 11.0, Immature Gran % (Auto) 1.800 H, Neut % (Auto) 90.2 H, Lymph % (Auto) 3.4 L, [place] % (Auto) 4.2, Eos % (Auto) 0.2, Baso % (Auto) 0.2, Absolute Neuts (auto) 22.6 H, Absolute Lymphs (auto) 0.85, Nucleated RBC % 0.4, Differential Comment SCANNED 06/06/21 05:53: Sodium 139, Potassium 5.0, Chloride 102, Carbon Dioxide 33.0 H, Anion Gap 4 L, BUN 34 H, Creatinine 0.99, Estim Creat Clear Calc 69.50, Est GFR (MDRD) Af Amer 94, Est GFR (MDRD) Non-Af 78, BUN/Creatinine Ratio 34.4 H, Glucose 127 H, Calcium 9.0, Total Bilirubin 0.60, AST 29, ALT 178 H, Alkaline Phosphatase 92, Total Protein 6.8, Albumin 2.7 L, Globulin 4.1, Albumin/Globulin Ratio 0.7 L Microbiology: Microbiology 05/31/21 14:05 Mucosa - Nose Respiratory Panel (PCR) - Final 05/28/21 04:35 Interface Orders SARS-CoV-2 Antigen (Rapid) - Final D/C Instructions Discharge Diet: No restrictions Meaningful Use Info Meaningful Use Diagnoses (Choose all that apply): None applicable Discharge Plan Admission Admit Date/Time: 05/28/21 10:10 Primary Reason for Your Visit: respiratory failure Attending Provider: Cesar Dos Santos Primary Care Provider: Anayeli Marino Consulting Providers: Garfield Wern ; Eladio Roberts ; Velia Damon AUTOMATIC PROFILE SANDER OPERATOR Discharge Orders/Prescriptions Prescriptions: New atropine 1 % Drops 4 drp sublingual Q1H PRN PRN (Reason: Secretions) Qty: 2 RF: 0 lidocaine HCl [Lidocaine Viscous] 2 % Solution 5 ml PO 4X/DAY PRN (Reason: stomatitis) Qty: 100 RF: 0 Deep Sea Nasal 0.65 % Aerosol,[place] 2 spray NASAL TID PRN PRN (Reason: NASAL DRYNESS) Qty: 0 RF: 0 Biotene Dry Mouth Oral Rinse Mouthwash 15 ml mucous membrane Q1H PRN PRN (Reason: Dry Mouth) Qty: 0 RF: 0 morphine 10 mg/5 mL solution 5 mg PO Q4H PRN (Reason: dyspnea) 3 Days Qty: 45 RF: 0 Continued gabapentin 100 mg Capsule 300 mg PO DAILY RF: 0 prednisone 20 mg Tablet See Taper mg PO BREAKFAST 16 Days Qty: 40 RF: 0 albuterol sulfate 90 mcg/actuation HFA aerosol inhaler 2 puff INHALATION Q4H PRN PRN (Reason: Shortness Of Breath) RF: 0 Discontinued Eliquis 5 mg tablet 5 mg PO BID Qty: 60 RF: 3 atorvastatin 10 MG tablet 10 mg PO QHS RF: 0 gabapentin 200 mg PO/SL UD RF: 0 Referrals / Follow Up: Anayeli Marino MD [Primary Care Provider] - Disposition Disposition (needs filled in before D/C Order can be placed): Hospice in Home Charges/Coding Visit Charges Inpatient E&M: 16477 Disch Hosp
[2021-06-06 17:35] VITALS: BP 135/81; PULSE 106; RESP 20; TEMP 36.5; O2SAT 92
== END 2021-06-06 17:47 | disposition hospice, home (50) | DRG 190 ==
LOC: ED 08:00 → MS2 10:58
PROVIDERS: Admitting Provider Internal Medicine; Emergency Provider Emergency Medicine; PCP Family Medicine
DX: J47.0 Bronchiectasis with acute lower respiratory infection (principal); J96.21 Acute and chronic respiratory failure with hypoxia; J70.0 Acute pulmonary manifestations due to radiation; Y84.2 Radiological procedure and radiotherapy as the cause of abnormal reaction of the patient, or of later complication, without mention of misadventure at the time of the procedure; J84.10 Pulmonary fibrosis, unspecified; G47.33 Obstructive sleep apnea (adult) (pediatric); I27.20 Pulmonary hypertension, unspecified; E66.9 Obesity, unspecified; Z68.31 Body mass index [BMI] 31.0-31.9, adult; Z66 Do not resuscitate; Z99.81 Dependence on supplemental oxygen; Z79.899 Other long term (current) drug therapy; Z86.711 Personal history of pulmonary embolism; Z87.891 Personal history of nicotine dependence; Z79.01 Long term (current) use of anticoagulants; Z85.118 Personal history of other malignant neoplasm of bronchus and lung
CPT/HCPCS: 36415; 71045; 80048; 80053; 80202; 83735; 84484; 85025; 85027; 87426; 87633; 87635; 93005; 93306; 94002; 94003; 94640; 94660; 94762; 97802; 97803; 99285; J7040; J7050; Q9957; U0005; A4216; C8929; J1940; J2930; U0003

== ENCOUNTER 2021-06-20 09:31 | Emergency (ER) | payer SELFPAY ==
[2021-06-20 09:34] VITALS: BP 123/66; PULSE 151; RESP 26; TEMP 37.4; O2SAT 63; BMI 27.7
[2021-06-20 09:47] VITALS: PULSE 144; RESP 12; RESP 32; O2SAT 99
[2021-06-20] MEDS: Oxymetazoline 0.05% 1 SPRAY SPRAY.BTL NASAL (09:54)
--- NOTE | 2021-06-20 10:07 | EX.ED.DYSGE1 ---
HPI History of Present Illness Chief Complaint: Nosebleed Narrative Narrative: 76-year-old male in hospice due to history of lung cancer presenting today with his with a resolved nosebleed. Apparently the patient is on BiPAP at home and developed a nosebleed this morning. His was trying to pack it with gauze. But was unable to successfully stop the bleeding initially. His epistaxis has now resolved. Hospitalist wanted him to be evaluated and possibly have a packing placed in the nose. [facility] Medical History Abnormal chest xray Bronchiectasis without complication Chronic cough F/H of alcoholism Former smoker History of lung cancer Pulmonary embolism Pulmonary fibrosis Sleep apnea Tobacco abuse Home Medications gabapentin 300 mg PO DAILY 03/27/21 [History Last Taken 03/27/21] albuterol sulfate 2 puff INHALATION Q4H PRN PRN 05/28/21 [History Last Taken Unknown] atropine 4 drp SUBLINGUAL Q1H PRN PRN #2 ml 06/06/21 [Rx Last Taken Unknown] lidocaine HCl [Lidocaine Viscous] 5 ml PO 4X/DAY PRN #100 ml 06/06/21 [Rx Last Taken Unknown] morphine 5 mg PO Q4H PRN 3 Days #45 ml 06/06/21 [Rx Last Taken Unknown] saliva substitute combo no.9 [Biotene Dry Mouth Oral Rinse] 15 ml MUCOUS MEMBRANE Q1H PRN PRN #0 ml 06/06/21 [Rx Last Taken Unknown] sodium chloride [Deep Sea Nasal] 2 spray NASAL TID PRN PRN #0 ml 06/06/21 [Rx Last Taken Unknown] apixaban [Eliquis] 5 mg PO BID 06/20/21 [History Last Taken Unknown] hydroxychloroquine 200 mg PO DAILY 06/20/21 [History Last Taken Unknown] prednisone 10 mg PO DAILY 06/20/21 [History Last Taken Unknown] prochlorperazine maleate 10 mg PO Q6H PRN 06/20/21 [History Last Taken Unknown] sennosides-docusate sodium [Senexon-S] 1 tab PO DAILY 06/20/21 [History Last Taken Unknown] Allergy/AdvReac Type Severity Reaction Status Date / Time No Known Allergies Allergy Verified 06/20/21 09:33 Family History Sister Alcoholism Liver failure Brain malignancy Father CVA (cerebral vascular accident) Surgical History History of appendectomy History of hernia surgery Social History Smoking Status: Former smoker Tobacco: How many years used: 60 second hand exposure: Yes alcohol intake: current alcohol intake frequency: 0-2 drinks per day Alcohol type: beer substance use type: does not use caffeine: Yes Type: coffee Number of servings: 3 what type of physical activity do you participate in: weight training frequency: 3-4 times per week ROS ROS ED Constitutional Constitutional ED: Denies chills, fever(s) or subjective Eyes Eyes: Denies blurry vision or diplopia ENT ENT ED: Reports other Details: Epistaxis Respiratory/Chest Respiratory/Chest: Reports dyspnea and dyspnea on exertion Gastrointestinal Gastrointestinal: Denies abdominal pain or nausea Genitourinary Genitourinary ED: Denies dysuria or hematuria Musculoskeletal Musculoskeletal: Denies arthralgias or myalgias Integumentary Denies rash Neurologic Neurologic: Denies headache(s) or paresthesias EXAM Physical Exam Const Vital Signs: 06/20/21 09:34 06/20/21 09:47 Temperature 99.4 F H Temperature Source Temporal Pulse Rate 151 H 144 H Respiratory Rate 26 H 32 H Blood Pressure 123/66 H Blood Pressure Mean 85 Pulse Ox 63 99 Oxygen Delivery Method Bi-pap Oxygen Flow Rate (L/min) 15 Fraction of Inspired Oxygen (FIO2) 100 Positive obese Constitutional Narrative: Noted to be hypoxic on home BiPAP. He does not appear to be in any respiratory distress. General Appearance ED: NAD; Negative for pallor Nutritional Appearance: obese HEENT HEENT Narrative: Dried blood in the left nare. No active bleeding. No blood in oropharynx. Negative for trauma or tenderness Eyes Negative for PERRL or EOMs intact bilaterally Neck No no lymphadenopathy and No supple Resp Resp Narrative: Tachypneic. On BiPAP GI normal to inspection, nondistended, normoactive bowel sounds Neuro oriented x3 and CN's II-XII intact bilaterally Sensorium / Orientation: alert Psych mental status grossly normal Skin General Skin Exam: Negative for jaundice or pallor MDM MDM MDM Narrative Medical decision making narrative: Patient presenting with resolved epistaxis. On examination I do not see any active bleeding. He has no blood in the posterior oropharynx. There is nothing to cauterize and I am reluctant to pack this given that he is dependent on BiPAP. This was discussed with hospice. Patient also having low pulse ox readings with his BiPAP machine but when he switched to the hospital's BiPAP this appears to be effective enough to keep his saturations up. Since I do not know what is wrong with his machine a opted to have the patient stay inpatient so that he could use their BiPAP until they can figure out how to get him a new one for home. Patient will be transported to inpatient hospice. Impression: 1. Epistaxis resolved Discharge Plan Triage Chief Complaint: Nosebleed ED Provider: Girma Finnegan Dx/Rx/DC Orders Instructions: Nosebleed Prescriptions: No Action gabapentin 100 mg Capsule 300 mg PO DAILY RF: 0 albuterol sulfate 90 mcg/actuation HFA aerosol inhaler 2 puff INHALATION Q4H PRN PRN (Reason: Shortness Of Breath) RF: 0 atropine 1 % Drops 4 drp sublingual Q1H PRN PRN (Reason: Secretions) Qty: 2 RF: 0 lidocaine HCl [Lidocaine Viscous] 2 % Solution 5 ml PO 4X/DAY PRN (Reason: stomatitis) Qty: 100 RF: 0 Deep Sea Nasal 0.65 % Aerosol,[place] 2 spray NASAL TID PRN PRN (Reason: NASAL DRYNESS) Qty: 0 RF: 0 Biotene Dry Mouth Oral Rinse Mouthwash 15 ml mucous membrane Q1H PRN PRN (Reason: Dry Mouth) Qty: 0 RF: 0 morphine 10 mg/5 mL solution 5 mg PO Q4H PRN (Reason: dyspnea) 3 Days Qty: 45 RF: 0 prednisone 10 mg tablet 10 mg PO DAILY RF: 0 sennosides-docusate sodium [Senexon-S] 8.6-50 mg tablet 1 tab PO DAILY RF: 0 prochlorperazine maleate 10 mg Tablet 10 mg PO Q6H PRN (Reason: Nausea) RF: 0 hydroxychloroquine 200 mg tablet 200 mg PO DAILY RF: 0 Eliquis 5 mg Tablet 5 mg PO BID RF: 0 Primary Care Provider: Anayeli Marino Referrals: Anayeli Marino MD [Primary Care Provider] - Disposition Disposition: Home, Self Care
--- NOTE | 2021-06-20 10:36 | NURSING ---
HOSPICE, [facility],
--- NOTE | 2021-06-20 11:26 | NURSING ---
CALLED [facility], ETA IS 90 MIN
[2021-06-20 12:22] VITALS: BP 117/78
== END 2021-06-20 12:25 | disposition home or self-care (01) ==
PROVIDERS: Emergency Provider Student in an Organized Health Care Education/Training Program; PCP Family Medicine; Visit Provider Student in an Organized Health Care Education/Training Program
DX: R04.0 Epistaxis (principal); G47.30 Sleep apnea, unspecified; E66.9 Obesity, unspecified; Z87.891 Personal history of nicotine dependence
CPT/HCPCS: 30901; 94002; 99282